=== PATIENT | male | born 1955 | race Caucasian/White ===

== ENCOUNTER → 2016-06-29 | Outpatient (CLI) | payer MEDICARE ==
[~2016-06-29] MED LIST: ACET50TAOT PO; AMLO10TA2 PO; ASPI1TAB PO; ATEN50TA2 PO; DOXY100T PO; KEFL500C7 PO; NASA1SPR; OMEP20CA3 PO; ROSU10TA PO; VIBR100C PO; XANA0.5T PO
[2016-06-29 10:21] LABS: MEAN CORPUSCULAR HEMOGLOBIN 31.8 pg (27.0-33.0); MEAN CORPUSCULAR HGB CONC 34.8 g/dl (32.0-36.5); MEAN CORPUSCULAR VOLUME 91.4 fl (80.0-96.0); RED CELL DISTRIBUTION WIDTH 13.1 % (11.5-14.5); WHITE BLOOD COUNT 6.9 K/mm3 (4.0-10.0)
[2016-06-29 10:39] LABS: ALBUMIN 3.8 GM/DL (3.2-5.2); ALBUMIN/GLOBULIN RATIO 1.31 (1.00-1.93); ALKALINE PHOSPHATASE 93 U/L (45-117); ALT/SGPT 52 U/L (12-78); ANION GAP 7 MEQ/L (8-16); AST/SGOT 20 U/L (15-37); BILIRUBIN,TOTAL 0.8 MG/DL (0.2-1.0); BLOOD UREA NITROGEN 15 MG/DL (7-18); CALCIUM LEVEL 8.6 MG/DL (8.8-10.2); CARBON DIOXIDE LEVEL 29 MEQ/L (21-32); CHLORIDE LEVEL 110 MEQ/L (98-107); CHOLESTEROL LEVEL 149 MG/DL (<200); GLOMERULAR FILTRATION RATE > 60.0 (>49); GLUCOSE, FASTING 93 MG/DL (80-110); MAGNESIUM LEVEL 2.1 MG/DL (1.8-2.4); POTASSIUM SERUM 4.2 MEQ/L (3.5-5.1); SODIUM LEVEL 146 MEQ/L (136-145); TOTAL PROTEIN 6.7 GM/DL (6.4-8.2); TRIGLYCERIDES LEVEL 126 MG/DL (<150)
== END ==
LOC: M LAB 08:44
PROVIDERS: ATTEND Family Medicine
DX: D64.9 Anemia, unspecified (principal); E03.9 Hypothyroidism, unspecified; Z79.899 Other long term (current) drug therapy

== ENCOUNTER → 2016-07-14 | Outpatient (CLI) | payer MEDICARE ==
--- NOTE | 2016-07-15 15:16 | REP ---
Chest x-ray: Two views. Repeat dictation. History: Question lymphoma or mass. Comparison study March 08, 2016. Findings: The lungs are symmetrically aerated and no infiltrates seen. Cardiomediastinal silhouette is unremarkable and unchanged. No mass or adenopathy is seen. Pleural angles are sharp sharp. Heart size is normal. There are minimal degenerative changes in the thoracic spine. Impression: No active disease. Signed by Aftab Mccray MD 07/15/2016 03:07 P
== END ==
LOC: M WUC 18:54
PROVIDERS: ATTEND Family Medicine
DX: R91.8 Other nonspecific abnormal finding of lung field (principal)

== ENCOUNTER → 2016-07-15 | Outpatient (CLI) | payer MEDICARE ==
[2016-07-15 07:30] LABS: MEAN CORPUSCULAR HEMOGLOBIN 31.3 pg (27.0-33.0); MEAN CORPUSCULAR HGB CONC 34.6 g/dl (32.0-36.5); MEAN CORPUSCULAR VOLUME 90.7 fl (80.0-96.0); RED CELL DISTRIBUTION WIDTH 13.2 % (11.5-14.5)
[2016-07-17 00:07] LABS: Lyme Disease IgG/IgM Antibodie <0.91 ISR (0.00-0.90); Lyme Disease IgM Ab Quantitati <0.80 index (0.00-0.79)
== END ==
LOC: M LAB 06:08
PROVIDERS: ATTEND Family Medicine
DX: C61 Malignant neoplasm of prostate (principal); E29.1 Testicular hypofunction

== ENCOUNTER → 2016-07-20 | Outpatient (CLI) | payer MEDICARE ==
--- NOTE | 2016-07-20 13:54 | REP ---
RIGHT AXILLARY ULTRASOUND: HISTORY: Pain in the right axilla. The patient relates that the referring doctor felt a lump. FINDINGS: Scanning of the right axillary soft tissues demonstrates a single normal-sized lymph node measuring 0.6 x 1.1 x 0.6 cm. No cyst or mass is seen. No abnormal acoustic shadowing is observed. IMPRESSION: Unremarkable right axillary ultrasound. Signed by Aftab Mccray MD 07/20/2016 02:07 P
--- NOTE | 2016-07-20 14:55 | REP ---
TWO VIEW CHEST: Two views of the chest are performed and compared with the prior study of 07/14/2016. There is no acute infiltrate or pulmonary edema. There is no change since the prior study. The heart is normal in size. There is some tortuosity of the thoracic aorta. The mediastinal silhouette is unchanged. There are mild degenerative changes of the spine. IMPRESSION: No active pulmonary disease with no change since the prior study. Signed by Geoff Mullins MD 07/20/2016 07:58 P
== END ==
LOC: M RAD 12:23
PROVIDERS: ATTEND Family Medicine
DX: N63 Unspecified lump in breast (principal)

== ENCOUNTER → 2016-08-20 | Outpatient (CLI) | payer MEDICARE ==
[2016-08-20 10:02] LABS: ALBUMIN/GLOBULIN RATIO 1.25 (1.00-1.93); BILIRUBIN,DIRECT 0.3 MG/DL (0.0-0.2); BILIRUBIN,TOTAL 1.1 MG/DL (0.2-1.0); TOTAL PROTEIN 7.2 GM/DL (6.4-8.2)
== END ==
LOC: M LAB 08:24
PROVIDERS: ATTEND Internal Medicine Cardiovascular Disease
DX: E78.00 Pure hypercholesterolemia, unspecified (principal)

== ENCOUNTER → 2016-08-20 | Outpatient (CLI) | payer MEDICARE | LOC: M LAB 08:31 | PROVIDERS: ATTEND Family Medicine | DX: E29.1 Testicular hypofunction (principal); C61 Malignant neoplasm of prostate; Z79.899 Other long term (current) drug therapy ==

== ENCOUNTER 2016-08-21 15:29 | Emergency (ER) | payer MEDICARE ==
[2016-08-21] MEDS ORDERED: methylPREDNISolone INJ 125 MG/2 ML VIAL (J2930) As Ordered ONE (16:02)
[2016-08-21] MEDS ORDERED: ALBUTEROL SULFATE 2.5 MG/0.5 ML INH NEB SOLN As Ordered ONE (16:07)
[2016-08-21] MEDS ORDERED: IPRATROPIUM 0.02% SOLN 0.5MG/2.5 ML NEB As Ordered ONE (16:07)
[2016-08-21 16:12] LABS: BASO % 0.4 % (0.0-1.0); EOS # 0.2 K/mm3 (0.0-0.50); EOS % 2.3 % (0.0-3.0); LARGE UNSTAINED CELL # 0.2 K/mm3 (0.0-0.4); LARGE UNSTAINED CELL % 1.5 % (0.0-4.0); MEAN CORPUSCULAR HEMOGLOBIN 32.3 pg (27.0-33.0); MEAN CORPUSCULAR HGB CONC 35.1 g/dl (32.0-36.5); MONO # 0.7 K/mm3 (0.0-0.8); MONO % 7.2 % (0.0-5.0); NEUTROPHILS % 69.7 % (36.0-66.0); PLATELET COUNT, AUTOMATED 214 k/mm3 (150-450); RED CELL DISTRIBUTION WIDTH 13.2 % (11.5-14.5)
[2016-08-21 16:24] LABS: ABG BASE EXCESS -0.5 (-2.0-2.0); ABG DEVICE NASAL CANN; ABG HCO3 22.7 MEQ/L (22.0-26.0); ABG PARTIAL PRESSURE CO2 33.5 mmHg (35.0-45.0); ABG TOTAL CO2 23.7 MEQ/L (23.0-31.0); ABG pH (ARTERIAL) 7.448 UNITS (7.350-7.450)
[2016-08-21 16:40] LABS: ANION GAP 9 MEQ/L (8-16); BLOOD UREA NITROGEN 19 MG/DL (7-18); CALCIUM LEVEL 8.5 MG/DL (8.8-10.2); CARBON DIOXIDE LEVEL 26 MEQ/L (21-32); CHLORIDE LEVEL 111 MEQ/L (98-107); CREATININE FOR GFR 1.29 MG/DL (0.70-1.30); GLOMERULAR FILTRATION RATE 59.9 (>49); GLUCOSE, FASTING 107 MG/DL (80-110); POTASSIUM SERUM 3.7 MEQ/L (3.5-5.1); SODIUM LEVEL 146 MEQ/L (136-145)
[2016-08-21] MEDS ORDERED: ISOVUE-370 76% 100ML VIAL (Q9967) As Ordered ONE (16:46)
--- NOTE | 2016-08-21 17:36 | REP ---
Clinical: Acute chest pain and shortness of breath. Technique: Axial contrast enhanced images from the thoracic inlet to the upper abdomen using 100 ml Isovue 370 intravenous contrast material with coronal and sagittal re-formations. Findings: Satisfactory enhancement of the pulmonary vasculature is achieved and no filling defects are identified to suggest pulmonary embolus. Thoracic aorta is normal caliber without aneurysm or dissection. Mild cardiomegaly suggested. No pericardial effusion. No adenopathy. Bilateral lung pruitt demonstrate minimal posterior basilar dependent changes and trace left basilar atelectasis. No acute consolidation, pleural effusion/reaction or pneumothorax. No significant pulmonary nodule or mass lesion. Impression: No evidence for pulmonary embolus. Mild posterior basilar dependent changes and trace left basilar atelectasis. Signed by Mariano Lopez MD 08/21/2016 05:27 P
--- NOTE | 2016-08-21 18:01 | EDDOCDS ---
Physician Documentation [facility] Name: Stan Castanon Age: 61 yrs Sex: Male : 1955 Arrival Date: 08/21/2016 Time: 15:29 Bed 6 Private MD: Alfred Morales Disposition: 08/21/16 17:47 Discharged to Home/Self Care. Impression: Pleurisy, Other chest pain. - Condition is Stable. - Discharge Instructions: Pleurisy. - Prescriptions for Tramadol 50 mg Oral Tablet - take 1 tablet by ORAL route 4 times per day As needed MDD: 4 tabs; 20 tablet. - Medication Reconciliation, Local Pharmacy Hours form. - Follow up: Alfred Morales; When: 4 - 5 days; Reason: Recheck today's complaints, Continuance of care. - Problem is an ongoing problem. - Symptoms are unchanged. Historical: - Allergies: Benadryl (Palpitations); Lisinopril (cough); - Home Meds: 1. aspirin 81 mg Oral chew 1 tab once daily 2. atenolol 50 mg Oral tab 1 tab once daily 3. amlodipine 10 mg Oral tab 1 tab once daily 4. Xanax 0.5 mg Oral tab four times a day as needed 5. penicillin V potassium 500 mg Oral tab four times a day 6. clopidogrel 75 mg oral tab 1 tab once daily 7. Vitamin D3 5,000 unit oral tab daily 8. Arnuity Ellipta 100 mcg/actuation inhalation dsdv 1 puff once daily 9. Crestor 5 mg Oral tab 1 tab once daily - PMHx: Anxiety; GERD; Hypercholesterolemia; Hypertension; OR; - PSHx: C5-C6 fusion; prostate seed implants; 3 cardiac stents; ortho knee surgery; - Social history: Smoking status: Patient states was never smoker of tobacco. No barriers to communication noted, The patient speaks fluent Israeli, Speaks appropriately for age. - Family history: Not pertinent. - : The pt / caregiver states he / she is on anticoagulants: Plavix. Home medication list is obtained from the patient. - Exposure Risk Screening:: None identified. Vital Signs: 08/21 15:31 BP 166 / 96; Pulse 82; Resp 17; Temp 97.6(O); Pulse Ox 97% on R/A; Weight 92.53 kg / lr2 203.99 lbs (R); Height 6 ft. 0 in. (182.88 cm) (R); Pain 5/10; 15:48 BP 147 / 88 (auto/); pml 15:50 Pulse 76 MON; Pulse Ox 97% ; pml 16:03 BP 144 / 85 (auto/); pml 16:04 Pulse 76 MON; Pulse Ox 96% ; pml 16:18 BP 140 / 82 (auto/); pml 16:19 Pulse 78 MON; Pulse Ox 97% ; pml 16:33 BP 126 / 79 (auto/); pml 16:34 Pulse 88 MON; Pulse Ox 95% ; pml 16:48 BP 141 / 82 (auto/); pml 16:49 Pulse 90 MON; Pulse Ox 96% ; pml 17:03 BP 123 / 74 (auto/); jjr 17:03 Pulse 88 MON; Pulse Ox 95% ; jjr 17:18 BP 130 / 69 (auto/); jjr 17:18 Pulse 88 MON; Resp 18; Pulse Ox 96% on R/A; jjr 17:48 BP 140 / 78 (auto/); ttb 17:48 Pulse 86 MON; Resp 18; Temp 97.4(O); Pulse Ox 95% on R/A; Pain 4/10; ttb 15:31 Body Mass Index 27.67 (92.53 kg, 182.88 cm) lr2 MDM: 15:51 Solu-MEDROL 125 mg IVP once ordered. ke 15:51 -Blood Culture (Adults Only), peripheral from different site, or from device/port/PICC ke etc. if present ordered. 15:51 Warning Coordination Meteorologist/Pulse Ox/q 15 min VS ordered. ke 15:51 IV Saline Lock ordered. ke 15:51 Oxygen at 4L/Min NC or Home dosage ordered. ke 15:51 Rhythm Strip to chart ordered. ke 15:51 Albuterol 5 mg Nebulizer once ordered. ke 15:51 Atrovent - Ipratropium 500 mcg Nebulizer once ordered. ke 15:51 Call Respiratory ordered. ke 15:51 -Arterial Blood Gas Ordered. EDMS 15:52 -Blood Culture Ordered. EDMS 15:52 B-Type Natiuretic Peptide Ordered. EDMS 15:52 Basic Metabolic Profile Ordered. EDMS 15:52 CBC with Diff Ordered. EDMS 15:52 Cardiac Injury Profile Ordered. EDMS 15:52 Troponin Ordered. EDMS 15:52 ECG WITH READING ER PHYS+CARDIAG ordered. EDMS 15:52 CT Chest Angio R/O PE Ordered. EDMS 16:00 Call Respiratory complete. deg 16:00 -Blood Culture (Adults Only), peripheral from different site, or from device/port/PICC deg etc. if present complete. 16:02 BLOOD CULTURES Ordered. EDMS 16:16 Financial registration complete. [email or web address] 16:18 [facility] Payment Agreement was scanned into [employer] and attached to record. ks16 17:39 -Arterial Blood Gas Reviewed. ke 17:39 Basic Metabolic Profile Reviewed. ke 17:39 CBC with Diff Reviewed. ke 17:39 B-Type Natiuretic Peptide Reviewed. ke 17:39 Cardiac Injury Profile Reviewed. ke 17:39 Troponin Reviewed. ke Administered Medications: 16:05 Drug: Solu-MEDROL 125 mg [Solu-Medrol 500 mg intravenous solution (125 mg)] Route: IVP; jjr Site: right antecubital; 16:21 Drug: Albuterol 5 mg [albuterol sulfate 2.5 mg/0.5 mL solution for nebulization (1 mL)] cs15 Route: Nebulizer; 16:21 Drug: Atrovent - Ipratropium 500 mcg [ipratropium bromide 0.02 % solution for cs15 inhalation (2.5 mL)] Route: Nebulizer; Signatures: Dispatcher [employer] EDLuna Bhakta, Grades 9 Thru 12 Visiting Teacher Unit deg Prasanna Menjivar, GOLF PROFESSIONAL GOLF PROFESSIONAL Prabhakar Stephens RN RN mlb1 Seema Oshea RN RN jjFelicia Fang RN RN pml Conner, Teresa, RN RN ttb Alma Delia Jaquez, Reg Reg ks16 Mamadou Anaya RT cs15 The chart was reviewed and I authenticate all verbal orders and agree with the evaluation and treatment provided.Attachments: 16:18 [facility] Payment Agreement [email or web address] MTDD
--- NOTE | 2016-08-21 18:02 | EDDOCDS ---
Nurse's Notes [facility] Name: Stan Castanon Age: 61 yrs Sex: Male : 1955 Arrival Date: 08/21/2016 Time: 15:29 Bed 6 Private MD: Alfred Morales Diagnosis: Pleurisy;Other chest pain Presentation: 08/21 15:33 Presenting complaint: Patient states: Cough over the past month bilateral axilla pain mlb1 over the past three weeks worsening SOB. Adult Sepsis Screening: The patient does not have new or worsening altered mentation. Patient's respiratory rate is less than 22. Systolic blood pressure is greater than 100. Patient has a qSOFA score of 0- Negative Sepsis Screen. Suicide/Homicide risk assessment- the patient denies having any suicidal and/or homicidal ideations and does not present with any other emotional, behavioral or mental health complaints. Status: Patient is not a direct service provider or dependent. Transition of care: patient was not received from another setting of care. 15:33 Acuity: BLUE Level 3 mlb1 15:33 Method Of Arrival: Walkin/Carried/Asstd mlb1 Triage Assessment: 15:39 General: Appears in no apparent distress, Behavior is anxious. Pain: Location: right mlb1 axilla left axilla Pain currently is 5 out of 10 on a pain scale. HIV screening NA for this visit Offered previously. Respiratory: Airway is patent Respiratory effort is even, unlabored, Reports cough that is non-productive, persistent. Historical: - Allergies: Benadryl (Palpitations); Lisinopril (cough); - Home Meds: 1. aspirin 81 mg Oral chew 1 tab once daily 2. atenolol 50 mg Oral tab 1 tab once daily 3. amlodipine 10 mg Oral tab 1 tab once daily 4. Xanax 0.5 mg Oral tab four times a day as needed 5. penicillin V potassium 500 mg Oral tab four times a day 6. clopidogrel 75 mg oral tab 1 tab once daily 7. Vitamin D3 5,000 unit oral tab daily 8. Arnuity Ellipta 100 mcg/actuation inhalation dsdv 1 puff once daily 9. Crestor 5 mg Oral tab 1 tab once daily - PMHx: Anxiety; GERD; Hypercholesterolemia; Hypertension; ND; - PSHx: C5-C6 fusion; prostate seed implants; 3 cardiac stents; ortho knee surgery; - Social history: Smoking status: Patient states was never smoker of tobacco. No barriers to communication noted, The patient speaks fluent Ethiopian, Speaks appropriately for age. - Family history: Not pertinent. - : The pt / caregiver states he / she is on anticoagulants: Plavix. Home medication list is obtained from the patient. - Exposure Risk Screening:: None identified. Screenin:44 Infection Control. kc3 15:50 Screening information is obtained from the patient. Fall risk: No risks identified. pml Assistance ADL's: requires no assistance with activities of daily living. Abuse/DV Screen: The patient / caregiver reports he/she is: not in a situation that causes fear, pain or injury. Nutritional screening: No deficits noted. Advance Directives: Currently, there is no health care proxy. home support is adequate. Assessment: 15:50 General: Appears in no apparent distress, comfortable, Behavior is appropriate for age, pml cooperative. Pain: Location: right axilla and left axilla Pain currently is 5 out of 10 on a pain scale. Neurological: Level of Consciousness is awake, alert, Oriented to person, place, time. Cardiovascular: Capillary refill < 3 seconds. Respiratory: Airway is patent Respiratory effort is even, unlabored, Breath sounds are clear bilaterally. GI: Abdomen is non- distended. Derm: Skin is pink, warm & dry. 16:53 General: resting on stretcher, no apparent distress. resps easy and unlabored, skin pml p/w/d. sinus rhythm on monitor. . 17:58 Reassessment: Patient appears in no apparent distress at this time. Patient states ttb feeling better. Patient states symptoms have improved. pt states he is ready for DC and feels comfortable going home. . Adult Sepsis Screening: The patient does not have new or worsening altered mentation. Patient's respiratory rate is less than 22. Systolic blood pressure is greater than 100. Patient has a qSOFA score of 0- Negative Sepsis Screen. General: Appears in no apparent distress, comfortable, Behavior is appropriate for age, cooperative, pleasant. Pain: Location: right axilla. Neurological: Level of Consciousness is awake, alert. Cardiovascular: Chest pain is denied. Respiratory: Airway is patent Respiratory effort is even, unlabored, Reports cough that is persistent. GI: Denies nausea, vomiting. Derm: Skin is normal. Vital Signs: 15:31 BP 166 / 96; Pulse 82; Resp 17; Temp 97.6(O); Pulse Ox 97% on R/A; Weight 92.53 kg (R); lr2 Height 6 ft. 0 in. (182.88 cm) (R); Pain 5/10; 15:48 BP 147 / 88 (auto/); pml 15:50 Pulse 76 MON; Pulse Ox 97% ; pml 16:03 BP 144 / 85 (auto/); pml 16:04 Pulse 76 MON; Pulse Ox 96% ; pml 16:18 BP 140 / 82 (auto/); pml 16:19 Pulse 78 MON; Pulse Ox 97% ; pml 16:33 BP 126 / 79 (auto/); pml 16:34 Pulse 88 MON; Pulse Ox 95% ; pml 16:48 BP 141 / 82 (auto/); pml 16:49 Pulse 90 MON; Pulse Ox 96% ; pml 17:03 BP 123 / 74 (auto/); jjr 17:03 Pulse 88 MON; Pulse Ox 95% ; jjr 17:18 BP 130 / 69 (auto/); jjr 17:18 Pulse 88 MON; Resp 18; Pulse Ox 96% on R/A; jjr 17:48 BP 140 / 78 (auto/); ttb 17:48 Pulse 86 MON; Resp 18; Temp 97.4(O); Pulse Ox 95% on R/A; Pain 4/10; ttb 15:31 Body Mass Index 27.67 (92.53 kg, 182.88 cm) lr2 Vitals: 15:31 Log In Time: August 21, 2016 at 15:29. lr2 ED Course: 15:31 Patient visited by Francine Dunlap. lr2 15:31 Patient moved to Waiting lr2 15:32 Alfred Morales is Private Physician. lr2 15:32 Patient moved to Pre RCE lr2 15:33 Patient visited by Prabhakar Millard, BIA. mlb1 15:35 Triage Initiated mlb1 15:40 Patient visited by Prabhakar Millard, BIA. mlb1 15:40 Patient moved to Triage 1 mlb1 15:43 [facility] ke 15:43 Patient visited by Prasanna Menjivar FNP. ke 15:43 Patient visited by Prasanna Menjivar FNP. ke 15:43 Patient moved to 6 [facility] 15:48 Inserted peripheral IV: 18gauge IV in right antecubital area and blood collected. pml Patient tolerated the procedure well. 15:50 The patient / caregiver is instructed regarding the plan of care and ED course. Patient pml has correct armband on for positive identification. Placed in gown. Bed in low position. Call light in reach. Side rails up X2. 15:52 Patient visited by Felicia Diaz RN. pml 16:00 EKG done. (by ED staff). Reviewed by Prasanna SHAH. jrd 16:18 [facility] [place] [place] Payment Agreement was scanned into [employer] and attached to record. ks16 16:21 -Arterial Blood Gas Sent. cs15 16:27 Patient visited by Prasanna Menjivar FNP. ke 16:58 Patient visited by Prasanna Menjivar FNP. ke 17:28 Patient visited by Prasanna Menjivar FNP. ke 17:46 Alfred Morales is Referral Physician. ke 17:48 Discontinued IV lock intact, bleeding controlled, pressure dressing applied, No ttb redness/swelling at site. No procedures done that require assistance. 17:57 CT Chest Angio R/O PE Returned. EDMS Administered Medications: 16:05 Drug: Solu-MEDROL 125 mg [Solu-Medrol 500 mg intravenous solution (125 mg)] Route: IVP; jjr Site: right antecubital; 16:21 Drug: Albuterol 5 mg [albuterol sulfate 2.5 mg/0.5 mL solution for nebulization (1 mL)] cs15 Route: Nebulizer; 16:21 Drug: Atrovent - Ipratropium 500 mcg [ipratropium bromide 0.02 % solution for cs15 inhalation (2.5 mL)] Route: Nebulizer; RT: 16:21 ABG's drawn from left radial artery allens test done and positive pressure held for 5 cs15 minutes no bleeding noted pressure bandage applied specimen sent pt. tolerated well. Initial Med Neb Given as ordered. Oxygen is room air. Respiratory: Respiratory effort is unlabored, Respiratory pattern is regular Breath sounds are clear Breath sounds are diminished bilaterally. Order Results: Lab Order: -Arterial Blood Gas; SPEC'M 08/21/16 16:19 Test: ABG pH (ARTERIAL); Value: 7.448; Range: 7.350-7.450; Units: UNITS; Status: F Test: ABG PARTIAL PRESSURE CO2; Value: 33.5; Range: 35.0-45.0; Abnormal: Below low normal; Units: mmHg; Status: F Test: ABG PARTIAL PRESSURE O2; Value: 76.0; Range: 75.0-100.0; Units: mmHg; Status: F Test: ABG TOTAL CO2; Value: 23.7; Range: 23.0-31.0; Units: MEQ/L; Status: F Test: ABG HCO3; Value: 22.7; Range: 22.0-26.0; Units: MEQ/L; Status: F Test: ABG BASE EXCESS; Value: -0.5; Range: -2.0-2.0; Status: F Test: ABG STANDARD HCO3; Value: 24.0; Range: 22.0-26.0; Units: MEQ/L; Status: F Test: ABG O2 SATURATION; Value: 95.7; Range: 95.0-99.0; Units: %; Status: F Test: ABG DEVICE; Value: NASAL JYOTI; Status: F Lab Order: B-Type Natiuretic Peptide; [facility] 08/21/16 16:04 Test: BRAIN NATRIURETIC PEPTIDE; Value: 21.9; Range: <100; Units: PG/ML; Status: F Lab Order: Basic Metabolic Profile; [facility] 08/21/16 16:04 Test: GLUCOSE, FASTING; Value: 107; Range: 80-110; Units: MG/DL; Status: F Test: BLOOD UREA NITROGEN; Value: 19; Range: 7-18; Abnormal: Above high normal; Units: MG/DL; Status: F Test: CREATININE FOR GFR; Value: 1.29; Range: 0.70-1.30; Units: MG/DL; Status: F Test: GLOMERULAR FILTRATION RATE; Value: 59.9; Range: >49; Status: F Test: SODIUM LEVEL; Value: 146; Range: 136-145; Abnormal: Above high normal; Units: MEQ/L; Status: F Test: POTASSIUM SERUM; Value: 3.7; Range: 3.5-5.1; Units: MEQ/L; Status: F Test: CHLORIDE LEVEL; Value: 111; Range: 98-107; Abnormal: Above high normal; Units: MEQ/L; Status: F Test: CARBON DIOXIDE LEVEL; Value: 26; Range: 21-32; Units: MEQ/L; Status: F Test: ANION GAP; Value: 9; Range: 8-16; Units: MEQ/L; Status: F Test: CALCIUM LEVEL; Value: 8.5; Range: 8.8-10.2; Abnormal: Below low normal; Units: MG/DL; Status: F Test Note: ; Units are mL/min/1.73 m2 Chronic Kidney Disease Staging per NKF: Stage I & II GFR >=60 Normal to Mildly Decreased Stage III GFR 30-59 Moderately Decreased Stage IV GFR 15-29 Severely Decreased Stage V GFR <15 Very Little GFR Left ESRD GFR <15 on [employer]PORATE AFFAIRS MANAGER Lab Order: CBC with Diff; SPEC'M 08/21/16 16:04 Test: WHITE BLOOD COUNT; Value: 10.0; Range: 4.0-10.0; Units: K/mm3; Status: F Test: RED BLOOD COUNT; Value: 5.08; Range: 4.30-6.10; Units: M/mm3; Status: F Test: HEMOGLOBIN; Value: 16.4; Range: 14.0-18.0; Units: g/dl; Status: F Test: HEMATOCRIT; Value: 46.8; Range: 42.0-52.0; Units: %; Status: F Test: MEAN CORPUSCULAR VOLUME; Value: 92.0; Range: 80.0-96.0; Units: fl; Status: F Test: MEAN CORPUSCULAR HEMOGLOBIN; Value: 32.3; Range: 27.0-33.0; Units: pg; Status: F Test: MEAN CORPUSCULAR HGB CONC; Value: 35.1; Range: 32.0-36.5; Units: g/dl; Status: F Test: RED CELL DISTRIBUTION WIDTH; Value: 13.2; Range: 11.5-14.5; Units: %; Status: F Test: PLATELET COUNT, AUTOMATED; Value: 214; Range: 150-450; Units: k/mm3; Status: F Test: NEUTROPHILS %; Value: 69.7; Range: 36.0-66.0; Abnormal: Above high normal; Units: %; Status: F Test: LYMPH %; Value: 19.0; Range: 24.0-44.0; Abnormal: Below low normal; Units: %; Status: F Test: MONO %; Value: 7.2; Range: 0.0-5.0; Abnormal: Above high normal; Units: %; Status: F Test: EOS %; Value: 2.3; Range: 0.0-3.0; Units: %; Status: F Test: BASO %; Value: 0.4; Range: 0.0-1.0; Units: %; Status: F Test: LARGE UNSTAINED CELL %; Value: 1.5; Range: 0.0-4.0; Units: %; Status: F Test: NEUTROPHILS #; Value: 7.0; Range: 1.8-7.7; Units: K/mm3; Status: F Test: LYMPH #; Value: 2.0; Range: 1.5-4.5; Units: K/mm3; Status: F Test: MONO #; Value: 0.7; Range: 0.0-0.8; Units: K/mm3; Status: F Test: EOS #; Value: 0.2; Range: 0.0-0.50; Units: K/mm3; Status: F Test: BASO #; Value: 0.0; Range: 0.0-0.2; Units: K/mm3; Status: F Test: LARGE UNSTAINED CELL #; Value: 0.2; Range: 0.0-0.4; Units: K/mm3; Status: F Lab Order: Cardiac Injury Profile; SPEC'M 08/21/16 16:04 Test: CPK CREATINE PHOSPHOKINASE; Value: 165; Range: 39-308; Units: U/L; Status: F Test: CK-MB VALUE MASS; Value: 1.3; Range: 0.0-3.6; Units: NG/ML; Status: F Test: MB/CK RELATIVE INDEX; Value: 0.78; Range: < OR =4; Status: F Test Note: ; DIAGNOSIS CRITERIA MMB ng/ml Relative Index (RI) NON-AMI < or = 5 N/A [place]ONE > 5 < or = 4 AMI > 5 > 4 Lab Order: Troponin; SPEC'M 08/21/16 16:04 Test: TROPONIN I; Value: < 0.02; Range: < 0.10; Units: NG/ML; Status: F Test Note: ; Troponin I Reference Interval for Siemens Dexter LOCI: 99th Percentile= 0.00-0.045 ng/ml Risk Stratification: <= 0.10 ng/ml Decreased Risk for Adverse Clinical Events. 0.10-1.50 ng/ml Increased Risk for Adverse Clinical Events. Evaluation of additional criterion and/or repeat testing in 2-6 hours is suggested to rule out myocardial damage. >= 1.50 ng/ml Indicative of Myocardial Injury. Radiology Order: CT Chest Angio R/O PE Test: CT Chest Angio R/O PE REASON FOR EXAMINATION: Shortness of Breath; Clinical: Acute chest pain and shortness of breath.; ; Technique: Axial contrast enhanced images from the thoracic inlet to the upper; abdomen using 100 ml Isovue 370 intravenous contrast material with coronal and; sagittal re-formations.; ; Findings: Satisfactory enhancement of the pulmonary vasculature is achieved and; no filling defects are identified to suggest pulmonary embolus. Thoracic aorta; is normal caliber without aneurysm or dissection. Mild cardiomegaly suggested.; No pericardial effusion. No adenopathy. Bilateral lung pruitt demonstrate; minimal posterior basilar dependent changes and trace left basilar atelectasis.; No acute consolidation, pleural effusion/reaction or pneumothorax. No; significant pulmonary nodule or mass lesion.; ; Impression:; No evidence for pulmonary embolus.; Mild posterior basilar dependent changes and trace left basilar atelectasis.; ; ; Signed by; Mariano Lopez MD 08/21/2016 05:27 P; Outcome: 17:47 Discharge ordered by Provider. 17:48 Discharge Assessment: Patient awake, alert and oriented x 3. No cognitive and/or ttb functional deficits noted. Patient verbalized understanding of disposition instructions. Patient awake and alert. patient administered narcotics - no. The following High Risk Discharge criteria are identified: None. Discharged to home ambulatory, with significant other. Condition: good Condition: stable Condition: improved. Discharge instructions given to patient, significant other, Instructed on discharge instructions, follow up and referral plans. medication usage, no driving heavy equipment, no drinking with medication, Demonstrated understanding of instructions, medications, no d/d with Tramadol Pt was receptive of discharge instructions/ teaching. Prescriptions given X 1. CT Study completed. Property :Personal belongings accompany Pt. 18:01 Patient left the ED. ttb Signatures: Dispatcher [employer] EDPrasanna Eaton, CAR ICER CAR ICER Prabhakar Stephens RN RN mlb1 Seema Oshea, RN RN jjFelicia Fang,RN RN Jackelin Allen Teresa RN RN ttb Tin Bhandari, CERTIFIED MEDICAL ASSISTANT CERTIFIED MEDICAL ASSISTANT Sia Moore,RN RN kc3 Mamadou Anaya,RT RT cs15 Alma Delia Jaquez, Reg Reg ks16 Francine Dunlap2 MTDD
--- NOTE | 2016-08-21 18:11 | ECGEPIP ---
Stationary ECG Study [facility] - ED Test Date: 2016-08-21 Pat Name: DIDI VILLA Department: Room: - Gender: M Cage Unloader: marilyn : 1955 Requested By: SHAISTA SHAH Order Number: [id number] Reading MD: Barry Chaudhry Measurements Intervals [place] Rate: 76 P: 35 TN: 172 QRS: -35 QRSD: 126 T: 33 QT: 397 QTc: 446 Interpretive Statements SINUS RHYTHM LEFT AXIS DEVIATION POSSIBLE PRIOR INFERIOR INFARCT Electronically Signed On 08-21-2016 18:11:29 EST by Barry Chaudhry
--- NOTE | 2016-08-23 19:01 | EDDOCDS ---
Nurse's Notes [facility] Name: Didi Castanon Age: 61 yrs Sex: Male : 1955 Arrival Date: 08/21/2016 Time: 15:29 Bed 6 Private MD: Alfred Morales Diagnosis: Pleurisy;Other chest pain Presentation: 08/21 15:33 Presenting complaint: Patient states: Cough over the past month bilateral axilla pain mlb1 over the past three weeks worsening SOB. Adult Sepsis Screening: The patient does not have new or worsening altered mentation. Patient's respiratory rate is less than 22. Systolic blood pressure is greater than 100. Patient has a qSOFA score of 0- Negative Sepsis Screen. Suicide/Homicide risk assessment- the patient denies having any suicidal and/or homicidal ideations and does not present with any other emotional, behavioral or mental health complaints. 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 Transition of care: patient was not received from another setting of care. 15:33 Acuity: BLUE Level 3 mlb1 15:33 Method Of Arrival: Walkin/Carried/Asstd mlb1 Triage Assessment: 15:39 General: Appears in no apparent distress, Behavior is anxious. Pain: Location: right mlb1 axilla left axilla Pain currently is 5 out of 10 on a pain scale. HIV screening NA for this visit Offered previously. Respiratory: Airway is patent Respiratory effort is even, unlabored, Reports cough that is non-productive, persistent. Historical: - Allergies: Benadryl (Palpitations); Lisinopril (cough); - Home Meds: 1. aspirin 81 mg Oral chew 1 tab once daily 2. atenolol 50 mg Oral tab 1 tab once daily 3. amlodipine 10 mg Oral tab 1 tab once daily 4. Xanax 0.5 mg Oral tab four times a day as needed 5. penicillin V potassium 500 mg Oral tab four times a day 6. clopidogrel 75 mg oral tab 1 tab once daily 7. Vitamin D3 5,000 unit oral tab daily 8. Arnuity Ellipta 100 mcg/actuation inhalation dsdv 1 puff once daily 9. Crestor 5 mg Oral tab 1 tab once daily - PMHx: Anxiety; GERD; Hypercholesterolemia; Hypertension; [place]; - PSHx: C5-C6 fusion; prostate seed implants; 3 cardiac stents; ortho knee surgery; - Social history: Smoking status: Patient states was never smoker of tobacco. No barriers to communication noted, The patient speaks fluent Colombian, Speaks appropriately for age. - Family history: Not pertinent. - : The pt / caregiver states he / she is on anticoagulants: Plavix. Home medication list is obtained from the patient. - Exposure Risk Screening:: None identified. Screenin:44 Infection Control. kc3 15:50 Screening information is obtained from the patient. Fall risk: No risks identified. pml Assistance ADL's: requires no assistance with activities of daily living. Abuse/DV Screen: The patient / caregiver reports he/she is: not in a situation that causes fear, pain or injury. Nutritional screening: No deficits noted. Advance Directives: Currently, there is no health care proxy. home support is adequate. Assessment: 15:50 General: Appears in no apparent distress, comfortable, Behavior is appropriate for age, pml cooperative. Pain: Location: right axilla and left axilla Pain currently is 5 out of 10 on a pain scale. Neurological: Level of Consciousness is awake, alert, Oriented to person, place, time. Cardiovascular: Capillary refill < 3 seconds. Respiratory: Airway is patent Respiratory effort is even, unlabored, Breath sounds are clear bilaterally. GI: Abdomen is non- distended. Derm: Skin is pink, warm & dry. 16:53 General: resting on stretcher, no apparent distress. resps easy and unlabored, skin pml p/w/d. sinus rhythm on monitor. . 17:58 Reassessment: Patient appears in no apparent distress at this time. Patient states ttb feeling better. Patient states symptoms have improved. pt states he is ready for DC and feels comfortable going home. . Adult Sepsis Screening: The patient does not have new or worsening altered mentation. Patient's respiratory rate is less than 22. Systolic blood pressure is greater than 100. Patient has a qSOFA score of 0- Negative Sepsis Screen. General: Appears in no apparent distress, comfortable, Behavior is appropriate for age, cooperative, pleasant. Pain: Location: right axilla. Neurological: Level of Consciousness is awake, alert. Cardiovascular: Chest pain is denied. Respiratory: Airway is patent Respiratory effort is even, unlabored, Reports cough that is persistent. GI: Denies nausea, vomiting. Derm: Skin is normal. Vital Signs: 15:31 BP 166 / 96; Pulse 82; Resp 17; Temp 97.6(O); Pulse Ox 97% on R/A; Weight 92.53 kg (R); lr2 Height 6 ft. 0 in. (182.88 cm) (R); Pain 5/10; 15:48 BP 147 / 88 (auto/); pml 15:50 Pulse 76 MON; Pulse Ox 97% ; pml 16:03 BP 144 / 85 (auto/); pml 16:04 Pulse 76 MON; Pulse Ox 96% ; pml 16:18 BP 140 / 82 (auto/); pml 16:19 Pulse 78 MON; Pulse Ox 97% ; pml 16:33 BP 126 / 79 (auto/); pml 16:34 Pulse 88 MON; Pulse Ox 95% ; pml 16:48 BP 141 / 82 (auto/); pml 16:49 Pulse 90 MON; Pulse Ox 96% ; pml 17:03 BP 123 / 74 (auto/); jjr 17:03 Pulse 88 MON; Pulse Ox 95% ; jjr 17:18 BP 130 / 69 (auto/); jjr 17:18 Pulse 88 MON; Resp 18; Pulse Ox 96% on R/A; jjr 17:48 BP 140 / 78 (auto/); ttb 17:48 Pulse 86 MON; Resp 18; Temp 97.4(O); Pulse Ox 95% on R/A; Pain 4/10; ttb 15:31 Body Mass Index 27.67 (92.53 kg, 182.88 cm) lr2 Vitals: 15:31 Log In Time: August 21, 2016 at 15:29. lr2 ED Course: 15:31 Patient visited by Francine Dunlap. lr2 15:31 Patient moved to Waiting lr2 15:32 Alfred Morales is Private Physician. lr2 15:32 Patient moved to Pre RCE lr2 15:33 Patient visited by Prabhakar Millard, BIA. mlb1 15:35 Triage Initiated mlb1 15:40 Patient visited by Prabhakar Millard, BIA. mlb1 15:40 Patient moved to Triage 1 mlb1 15:43 Prasanna Menjivar FNP is [facility]. ke 15:43 Patient visited by Prasanna Menjivar FNP. ke 15:43 Patient visited by Prasanna Menjivar FNP. ke 15:43 Patient moved to [facility] [place] 15:48 Inserted peripheral IV: 18gauge IV in right antecubital area and blood collected. pml Patient tolerated the procedure well. 15:50 The patient / caregiver is instructed regarding the plan of care and ED course. Patient pml has correct armband on for positive identification. Placed in gown. Bed in low position. Call light in reach. Side rails up X2. 15:52 Patient visited by Felicia Diaz RN. pml 16:00 EKG done. (by ED staff). Reviewed by Prasanna SHAH. jrd 16:18 [facility] [place] was scanned into [employer] and attached to record. ks16 16:21 -Arterial Blood Gas Sent. cs15 16:27 Patient visited by Prasanna Menjivar FNP. ke 16:58 Patient visited by Prasanna Menjivar FNP. ke 17:28 Patient visited by Prasanna Menjivar FNP. ke 17:46 Alfred Morales is Referral Physician. ke 17:48 Discontinued IV lock intact, bleeding controlled, pressure dressing applied, No ttb redness/swelling at site. No procedures done that require assistance. 17:57 CT Chest Angio R/O PE Returned. EDMS 18:38 EKG-ADULT Returned. EDMS 02 09:31 T-Sheet-- Draft Copy was scanned into [employer] and attached to record. se Administered Medications: 08/21 16:05 Drug: Solu-MEDROL 125 mg [Solu-Medrol 500 mg intravenous solution (125 mg)] Route: IVP; jjr Site: right antecubital; 16:21 Drug: Albuterol 5 mg [albuterol sulfate 2.5 mg/0.5 mL solution for nebulization (1 mL)] cs15 Route: Nebulizer; 16:21 Drug: Atrovent - Ipratropium 500 mcg [ipratropium bromide 0.02 % solution for cs15 inhalation (2.5 mL)] Route: Nebulizer; RT: 16:21 ABG's drawn from left radial artery allens test done and positive pressure held for 5 cs15 minutes no bleeding noted pressure bandage applied specimen sent pt. tolerated well. Initial Med Neb Given as ordered. Oxygen is room air. Respiratory: Respiratory effort is unlabored, Respiratory pattern is regular Breath sounds are clear Breath sounds are diminished bilaterally. Order Results: Lab Order: -Arterial Blood Gas; [facility] 08/21/16 16:19 Test: ABG pH (ARTERIAL); Value: 7.448; Range: 7.350-7.450; Units: UNITS; Status: F Test: ABG PARTIAL PRESSURE CO2; Value: 33.5; Range: 35.0-45.0; Abnormal: Below low normal; Units: mmHg; Status: F Test: ABG PARTIAL PRESSURE O2; Value: 76.0; Range: 75.0-100.0; Units: mmHg; Status: F Test: ABG TOTAL CO2; Value: 23.7; Range: 23.0-31.0; Units: MEQ/L; Status: F Test: ABG HCO3; Value: 22.7; Range: 22.0-26.0; Units: MEQ/L; Status: F Test: ABG BASE EXCESS; Value: -0.5; Range: -2.0-2.0; Status: F Test: ABG STANDARD HCO3; Value: 24.0; Range: 22.0-26.0; Units: MEQ/L; Status: F Test: ABG O2 SATURATION; Value: 95.7; Range: 95.0-99.0; Units: %; Status: F Test: ABG DEVICE; Value: NASAL JYOTI; Status: F Lab Order: -Blood Culture; SPEC 08/21/16 16:04 Test: BLOOD CULTURE; Value: No growth after 24 hours . All specimens observed; Status: F Test: BLOOD CULTURE; Value: for 5 days. Results final at that time.; Status: F Test: BLOOD CULTURE; Value: No Growth after 48 hours. All Specimens observed; Status: F Test: BLOOD CULTURE; Value: for 7 days. Results final at that time.; Status: F Lab Order: B-Type Natiuretic Peptide; [facility] 08/21/16 16:04 Test: BRAIN NATRIURETIC PEPTIDE; Value: 21.9; Range: <100; Units: PG/ML; Status: F Lab Order: Basic Metabolic Profile; [facility] 08/21/16 16:04 Test: GLUCOSE, FASTING; Value: 107; Range: 80-110; Units: MG/DL; Status: F Test: BLOOD UREA NITROGEN; Value: 19; Range: 7-18; Abnormal: Above high normal; Units: MG/DL; Status: F Test: CREATININE FOR GFR; Value: 1.29; Range: 0.70-1.30; Units: MG/DL; Status: F Test: GLOMERULAR FILTRATION RATE; Value: 59.9; Range: >49; Status: F Test: SODIUM LEVEL; Value: 146; Range: 136-145; Abnormal: Above high normal; Units: MEQ/L; Status: F Test: POTASSIUM SERUM; Value: 3.7; Range: 3.5-5.1; Units: MEQ/L; Status: F Test: CHLORIDE LEVEL; Value: 111; Range: 98-107; Abnormal: Above high normal; Units: MEQ/L; Status: F Test: CARBON DIOXIDE LEVEL; Value: 26; Range: 21-32; Units: MEQ/L; Status: F Test: ANION GAP; Value: 9; Range: 8-16; Units: MEQ/L; Status: F Test: CALCIUM LEVEL; Value: 8.5; Range: 8.8-10.2; Abnormal: Below low normal; Units: MG/DL; Status: F Test Note: ; Units are mL/min/1.73 m2 Chronic Kidney Disease Staging per NKF: Stage I & II GFR >=60 Normal to Mildly Decreased Stage III GFR 30-59 Moderately Decreased Stage IV GFR 15-29 Severely Decreased Stage V GFR <15 Very Little GFR Left ESRD GFR <15 on ASSEMBLY MACHINE TOOL SETTER Lab Order: CBC with Diff; SPEC'M 08/21/16 16:04 Test: WHITE BLOOD COUNT; Value: 10.0; Range: 4.0-10.0; Units: K/mm3; Status: F Test: RED BLOOD COUNT; Value: 5.08; Range: 4.30-6.10; Units: M/mm3; Status: F Test: HEMOGLOBIN; Value: 16.4; Range: 14.0-18.0; Units: g/dl; Status: F Test: HEMATOCRIT; Value: 46.8; Range: 42.0-52.0; Units: %; Status: F Test: MEAN CORPUSCULAR VOLUME; Value: 92.0; Range: 80.0-96.0; Units: fl; Status: F Test: MEAN CORPUSCULAR HEMOGLOBIN; Value: 32.3; Range: 27.0-33.0; Units: pg; Status: F Test: MEAN CORPUSCULAR HGB CONC; Value: 35.1; Range: 32.0-36.5; Units: g/dl; Status: F Test: RED CELL DISTRIBUTION WIDTH; Value: 13.2; Range: 11.5-14.5; Units: %; Status: F Test: PLATELET COUNT, AUTOMATED; Value: 214; Range: 150-450; Units: k/mm3; Status: F Test: NEUTROPHILS %; Value: 69.7; Range: 36.0-66.0; Abnormal: Above high normal; Units: %; Status: F Test: LYMPH %; Value: 19.0; Range: 24.0-44.0; Abnormal: Below low normal; Units: %; Status: F Test: MONO %; Value: 7.2; Range: 0.0-5.0; Abnormal: Above high normal; Units: %; Status: F Test: EOS %; Value: 2.3; Range: 0.0-3.0; Units: %; Status: F Test: BASO %; Value: 0.4; Range: 0.0-1.0; Units: %; Status: F Test: LARGE UNSTAINED CELL %; Value: 1.5; Range: 0.0-4.0; Units: %; Status: F Test: NEUTROPHILS #; Value: 7.0; Range: 1.8-7.7; Units: K/mm3; Status: F Test: LYMPH #; Value: 2.0; Range: 1.5-4.5; Units: K/mm3; Status: F Test: MONO #; Value: 0.7; Range: 0.0-0.8; Units: K/mm3; Status: F Test: EOS #; Value: 0.2; Range: 0.0-0.50; Units: K/mm3; Status: F Test: BASO #; Value: 0.0; Range: 0.0-0.2; Units: K/mm3; Status: F Test: LARGE UNSTAINED CELL #; Value: 0.2; Range: 0.0-0.4; Units: K/mm3; Status: F Lab Order: Cardiac Injury Profile; SPEC'M 08/21/16 16:04 Test: CPK CREATINE PHOSPHOKINASE; Value: 165; Range: 39-308; Units: U/L; Status: F Test: CK-MB VALUE MASS; Value: 1.3; Range: 0.0-3.6; Units: NG/ML; Status: F Test: MB/CK RELATIVE INDEX; Value: 0.78; Range: < OR =4; Status: F Test Note: ; DIAGNOSIS CRITERIA MMB ng/ml Relative Index (RI) NON-AMI < or = 5 N/A [place]ONE > 5 < or = 4 AMI > 5 > 4 Lab Order: Troponin; SPEC'M 08/21/16 16:04 Test: TROPONIN I; Value: < 0.02; Range: < 0.10; Units: NG/ML; Status: F Test Note: ; Troponin I Reference Interval for [place] LOCI: 99th Percentile= 0.00-0.045 ng/ml Risk Stratification: <= 0.10 ng/ml Decreased Risk for Adverse Clinical Events. 0.10-1.50 ng/ml Increased Risk for Adverse Clinical Events. Evaluation of additional criterion and/or repeat testing in 2-6 hours is suggested to rule out myocardial damage. >= 1.50 ng/ml Indicative of Myocardial Injury. Lab Order: BLOOD CULTURES; SPEC'M 08/21/16 16:04 Test: BLOOD CULTURE; Value: No growth after 24 hours . All specimens observed; Status: F Test: BLOOD CULTURE; Value: for 5 days. Results final at that time.; Status: F Test: BLOOD CULTURE; Value: No Growth after 48 hours. All Specimens observed; Status: F Test: BLOOD CULTURE; Value: for 7 days. Results final at that time.; Status: F Radiology Order: EKG-ADULT Test: EKG-ADULT REASON FOR EXAMINATION: Shortness of Breath; Stationary ECG Study; [facility] - ED; ; Test Date: 2016-08-21; Pat Name: DIDI CASTANON Department:; Room: -; Gender: M Production Manufacturing Worker: marilyn; : 1955 Requested By: PRASANNA SHAH; Order Number: [id number] Antonette MD: Barry Chaudhry; Measurements; Intervals [place]; Rate: 76 P: 35; NH: 172 QRS: -35; QRSD: 126 T: 33; QT: 397; QTc: 446; Interpretive Statements; SINUS RHYTHM; LEFT AXIS DEVIATION; POSSIBLE PRIOR INFERIOR INFARCT; Electronically Signed On 08-21-2016 18:11:29 EST by Barry Chaudhry; Radiology Order: CT Chest Angio R/O PE Test: CT Chest Angio R/O PE REASON FOR EXAMINATION: Shortness of Breath; Clinical: Acute chest pain and shortness of breath.; ; Technique: Axial contrast enhanced images from the thoracic inlet to the upper; abdomen using 100 ml Isovue 370 intravenous contrast material with coronal and; sagittal re-formations.; ; Findings: Satisfactory enhancement of the pulmonary vasculature is achieved and; no filling defects are identified to suggest pulmonary embolus. Thoracic aorta; is normal caliber without aneurysm or dissection. Mild cardiomegaly suggested.; No pericardial effusion. No adenopathy. Bilateral lung pruitt demonstrate; minimal posterior basilar dependent changes and trace left basilar atelectasis.; No acute consolidation, pleural effusion/reaction or pneumothorax. No; significant pulmonary nodule or mass lesion.; ; Impression:; No evidence for pulmonary embolus.; Mild posterior basilar dependent changes and trace left basilar atelectasis.; ; ; Signed by; Mariano Lopez MD 08/21/2016 05:27 P; Outcome: 17:47 Discharge ordered by Provider. maria dolores 17:48 Discharge Assessment: Patient awake, alert and oriented x 3. No cognitive and/or ttb functional deficits noted. Patient verbalized understanding of disposition instructions. Patient awake and alert. patient administered narcotics - no. The following High Risk Discharge criteria are identified: None. Discharged to home ambulatory, with significant other. Condition: good Condition: stable Condition: improved. Discharge instructions given to patient, significant other, Instructed on discharge instructions, follow up and referral plans. medication usage, no driving heavy equipment, no drinking with medication, Demonstrated understanding of instructions, medications, no d/d with Tramadol Pt was receptive of discharge instructions/ teaching. Prescriptions given X 1. CT Study completed. Property :Personal belongings accompany Pt. 18:01 Patient left the ED. ttb Signatures: Dispatcher [employer] EDMS Prasanna Menjivar, FINANCIAL SECRETARY FINANCIAL SECRETARY Prabhakar Stephens RN RN mlb1 Seema Oshea RN RN Felicia Easley,RN RN joellen Gonzalez, Jackeiln sew Seth, April, RN RN ttb Elisabet, Tin, ORAL HYGIENIST ORAL HYGIENIST jrd Sia Cooper,RN RN kc3 Héctor,Mamadou,RT RT cs15 Alma Delia Jaquez, Reg Reg ks16 Leona, Jackelin Dunlap, Francine levy2 Chart Complete MTDD
--- NOTE | 2016-08-23 19:01 | EDDOCDS ---
Physician Documentation [facility] Name: Stan Castanon Age: 61 yrs Sex: Male : 1955 Arrival Date: 08/21/2016 Time: 15:29 Bed 6 Private MD: Alfred Morales Disposition: 08/21/16 17:47 Discharged to Home/Self Care. Impression: Pleurisy, Other chest pain. - Condition is Stable. - Discharge Instructions: Pleurisy. - Prescriptions for Tramadol 50 mg Oral Tablet - take 1 tablet by ORAL route 4 times per day As needed MDD: 4 tabs; 20 tablet. - Medication Reconciliation, Local Pharmacy Hours form. - Follow up: Alfred Morales; When: 4 - 5 days; Reason: Recheck today's complaints, Continuance of care. - Problem is an ongoing problem. - Symptoms are unchanged. Historical: - Allergies: Benadryl (Palpitations); Lisinopril (cough); - Home Meds: 1. aspirin 81 mg Oral chew 1 tab once daily 2. atenolol 50 mg Oral tab 1 tab once daily 3. amlodipine 10 mg Oral tab 1 tab once daily 4. Xanax 0.5 mg Oral tab four times a day as needed 5. penicillin V potassium 500 mg Oral tab four times a day 6. clopidogrel 75 mg oral tab 1 tab once daily 7. Vitamin D3 5,000 unit oral tab daily 8. Arnuity Ellipta 100 mcg/actuation inhalation dsdv 1 puff once daily 9. Crestor 5 mg Oral tab 1 tab once daily - PMHx: Anxiety; GERD; Hypercholesterolemia; Hypertension; [place]; - PSHx: C5-C6 fusion; prostate seed implants; 3 cardiac stents; ortho knee surgery; - Social history: Smoking status: Patient states was never smoker of tobacco. No barriers to communication noted, The patient speaks fluent Gibraltarian, Speaks appropriately for age. - Family history: Not pertinent. - : The pt / caregiver states he / she is on anticoagulants: Plavix. Home medication list is obtained from the patient. - Exposure Risk Screening:: None identified. Vital Signs: 08/21 15:31 BP 166 / 96; Pulse 82; Resp 17; Temp 97.6(O); Pulse Ox 97% on R/A; Weight 92.53 kg / lr2 203.99 lbs (R); Height 6 ft. 0 in. (182.88 cm) (R); Pain 5/10; 15:48 BP 147 / 88 (auto/); pml 15:50 Pulse 76 MON; Pulse Ox 97% ; pml 16:03 BP 144 / 85 (auto/); pml 16:04 Pulse 76 MON; Pulse Ox 96% ; pml 16:18 BP 140 / 82 (auto/); pml 16:19 Pulse 78 MON; Pulse Ox 97% ; pml 16:33 BP 126 / 79 (auto/); pml 16:34 Pulse 88 MON; Pulse Ox 95% ; pml 16:48 BP 141 / 82 (auto/); pml 16:49 Pulse 90 MON; Pulse Ox 96% ; pml 17:03 BP 123 / 74 (auto/); jjr 17:03 Pulse 88 MON; Pulse Ox 95% ; jjr 17:18 BP 130 / 69 (auto/); jjr 17:18 Pulse 88 MON; Resp 18; Pulse Ox 96% on R/A; jjr 17:48 BP 140 / 78 (auto/); ttb 17:48 Pulse 86 MON; Resp 18; Temp 97.4(O); Pulse Ox 95% on R/A; Pain 4/10; ttb 15:31 Body Mass Index 27.67 (92.53 kg, 182.88 cm) lr2 MDM: 15:51 Solu-MEDROL 125 mg IVP once ordered. ke 15:51 -Blood Culture (Adults Only), peripheral from different site, or from device/port/PICC ke etc. if present ordered. 15:51 Lamp Inspector/Pulse Ox/q 15 min VS ordered. ke 15:51 IV Saline Lock ordered. ke 15:51 Oxygen at 4L/Min NC or Home dosage ordered. ke 15:51 Rhythm Strip to chart ordered. ke 15:51 Albuterol 5 mg Nebulizer once ordered. ke 15:51 Atrovent - Ipratropium 500 mcg Nebulizer once ordered. ke 15:51 Call Respiratory ordered. ke 15:51 -Arterial Blood Gas Ordered. EDMS 15:52 -Blood Culture Ordered. EDMS 15:52 B-Type Natiuretic Peptide Ordered. EDMS 15:52 Basic Metabolic Profile Ordered. EDMS 15:52 CBC with Diff Ordered. EDMS 15:52 Cardiac Injury Profile Ordered. EDMS 15:52 Troponin Ordered. EDMS 15:52 ECG WITH READING ER PHYS+CARDIAG ordered. EDMS 15:52 CT Chest Angio R/O PE Ordered. EDMS 16:00 Call Respiratory complete. deg 16:00 -Blood Culture (Adults Only), peripheral from different site, or from device/port/PICC deg etc. if present complete. 16:02 BLOOD CULTURES Ordered. EDMS 16:16 Financial registration complete. ks16 16:18 [facility] Payment Agreement was scanned into [employer] and attached to record. ks16 17:39 -Arterial Blood Gas Reviewed. ke 17:39 Basic Metabolic Profile Reviewed. ke 17:39 CBC with Diff Reviewed. ke 17:39 B-Type Natiuretic Peptide Reviewed. ke 17:39 Cardiac Injury Profile Reviewed. ke 17:39 Troponin Reviewed. 08/22 09:31 T-Sheet-- Draft Copy was scanned into [employer] and attached to record. se Administered Medications: 08/21 16:05 Drug: Solu-MEDROL 125 mg [Solu-Medrol 500 mg intravenous solution (125 mg)] Route: IVP; jjr Site: right antecubital; 16:21 Drug: Albuterol 5 mg [albuterol sulfate 2.5 mg/0.5 mL solution for nebulization (1 mL)] cs15 Route: Nebulizer; 16:21 Drug: Atrovent - Ipratropium 500 mcg [ipratropium bromide 0.02 % solution for cs15 inhalation (2.5 mL)] Route: Nebulizer; Signatures: Dispatcher [employer] EDMS Luna Rae, Physical Trainer Unit deg Prasanna Menjivar, OCC THERAPIST OCC THERAPIST Prabhakar Stephens RN RN mlb1 Seema Oshea RN RN jjr Felicia Diaz RN RN pml Conner, Teresa, RN RN ttb Sorenson, Kimberly, Reg Reg ks16 Jackelin Delgadillo Caleb RT cs15 The chart was reviewed and I authenticate all verbal orders and agree with the evaluation and treatment provided.Attachments: 16:18 [facility] Payment Agreement 08/22 09:31 T-Sheet-- Draft Copy [facility] Chart Complete MTDD
--- NOTE | 2016-08-23 19:01 | EDDOCDS ---
Physician Documentation [facility] Name: Stan Castanon Age: 61 yrs Sex: Male : 1955 Arrival Date: 08/21/2016 Time: 15:29 Bed 6 Private MD: Alfred Morales Disposition: 08/21/16 17:47 Discharged to Home/Self Care. Impression: Pleurisy, Other chest pain. - Condition is Stable. - Discharge Instructions: Pleurisy. - Prescriptions for Tramadol 50 mg Oral Tablet - take 1 tablet by ORAL route 4 times per day As needed MDD: 4 tabs; 20 tablet. - Medication Reconciliation, Local Pharmacy Hours form. - Follow up: Alfred Morales; When: 4 - 5 days; Reason: Recheck today's complaints, Continuance of care. - Problem is an ongoing problem. - Symptoms are unchanged. Historical: - Allergies: Benadryl (Palpitations); Lisinopril (cough); - Home Meds: 1. aspirin 81 mg Oral chew 1 tab once daily 2. atenolol 50 mg Oral tab 1 tab once daily 3. amlodipine 10 mg Oral tab 1 tab once daily 4. Xanax 0.5 mg Oral tab four times a day as needed 5. penicillin V potassium 500 mg Oral tab four times a day 6. clopidogrel 75 mg oral tab 1 tab once daily 7. Vitamin D3 5,000 unit oral tab daily 8. Arnuity Ellipta 100 mcg/actuation inhalation dsdv 1 puff once daily 9. Crestor 5 mg Oral tab 1 tab once daily - PMHx: Anxiety; GERD; Hypercholesterolemia; Hypertension; NV; - PSHx: C5-C6 fusion; prostate seed implants; 3 cardiac stents; ortho knee surgery; - Social history: Smoking status: Patient states was never smoker of tobacco. No barriers to communication noted, The patient speaks fluent [place], Speaks appropriately for age. - Family history: Not pertinent. - : The pt / caregiver states he / she is on anticoagulants: Plavix. Home medication list is obtained from the patient. - Exposure Risk Screening:: None identified. Vital Signs: 08/21 15:31 BP 166 / 96; Pulse 82; Resp 17; Temp 97.6(O); Pulse Ox 97% on R/A; Weight 92.53 kg / lr2 203.99 lbs (R); Height 6 ft. 0 in. (182.88 cm) (R); Pain 5/10; 15:48 BP 147 / 88 (auto/); pml 15:50 Pulse 76 MON; Pulse Ox 97% ; pml 16:03 BP 144 / 85 (auto/); pml 16:04 Pulse 76 MON; Pulse Ox 96% ; pml 16:18 BP 140 / 82 (auto/); pml 16:19 Pulse 78 MON; Pulse Ox 97% ; pml 16:33 BP 126 / 79 (auto/); pml 16:34 Pulse 88 MON; Pulse Ox 95% ; pml 16:48 BP 141 / 82 (auto/); pml 16:49 Pulse 90 MON; Pulse Ox 96% ; pml 17:03 BP 123 / 74 (auto/); jjr 17:03 Pulse 88 MON; Pulse Ox 95% ; jjr 17:18 BP 130 / 69 (auto/); jjr 17:18 Pulse 88 MON; Resp 18; Pulse Ox 96% on R/A; jjr 17:48 BP 140 / 78 (auto/); ttb 17:48 Pulse 86 MON; Resp 18; Temp 97.4(O); Pulse Ox 95% on R/A; Pain 4/10; ttb 15:31 Body Mass Index 27.67 (92.53 kg, 182.88 cm) lr2 MDM: 15:51 Solu-MEDROL 125 mg IVP once ordered. ke 15:51 -Blood Culture (Adults Only), peripheral from different site, or from device/port/PICC ke etc. if present ordered. 15:51 Shipping Specialist/Pulse Ox/q 15 min VS ordered. ke 15:51 IV Saline Lock ordered. ke 15:51 Oxygen at 4L/Min NC or Home dosage ordered. ke 15:51 Rhythm Strip to chart ordered. ke 15:51 Albuterol 5 mg Nebulizer once ordered. ke 15:51 Atrovent - Ipratropium 500 mcg Nebulizer once ordered. ke 15:51 Call Respiratory ordered. ke 15:51 -Arterial Blood Gas Ordered. EDMS 15:52 -Blood Culture Ordered. EDMS 15:52 B-Type Natiuretic Peptide Ordered. EDMS 15:52 Basic Metabolic Profile Ordered. EDMS 15:52 CBC with Diff Ordered. EDMS 15:52 Cardiac Injury Profile Ordered. EDMS 15:52 Troponin Ordered. EDMS 15:52 ECG WITH READING ER PHYS+CARDIAG ordered. EDMS 15:52 CT Chest Angio R/O PE Ordered. EDMS 16:00 Call Respiratory complete. deg 16:00 -Blood Culture (Adults Only), peripheral from different site, or from device/port/PICC deg etc. if present complete. 16:02 BLOOD CULTURES Ordered. EDMS 16:16 Financial registration complete. [email or web address] 16:18 [facility] Payment Agreement was scanned into [employer] and attached to record. [email or web address] 17:39 -Arterial Blood Gas Reviewed. ke 17:39 Basic Metabolic Profile Reviewed. ke 17:39 CBC with Diff Reviewed. ke 17:39 B-Type Natiuretic Peptide Reviewed. ke 17:39 Cardiac Injury Profile Reviewed. ke 17:39 Troponin Reviewed. 08/22 09:31 T-Sheet-- Draft Copy was scanned into [employer] and attached to record. se Administered Medications: 08/21 16:05 Drug: Solu-MEDROL 125 mg [Solu-Medrol 500 mg intravenous solution (125 mg)] Route: IVP; jjr Site: right antecubital; 16:21 Drug: Albuterol 5 mg [albuterol sulfate 2.5 mg/0.5 mL solution for nebulization (1 mL)] cs15 Route: Nebulizer; 16:21 Drug: Atrovent - Ipratropium 500 mcg [ipratropium bromide 0.02 % solution for cs15 inhalation (2.5 mL)] Route: Nebulizer; Signatures: Dispatcher [employer] EDMS Luna Rae, Lead Sustainability Specialist Unit deg Prasanna Menjiavr, DIRECTOR OF CLINICAL APPLICATIONS DIRECTOR OF CLINICAL APPLICATIONS Prabhakar Stephens RN RN mlb1 Seema Oshea RN RN jjr Felicia Diaz RN RN pml Conner, Teresa, RN RN ttb Sorenson, Kimberly, Reg Reg [id number] Jackelin Delgadillo Caleb RT cs15 The chart was reviewed and I authenticate all verbal orders and agree with the evaluation and treatment provided.Attachments: 16:18 [facility] Payment Agreement 08/22 09:31 T-Sheet-- Draft Copy [facility] Chart Complete MTDD
== END 2016-08-21 18:01 | disposition home or self-care (01) ==
LOC: M ED 15:29
DX: R09.1 Pleurisy (principal); I10 Essential (primary) hypertension; I25.2 Old myocardial infarction; K21.9 Gastro-esophageal reflux disease without esophagitis; E78.00 Pure hypercholesterolemia, unspecified; F41.9 Anxiety disorder, unspecified; Z95.5 Presence of coronary angioplasty implant and graft; Z79.899 Other long term (current) drug therapy; Z79.82 Long term (current) use of aspirin; Z79.51 Long term (current) use of inhaled steroids; Z79.2 Long term (current) use of antibiotics; Z79.01 Long term (current) use of anticoagulants; Z88.8 Allergy status to other drugs, medicaments and biological substances
CPT/HCPCS: 36415; 36600; 71275; 80048; 82550; 82553; 82803; 83880; 84484; 85025; 87040; 93005; 93041; 94640; 96374; 99284; J2930; Q9967

== ENCOUNTER → 2016-09-07 | Outpatient (CLI) | payer MEDICARE ==
[2016-09-07 09:34] LABS: MEAN CORPUSCULAR HEMOGLOBIN 32.3 pg (27.0-33.0); MEAN CORPUSCULAR HGB CONC 34.5 g/dl (32.0-36.5); MEAN CORPUSCULAR VOLUME 93.5 fl (80.0-96.0); RED CELL DISTRIBUTION WIDTH 12.8 % (11.5-14.5); WHITE BLOOD COUNT 8.5 K/mm3 (4.0-10.0)
[2016-09-07 09:52] LABS: THYROXINE (T4) 9.2 UG/DL (4.5-12.0)
[2016-09-09 14:13] LABS: Lyme Disease IgG/IgM Antibodie <0.91 ISR (0.00-0.90); Lyme Disease IgM Ab Quantitati <0.80 index (0.00-0.79)
== END ==
LOC: M LAB 08:42
PROVIDERS: ATTEND Family Medicine
DX: E03.9 Hypothyroidism, unspecified (principal); R53.83 Other fatigue

== ENCOUNTER → 2016-10-04 | Outpatient (CLI) | payer MEDICARE ==
[~2016-10-04] MED LIST changes: +CRES10TA32 PO; -ROSU10TA PO
== END ==
LOC: M LAB 12:23
PROVIDERS: ATTEND Internal Medicine Cardiovascular Disease
DX: R07.2 Precordial pain (principal); R53.83 Other fatigue; D64.9 Anemia, unspecified

== ENCOUNTER → 2016-10-04 | Outpatient (CLI) | payer MEDICARE | LOC: M LAB 12:19 | PROVIDERS: ATTEND Family Medicine | DX: R53.83 Other fatigue (principal); D64.9 Anemia, unspecified ==

== ENCOUNTER → 2016-10-08 | Outpatient (CLI) | payer MEDICARE ==
[2016-10-08 07:59] LABS: ANION GAP 8 MEQ/L (8-16); BLOOD UREA NITROGEN 13 MG/DL (7-18); CARBON DIOXIDE LEVEL 25 MEQ/L (21-32); CHLORIDE LEVEL 110 MEQ/L (98-107); CREATININE FOR GFR 1.25 MG/DL (0.70-1.30); GLOMERULAR FILTRATION RATE > 60.0 (>49); GLUCOSE, FASTING 143 MG/DL (80-110); POTASSIUM SERUM 3.8 MEQ/L (3.5-5.1); SODIUM LEVEL 143 MEQ/L (136-145)
== END ==
LOC: M LAB 07:08
PROVIDERS: ATTEND Physician Assistant Medical
DX: I10 Essential (primary) hypertension (principal)

== ENCOUNTER → 2016-10-19 | Outpatient (CLI) | payer MEDICARE ==
[2016-10-19 08:45] LABS: MEAN CORPUSCULAR HGB CONC 35.2 g/dl (32.0-36.5); MEAN CORPUSCULAR VOLUME 90.9 fl (80.0-96.0); RED CELL DISTRIBUTION WIDTH 12.8 % (11.5-14.5); WHITE BLOOD COUNT 7.9 K/mm3 (4.0-10.0)
[2016-10-19 08:47] LABS: ALBUMIN 3.9 GM/DL (3.2-5.2); ALBUMIN/GLOBULIN RATIO 1.26 (1.00-1.93); ALKALINE PHOSPHATASE 84 U/L (45-117); ALT/SGPT 47 U/L (12-78); ANION GAP 7 MEQ/L (8-16); AST/SGOT 24 U/L (15-37); BILIRUBIN,TOTAL 0.9 MG/DL (0.2-1.0); BLOOD UREA NITROGEN 24 MG/DL (7-18); CALCIUM LEVEL 8.4 MG/DL (8.8-10.2); CARBON DIOXIDE LEVEL 25 MEQ/L (21-32); CHLORIDE LEVEL 110 MEQ/L (98-107); CHOLESTEROL LEVEL 135 MG/DL (<200); CREATININE FOR GFR 1.37 MG/DL (0.70-1.30); GLOMERULAR FILTRATION RATE 55.9 (>49); GLUCOSE, FASTING 105 MG/DL (80-110); MAGNESIUM LEVEL 2.4 MG/DL (1.8-2.4); SODIUM LEVEL 142 MEQ/L (136-145); TRIGLYCERIDES LEVEL 121 MG/DL (<150)
[2016-10-19 09:42] LABS: VITAMIN B12 LEVEL 453 PG/ML
[2016-10-19 09:43] LABS: FOLATE 14.3 NG/ML
== END ==
LOC: M LAB 07:32
PROVIDERS: ATTEND Family Medicine
DX: E03.9 Hypothyroidism, unspecified (principal); D64.9 Anemia, unspecified

== ENCOUNTER → 2016-11-24 | Outpatient (CLI) | payer MEDICARE ==
[2016-11-24 07:54] LABS: MEAN CORPUSCULAR HEMOGLOBIN 32.4 pg (27.0-33.0); MEAN CORPUSCULAR HGB CONC 35.2 g/dl (32.0-36.5); MEAN CORPUSCULAR VOLUME 92.3 fl (80.0-96.0); WHITE BLOOD COUNT 6.8 K/mm3 (4.0-10.0)
[2016-11-24 08:14] LABS: ALBUMIN 3.9 GM/DL (3.2-5.2); ALBUMIN/GLOBULIN RATIO 1.3 (1.00-1.93); CALCIUM LEVEL 8.9 MG/DL (8.8-10.2); CREATININE FOR GFR 1.31 MG/DL (0.70-1.30); GLOMERULAR FILTRATION RATE 58.8 (>49); POTASSIUM SERUM 3.9 MEQ/L (3.5-5.1); TOTAL PROTEIN 6.9 GM/DL (6.4-8.2)
== END ==
LOC: M LAB 06:47
PROVIDERS: ATTEND Family Medicine
DX: I10 Essential (primary) hypertension (principal); E03.9 Hypothyroidism, unspecified; N40.0 Benign prostatic hyperplasia without lower urinary tract symptoms; Z79.899 Other long term (current) drug therapy

== ENCOUNTER → 2016-11-29 | Outpatient (CLI) | payer MEDICARE ==
[2016-11-29 08:56] LABS: ALBUMIN 3.8 GM/DL (3.2-5.2); CREATININE FOR GFR 1.3 MG/DL (0.70-1.30); GLOMERULAR FILTRATION RATE 59.4 (>49); MAGNESIUM LEVEL 2.1 MG/DL (1.8-2.4); PHOSPHORUS LEVEL 2.6 MG/DL (2.5-4.9); POTASSIUM SERUM 3.9 MEQ/L (3.5-5.1)
== END ==
LOC: M LAB 07:31
PROVIDERS: ATTEND Internal Medicine Cardiovascular Disease
DX: I11.9 Hypertensive heart disease without heart failure (principal)

== ENCOUNTER → 2016-12-07 | Outpatient (CLI) | payer MEDICARE | LOC: M LAB 07:20 | PROVIDERS: ATTEND Family Medicine | DX: N39.0 Urinary tract infection, site not specified (principal) ==

== ENCOUNTER → 2016-12-07 | Outpatient (CLI) | payer MEDICARE ==
[2016-12-07 10:05] LABS: CALCIUM LEVEL 9.1 MG/DL (8.8-10.2); CREATININE FOR GFR 1.32 MG/DL (0.70-1.30); GLOMERULAR FILTRATION RATE 58.3 (>49); POTASSIUM SERUM 3.7 MEQ/L (3.5-5.1)
== END ==
LOC: M LAB 08:37
PROVIDERS: ATTEND Urology
DX: R31.9 Hematuria, unspecified (principal)

== ENCOUNTER → 2016-12-24 | Outpatient (CLI) | payer MEDICARE ==
[~2016-12-24] MED LIST changes: +KEFL500C17 PO; -KEFL500C7 PO
[2016-12-24 13:35] LABS: ALBUMIN 4.1 GM/DL (3.2-5.2); CALCIUM LEVEL 9.5 MG/DL (8.8-10.2); CREATININE FOR GFR 1.38 MG/DL (0.70-1.30); DIGOXIN LEVEL 0.7 NG/ML (0.5-2.0); GLOMERULAR FILTRATION RATE 55.4 (>49); MAGNESIUM LEVEL 2.3 MG/DL (1.8-2.4); PHOSPHORUS LEVEL 2.8 MG/DL (2.5-4.9); POTASSIUM SERUM 4.3 MEQ/L (3.5-5.1)
== END ==
LOC: M LAB 11:07
PROVIDERS: ATTEND Internal Medicine Cardiovascular Disease
DX: I47.1 Supraventricular tachycardia (principal); I11.9 Hypertensive heart disease without heart failure

== ENCOUNTER → 2017-01-04 | Outpatient (CLI) | payer MEDICARE | LOC: M LAB 09:09 | PROVIDERS: ATTEND Family Medicine | DX: E29.1 Testicular hypofunction (principal); Z85.46 Personal history of malignant neoplasm of prostate ==

== ENCOUNTER → 2017-02-03 | Outpatient (CLI) | payer MEDICARE ==
[2017-02-03 10:07] LABS: MEAN CORPUSCULAR HEMOGLOBIN 32.3 pg (27.0-33.0); MEAN CORPUSCULAR HGB CONC 34.8 g/dl (32.0-36.5); MEAN CORPUSCULAR VOLUME 92.8 fl (80.0-96.0); RED CELL DISTRIBUTION WIDTH 12.8 % (11.5-14.5); WHITE BLOOD COUNT 7.2 K/mm3 (4.0-10.0)
[2017-02-03 10:34] LABS: ALBUMIN/GLOBULIN RATIO 1.25 (1.00-1.93); BILIRUBIN,TOTAL 0.7 MG/DL (0.2-1.0); CREATININE FOR GFR 1.37 MG/DL (0.70-1.30); GLOMERULAR FILTRATION RATE 55.9 (>49); POTASSIUM SERUM 4.2 MEQ/L (3.5-5.1); TOTAL PROTEIN 7.2 GM/DL (6.4-8.2)
== END ==
LOC: M LAB 08:57
PROVIDERS: ATTEND Family Medicine
DX: I10 Essential (primary) hypertension (principal); E03.9 Hypothyroidism, unspecified

== ENCOUNTER → 2017-02-10 | Outpatient (CLI) | payer MEDICARE ==
[2017-02-10 10:33] LABS: URIC ACID 6.4 MG/DL (3.5-7.2)
[2017-02-12 00:07] LABS: Lyme Disease IgG/IgM Antibodie <0.91 ISR (0.00-0.90); Lyme Disease IgM Ab Quantitati <0.80 index (0.00-0.79)
== END ==
LOC: M LAB 09:19
PROVIDERS: ATTEND Family Medicine
DX: M19.90 Unspecified osteoarthritis, unspecified site (principal)

== ENCOUNTER → 2017-03-10 | Outpatient (CLI) | payer MEDICARE ==
[2017-03-10 07:43] LABS: MEAN CORPUSCULAR HGB CONC 35.3 g/dl (32.0-36.5); MEAN CORPUSCULAR VOLUME 93.5 fl (80.0-96.0); WHITE BLOOD COUNT 8.8 K/mm3 (4.0-10.0)
[2017-03-10 08:31] LABS: ALBUMIN 3.8 GM/DL (3.2-5.2); ALBUMIN/GLOBULIN RATIO 1.27 (1.00-1.93); ALKALINE PHOSPHATASE 83 U/L (45-117); ALT/SGPT 40 U/L (12-78); ANION GAP 8 MEQ/L (8-16); AST/SGOT 17 U/L (15-37); BLOOD UREA NITROGEN 19 MG/DL (7-18); CALCIUM LEVEL 8.7 MG/DL (8.8-10.2); CARBON DIOXIDE LEVEL 27 MEQ/L (21-32); CHLORIDE LEVEL 111 MEQ/L (98-107); CREATININE FOR GFR 1.24 MG/DL (0.70-1.30); GLOMERULAR FILTRATION RATE > 60.0 (>49); GLUCOSE, FASTING 90 MG/DL (80-110); SODIUM LEVEL 146 MEQ/L (136-145); TOTAL PROTEIN 6.8 GM/DL (6.4-8.2)
== END ==
LOC: M LAB 07:05
PROVIDERS: ATTEND Family Medicine
DX: R06.02 Shortness of breath (principal); Z79.899 Other long term (current) drug therapy

== ENCOUNTER → 2017-03-15 | Outpatient (CLI) | payer MEDICARE ==
[~2017-03-15] MED LIST changes: +GASTROGRAFIN SOLUTION 30ML (Q9963) As Ordered ONE; +ISOVUE-370 76% 100ML VIAL (Q9967) As Ordered ONE
--- NOTE | 2017-03-15 13:09 | REP ---
THYROID ULTRASOUND: Real-time sonographic evaluation of the thyroid performed. Right lobe is mildly enlarged measuring 4.9 x 2.2 x 1.8 cm. Left lobe is normal in size measuring 3.6 x 1.5 x 1.6 cm. 2 mm cyst is seen in the right lobe. No other cystic or solid nodule is seen. IMPRESSION: Mild enlargement of the right lobe of the thyroid compared to the left. No suspicious nodule. Signed by Geoff Mullins MD 03/15/2017 01:51 P
--- NOTE | 2017-03-15 14:25 | REP ---
CT of the abdomen, pelvis not included: Studies performed without and with IV contrast. Bowel contrast is used on all phases of the study. The visualized lung pruitt are unremarkable. The hepatic parenchyma is unremarkable except for a few small hepatic cysts. There are no hepatic masses. The gallbladder, pancreas and spleen are normal size. There are no masses. Specifically no pancreatic mass. The adrenals are unremarkable. The kidneys are unremarkable except for A left renal 2.4 cm cyst. There is no abdominal aortic aneurysm. The aorta is otherwise unremarkable. The visualized bowel loops and mesentery are unremarkable. Impression: There is no pancreatic mass. No ascites. No renal mass. There is a 2.4 cm left renal cyst. The liver and spleen are normal size. No abdominal aortic aneurysm. There are a few small hepatic cysts. Signed by Geoff Carter MD 03/15/2017 02:16 P
--- NOTE | 2017-03-15 14:31 | REP ---
CT of the chest with IV contrast: Comparison is 08/21/2016. There are no lung masses or nodules. There are no infiltrates or effusions. The thoracic aorta is unremarkable. There is no thoracic aortic aneurysm. There is no mediastinal adenopathy or mass. There is no hilar or axillary adenopathy. Cardiac size is normal. There is no pericardial effusion. The visualized upper abdominal contents are unremarkable except for a small cyst in the liver. Impression: Negative CT study of the chest. No mass or adenopathy. Signed by Geoff Carter MD 03/15/2017 02:22 P
== END ==
LOC: M RAD 11:29
PROVIDERS: ATTEND Family Medicine
DX: K76.89 Other specified diseases of liver (principal); R19.06 Epigastric swelling, mass or lump; E04.1 Nontoxic single thyroid nodule
CPT/HCPCS: 71260; 74170; 76536; Q9963; Q9967

== ENCOUNTER → 2017-04-05 | Outpatient (CLI) | payer MEDICARE ==
[~2017-04-05] MED LIST changes: -GASTROGRAFIN SOLUTION 30ML (Q9963) As Ordered ONE; -ISOVUE-370 76% 100ML VIAL (Q9967) As Ordered ONE
[2017-04-05 10:52] LABS: MEAN CORPUSCULAR HEMOGLOBIN 32.2 pg (27.0-33.0); MEAN CORPUSCULAR HGB CONC 34.7 g/dl (32.0-36.5); MEAN CORPUSCULAR VOLUME 92.9 fl (80.0-96.0); RED CELL DISTRIBUTION WIDTH 12.6 % (11.5-14.5); WHITE BLOOD COUNT 8.2 10^3/uL (4.0-10.0)
[2017-04-05 11:25] LABS: ALBUMIN 4.1 GM/DL (3.2-5.2); ALBUMIN/GLOBULIN RATIO 1.28 (1.00-1.93); ALKALINE PHOSPHATASE 82 U/L (45-117); ALT/SGPT 60 U/L (12-78); ANION GAP 6 MEQ/L (8-16); AST/SGOT 21 U/L (15-37); BILIRUBIN,TOTAL 0.7 MG/DL (0.2-1.0); BLOOD UREA NITROGEN 15 MG/DL (7-18); CALCIUM LEVEL 9.5 MG/DL (8.8-10.2); CARBON DIOXIDE LEVEL 29 MEQ/L (21-32); CHLORIDE LEVEL 107 MEQ/L (98-107); CHOLESTEROL LEVEL 145 MG/DL (<200); CREATININE FOR GFR 1.24 MG/DL (0.70-1.30); FREE T4 0.92 NG/DL (0.76-1.46); GLOMERULAR FILTRATION RATE > 60.0 (>49); GLUCOSE, FASTING 95 MG/DL (80-110); POTASSIUM SERUM 4.4 MEQ/L (3.5-5.1); SODIUM LEVEL 142 MEQ/L (136-145); TOTAL PROTEIN 7.3 GM/DL (6.4-8.2); TRIGLYCERIDES LEVEL 151 MG/DL (<150)
== END ==
LOC: M LAB 10:03
PROVIDERS: ATTEND Family Medicine
DX: I10 Essential (primary) hypertension (principal)

== ENCOUNTER → 2017-06-07 | Outpatient (CLI) | payer MEDICARE ==
--- NOTE | 2017-06-07 09:25 | REP ---
Right hip two views: Comparison is a CT of the abdomen pelvis dated 01/12/2011. There is advanced osteoarthritis. A large ring osteophyte and joint space narrowing. There is no femoral head deformity. Mineralization is normal. There are no calcifications. There are no lytic, blastic or destructive skeletal changes. Iridium seeds are incidentally noted in the prostate bed. These were also present on the comparison CT. Impression: Advanced osteoarthritis of the right hip that has significantly progressed from the comparison CT. Signed by Geoff Carter MD 06/07/2017 09:17 A
== END ==
LOC: M RAD 08:49
PROVIDERS: ATTEND Family Medicine
DX: M16.11 Unilateral primary osteoarthritis, right hip (principal)

== ENCOUNTER → 2017-06-07 | Outpatient (CLI) | payer MEDICARE | LOC: M LAB 12:24 | PROVIDERS: ATTEND Urology | DX: C61 Malignant neoplasm of prostate (principal); R31.9 Hematuria, unspecified; M16.11 Unilateral primary osteoarthritis, right hip ==

== ENCOUNTER → 2017-06-29 | Outpatient (CLI) | payer MEDICARE ==
[2017-06-29 10:38] LABS: HEMATOCRIT 47.3 % (42.0-52.0); HEMOGLOBIN 16.7 g/dl (14.0-18.0); MEAN CORPUSCULAR HEMOGLOBIN 32.1 pg (27.0-33.0); MEAN CORPUSCULAR HGB CONC 35.3 g/dl (32.0-36.5); PLATELET COUNT, AUTOMATED 189 10^3/uL (150-450); RED CELL DISTRIBUTION WIDTH 12.2 % (11.5-14.5); WHITE BLOOD COUNT 7.3 10^3/uL (4.0-10.0)
[2017-06-29 10:42] LABS: APPEARANCE, URINE CLEAR (CLEAR); BACTERIA, URINE AUTO NEGATIVE (NEGATIVE); BILIRUBIN, URINE AUTO NEGATIVE (NEGATIVE); BLOOD, URINE BLOOD NEGATIVE (NEGATIVE); COLOR, URINE YELLOW (YELLOW); GLUCOSE, URINE (UA) AUTO NEGATIVE (NEGATIVE); KETONE, URINE AUTO NEGATIVE (NEGATIVE); LEUKOCYTE ESTERASE, URINE AUTO NEGATIVE (NEGATIVE); MUCUS, URINE SMALL (NEGATIVE); NITRITE, URINE AUTO NEGATIVE (NEGATIVE); PROTEIN, URINE AUTO NEGATIVE (NEGATIVE); RBC, URINE AUTO 3 /HPF (0-3); SPECIFIC GRAVITY URINE AUTO 1.017 (1.002-1.035); SQUAMOUS EPITHELIAL CELL UR AU 0 /HPF (0-6); UROBILINOGEN, URINE AUTO 0.2 mg/dL (0.0-2.0); WBC, URINE AUTO 1 /HPF (0-3)
[2017-06-29 11:12] LABS: TOTAL 25(OH) VITAMIN D 33.1 NG/ML (30.0-100.0)
[2017-06-29 11:13] LABS: ESTIMATED AVERAGE GLUCOSE 103 MG/DL (60-110); HEMOGLOBIN A1c 5.2 %; TESTOSTERONE 344 NG/DL (241-827)
[2017-06-29 11:14] LABS: ALBUMIN 4.1 GM/DL (3.2-5.2); ALBUMIN/GLOBULIN RATIO 1.37 (1.00-1.93); ALKALINE PHOSPHATASE 81 U/L (45-117); ALT/SGPT 65 U/L (12-78); ANION GAP 5 MEQ/L (8-16); AST/SGOT 33 U/L (7-37); BILIRUBIN,TOTAL 0.9 MG/DL (0.2-1.0); BLOOD UREA NITROGEN 17 MG/DL (7-18); CALCIUM LEVEL 8.6 MG/DL (8.8-10.2); CARBON DIOXIDE LEVEL 30 MEQ/L (21-32); CHLORIDE LEVEL 109 MEQ/L (98-107); CHOLESTEROL LEVEL 146 MG/DL (<200); CHOLESTEROL RISK RATIO 3.395 (<5); CREATININE FOR GFR 1.29 MG/DL (0.70-1.30); GLOMERULAR FILTRATION RATE 59.9 (>49); GLUCOSE, FASTING 96 MG/DL (80-110); HDL CHOLESTEROL 43 MG/DL (>40); LDL CHOLESTEROL 60.8 MG/DL (<100); NON-HDL-C 103 MG/DL; POTASSIUM SERUM 4.5 MEQ/L (3.5-5.1); PROSTATIC SPECIFIC AG MONITOR 0.05 NG/ML (< 4.0); SODIUM LEVEL 144 MEQ/L (136-145); TOTAL PROTEIN 7.1 GM/DL (6.4-8.2); TRIGLYCERIDES LEVEL 211 MG/DL (<150)
== END ==
LOC: M LAB 10:07
DX: Z51.81 Encounter for therapeutic drug level monitoring (principal); I10 Essential (primary) hypertension; R53.83 Other fatigue; Z79.899 Other long term (current) drug therapy
CPT/HCPCS: 84403

== ENCOUNTER → 2017-08-10 | Outpatient (CLI) | payer MEDICARE | LOC: M RAD 11:38 | DX: R50.9 Fever, unspecified (principal) | CPT/HCPCS: 71046 ==

== ENCOUNTER → 2017-09-11 | Outpatient (CLI) | payer MEDICARE ==
[2017-09-11 09:12] LABS: HEMATOCRIT 46.6 % (42.0-52.0); HEMOGLOBIN 16.3 g/dl (14.0-18.0); MEAN CORPUSCULAR HEMOGLOBIN 32.3 pg (27.0-33.0); MEAN CORPUSCULAR VOLUME 92.3 fl (80.0-96.0); PLATELET COUNT, AUTOMATED 193 10^3/uL (150-450); RED BLOOD COUNT 5.05 10^6/uL (4.30-6.10); RED CELL DISTRIBUTION WIDTH 12.6 % (11.5-14.5); WHITE BLOOD COUNT 7.5 10^3/uL (4.0-10.0)
[2017-09-11 09:51] LABS: ALBUMIN/GLOBULIN RATIO 1.33 (1.00-1.93); ALKALINE PHOSPHATASE 77 U/L (45-117); ALT/SGPT 52 U/L (12-78); ANION GAP 7 MEQ/L (8-16); AST/SGOT 21 U/L (7-37); BILIRUBIN,TOTAL 0.6 MG/DL (0.2-1.0); BLOOD UREA NITROGEN 21 MG/DL (7-18); CALCIUM LEVEL 8.8 MG/DL (8.8-10.2); CARBON DIOXIDE LEVEL 27 MEQ/L (21-32); CHLORIDE LEVEL 109 MEQ/L (98-107); CHOLESTEROL LEVEL 141 MG/DL (<200); CHOLESTEROL RISK RATIO 3.357 (<5); CREATININE FOR GFR 1.28 MG/DL (0.70-1.30); GLOMERULAR FILTRATION RATE > 60.0 (>49); GLUCOSE, FASTING 98 MG/DL (70-100); HDL CHOLESTEROL 42 MG/DL (>40); NON-HDL-C 99 MG/DL; PROSTATIC SPECIFIC AG MONITOR 0.05 NG/ML (< 4.0); SODIUM LEVEL 143 MEQ/L (136-145); TRIGLYCERIDES LEVEL 150 MG/DL (<150)
[2017-09-11 10:00] LABS: ESTIMATED AVERAGE GLUCOSE 108 MG/DL (60-110); HEMOGLOBIN A1c 5.4 %
[2017-09-12 09:03] LABS: TESTOSTERONE 302 NG/DL (241-827)
[2017-09-12 09:15] LABS: HEPATITIS B SURFACE ANTIGEN NEGATIVE (NEGATIVE)
[2017-09-12 09:41] LABS: HEPATITIS B CORE ANTIBODY IGM NEGATIVE (NEGATIVE); HEPATITIS C VIRUS ABY INDEX < 0.0 INDEX (<0.8)
[2017-09-12 09:44] LABS: HEPATITIS A ANTIBODY IGM NEGATIVE (NEGATIVE)
== END ==
LOC: M LAB 08:20
DX: I10 Essential (primary) hypertension (principal); E03.9 Hypothyroidism, unspecified; Z79.899 Other long term (current) drug therapy
CPT/HCPCS: 84403

== ENCOUNTER → 2017-09-16 | Outpatient (CLI) | payer MEDICARE ==
[2017-09-16 09:24] LABS: APPEARANCE, URINE CLEAR (CLEAR); BACTERIA, URINE AUTO NEGATIVE (NEGATIVE); BILIRUBIN, URINE AUTO NEGATIVE (NEGATIVE); BLOOD, URINE BLOOD 1+ (NEGATIVE); COLOR, URINE STRAW (YELLOW); GLUCOSE, URINE (UA) AUTO NEGATIVE (NEGATIVE); KETONE, URINE AUTO NEGATIVE (NEGATIVE); LEUKOCYTE ESTERASE, URINE AUTO NEGATIVE (NEGATIVE); NITRITE, URINE AUTO NEGATIVE (NEGATIVE); PROTEIN, URINE AUTO NEGATIVE (NEGATIVE); RBC, URINE AUTO 2 /HPF (0-3); SPECIFIC GRAVITY URINE AUTO 1.005 (1.002-1.035); SQUAMOUS EPITHELIAL CELL UR AU 0 /HPF (0-6); UROBILINOGEN, URINE AUTO 0.2 mg/dL (0.0-2.0); WBC, URINE AUTO 0 /HPF (0-3)
== END ==
LOC: M LAB 08:26
DX: N39.0 Urinary tract infection, site not specified (principal)
CPT/HCPCS: 36415

== ENCOUNTER → 2017-09-22 | Outpatient (CLI) | payer MEDICARE | LOC: M RAD 15:28 | DX: N18.3 Chronic kidney disease, stage 3 (moderate) (principal); R31.29 Other microscopic hematuria; N28.1 Cyst of kidney, acquired | CPT/HCPCS: 76775 ==

== ENCOUNTER → 2017-09-27 | Outpatient (CLI) | payer MEDICARE ==
[2017-09-27 07:25] LABS: HEMATOCRIT 45.9 % (42.0-52.0); MEAN CORPUSCULAR HEMOGLOBIN 31.8 pg (27.0-33.0); MEAN CORPUSCULAR HGB CONC 34.9 g/dl (32.0-36.5); MEAN CORPUSCULAR VOLUME 91.3 fl (80.0-96.0); PLATELET COUNT, AUTOMATED 186 10^3/uL (150-450); RED BLOOD COUNT 5.03 10^6/uL (4.30-6.10); RED CELL DISTRIBUTION WIDTH 12.5 % (11.5-14.5)
[2017-09-27 07:36] LABS: APPEARANCE, URINE CLEAR (CLEAR); BACTERIA, URINE AUTO 1+ (NEGATIVE); BILIRUBIN, URINE AUTO NEGATIVE (NEGATIVE); BLOOD, URINE BLOOD 1+ (NEGATIVE); COLOR, URINE YELLOW (YELLOW); GLUCOSE, URINE (UA) AUTO NEGATIVE (NEGATIVE); KETONE, URINE AUTO NEGATIVE (NEGATIVE); LEUKOCYTE ESTERASE, URINE AUTO NEGATIVE (NEGATIVE); MUCUS, URINE SMALL (NEGATIVE); NITRITE, URINE AUTO NEGATIVE (NEGATIVE); PROTEIN, URINE AUTO NEGATIVE (NEGATIVE); RBC, URINE AUTO 1 /HPF (0-3); SQUAMOUS EPITHELIAL CELL UR AU 0 /HPF (0-6); UROBILINOGEN, URINE AUTO 0.2 mg/dL (0.0-2.0); WBC, URINE AUTO 0 /HPF (0-3)
[2017-09-27 07:41] LABS: ALBUMIN 3.9 GM/DL (3.2-5.2); ANION GAP 5 MEQ/L (8-16); BLOOD UREA NITROGEN 19 MG/DL (7-18); CALCIUM LEVEL 8.5 MG/DL (8.8-10.2); CARBON DIOXIDE LEVEL 28 MEQ/L (21-32); CHLORIDE LEVEL 111 MEQ/L (98-107); CREATININE FOR GFR 1.33 MG/DL (0.70-1.30); GLOMERULAR FILTRATION RATE 57.6 (>49); GLUCOSE, FASTING 106 MG/DL (70-100); PHOSPHORUS LEVEL 3.1 MG/DL (2.5-4.9); POTASSIUM SERUM 3.7 MEQ/L (3.5-5.1); SODIUM LEVEL 144 MEQ/L (136-145)
== END ==
LOC: M LAB 06:49
DX: I12.9 Hypertensive chronic kidney disease with stage 1 through stage 4 chronic kidney disease, or unspecified chronic kidney disease (principal); N18.3 Chronic kidney disease, stage 3 (moderate)
CPT/HCPCS: 80069

== ENCOUNTER → 2017-11-01 | Outpatient (CLI) | payer MEDICARE ==
[2017-11-01 09:58] LABS: HEMOGLOBIN 16.1 g/dl (13.5-17.5); MEAN CORPUSCULAR HEMOGLOBIN 32.3 pg (27.0-33.0); MEAN CORPUSCULAR VOLUME 92.2 fl (80.0-96.0); PLATELET COUNT, AUTOMATED 196 10^3/uL (150-450); RED BLOOD COUNT 4.99 10^6/uL (4.30-6.10); RED CELL DISTRIBUTION WIDTH 12.7 % (11.5-14.5); WHITE BLOOD COUNT 6.7 10^3/uL (4.0-10.0)
[2017-11-01 10:18] LABS: ALBUMIN/GLOBULIN RATIO 1.29 (1.00-1.93); ALKALINE PHOSPHATASE 74 U/L (45-117); ALT/SGPT 49 U/L (12-78); ANION GAP 5 MEQ/L (8-16); AST/SGOT 26 U/L (7-37); BILIRUBIN,TOTAL 0.9 MG/DL (0.2-1.0); BLOOD UREA NITROGEN 16 MG/DL (7-18); CALCIUM LEVEL 8.9 MG/DL (8.8-10.2); CARBON DIOXIDE LEVEL 28 MEQ/L (21-32); CHLORIDE LEVEL 110 MEQ/L (98-107); CREATININE FOR GFR 1.31 MG/DL (0.70-1.30); GLOMERULAR FILTRATION RATE 58.6 (>49); GLUCOSE, FASTING 96 MG/DL (70-100); POTASSIUM SERUM 4.2 MEQ/L (3.5-5.1); SODIUM LEVEL 143 MEQ/L (136-145); TOTAL PROTEIN 7.1 GM/DL (6.4-8.2)
== END ==
LOC: M LAB 09:15
DX: I10 Essential (primary) hypertension (principal); R53.83 Other fatigue
CPT/HCPCS: 84443

== ENCOUNTER → 2017-11-04 | Outpatient (CLI) | payer MEDICARE ==
[~2017-11-04] MED LIST changes: -ACET50TAOT PO; -AMLO10TA2 PO; -ASPI1TAB PO; -ATEN50TA2 PO; -CRES10TA32 PO; -DOXY100T PO; +GASTROGRAFIN SOLUTION 30ML (Q9963) As Ordered; +ISOVUE-370 76% 100ML VIAL (Q9967) As Ordered; -KEFL500C17 PO; -NASA1SPR; -OMEP20CA3 PO; -VIBR100C PO; -XANA0.5T PO
== END ==
LOC: M RAD 12:55
DX: R91.8 Other nonspecific abnormal finding of lung field (principal); N28.1 Cyst of kidney, acquired; Z95.5 Presence of coronary angioplasty implant and graft
CPT/HCPCS: Q9963

== ENCOUNTER → 2017-11-16 | Outpatient (CLI) | payer MEDICARE ==
[2017-11-16 08:31] LABS: CHOLESTEROL LEVEL 128 MG/DL (<200); CHOLESTEROL RISK RATIO 2.976 (<5); HDL CHOLESTEROL 43 MG/DL (>40); LDL CHOLESTEROL 55.6 MG/DL (<100); NON-HDL-C 85 MG/DL; PROSTATIC SPECIFIC AG MONITOR 0.04 NG/ML (< 4.0); TRIGLYCERIDES LEVEL 147 MG/DL (<150)
[2017-11-16 09:58] LABS: TESTOSTERONE 308 NG/DL (241-827)
[2017-11-16 10:02] LABS: ESTIMATED AVERAGE GLUCOSE 103 MG/DL (60-110); HEMOGLOBIN A1c 5.2 %
[2017-11-18 00:10] LABS: Lyme Disease IgG/IgM Antibodie <0.91 ISR (0.00-0.90); Lyme Disease IgM Ab Quantitati <0.80 index (0.00-0.79)
== END ==
LOC: M LAB 06:29
DX: E78.5 Hyperlipidemia, unspecified (principal); R53.83 Other fatigue; E03.9 Hypothyroidism, unspecified; W57.XXXA Bitten or stung by nonvenomous insect and other nonvenomous arthropods, initial encounter; Y92.89 Other specified places as the place of occurrence of the external cause
CPT/HCPCS: 84403

== ENCOUNTER 2017-11-23 11:43 | Emergency (ER) | payer MEDICARE ==
[2017-11-23] MEDS: ASPIRIN 81 MG CHEW TABLET PO (12:20)
[2017-11-23] MEDS: NITROGLYCERIN 0.4 MG SUBL TABLET SL (12:21)
[2017-11-23 12:34] LABS: BASO # 0.1 10^3/uL (0.0-0.2); BASO % 0.4 % (0.0-1.0); EOS # 0.2 10^3/uL (0.0-0.50); EOS % 1.3 % (0.0-3.0); HEMOGLOBIN 16.5 g/dl (13.5-17.5); IMMATURE GRANULOCYTE % 0.9 % (0-3.0); LYMPH # 1.9 10^3/uL (1.5-4.5); MEAN CORPUSCULAR HEMOGLOBIN 31.9 pg (27.0-33.0); MEAN CORPUSCULAR HGB CONC 34.4 g/dl (32.0-36.5); MEAN CORPUSCULAR VOLUME 92.7 fl (80.0-96.0); MONO # 0.8 10^3/uL (0.0-0.8); MONO % 6.2 % (0.0-5.0); NEUTROPHILS % 75.2 % (36.0-66.0); PLATELET COUNT, AUTOMATED 178 10^3/uL (150-450); RED BLOOD COUNT 5.18 10^6/uL (4.30-6.10); RED CELL DISTRIBUTION WIDTH 12.5 % (11.5-14.5)
[2017-11-23 12:40] LABS: ALBUMIN/GLOBULIN RATIO 1.25 (1.00-1.93); ALKALINE PHOSPHATASE 76 U/L (45-117); ALT/SGPT 49 U/L (12-78); ANION GAP 7 MEQ/L (8-16); AST/SGOT 22 U/L (7-37); BILIRUBIN,DIRECT 0.2 MG/DL (0.0-0.2); BILIRUBIN,TOTAL 0.9 MG/DL (0.2-1.0); BLOOD UREA NITROGEN 18 MG/DL (7-18); CALCIUM LEVEL 8.6 MG/DL (8.8-10.2); CARBON DIOXIDE LEVEL 26 MEQ/L (21-32); CHLORIDE LEVEL 111 MEQ/L (98-107); CPK CREATINE PHOSPHOKINASE 235 U/L (39-308); CREATININE FOR GFR 1.46 MG/DL (0.70-1.30); GLOMERULAR FILTRATION RATE 51.7 (>49); GLUCOSE, FASTING 107 MG/DL (70-100); LIPASE 276 U/L (73-393); MB/CK RELATIVE INDEX 0.85 (< OR =4); SODIUM LEVEL 144 MEQ/L (136-145); TOTAL PROTEIN 7.2 GM/DL (6.4-8.2); TROPONIN I < 0.02 NG/ML (< 0.10)
[2017-11-23 12:49] LABS: INR 1.01; PROTHROMBIN TIME 13.4 SECONDS (12.4-14.5)
[2017-11-23 22:21] LABS: CK-MB VALUE MASS 1.9 NG/ML (<3.6); CPK CREATINE PHOSPHOKINASE 196 U/L (39-308); MB/CK RELATIVE INDEX 0.96 (< OR =4)
== END 2017-11-23 21:42 | disposition home or self-care (01) ==
LOC: M ED 21:42
DX: I20.0 Unstable angina (principal); R06.02 Shortness of breath; I51.9 Heart disease, unspecified; Z95.5 Presence of coronary angioplasty implant and graft; Z88.1 Allergy status to other antibiotic agents; Z88.8 Allergy status to other drugs, medicaments and biological substances; Z79.899 Other long term (current) drug therapy; Z79.82 Long term (current) use of aspirin; Z79.02 Long term (current) use of antithrombotics/antiplatelets
CPT/HCPCS: 71045

== ENCOUNTER → 2018-01-10 | Outpatient (CLI) | payer MEDICARE ==
[~2018-01-10] MED LIST changes: -GASTROGRAFIN SOLUTION 30ML (Q9963) As Ordered
== END ==
LOC: M RAD 08:25
DX: I73.9 Peripheral vascular disease, unspecified (principal); J84.10 Pulmonary fibrosis, unspecified; K76.89 Other specified diseases of liver
CPT/HCPCS: Q9967

== ENCOUNTER → 2018-01-31 | Outpatient (CLI) | payer MEDICARE ==
[2018-01-31 10:17] LABS: HEMATOCRIT 49.2 % (42.0-52.0); HEMOGLOBIN 17.2 g/dl (13.5-17.5); MEAN CORPUSCULAR HEMOGLOBIN 32.5 pg (27.0-33.0); PLATELET COUNT, AUTOMATED 183 10^3/uL (150-450); RED BLOOD COUNT 5.29 10^6/uL (4.30-6.10); RED CELL DISTRIBUTION WIDTH 12.6 % (11.5-14.5); WHITE BLOOD COUNT 8.5 10^3/uL (4.0-10.0)
[2018-01-31 10:32] LABS: ESTIMATED AVERAGE GLUCOSE 111 MG/DL (60-110); HEMOGLOBIN A1c 5.5 %
[2018-01-31 10:42] LABS: ALBUMIN/GLOBULIN RATIO 1.25 (1.00-1.93); ALKALINE PHOSPHATASE 82 U/L (45-117); ALT/SGPT 60 U/L (12-78); ANION GAP 6 MEQ/L (8-16); AST/SGOT 26 U/L (7-37); BILIRUBIN,TOTAL 1.1 MG/DL (0.2-1.0); BLOOD UREA NITROGEN 14 MG/DL (7-18); CALCIUM LEVEL 8.9 MG/DL (8.8-10.2); CARBON DIOXIDE LEVEL 29 MEQ/L (21-32); CHLORIDE LEVEL 110 MEQ/L (98-107); CHOLESTEROL LEVEL 126 MG/DL (<200); CHOLESTEROL RISK RATIO 2.863 (<5); GLOMERULAR FILTRATION RATE 59.2 (>49); GLUCOSE, FASTING 97 MG/DL (70-100); HDL CHOLESTEROL 44 MG/DL (>40); NON-HDL-C 82 MG/DL; POTASSIUM SERUM 4.3 MEQ/L (3.5-5.1); PROSTATIC SPECIFIC AG MONITOR 0.06 NG/ML (< 4.0); SODIUM LEVEL 145 MEQ/L (136-145); THYROXINE (T4) 10.6 UG/DL (4.5-12.0); TOTAL PROTEIN 7.2 GM/DL (6.4-8.2); TRIGLYCERIDES LEVEL 155 MG/DL (<150)
[2018-01-31 10:46] LABS: TESTOSTERONE 349 NG/DL (241-827)
[2018-01-31 10:50] LABS: TOTAL 25(OH) VITAMIN D 31.1 NG/ML (30.0-100.0)
== END ==
LOC: M LAB 09:18
DX: I10 Essential (primary) hypertension (principal); E03.9 Hypothyroidism, unspecified; R53.83 Other fatigue; E29.1 Testicular hypofunction
CPT/HCPCS: 84403

== ENCOUNTER → 2018-02-10 | Outpatient (CLI) | payer MEDICARE ==
[2018-02-10 07:08] LABS: CONTROL LINE MONO INT CTR LINE PRESENT; MONO SCRN NEGATIVE (NEGATIVE)
[2018-02-10 07:13] LABS: RHEUMATOID FACTOR QUANT < 10.0 IU/ML (<15.0)
[2018-02-10 07:36] LABS: ERYTHROCYTE SEDIMENTATION RATE 5 mm/hr (0-20)
[2018-02-12 00:06] LABS: ANTINUCLEAR ANTIBODIES DIRECT Negative (Negative); Lyme Disease IgG/IgM Antibodie <0.91 ISR (0.00-0.90); Lyme Disease IgM Ab Quantitati <0.80 index (0.00-0.79)
== END ==
LOC: M LAB 06:22
DX: R53.83 Other fatigue (principal)
CPT/HCPCS: 36415

== ENCOUNTER → 2018-03-14 | Outpatient (CLI) | payer MEDICARE ==
[2018-03-14 11:29] LABS: HEMATOCRIT 48.7 % (42.0-52.0); MEAN CORPUSCULAR HEMOGLOBIN 31.9 pg (27.0-33.0); MEAN CORPUSCULAR HGB CONC 34.9 g/dl (32.0-36.5); MEAN CORPUSCULAR VOLUME 91.4 fl (80.0-96.0); PLATELET COUNT, AUTOMATED 213 10^3/uL (150-450); RED BLOOD COUNT 5.33 10^6/uL (4.30-6.10); RED CELL DISTRIBUTION WIDTH 12.6 % (11.5-14.5); WHITE BLOOD COUNT 8.1 10^3/uL (4.0-10.0)
[2018-03-14 11:39] LABS: INR 1.01; PROTHROMBIN TIME 13.5 SECONDS (12.1-14.4)
[2018-03-14 11:58] LABS: ESTIMATED AVERAGE GLUCOSE 105 MG/DL (60-110); HEMOGLOBIN A1c 5.3 %
[2018-03-14 12:35] LABS: ALBUMIN 4.1 GM/DL (3.2-5.2); ALBUMIN/GLOBULIN RATIO 1.14 (1.00-1.93); ALKALINE PHOSPHATASE 93 U/L (45-117); ALT/SGPT 72 U/L (12-78); ANION GAP 7 MEQ/L (8-16); AST/SGOT 34 U/L (7-37); BILIRUBIN,TOTAL 0.7 MG/DL (0.2-1.0); BLOOD UREA NITROGEN 12 MG/DL (7-18); CALCIUM LEVEL 8.9 MG/DL (8.8-10.2); CARBON DIOXIDE LEVEL 26 MEQ/L (21-32); CHLORIDE LEVEL 108 MEQ/L (98-107); CHOLESTEROL LEVEL 137 MG/DL (<200); CHOLESTEROL RISK RATIO 3.261 (<5); CREATININE FOR GFR 1.26 MG/DL (0.70-1.30); GLOMERULAR FILTRATION RATE > 60.0 (>49); GLUCOSE, FASTING 93 MG/DL (70-100); HDL CHOLESTEROL 42 MG/DL (>40); LDL CHOLESTEROL 61 MG/DL (<100); NON-HDL-C 95 MG/DL; POTASSIUM SERUM 4.3 MEQ/L (3.5-5.1); PROSTATIC SPECIFIC AG MONITOR 0.06 NG/ML (< 4.0); SODIUM LEVEL 141 MEQ/L (136-145); TESTOSTERONE 416 NG/DL (241-827); TOTAL PROTEIN 7.7 GM/DL (6.4-8.2); TRIGLYCERIDES LEVEL 168 MG/DL (<150)
== END ==
LOC: M LAB 09:37
DX: I10 Essential (primary) hypertension (principal); Z79.899 Other long term (current) drug therapy
CPT/HCPCS: 84403

== ENCOUNTER 2018-04-17 08:08 | Outpatient (RCR) | payer MEDICARE | END 2018-04-26 | LOC: M CR 08:08 | DX: Z98.61 Coronary angioplasty status (principal) | CPT/HCPCS: 93798 ==

== ENCOUNTER → 2018-04-25 | Outpatient (CLI) | payer MEDICARE ==
[~2018-04-25] MED LIST changes: +CONRAY-43 43% 50ML VIAL (Q9960) As Ordered; -ISOVUE-370 76% 100ML VIAL (Q9967) As Ordered; +LIDOCAINE 1% MDV 20ML VIAL As Ordered; +TRIAMCINOLONE ACETONIDE SUSP 40 MG/ML VIAL (J3301) As Ordered
== END ==
LOC: M RADPRO 12:34
DX: M16.11 Unilateral primary osteoarthritis, right hip (principal); M25.551 Pain in right hip; E03.9 Hypothyroidism, unspecified; R53.83 Other fatigue; I11.9 Hypertensive heart disease without heart failure; N18.9 Chronic kidney disease, unspecified; E29.1 Testicular hypofunction; Z79.82 Long term (current) use of aspirin; Z79.01 Long term (current) use of anticoagulants; Z79.899 Other long term (current) drug therapy; Z88.8 Allergy status to other drugs, medicaments and biological substances
CPT/HCPCS: 20610

== ENCOUNTER → 2018-04-25 | Outpatient (CLI) | payer MEDICARE ==
[2018-04-25 10:12] LABS: HEMATOCRIT 49.3 % (42.0-52.0); HEMOGLOBIN 16.7 g/dl (13.5-17.5); MEAN CORPUSCULAR HEMOGLOBIN 31.9 pg (27.0-33.0); MEAN CORPUSCULAR HGB CONC 33.9 g/dl (32.0-36.5); MEAN CORPUSCULAR VOLUME 94.1 fl (80.0-96.0); PLATELET COUNT, AUTOMATED 185 10^3/uL (150-450); RED BLOOD COUNT 5.24 10^6/uL (4.30-6.10); RED CELL DISTRIBUTION WIDTH 12.4 % (11.5-14.5); WHITE BLOOD COUNT 7.8 10^3/uL (4.0-10.0)
[2018-04-25 10:32] LABS: ALBUMIN 4.1 GM/DL (3.2-5.2); ALBUMIN/GLOBULIN RATIO 1.37 (1.00-1.93); ALKALINE PHOSPHATASE 85 U/L (45-117); ALT/SGPT 65 U/L (12-78); ANION GAP 5 MEQ/L (8-16); AST/SGOT 28 U/L (7-37); BILIRUBIN,TOTAL 1.1 MG/DL (0.2-1.0); BLOOD UREA NITROGEN 18 MG/DL (7-18); CARBON DIOXIDE LEVEL 28 MEQ/L (21-32); CHLORIDE LEVEL 111 MEQ/L (98-107); CHOLESTEROL LEVEL 131 MG/DL (<200); CREATININE FOR GFR 1.37 MG/DL (0.70-1.30); GLOMERULAR FILTRATION RATE 55.7 (>49); GLUCOSE, FASTING 100 MG/DL (70-100); HDL CHOLESTEROL 37 MG/DL (>40); LDL CHOLESTEROL 67 MG/DL (<100); NON-HDL-C 94 MG/DL; POTASSIUM SERUM 4.3 MEQ/L (3.5-5.1); PROSTATIC SPECIFIC AG MONITOR 0.04 NG/ML (< 4.0); SODIUM LEVEL 144 MEQ/L (136-145); TOTAL PROTEIN 7.1 GM/DL (6.4-8.2); TRIGLYCERIDES LEVEL 137 MG/DL (<150)
[2018-04-25 10:33] LABS: TESTOSTERONE 385 NG/DL (241-827)
[2018-04-25 11:41] LABS: ESTIMATED AVERAGE GLUCOSE 103 MG/DL (60-110); HEMOGLOBIN A1c 5.2 %
== END ==
LOC: M LAB 08:47
DX: E03.9 Hypothyroidism, unspecified (principal); R53.83 Other fatigue; I10 Essential (primary) hypertension

== ENCOUNTER 2018-04-28 10:55 | Outpatient (RCR) | payer MEDICARE | END 2018-05-26 | LOC: M CR 10:55 | DX: Z98.61 Coronary angioplasty status (principal) | CPT/HCPCS: 93798 ==

== ENCOUNTER → 2018-05-22 | Outpatient (CLI) | payer MEDICARE | LOC: M RAD 09:57 | DX: E04.1 Nontoxic single thyroid nodule (principal); R09.89 Other specified symptoms and signs involving the circulatory and respiratory systems | CPT/HCPCS: 76536 ==

== ENCOUNTER → 2018-05-30 | Outpatient (REF) ==
[2018-05-31 10:42] LABS: RUBELLA IgG QUALITATIVE SUSCEPTIBLE (IMMUNE)
== END ==
LOC: M LAB 12:48
DX: Z00.00 Encounter for general adult medical examination without abnormal findings (principal)

== ENCOUNTER 2018-06-12 02:57 | Emergency (ER) | payer MEDICARE ==
[2018-06-12 03:20] LABS: BASO # 0.1 10^3/uL (0.0-0.2); BASO % 0.9 % (0.0-1.0); EOS # 0.1 10^3/uL (0.0-0.50); EOS % 2.2 % (0.0-3.0); HEMATOCRIT 47.9 % (42.0-52.0); HEMOGLOBIN 16.3 g/dl (13.5-17.5); IMMATURE GRANULOCYTE % 1.4 % (0-3.0); LYMPH # 1.6 10^3/uL (1.5-4.5); LYMPH % 24.7 % (24.0-44.0); MEAN CORPUSCULAR HEMOGLOBIN 32.1 pg (27.0-33.0); MEAN CORPUSCULAR VOLUME 94.3 fl (80.0-96.0); MONO # 1.1 10^3/uL (0.0-0.8); MONO % 16.6 % (0.0-5.0); NEUTROPHILS # 3.5 10^3/uL (1.8-7.7); NEUTROPHILS % 54.2 % (36.0-66.0); PLATELET COUNT, AUTOMATED 198 10^3/uL (150-450); RED BLOOD COUNT 5.08 10^6/uL (4.30-6.10); RED CELL DISTRIBUTION WIDTH 12.4 % (11.5-14.5); WHITE BLOOD COUNT 6.4 10^3/uL (4.0-10.0)
[2018-06-12 03:45] LABS: ANION GAP 6 MEQ/L (8-16); BLOOD UREA NITROGEN 15 MG/DL (7-18); CALCIUM LEVEL 8.6 MG/DL (8.8-10.2); CARBON DIOXIDE LEVEL 29 MEQ/L (21-32); CHLORIDE LEVEL 108 MEQ/L (98-107); CPK CREATINE PHOSPHOKINASE 160 U/L (39-308); CREATININE FOR GFR 1.38 MG/DL (0.70-1.30); GLOMERULAR FILTRATION RATE 55.2 (>49); GLUCOSE, FASTING 112 MG/DL (70-100); MB/CK RELATIVE INDEX 1.25 (< OR =4); POTASSIUM SERUM 3.5 MEQ/L (3.5-5.1); SODIUM LEVEL 143 MEQ/L (136-145); TROPONIN I < 0.02 NG/ML (< 0.10)
[2018-06-12] MEDS: ASPIRIN 81 MG CHEW TABLET PO (04:00)
[2018-06-12] MEDS: NITROGLYCERIN 0.4 MG SUBL TABLET SL (04:01)
[2018-06-12 10:04] LABS: CPK CREATINE PHOSPHOKINASE 133 U/L (39-308); TROPONIN I < 0.02 NG/ML (< 0.10)
== END 2018-06-12 11:27 | disposition home or self-care (01) ==
LOC: M ED 02:57
DX: R07.9 Chest pain, unspecified (principal); R06.02 Shortness of breath; I25.10 Atherosclerotic heart disease of native coronary artery without angina pectoris; Z79.899 Other long term (current) drug therapy; Z79.82 Long term (current) use of aspirin; Z88.1 Allergy status to other antibiotic agents; Z88.8 Allergy status to other drugs, medicaments and biological substances
CPT/HCPCS: 71046

== ENCOUNTER → 2018-06-16 | Outpatient (CLI) | payer MEDICARE ==
[~2018-06-16] MED LIST changes: +ACET500T15 PO; +AMLO10TA5 PO; +AMLO5TAB6 PO; +ASMA220A INH; +ASPI1TAB PO; +ATEN50TA2 PO; +CLOP75TA2 PO; -CONRAY-43 43% 50ML VIAL (Q9960) As Ordered; +CRES10TA32 PO; +CRES5TAB; +DOXY100T PO; +KEFL500C17 PO; -LIDOCAINE 1% MDV 20ML VIAL As Ordered; +NASA1SPR; +OMEP20CA3 PO; +SPIR-10 PO; -TRIAMCINOLONE ACETONIDE SUSP 40 MG/ML VIAL (J3301) As Ordered; +VIBR100C PO; +XANA0.5T PO
[2018-06-16 09:29] LABS: HEMATOCRIT 46.6 % (42.0-52.0); HEMOGLOBIN 16.2 g/dl (13.5-17.5); MEAN CORPUSCULAR HGB CONC 34.8 g/dl (32.0-36.5); MEAN CORPUSCULAR VOLUME 91.9 fl (80.0-96.0); PLATELET COUNT, AUTOMATED 205 10^3/uL (150-450); RED BLOOD COUNT 5.07 10^6/uL (4.30-6.10); WHITE BLOOD COUNT 6.9 10^3/uL (4.0-10.0)
[2018-06-16 10:00] LABS: ALBUMIN 3.9 GM/DL (3.2-5.2); ALT/SGPT 71 U/L (12-78); BLOOD UREA NITROGEN 17 MG/DL (7-18); C REACTIVE PROTEIN QUANTITATIV < 0.30 MG/DL (0.00-0.30); CALCIUM LEVEL 9.1 MG/DL (8.8-10.2); CARBON DIOXIDE LEVEL 30 MEQ/L (21-32); CHLORIDE LEVEL 107 MEQ/L (98-107); CHOLESTEROL LEVEL 117 MG/DL (<200); CHOLESTEROL RISK RATIO 3.342 (<5); CREATININE FOR GFR 1.38 MG/DL (0.70-1.30); GLOMERULAR FILTRATION RATE 55.2 (>49); GLUCOSE, FASTING 101 MG/DL (70-100); HDL CHOLESTEROL 35 MG/DL (>40); LDL CHOLESTEROL 55 MG/DL (<100); NON-HDL-C 82 MG/DL; POTASSIUM SERUM 4.2 MEQ/L (3.5-5.1); PROSTATIC SPECIFIC AG MONITOR 0.05 NG/ML (< 4.00); SODIUM LEVEL 143 MEQ/L (136-145); TOTAL PROTEIN 6.9 GM/DL (6.4-8.2); TRIGLYCERIDES LEVEL 133 MG/DL (<150)
[2018-06-16 10:05] LABS: TESTOSTERONE 337 NG/DL (241-827)
[2018-06-16 12:05] LABS: HEMOGLOBIN A1c 5.8 %
== END ==
LOC: M LAB 08:21
PROVIDERS: ATTEND Family Medicine
DX: I10 Essential (primary) hypertension (principal); N40.0 Benign prostatic hyperplasia without lower urinary tract symptoms; E11.9 Type 2 diabetes mellitus without complications

== ENCOUNTER 2018-06-23 15:20 | Outpatient (RCR) | payer MEDICARE ==
--- NOTE | 2018-06-05 14:25 | CARECAPL ---
Assessment Account #s: Re-Assessment II General Diagnoses: Stent Date of event: Mar 31, 2018 Allergies: Coded Allergies: Moxifloxacin (Verified Allergy, Unknown, 03/29/16) Azithromycin (Verified Adverse Reaction, Unknown, heart flutter, 03/23/18) Diphenhydramine (Unverified Adverse Reaction, Unknown, HEART RACES, 10/26/15) Lisinopril (Verified Adverse Reaction, Unknown, cough, 03/23/18) Date Entered Program: Apr 17, 2018 Risk strat for cardiac event: High Exercise Date: Jun 05, 2018 Assessment: Re-Assessment II Exercise Prescription Plan TO EDUCATE AND INCREASE ENDURANCE THROUGH MONITORED EXERCISE Modalities initiated: Treadmill (METS=3.14/RPE=3), Nustep (METS=4.5/RPE=3), Arm Aerometer (METS=3.4/RPE=3.5), Dumbells (8#/RPE=2), Recumbent Bike (METS=4.5/RPE=4) Frequency: 3 Duration (Minutes) 30-60 minutes total exercise a day. 10-15 work intervals in minutes. 5 MINUTES PRN rest intervals in minutes. Functional Capacity Goal Sustained Metabolic Equivalent of a task (MET) goal of 4.0-5.0 for 15-20 minutes. Intensity: 3-Moderate Progression (METS) Increase by: 0.5 METS every: 3-5 sessions TOLERATED Angina with ex: No Target Heart Rate +35-40 PER [facility]A GÓMEZ [facility]ERAPY Resistance Training: Yes Weight (pounds): 8 Reps: 12-15 Hypertension: Yes Hypertension controlled with: Medication Resting 132/80 Peak Exercise BP 170/90 Medications Scheduled Amlodipine Besylate (Amlodipine Besylate), 5 MG PO DAILY, (Reported) Aspirin (Aspirin 81), 81 MG PO QHS, (Reported) Atenolol (Atenolol), 50 MG PO QHS, (Reported) Clopidogrel Bisulfate (Clopidogrel), 75 MG PO QAM, (Reported) Rosuvastatin Calcium (Crestor), 5 MG QHS, (Reported) Spironolactone (Spironolactone), 12.5 MG PO DAILY, (Reported) Scheduled PRN Alprazolam (Xanax), 1 MG PO QIDP PRN for ANXIETY, (Reported) Current BP 110/64 Med Change: No Intervention Home exercise: Type (WALKING), Frequency (3-5 TIMES PER WEEK), Duration (30-60 MINUTES) Resistance Training: Yes Education: Self pulse, Ex safety, S/S to report, Low NA diet, BP medication, RPE Scale, Equipment orientation, warm up/cool down, Understand BP, Physical Active Target Goals Individual exercise Rx (1) BP 140/90 or 130/80 if DM or CKD (1) Aerobic active 30+min 5 days per week (1) Nutrition Date: Jun 05, 2018 Assessment: Re-Assessment II Lipid- med/supplement CRESTOR 5 MG DAILY Med Change: No Diabetes Diabetes: No Monitor Blood Sugar at home: No Medication Change: No Blood sugar in range: No Weight Management Weight (lbs): 209.6 Special Diet: low salt, low-fat Alcohol: special Current Weight (pounds): 207 Intervention Copy Lathe Tender Consult: Yes Nurse/patient discussion: Yes Diet Class: Yes (TO MAKE BETTER DIETARY CHOICES) Referral to Diabetes education: No Referral to lipid clinic: No Referral to weight mangement p: No Education Eating Healthy Target goal LDL-C<100 if triglycerides are >200 Non-HDL-C should be <130 (1) LDL-C<70 for high risk patients (4) HbA1c<7% (1) BMI<25 Waist cir<40in M/<35in F (1) Education Date: Jun 05, 2018 Assessment: Re-Assessment II Family Support: Yes Tobacco use: No Tobacco Use Smokeless tobacco: No Intervention Referral to smoking cessation: No Individual education and couns: No Tobacco Adjunct: No Education class schedule given: No Attended education classes: No Education: CAD, Risk factors, med compliance, cardiac A&P, Angina S/S, Sexuality Target Goals Complete cessation of tobacco use (1). Psychosocial Date: Jun 05, 2018 Assessment: Re-Assessment II Intervention Physician Consult: No Physician Referral: No Psychotropic medication XANAX FOR ANXIETY Med Change: No Stress Management Class: No Uses Stress Management Skills: Yes Education Education: Coping Techniques, S/S depression, Relaxation Techniques Target Goal Assess presence or absence of depression using a valid screening tool (1). Maximize coping skills (2). Positive support system (2). Patient/Program Goal Preventative Medication: Yes Aspirin, Yes Clopidogrel, Yes Beta blockade, Yes Statin/OTR lipid Lowering Fall Risk Assess: Yes (NOT A FALL RISK) Provider Assessment Session Number: 20 Herve Caballero RN Jun 05, 2018 14:25
[~2018-06-23 15:20] MED LIST changes: +AMLO10TA4 PO; -AMLO10TA5 PO; +AMLO5TAB4 PO; -AMLO5TAB6 PO
== END 2018-06-26 ==
LOC: M CR 15:20
PROVIDERS: ATTEND Internal Medicine Cardiovascular Disease
DX: Z98.61 Coronary angioplasty status (principal)

== ENCOUNTER → 2018-06-29 | Outpatient (REF) | payer MEDICARE ==
[~2018-06-29] MED LIST changes: -AMLO10TA4 PO; +AMLO10TA5 PO; -AMLO5TAB4 PO; +AMLO5TAB6 PO
== END ==
LOC: M LAB REF 14:10
PROVIDERS: ATTEND Urology
DX: R31.9 Hematuria, unspecified (principal)

== ENCOUNTER 2018-07-07 11:02 | Outpatient (RCR) | payer MEDICARE ==
--- NOTE | 2018-07-07 13:06 | CARECAPL ---
Assessment Account #s: Re-Assessment II (discharge assessment) General Diagnoses: Stent Date of event: Mar 31, 2018 Physician: Nino Cano Allergies: Coded Allergies: Moxifloxacin (Verified Allergy, Unknown, 03/29/16) Azithromycin (Verified Adverse Reaction, Unknown, heart flutter, 03/23/18) Diphenhydramine (Unverified Adverse Reaction, Unknown, HEART RACES, 10/26/15) Lisinopril (Verified Adverse Reaction, Unknown, cough, 03/23/18) Date Entered Program: Jul 18, 2018 Risk strat for cardiac event: High Exercise Date: Jul 07, 2018 Assessment: Followup/Discharge Exercise Prescription Modalities initiated: Treadmill, Cardio-Strider, Nustep, Arm Aerometer, Dumbells, Recumbent Bike Frequency: 3 Duration (Minutes) minutes total exercise a day. work intervals in minutes. rest intervals in minutes. Functional Capacity Goal Sustained Metabolic Equivalent of a task (MET) goal of for minutes. Intensity: 3-Moderate Progression (METS) Increase by: METS every: sessions Angina with ex: No Hypertension: Yes Hypertension controlled with: Diet Resting 112/70 Peak Exercise BP 180/98 Meds see below Medications Scheduled Amlodipine Besylate (Amlodipine Besylate), 5 MG PO DAILY, (Reported) Aspirin (Aspirin 81), 81 MG PO QHS, (Reported) Atenolol (Atenolol), 50 MG PO QHS, (Reported) Clopidogrel Bisulfate (Clopidogrel), 75 MG PO QAM, (Reported) Rosuvastatin Calcium (Crestor), 5 MG QHS, (Reported) Spironolactone (Spironolactone), 12.5 MG PO DAILY, (Reported) Scheduled PRN Alprazolam (Xanax), 1 MG PO QIDP PRN for ANXIETY, (Reported) Education Goals Met: Yes Target Goals Individual exercise Rx (1) BP 140/90 or 130/80 if DM or CKD (1) Aerobic active 30+min 5 days per week (1) Nutrition Date: Jul 07, 2018 Assessment: Followup/Discharge Med Change: No Medication Change: No Score: 54 Intervention Shoes Salesperson Consult: Yes Nurse/patient discussion: Yes Diet Class: Yes Education Eating Healthy Education Goals Met: Yes Target goal LDL-C<100 if triglycerides are >200 Non-HDL-C should be <130 (1) LDL-C<70 for high risk patients (4) HbA1c<7% (1) BMI<25 Waist cir<40in M/<35in F (1) Education Date: Jul 07, 2018 Assessment: Followup/Discharge Knowledge Test Score: 10 Intervention Attended education classes: Yes Education: CAD, Risk factors, med compliance, cardiac A&P, Angina S/S, Sexuality Education Goals Met: Yes Target Goals Complete cessation of tobacco use (1). Psychosocial Date: Jul 07, 2018 Assessment: Followup/Discharge Psych Test (Initial/Discharge) Tool Used: CESD (does not want notice sent to Doctor) Score: 18 Intervention Physician Consult: No Physician Referral: No Med Change: No Stress Management Class: Yes Uses Stress Management Skills: Yes Education Education: Coping Techniques, S/S depression, Relaxation Techniques Education Goals Met: Yes Target Goal Assess presence or absence of depression using a valid screening tool (1). Maximize coping skills (2). Positive support system (2). Fall Risk Assess: No (neg for fall risk 7 ) Provider Assessment Session Number: 24 Provider Assessment: No changes Agnes Alonso RN Jul 07, 2018 13:06
== END 2018-07-27 ==
LOC: M CR 11:02
PROVIDERS: ATTEND Internal Medicine Cardiovascular Disease
DX: Z98.61 Coronary angioplasty status (principal)

== ENCOUNTER 2018-07-10 14:35 | Outpatient (RCR) | payer SELFPAY | END 2018-07-27 | LOC: M CR 14:35 | PROVIDERS: ATTEND Internal Medicine Cardiovascular Disease | DX: Z98.61 Coronary angioplasty status (principal) ==

== ENCOUNTER → 2018-08-02 | Outpatient (CLI) | payer MEDICARE ==
[2018-08-02 10:03] LABS: HEMATOCRIT 48.9 % (42.0-52.0); HEMOGLOBIN 16.5 g/dl (13.5-17.5); MEAN CORPUSCULAR HGB CONC 33.7 g/dl (32.0-36.5); PLATELET COUNT, AUTOMATED 186 10^3/uL (150-450); RED BLOOD COUNT 5.15 10^6/uL (4.30-6.10)
[2018-08-02 10:35] LABS: ALBUMIN 3.9 GM/DL (3.2-5.2); ALT/SGPT 61 U/L (12-78); BILIRUBIN,TOTAL 0.6 MG/DL (0.2-1.0); BLOOD UREA NITROGEN 16 MG/DL (7-18); C REACTIVE PROTEIN QUANTITATIV < 0.30 MG/DL (0.00-0.30); CALCIUM LEVEL 8.7 MG/DL (8.8-10.2); CARBON DIOXIDE LEVEL 29 MEQ/L (21-32); CHLORIDE LEVEL 108 MEQ/L (98-107); CHOLESTEROL LEVEL 138 MG/DL (<200); CHOLESTEROL RISK RATIO 3.285 (<5); CREATININE FOR GFR 1.21 MG/DL (0.70-1.30); GLOMERULAR FILTRATION RATE > 60.0 (>49); GLUCOSE, FASTING 106 MG/DL (70-100); HDL CHOLESTEROL 42 MG/DL (>40); LDL CHOLESTEROL 78 MG/DL (<100); NON-HDL-C 96 MG/DL; POTASSIUM SERUM 4.4 MEQ/L (3.5-5.1); PROSTATIC SPECIFIC AG MONITOR 0.05 NG/ML (< 4.00); SODIUM LEVEL 142 MEQ/L (136-145); TOTAL PROTEIN 6.9 GM/DL (6.4-8.2); TRIGLYCERIDES LEVEL 89 MG/DL (<150)
[2018-08-02 10:38] LABS: HEMOGLOBIN A1c 5.6 %
[2018-08-02 10:40] LABS: TESTOSTERONE 428 NG/DL (241-827)
[2018-08-02 10:54] LABS: ERYTHROCYTE SEDIMENTATION RATE 4 mm/hr (0-20)
== END ==
LOC: M LAB 09:04
PROVIDERS: ATTEND Family Medicine
DX: I10 Essential (primary) hypertension (principal); E11.9 Type 2 diabetes mellitus without complications; E03.9 Hypothyroidism, unspecified

== ENCOUNTER 2018-08-18 12:05 | Outpatient (RCR) | payer MEDICARE | END 2018-08-24 | LOC: M PT 12:05 | PROVIDERS: ATTEND Family Medicine | DX: H81.10 Benign paroxysmal vertigo, unspecified ear (principal) ==

== ENCOUNTER → 2018-08-28 | Outpatient (CLI) | payer MEDICARE ==
--- NOTE | 2018-08-28 11:41 | REP ---
MAXILLOFACIAL CT STUDY WITHOUT CONTRAST: HISTORY: Chronic sinusitis. Comparison brain MRI images are from February 24, 2018. CT FINDINGS: There is a small mucous retention cyst in the floor the right maxillary sinus, unchanged. The maxillary sinuses are otherwise clear. Ethmoid, frontal, and sphenoid sinuses are clear. Mastoid aeration is symmetric, although the mastoids are not prominently aerated. Middle ear cavities are aerated and symmetric. The bony nasal septum deviates somewhat to the right in a bowing morphology without significant beaking. Nasal turbinate soft tissues are symmetric. There is an aerated anais bullosa on each side, left larger than right. Ostiomeatal complexes are patent. No intraorbital abnormality is seen. The deep facial, intraorbital, and visualized intracranial soft tissues are unremarkable. IMPRESSION: Small mucous retention cyst in the floor of the maxillary sinus on the right. Rightward bowing of the nasal septum. Aerated anais bullosa bilaterally, left larger than right. Sinuses are otherwise clear. Electronically Signed by Aftab Mccray MD 08/28/2018 12:51 P
== END ==
LOC: M RAD 08:07
PROVIDERS: ATTEND Family Medicine
DX: J34.1 Cyst and mucocele of nose and nasal sinus (principal); J34.89 Other specified disorders of nose and nasal sinuses

== ENCOUNTER → 2018-09-02 | Outpatient (CLI) | payer MEDICARE ==
--- NOTE | 2018-09-04 09:14 | REP ---
MR BRAIN WITHOUT CONTRAST: HISTORY: Headache. COMPARISON: 02/24/2018. There are no areas of abnormal signal intensity in the brain. There is no intraparenchymal hemorrhage, infarct, mass or midline shift. The ventricular system is normal in appearance. There is no extracerebral collection. Mucosal thickening is present in the right maxillary sinus. IMPRESSION:There is no intracranial lesion. Electronically Signed by Cornelio Sims MD 09/04/2018 09:50 A
== END ==
LOC: M RAD 11:39
PROVIDERS: ATTEND Family Medicine
DX: R51 Headache (principal); R42 Dizziness and giddiness

== ENCOUNTER → 2018-10-05 | Outpatient (CLI) | payer MEDICARE ==
[~2018-10-05] MED LIST changes: -ASPI1TAB PO; +ASPI81TA26 PO; +CRES10TA PO; -CRES10TA32 PO
--- NOTE | 2018-10-05 11:32 | REP ---
Renal vascular ultrasound: Right Kidney: Extraparenchymal renal artery. Peak renal artery flow velocity the 83.9 cm/ sec Peak aortic velocity: 85.5 cm/sec Renal/aortic ratio: 1.0 Intraparenchymal renal arteries. Resistive index: upper pole 0.59 mid pole 0.65 lower pole 0.61 Acceleration time: upper pole 0.07 mid pole 0.06 lower pole 0.05 Left kidney: Extraparenchymal renal artery: Peak renal artery flow velocity: 81.5 cm/sec. Peak aortic velocity: 85.5 cm/sec Renal/aortic ratio: 1.0 Intraparenchymal renal arteries: Resistive index: Upper pole 0.53 mid pole 0.70 lower pole no 0.59 Acceleration time: Upper pole 0.03 mid pole 0.07 lower pole 0.05 Impression: There is no Doppler ultrasound evidence of renal artery stenosis. Renal and bladder ultrasound: The right kidney measures 11.0 x 5.1 x 5.5 cm. The left kidney measures 11.7 x 5.0 x 5 per 4 cm. The kidneys are normal size. Renal cortical echogenicity is normal bilaterally. There is no calculus, hydronephrosis, or solid mass in the right and the left kidneys. There is a simple cyst at the mid pole of the left kidney measuring up to 2.3 cm in diameter. Bladder: No bladder wall masses or nodules are identified. Impression: Essentially negative renal and bladder ultrasound except for a simple cyst in the left kidney. Electronically Signed by Geoff Carter MD 10/05/2018 11:24 A
== END ==
LOC: M RAD 08:02
PROVIDERS: ATTEND Internal Medicine Nephrology
DX: I12.9 Hypertensive chronic kidney disease with stage 1 through stage 4 chronic kidney disease, or unspecified chronic kidney disease (principal); N18.3 Chronic kidney disease, stage 3 (moderate); N28.1 Cyst of kidney, acquired

== ENCOUNTER → 2018-10-11 | Outpatient (CLI) | payer MEDICARE ==
[2018-10-11 06:56] LABS: HEMATOCRIT 49.5 % (42.0-52.0); HEMOGLOBIN 17.1 g/dl (13.5-17.5); MEAN CORPUSCULAR HEMOGLOBIN 32.4 pg (27.0-33.0); MEAN CORPUSCULAR HGB CONC 34.5 g/dl (32.0-36.5); MEAN CORPUSCULAR VOLUME 93.9 fl (80.0-96.0); PLATELET COUNT, AUTOMATED 206 10^3/uL (150-450); RED BLOOD COUNT 5.27 10^6/uL (4.30-6.10); WHITE BLOOD COUNT 8.4 10^3/uL (4.0-10.0)
[2018-10-11 07:13] LABS: HEMOGLOBIN A1c 5.3 %
[2018-10-11 07:39] LABS: CALCIUM LEVEL 8.9 MG/DL (8.8-10.2); CHOLESTEROL RISK RATIO 3.25 (<5); CREATININE FOR GFR 1.45 MG/DL (0.70-1.30); POTASSIUM SERUM 4.1 MEQ/L (3.5-5.1); PROSTATIC SPECIFIC AG MONITOR 0.06 NG/ML (< 4.00); THYROID STIMULATING HORMONE 4.5 uIU/ML (0.358-3.740); TOTAL PROTEIN 7.2 GM/DL (6.4-8.2)
[2018-10-11 10:37] LABS: TOTAL 25(OH) VITAMIN D 30.7 NG/ML (30.0-100.0)
== END ==
LOC: M LAB 06:13
PROVIDERS: ATTEND Family Medicine
DX: D64.9 Anemia, unspecified (principal); R53.83 Other fatigue; Z79.899 Other long term (current) drug therapy

== ENCOUNTER → 2018-10-17 | Outpatient (CLI) | payer MEDICARE ==
[2018-10-17 10:04] LABS: THYROID STIMULATING HORMONE 2.15 uIU/ML (0.358-3.740); THYROXINE (T4) 9.1 UG/DL (4.5-12.0)
[2018-10-17 10:30] LABS: TOTAL T3 100.4 NG/DL (60.0-181.0)
== END ==
LOC: M LAB 08:55
PROVIDERS: ATTEND Family Medicine
DX: R53.83 Other fatigue (principal); E03.9 Hypothyroidism, unspecified

== ENCOUNTER → 2018-12-07 | Outpatient (CLI) | payer MEDICARE ==
[2018-12-07 09:08] LABS: HEMATOCRIT 47.6 % (42.0-52.0); HEMOGLOBIN 16.5 g/dl (13.5-17.5); MEAN CORPUSCULAR HEMOGLOBIN 31.9 pg (27.0-33.0); MEAN CORPUSCULAR HGB CONC 34.7 g/dl (32.0-36.5); MEAN CORPUSCULAR VOLUME 91.9 fl (80.0-96.0); PLATELET COUNT, AUTOMATED 183 10^3/uL (150-450); RED BLOOD COUNT 5.18 10^6/uL (4.30-6.10); WHITE BLOOD COUNT 7.2 10^3/uL (4.0-10.0)
[2018-12-07 09:40] LABS: ERYTHROCYTE SEDIMENTATION RATE 4 mm/hr (0-20)
[2018-12-07 09:43] LABS: ALBUMIN 4.1 GM/DL (3.2-5.2); CALCIUM LEVEL 8.9 MG/DL (8.8-10.2); CHOLESTEROL RISK RATIO 3.5 (<5); CREATININE FOR GFR 1.34 MG/DL (0.70-1.30); PROSTATIC SPECIFIC AG MONITOR 0.04 NG/ML (< 4.00); THYROID STIMULATING HORMONE 3.06 uIU/ML (0.358-3.740); THYROXINE (T4) 8.6 UG/DL (4.5-12.0); TOTAL PROTEIN 7.1 GM/DL (6.4-8.2)
[2018-12-07 10:10] LABS: TOTAL 25(OH) VITAMIN D 38.2 NG/ML (30.0-100.0)
[2018-12-07 10:11] LABS: TOTAL T3 110.8 NG/DL (60.0-181.0)
[2018-12-09 00:07] LABS: Lyme Disease IgG/IgM Antibodie <0.91 ISR (0.00-0.90); Lyme Disease IgM Ab Quantitati <0.80 index (0.00-0.79)
== END ==
LOC: M LAB 08:12
PROVIDERS: ATTEND Family Medicine
DX: I10 Essential (primary) hypertension (principal); E03.9 Hypothyroidism, unspecified; R53.83 Other fatigue

== ENCOUNTER → 2019-01-09 | Outpatient (CLI) | payer MEDICARE ==
[~2019-01-09] MED LIST changes: -OMEP20CA3 PO; +OMEP20CA4 PO
--- NOTE | 2019-01-09 09:46 | REP ---
CHEST, TWO VIEWS: Two views of the chest are performed. COMPARISON: 06/12/2018 There is no acute infiltrate or pulmonary edema. The heart is normal in size. There is mild calcification and tortuosity of the thoracic aorta. The mediastinal silhouette is unchanged. There are mild degenerative changes of the spine. IMPRESSION: No active pulmonary disease. Electronically Signed by Geoff Mullins MD 01/09/2019 05:27 P
== END ==
LOC: M RAD 09:05
PROVIDERS: ATTEND Family Medicine
DX: I10 Essential (primary) hypertension (principal)

== ENCOUNTER → 2019-01-16 | Outpatient (REF) | payer MEDICARE | LOC: M LABDRAW1 13:03 | PROVIDERS: ATTEND Internal Medicine Cardiovascular Disease | DX: R06.02 Shortness of breath (principal) ==

== ENCOUNTER → 2019-01-23 | Outpatient (CLI) | payer MEDICARE ==
--- NOTE | 2019-01-23 16:44 | REP ---
RIGHT HIP INJECTION The procedure was performed under the direct supervision of Dr. Mccray. The benefits and risks including but not limited to pain infection bleeding and anaphylaxis were explained to the patient and informed consent was obtained. The right femoral neck was localized using fluoroscopic guidance. The skin was prepped and draped in a sterile fashion. 1% lidocaine was used as a local anesthetic. Using fluoroscopic guidance a 22-gauge spinal needle was inserted and advanced to the femoral neck. 0.5 ml of Conray 43 was injected to verify placement. 6 ml of a solution containing 5 ml of 1% lidocaine and 1 ml of Kenalog 40 mg injected. The needle was then removed. The patient tolerated the procedure well and there were no immediate complications. Less than 6 seconds of fluoroscopy time was utilized for this procedure. Reviewed by LISET Singh 01/23/2019 04:31 P Electronically Signed by Aftab Mccray MD 01/23/2019 04:35 P
== END ==
LOC: M RADPRO 10:08
PROVIDERS: ATTEND Orthopaedic Surgery
DX: M16.11 Unilateral primary osteoarthritis, right hip (principal)

== ENCOUNTER → 2019-02-06 | Outpatient (CLI) | payer MEDICARE ==
[2019-02-06 07:17] LABS: HEMATOCRIT 46.5 % (42.0-52.0); HEMOGLOBIN 15.9 g/dl (13.5-17.5); MEAN CORPUSCULAR HEMOGLOBIN 32.6 pg (27.0-33.0); MEAN CORPUSCULAR HGB CONC 34.2 g/dl (32.0-36.5); MEAN CORPUSCULAR VOLUME 95.3 fl (80.0-96.0); PLATELET COUNT, AUTOMATED 184 10^3/uL (150-450); RED BLOOD COUNT 4.88 10^6/uL (4.30-6.10); WHITE BLOOD COUNT 9.1 10^3/uL (4.0-10.0)
[2019-02-06 07:38] LABS: HEMOGLOBIN A1c 5.7 %
[2019-02-06 07:54] LABS: ALBUMIN 3.7 GM/DL (3.2-5.2); BILIRUBIN,TOTAL 0.9 MG/DL (0.2-1.0); CALCIUM LEVEL 8.7 MG/DL (8.8-10.2); CHOLESTEROL RISK RATIO 2.547 (<5); CREATININE FOR GFR 1.28 MG/DL (0.70-1.30); PROSTATIC SPECIFIC AG MONITOR 0.06 NG/ML (< 4.00); THYROID STIMULATING HORMONE 3.06 uIU/ML (0.358-3.740); TOTAL PROTEIN 6.4 GM/DL (6.4-8.2)
[2019-02-06 09:36] LABS: TOTAL 25(OH) VITAMIN D 36.8 NG/ML (30.0-100.0)
== END ==
LOC: M LAB 06:58
PROVIDERS: ATTEND Family Medicine
DX: R53.83 Other fatigue (principal); E03.9 Hypothyroidism, unspecified; Z79.899 Other long term (current) drug therapy

== ENCOUNTER 2019-03-05 09:20 | Day surgery (SDC) | payer MEDICARE ==
[~2019-03-05] VITALS: Ht 182.9 cm; Wt 92.9 kg
[~2019-03-05 09:20] MED LIST changes: +NS 1,000 ML IV ONE
[2019-03-05] MEDS ORDERED: LIDOCAINE 2% INJ 100 MG/5 ML SDV (FOR ANES.) As Ordered ONE (11:07)
[2019-03-05] MEDS ORDERED: PROPOFOL 200 MG/20 ML VIAL As Ordered ONE (11:07)
[2019-03-05] MEDS ORDERED: fentaNYL 100 MCG/2 ML INJECTION (J3010) As Ordered ONE (11:07)
--- NOTE | 2019-03-05 11:23 | ROOR ---
Patient Name: Stan Castanon Procedure Date: 03/05/2019 11:03 AM Date of : 1955 Age: 63 Room: [facility] Gender: Male Note Status: Finalized Procedure: Upper GI endoscopy Indications: Heartburn, Globus sensation Providers: Herve Stanley MD Referring MD: BEATRIZ ACKERMAN MD Requesting Provider: Medicines: Monitored Anesthesia Care Complications: No immediate complications. Procedure: Pre-Anesthesia Assessment: - The heart rate, respiratory rate, oxygen saturations, blood pressure, adequacy of pulmonary ventilation, and response to care were monitored throughout the procedure. The Endoscope was introduced through the mouth, and advanced to the second part of duodenum. The upper GI endoscopy was accomplished without difficulty. The patient tolerated the procedure well. Findings: The Z-line was irregular and was found 45 cm from the incisors. Diffuse moderate inflammation characterized by congestion (edema) and erosions was found in the gastric antrum. The exam of the duodenum was otherwise normal. Impression: - Z-line irregular, 45 cm from the incisors. - Gastritis. - No specimens collected. - The examination was otherwise normal. Recommendation: - Patient has a contact number available for emergencies. The signs and symptoms of potential delayed complications were discussed with the patient. Return to normal activities tomorrow. Written discharge instructions were provided to the patient. - High fiber diet. - Discharge patient to home. - Use Prilosec (omeprazole) 40 mg PO daily. - Return to referring physician. - The findings and recommendations were discussed with the patient's family. Herve Stanley MD Herve Stanley MD 03/05/2019 11:22:54 AM Electronically signed by Herve Stanley MD Number of Addenda: 0 Note Initiated On: 03/05/2019 11:03 AM Estimated Blood Loss: Estimated blood loss: none.
[2019-03-05 11:45] VITALS: BP 146/97
== END 2019-03-05 11:57 | disposition home or self-care (01) ==
LOC: M OPP 09:20
PROVIDERS: ATTEND Internal Medicine Gastroenterology
DX: K22.8 Other specified diseases of esophagus (principal); K29.70 Gastritis, unspecified, without bleeding; R12 Heartburn; F45.8 Other somatoform disorders; Z79.82 Long term (current) use of aspirin; Z79.899 Other long term (current) drug therapy; Z88.8 Allergy status to other drugs, medicaments and biological substances; Z95.5 Presence of coronary angioplasty implant and graft
CPT/HCPCS: 43235; J3010

== ENCOUNTER → 2019-04-11 | Outpatient (CLI) | payer MEDICARE ==
[~2019-04-11] MED LIST changes: -NS 1,000 ML IV ONE
[2019-04-11 09:58] LABS: HEMATOCRIT 48.3 % (42.0-52.0); HEMOGLOBIN 16.7 g/dl (13.5-17.5); MEAN CORPUSCULAR HEMOGLOBIN 33.1 pg (27.0-33.0); MEAN CORPUSCULAR HGB CONC 34.6 g/dl (32.0-36.5); MEAN CORPUSCULAR VOLUME 95.6 fl (80.0-96.0); PLATELET COUNT, AUTOMATED 195 10^3/uL (150-450); RED BLOOD COUNT 5.05 10^6/uL (4.30-6.10)
[2019-04-11 10:23] LABS: HEMOGLOBIN A1c 5.3 %
[2019-04-11 10:59] LABS: CALCIUM LEVEL 8.9 MG/DL (8.8-10.2); CHOLESTEROL RISK RATIO 2.906 (<5); CREATININE FOR GFR 1.41 MG/DL (0.70-1.30); GLOMERULAR FILTRATION RATE 53.7 (>49); POTASSIUM SERUM 4.3 MEQ/L (3.5-5.1); PROSTATIC SPECIFIC AG MONITOR 0.04 NG/ML (< 4.00); THYROID STIMULATING HORMONE 2.9 uIU/ML (0.358-3.740)
== END ==
LOC: M LAB 09:16
PROVIDERS: ATTEND Family Medicine
DX: I10 Essential (primary) hypertension (principal); R53.83 Other fatigue; E03.9 Hypothyroidism, unspecified; Z79.82 Long term (current) use of aspirin; Z79.899 Other long term (current) drug therapy

== ENCOUNTER → 2019-04-19 | Outpatient (CLI) | payer MEDICARE ==
[~2019-04-19] MED LIST changes: +CONRAY-43 43% 50ML VIAL (Q9960) As Ordered ONE; +LIDOCAINE 1% MDV 20ML VIAL As Ordered ONE; +TRIAMCINOLONE ACETONIDE SUSP 40 MG/ML VIAL (J3301) As Ordered ONE
--- NOTE | 2019-04-21 17:48 | REP ---
Reason For Exam/Comment: Unilateral primary osteoarthritis of the right hip Procedure: Right hip arthrocentesis The procedure was performed by LISET Betancourt, under the direct supervision of Dr. Mullins. The benefits and risks including but not limited to pain, infection, bleeding and anaphylaxis were explained to the patient and informed consent was obtained both verbally and written. Directly prior to the start of the procedure, a formal timeout was completed in the procedure room. The right femoral neck joint space was localized using fluoroscopic guidance. The skin was prepped and draped in the usual sterile fashion. 5 mL of 1% lidocaine was used as a local anesthetic. Using fluoroscopic guidance a 22-gauge spinal needle was inserted and advanced to the right femoral neck joint space. 1 mL of Conray 43 was injected to verify needle placement. A 6 mL solution containing a 5 mL 1% lidocaine 10 mg/ml and 1 ml of Kenalog 40 mg/ml was injected into the joint. The needle was removed and hemostasis was achieved. The patient tolerated the procedure well and there were no immediate complications. 0.3 minutes of fluoroscopy time was utilized for this procedure. Some fluoroscopic images are performed with last image hold technology. These images require no additional radiation. Reviewed by LISET Leija 04/19/2019 02:07 P Electronically Signed by Geoff Mullins MD 04/21/2019 05:39 P
== END ==
LOC: M RADPRO 11:49
PROVIDERS: ATTEND Orthopaedic Surgery
DX: M16.11 Unilateral primary osteoarthritis, right hip (principal)
CPT/HCPCS: 20610; 77002; J3301; Q9960

== ENCOUNTER → 2019-04-30 | Outpatient (CLI) | payer MEDICARE ==
[~2019-04-30] MED LIST changes: -CONRAY-43 43% 50ML VIAL (Q9960) As Ordered ONE; +GASTROGRAFIN SOLUTION 30ML (Q9963) As Ordered ONE; +ISOVUE-370 76% 100ML VIAL (Q9967) As Ordered ONE; -LIDOCAINE 1% MDV 20ML VIAL As Ordered ONE; -TRIAMCINOLONE ACETONIDE SUSP 40 MG/ML VIAL (J3301) As Ordered ONE
--- NOTE | 2019-05-01 07:53 | REP ---
CT of the abdomen pelvis without and with IV contrast and with bowel contrast: There is immediate and delayed scanning after IV contrast. Comparison is 11/04/2017. The visualized lung pruitt are unremarkable. Cardiac size is upper normal. There are least four small hepatic cysts, the largest is in the left lobe measuring 1.6 cm. These are unchanged. The hepatic parenchyma is otherwise homogeneous and unremarkable and unchanged. The gallbladder, pancreas and spleen are unremarkable and unchanged. The adrenals are unremarkable. There is a right renal anterior mid pole Bosniak type 1 simple cortical cyst measuring up to 2.5 cm, not significantly changed. The kidneys are otherwise unremarkable and unchanged. The abdominal aorta is unremarkable. There is no aneurysm. There is no periaortic adenopathy or mass. There is no bowel distension or obstruction. No bowel wall thickening. The mesentery is unremarkable. Pelvis: The terminal ileum and appendix are unremarkable. The bladder is unremarkable. There are a radium seeds in the prostate bed. This is unchanged. There are diverticula in the descending colon and sigmoid colon without diverticulitis. This is unchanged. There is no adenopathy or ascites. There is degenerative disc disease and facet osteoarthritis in the lumbar spine. There is bilateral hip osteoarthritis. Impression: No abdominal or pelvic mass is identified. There are four small hepatic cysts, unchanged. There is a left renal simple cyst, unchanged. There is no adenopathy or ascites. There is no bowel distension or obstruction. The mesentery is unremarkable. Diverticulosis without diverticulitis. Iridium seeds in the prostate bed. Bilateral hip osteoarthritis and lumbar spine degenerative disc disease. Electronically Signed by Geoff Carter MD 05/01/2019 07:44 A
== END ==
LOC: M RAD 14:18
PROVIDERS: ATTEND Family Medicine
DX: R10.9 Unspecified abdominal pain (principal)
CPT/HCPCS: 74178; Q9963; Q9967

== ENCOUNTER 2019-05-28 15:00 | Outpatient (RCR) | payer SELFPAY ==
[~2019-05-28 15:00] MED LIST changes: -GASTROGRAFIN SOLUTION 30ML (Q9963) As Ordered ONE; -ISOVUE-370 76% 100ML VIAL (Q9967) As Ordered ONE; +OMEP-172 PO; -OMEP20CA4 PO
== END 2019-06-26 ==
LOC: M CR 15:00
PROVIDERS: ATTEND Internal Medicine Cardiovascular Disease
DX: Z51.89 Encounter for other specified aftercare (principal)

== ENCOUNTER 2019-06-15 11:04 | Outpatient (RCR) | payer SELFPAY | END 2019-06-26 | LOC: M CR 11:04 | PROVIDERS: ATTEND Internal Medicine Cardiovascular Disease | DX: Z51.89 Encounter for other specified aftercare (principal) ==

== ENCOUNTER → 2019-06-21 | Outpatient (CLI) | payer BC ==
[2019-06-21 07:26] LABS: HEMATOCRIT 48.4 % (42.0-52.0); HEMOGLOBIN 16.4 g/dl (13.5-17.5); MEAN CORPUSCULAR HEMOGLOBIN 32.2 pg (27.0-33.0); MEAN CORPUSCULAR HGB CONC 33.9 g/dl (32.0-36.5); MEAN CORPUSCULAR VOLUME 95.1 fl (80.0-96.0); PLATELET COUNT, AUTOMATED 203 10^3/uL (150-450); RED BLOOD COUNT 5.09 10^6/uL (4.30-6.10)
[2019-06-21 07:52] LABS: ERYTHROCYTE SEDIMENTATION RATE 3 mm/hr (0-20)
[2019-06-21 08:06] LABS: ALBUMIN 3.8 GM/DL (3.2-5.2); BILIRUBIN,TOTAL 0.5 MG/DL (0.2-1.0); CALCIUM LEVEL 8.9 MG/DL (8.8-10.2); CHOLESTEROL RISK RATIO 3.631 (<5); CREATININE FOR GFR 1.47 MG/DL (0.70-1.30); GLOMERULAR FILTRATION RATE 51.2 (>49); POTASSIUM SERUM 4.1 MEQ/L (3.5-5.1); PROSTATIC SPECIFIC AG MONITOR 0.05 NG/ML (< 4.00); THYROID STIMULATING HORMONE 3.06 uIU/ML (0.358-3.740); THYROXINE (T4) 8.2 UG/DL (4.5-12.0); TOTAL PROTEIN 7.1 GM/DL (6.4-8.2)
[2019-06-21 09:27] LABS: TOTAL 25(OH) VITAMIN D 30.4 NG/ML (30.0-100.0)
[2019-06-21 09:29] LABS: HEMOGLOBIN A1c 5.6 %
== END ==
LOC: M LAB 06:39
PROVIDERS: ATTEND Family Medicine
DX: R53.83 Other fatigue (principal); I10 Essential (primary) hypertension

== ENCOUNTER → 2019-06-29 | Outpatient (CLI) | payer MEDICARE ==
[2019-06-29 13:12] LABS: APPEARANCE, URINE CLEAR (CLEAR); BACTERIA, URINE AUTO NEGATIVE (NEGATIVE); BILIRUBIN, URINE AUTO NEGATIVE (NEGATIVE); BLOOD, URINE BLOOD 1+ (NEGATIVE); COLOR, URINE YELLOW (YELLOW); GLUCOSE, URINE (UA) AUTO NEGATIVE (NEGATIVE); KETONE, URINE AUTO NEGATIVE (NEGATIVE); LEUKOCYTE ESTERASE, URINE AUTO NEGATIVE (NEGATIVE); NITRITE, URINE AUTO NEGATIVE (NEGATIVE); PROTEIN, URINE AUTO NEGATIVE (NEGATIVE); RBC, URINE AUTO 2 /HPF (0-3); SPECIFIC GRAVITY URINE AUTO 1.012 (1.002-1.035); SQUAMOUS EPITHELIAL CELL UR AU 0 /HPF (0-6); UROBILINOGEN, URINE AUTO 0.2 mg/dL (0.0-2.0); WBC, URINE AUTO 0 /HPF (0-3)
== END ==
LOC: M LAB 12:42
PROVIDERS: ATTEND Urology
DX: R31.9 Hematuria, unspecified (principal); C61 Malignant neoplasm of prostate

== ENCOUNTER → 2019-07-19 | Outpatient (CLI) | payer MEDICARE ==
[~2019-07-19] MED LIST changes: -OMEP-172 PO; +OMEP1CAP73 PO
--- NOTE | 2019-07-19 09:35 | REP ---
PA and lateral chest: Comparison is a 01/09/2019. The lung pruitt are clear. The cardiac size is normal. The shan, mediastinum, and skeletal structures are unremarkable. Impression: Negative PA and lateral chest. There is no interval change. Electronically Signed by Geoff Carter MD 07/19/2019 09:27 A
== END ==
LOC: M RAD 09:09
PROVIDERS: ATTEND Family Medicine
DX: J20.9 Acute bronchitis, unspecified (principal)

== ENCOUNTER → 2019-08-22 | Outpatient (CLI) | payer MEDICARE ==
[2019-08-22 07:12] LABS: HEMATOCRIT 49.2 % (42.0-52.0); HEMOGLOBIN 16.8 g/dl (13.5-17.5); MEAN CORPUSCULAR HEMOGLOBIN 31.9 pg (27.0-33.0); MEAN CORPUSCULAR HGB CONC 34.1 g/dl (32.0-36.5); MEAN CORPUSCULAR VOLUME 93.4 fl (80.0-96.0); PLATELET COUNT, AUTOMATED 199 10^3/uL (150-450); RED BLOOD COUNT 5.27 10^6/uL (4.30-6.10); WHITE BLOOD COUNT 8.3 10^3/uL (4.0-10.0)
[2019-08-22 07:24] LABS: INR 1.06; PROTHROMBIN TIME 13.5 SECONDS (11.8-14.0)
[2019-08-22 07:37] LABS: ALBUMIN 4.2 GM/DL (3.2-5.2); BILIRUBIN,TOTAL 1.2 MG/DL (0.2-1.0); CALCIUM LEVEL 8.9 MG/DL (8.8-10.2); CREATININE FOR GFR 1.33 MG/DL (0.70-1.30); GLOMERULAR FILTRATION RATE 57.3 (>49); POTASSIUM SERUM 4.2 MEQ/L (3.5-5.1); TOTAL PROTEIN 7.2 GM/DL (6.4-8.2)
[2019-08-22 07:59] LABS: ERYTHROCYTE SEDIMENTATION RATE 4 mm/hr (0-20)
--- NOTE | 2019-08-22 08:53 | REP ---
PA and lateral chest: Comparison is 07/19/2019. The lung pruitt are clear. The cardiac size is normal. The shan, mediastinum, and skeletal structures are unremarkable. Impression: Negative PA and lateral chest. There is no interval change. Electronically Signed by Geoff Carter MD 08/22/2019 08:45 A
== END ==
LOC: M LAB 06:06
PROVIDERS: ATTEND Orthopaedic Surgery
DX: Z01.818 Encounter for other preprocedural examination (principal); M16.11 Unilateral primary osteoarthritis, right hip

== ENCOUNTER → 2019-08-22 | Outpatient (CLI) | payer MEDICARE ==
[2019-08-22 07:13] LABS: HEMATOCRIT 48.1 % (42.0-52.0); HEMOGLOBIN 16.6 g/dl (13.5-17.5); MEAN CORPUSCULAR HEMOGLOBIN 32.4 pg (27.0-33.0); MEAN CORPUSCULAR HGB CONC 34.5 g/dl (32.0-36.5); MEAN CORPUSCULAR VOLUME 93.9 fl (80.0-96.0); PLATELET COUNT, AUTOMATED 203 10^3/uL (150-450); RED BLOOD COUNT 5.12 10^6/uL (4.30-6.10); WHITE BLOOD COUNT 8.4 10^3/uL (4.0-10.0)
[2019-08-22 07:23] LABS: INR 1.1; PROTHROMBIN TIME 13.9 SECONDS (11.8-14.0)
[2019-08-22 07:40] LABS: BILIRUBIN,TOTAL 1.1 MG/DL (0.2-1.0); CALCIUM LEVEL 8.8 MG/DL (8.8-10.2); CHOLESTEROL RISK RATIO 3.342 (<5); CREATININE FOR GFR 1.33 MG/DL (0.70-1.30); GLOMERULAR FILTRATION RATE 57.3 (>49); POTASSIUM SERUM 4.2 MEQ/L (3.5-5.1); PROSTATIC SPECIFIC AG MONITOR 0.05 NG/ML (< 4.00); TOTAL PROTEIN 7.3 GM/DL (6.4-8.2)
--- NOTE | 2019-08-22 07:47 | ECGEPIP ---
[facility] Test Date: 2019-08-22 Pat Name: DIDI VILLA Department: Room: - Gender: Male Interactive Media Designer: [facility] : 1955 Requested By: Alfred Erickson Order Number: [id number] Reading MD: Nino Cano Measurements Intervals [place] Rate: 61 P: 41 OH: 171 QRS: -35 QRSD: 122 T: 33 QT: 426 QTc: 431 Interpretive Statements normal sinus rhythm Left axis deviation Probable prior IWMI. Subtle ST/T wave abnormalities improved from 06/12/18. Electronically Signed on 08-22-2019 7:47:21 EST by Nino Cano
[2019-08-22 08:01] LABS: HEMOGLOBIN A1c 5.3 %
[2019-08-22 10:32] LABS: TOTAL 25(OH) VITAMIN D 30.2 NG/ML (30.0-100.0)
== END ==
LOC: M LAB 06:00
PROVIDERS: ATTEND Family Medicine
DX: Z01.818 Encounter for other preprocedural examination (principal); I10 Essential (primary) hypertension; Z79.82 Long term (current) use of aspirin; Z79.899 Other long term (current) drug therapy

== ENCOUNTER 2019-09-10 07:30 | Inpatient (IN) | payer MEDICARE ==
--- NOTE | 2019-09-05 10:07 | HPE ---
DATE OF ADMISSION: 09/10/2019 ATTENDING PHYSICIAN: Dr. Alvarez CHIEF COMPLAINT: Right hip pain and stiffness. HISTORY: The patient is a pleasant 64-year-old male with progressively worsening right hip pain and stiffness. He failed to improve with conservative measures. He continued to have symptoms with weightbearing activities and activities of daily living. He has consented for an elective right total hip arthroplasty with Dr. Alvarez for his continued symptoms. Medical optimization completed with Dr. Cano and is available for review. CURRENT MEDICATIONS: - atenolol 50 mg daily - Nitrostat 0.4 mg tablets as needed - aspirin 81 mg daily - Plavix 75 mg daily - alprazolam 1 mg four times daily as needed - amlodipine 5 mg daily - spironolactone 25 mg, take 1/2 tablet by mouth daily - meclizine 25 mg daily - Crestor 5 mg daily - Azelastine nasal spray 1-2 sprays in each nostril twice a day - Asmanex 200 mcg aerosol two inhalations twice daily - vitamin D3 5000 units daily ALLERGIES: - DANY INHIBITORS - LIPITOR - METHYLPREDNISOLONE CHRONIC MEDICAL CONDITIONS: Coronary arteriosclerosis. History of acute myocardial infarction status post percutaneous transluminal coronary angioplasty. Benign hypertensive heart disease without congestive heart failure. Aortic dilation. Hyperlipidemia. Palpitations. Paroxysmal tachycardia. Microscopic hematuria. Anxiety and depression. PAST SURGICAL HISTORY: Prostatectomy. Seed implants. Six heart stents. Right knee surgery. Cervical spine surgery. SOCIAL HISTORY: The patient does live alone. Denies smoking and occasionally consumes alcohol. REVIEW OF SYSTEMS: The patient denies fevers, chills, nausea, vomiting or diarrhea. Denies chest pain, shortness of breath, lightheadedness, dizziness or headaches. Denies any abdominal pain. The patient denies any recent upper respiratory or urinary tract infection symptoms. He does continue to have right hip pain with weightbearing activities and activities of daily living. PHYSICAL EXAMINATION: General: Well-nourished, well-developed male in no apparent distress. He is alert, oriented and cooperative. Mood and affect are appropriate. Vital Signs: Height 70 inches, weight 209 pounds, blood pressure 145/80, respirations 16, heart rate 83, temperature 97.8. Neck: Supple, without lymphadenopathy. Heart: Regular rate and rhythm. Lungs: Clear to auscultation bilaterally. Abdomen: Bowel sounds are present. Abdomen is soft and nontender to palpation. Musculoskeletal: Right hip exhibits no gross abnormalities. He does have decreased internal and external rotation in addition to flexion at the hip with range of motion testing. He does have pain associated with this. Strength in the right lower extremity is 5/5. Calf is soft and nontender to palpation. No palpable cords are noted. He is walking with a slight limp favoring the right lower extremity. LABORATORY DATA: EKG: Sinus bradycardia with left anterior conduction disturbance/borderline first-degree AV block, left axis deviation, consider prior inferior wall myocardial infarction ([place]), nonspecific ST-T wave abnormalities. Chest x-ray negative PA and lateral chest without interval change. Right hip x-ray notable for end-stage degenerative changes. Comprehensive metabolic profile with fasting glucose elevated at 103, BUN 16, creatinine for GFR elevated at 1.33, GFR 57.3, sodium 140, potassium 4.2, chloride elevated at 109, carbon dioxide 29, anion gap decreased at 2, calcium 8.9, AST 27, ALT 58, alkaline phosphatase 80, total bilirubin elevated at 1.2, total protein 7.2, albumin 4.2, albumin-globulin ratio 1.40. Prothrombin time 13.5, INR 1.06. Complete blood count with WBC 8.3, RBC 5.27, hemoglobin 16.8, hematocrit 49.2, platelets 199. Erythrocyte sedimentation rate 4. IMPRESSION: Right hip osteoarthritis with x-rays notable for end-stage degenerative changes. PLAN: The patient has consented for an elective right total hip arthroplasty with Dr. Alvarez for his continued symptoms. Medical optimization completed with Dr. Cano. Reviewed pre and postoperative instructions to include, but not limited to need to be nothing by mouth (n.p.o.) after midnight, length of stay, when to stop anti-inflammatories and aspirin, and importance on following primary sub acute care nurse/bordereau clerk recommendations for stopping anticoagulants and primary care's recommendations for how to take daily medications. Per Dr. Cano, the patient will take his aspirin up until the day of surgery and quit his Plavix 5 days before surgery. Recommendation is for resuming Plavix the day after surgery with Eliquis. JANETH
[~2019-09-10] VITALS: Ht 180.3 cm; Wt 95.7 kg
[~2019-09-10 07:30] MED LIST changes: +ACETAMINOPHEN 500 MG TAB PO ONE; +ASMA1AER3 INH; +LIDOCAINE 1% MDV 20ML VIAL SQ PRN; +LR 1,000 ML IV SCH; +VANCOMYCIN HCL 1,000 MG, VIAL MATE ADAPTER 1 EACH in D5W 250 ML IV ONE; +VANCOMYCIN HCL 500 MG in D5W MINI-BAG PLUS 100 ML IV ONE
[2019-09-10] MEDS ORDERED: VANCOMYCIN HCL 1,000 MG, VIAL MATE ADAPTER 1 EACH in D5W 250 ML IV ONE (12:00)
--- NOTE | 2019-09-10 12:50 | CR.PDOC ---
General Date of Consultation: Sep 10, 2019 Consultation REASON FOR CONSULTATION/CHIEF COMPLAINT: Who presented to the [facility] for an elective right hip arthroplasty. HISTORY OF PRESENT ILLNESS: Patient is a 64-year-old male with a PMHx of CAD (Hx of NE 2000, s/p stent x6), HTN, DLP, Aortic dilation, Hx of Palpitations s/p Ablation (2018), Anxiety / Depression, Hx of MRSA wound abscess (s/p debridement) who presented to [facility] for an elective right hip arthroplasty with orthopedic surgery. Patient follows Dr. Morales as an outpatient and received medical clearance. Patient has been on aspirin and Plavix as an outpatient and was advised to stop taking Plavix for 5 days. His instructions postoperatively are to resume aspirin and to begin Eliquis for DVT prophylaxis. Patient was seen preoperatively. He denies headache, nausea, vomiting, chest pain, shortness of breath, palpitations, cough, abdominal pain, constipation, diarrhea, or urinary discomfort. He has not experienced any fevers, chills over the last several days. Reports that his appetite is normal or any significant changes in his weight. ALLERGIES: Please see below. HOME MEDICATIONS: Please see below. PAST MEDICAL HISTORY: CAD (Hx of NE 2000, s/p stent x6), HTN, DLP, Aortic dilation, Hx of Palpitations s/p Ablation (2018), Anxiety / Depression, Hx of MRSA wound abscess (s/p debridement) PAST SURGICAL HISTORY: Cervical spine laminectomy Prostatectomy with seed implants done in 2009 follows with urology in [place] (Dr. Winston / Dr. Zayas) Right knee meniscus repair FAMILY HISTORY: - Mother with history of heart problems and embolisms - Father with history of end-stage renal disease - No history of malignancies SOCIAL HISTORY: - Denies the use of tobacco or illicit drugs; patient reports that he uses alcohol socially - Denies recent travel or sick contacts - Lives alone - Occupation; retired agent at [employer] REVIEW OF SYSTEMS: 10 point review of systems complete, all negative otherwise stated in HPI PHYSICAL EXAMINATION: - Vitals: BP 139/92, HR 18, RR 75, Sat 96%RA, Temp 97.3F - General: Lying in bed, No acute distress, Speaking in full sentences, AAOx3 - HEENT: NC, AT, PERRLA, EOMI - CVS: RRR, +S1S2 - Lungs: Fair air entry bilaterally, No appreciable wheezing / rales / rhonchi - Abdomen: Soft, Non-distended, Non-tender - Extremities: No lower extremity edema, No calf tenderness - Neuro: No focal motor or sensory deficit - Skin: No visible rashes LABORATORY DATA: Please see below. ASSESSMENT/PLAN: Elective right hip arthroplasty - Patient has presented to [facility] for an elective orthopedic procedure with Dr. Mario Alvarez - Patient received medical clearance from his outpatient provider, Dr. Morales - Pain control and regulation physical therapy at the direction of orthopedic surgery CAD - Hx of NE 2000 with stent placement x6 - Follows with Dr. Cano as an outpatient - Patient has been advised to hold Plavix for 5 days preoperatively - Patient is currently on aspirin - Will discuss with orthopedic surgery about resuming antiplatelet therapy postoperatively - Will need to be started on ASA or Plavix post-operatively HTN - BP well controlled - c/w Amlodipine, Atenolol with holding parameters - Spironolactone on hold (Will check lab work tomorrow AM) DLP - c/w Rosuvastatin Aortic dilation / Hx of Palpitations - s/p Ablation (2017) Anxiety / Depression - c/w Alprazolam PRN Hx of MRSA wound abscess - s/p debridement (2015) - Patient is currently on contact precautions given history of MRSA DVT prophylaxis - Anti-coagulation at the direction of orthopedic surgery Vital Signs/I&O Vital Signs Date Time Temp Pulse Resp B/P (MAP) Pulse Ox O2 Delivery O2 Flow Rate FiO2 09/10/19 11:38 18 09/10/19 11:38 97.3 75 139/92 (108) 96 Room Air Allergies Coded Allergies: methylprednisolone (Verified Allergy, Unknown, 08/27/19) moxifloxacin (Verified Allergy, Unknown, 08/27/19) azithromycin (Verified Adverse Reaction, Intermediate, HEART FLUTTER, 08/27/19) diphenhydramine (Verified Adverse Reaction, Intermediate, HEART RACES, 08/27/19) lisinopril (Verified Adverse Reaction, Intermediate, COUGH, 09/06/19) atorvastatin (Verified Adverse Reaction, Unknown, muscle aches, 09/06/19) Home Medications Scheduled Amlodipine Besylate (Amlodipine Besylate) 5 Mg Tab, 5 MG PO DAILY, (Reported) Aspirin (Aspirin EC) 81 Mg Tab, 81 MG PO QHS, (Reported) Atenolol (Atenolol) 50 Mg Tab, 50 MG PO QHS, (Reported) Clopidogrel Bisulfate (Clopidogrel) 75 Mg Tab, 75 MG PO QAM, (Reported) Rosuvastatin Calcium (Crestor) 5 Mg Tab, 5 MG QHS, (Reported) Spironolactone (Spironolactone) 25 Mg Tab, 12.5 MG PO DAILY, (Reported) Scheduled PRN Alprazolam (Xanax) 0.5 Mg Tab, 1 MG PO QIDP PRN for ANXIETY, (Reported) has to have [employer]om brand Mometasone Furoate (Asmanex Hfa) 200 Mcg/Act Hfa.aer.ad, 200 MCG INH PRN PRN for SHORTNESS OF BREATH, (Reported) IDALIA OSULLIVAN MD Sep 10, 2019 12:50
[2019-09-10] MEDS ORDERED: PILL CUTTER 1 EACH XX PRN (13:15)
[2019-09-10] MEDS ORDERED: ceFAZolin 1GM INJ (J0690 PER 500MG) As Ordered ONE (13:25)
[2019-09-10] MEDS ORDERED: EPINEPHrine INJ 1 MG/ML 1ML VIAL As Ordered ONE (13:25)
[2019-09-10] MEDS ORDERED: MIDAZOLAM INJ 2 MG/2 ML VIAL (J2250) IV PRN (13:30)
[2019-09-10] MEDS ORDERED: propofoL 200 MG/20 ML VIAL As Ordered ONE ×2 (15:40→16:16)
[2019-09-10] MEDS ORDERED: MIDAZOLAM INJ 2 MG/2 ML VIAL (J2250) As Ordered ONE (15:40)
[2019-09-10] MEDS ORDERED: fentaNYL 100 MCG/2 ML INJECTION (J3010) As Ordered ONE (15:40)
[2019-09-10] MEDS ORDERED: PHENYLephrine HCL 500 MCG/5 ML (100MCG/ML) SYRINGE (J2370) As Ordered ONE (15:53)
[2019-09-10] MEDS ORDERED: PERCOCET 5MG/325MG TAB As Ordered ONE (17:46)
[2019-09-10] MEDS ORDERED: METOCLOPRAMIDE INJ 10MG/2ML VIAL (J2765) IV PRN (18:00)
[2019-09-10] MEDS ORDERED: fentaNYL 100 MCG/2 ML INJECTION (J3010) IV PRN (18:00)
[2019-09-10] MEDS ORDERED: LR 1,000 ML IV SCH (18:00)
[2019-09-10] MEDS ORDERED: ONDANSETRON 4MG/2ML VIAL (J2405) IV PRN ×2 (18:00)
[2019-09-10] MEDS ORDERED: PERCOCET 5MG/325MG TAB PO PRN ×2 (18:00)
[2019-09-10 19:15] VITALS: BP 125/80
[2019-09-10] MEDS: MORPHINE 2 MG/ML 1ML VIAL (J2270) IV PRN (19:29)
[2019-09-10] MEDS: LR 1,000 ML IV SCH (19:30)
--- NOTE | 2019-09-10 19:41 | REP ---
RIGHT HIP, TWO VIEWS: Two views of the right hip are performed. Total hip prosthesis is in good position with osseous structures intact and well aligned. Metallic skin stapes are seen laterally. Electronically Signed by Geoff Mullins MD 09/10/2019 08:00 P
[2019-09-10 19:45] VITALS: BP 127/77
[2019-09-10] MEDS: ALPRAZolam 0.5 MG TAB PO PRN (20:24)
[2019-09-10] MEDS: atenoloL 50 MG TAB PO SCH (20:26)
[2019-09-10] MEDS: ROSUVASTATIN 10 MG TAB (CRESTOR) PO SCH (20:26)
[2019-09-10] MEDS: ACETAMINOPHEN TAB 650MG DOSE (2X325MG) PO PRN (20:27)
[2019-09-10 20:45] VITALS: BP 139/77
[2019-09-10] MEDS: MORPHINE 4 MG/ML 1ML VIAL/SYRINGE (J2270) IV PRN (21:33)
[2019-09-10 21:45] VITALS: BP 138/78
[2019-09-10 22:45] VITALS: BP 131/77
[2019-09-10 23:45] VITALS: BP 125/82
[2019-09-11] MEDS: MORPHINE 2 MG/ML 1ML VIAL (J2270) IV PRN (00:18)
[2019-09-11 02:00] VITALS: BP 117/74
[2019-09-11] MEDS: PERCOCET 5MG/325MG TAB PO PRN ×4 (02:36→22:23)
[2019-09-11] MEDS: VANCOMYCIN HCL 1,000 MG, VIAL MATE ADAPTER 1 EACH in D5W 250 ML IV SCH ×2 (02:37→14:11)
[2019-09-11] MEDS: MORPHINE 4 MG/ML 1ML VIAL/SYRINGE (J2270) IV PRN (04:48)
[2019-09-11] MEDS: LR 1,000 ML IV SCH (05:42)
[2019-09-11 06:00] VITALS: BP 115/74
[2019-09-11] MEDS ORDERED: PERC5TAB12 PO (06:26)
[2019-09-11] MEDS: ALPRAZolam 0.5 MG TAB PO PRN ×3 (06:44→22:22)
[2019-09-11 06:54] LABS: BASO % 0.2 % (0.0-1.0); EOS % 0.2 % (0.0-3.0); HEMATOCRIT 36.5 % (42.0-52.0); HEMOGLOBIN 12.8 g/dl (13.5-17.5); LYMPH # 1.7 10^3/uL (1.5-5.0); LYMPH % 13.3 % (24.0-44.0); MEAN CORPUSCULAR HEMOGLOBIN 32.8 pg (27.0-33.0); MEAN CORPUSCULAR HGB CONC 35.1 g/dl (32.0-36.5); MEAN CORPUSCULAR VOLUME 93.6 fl (80.0-96.0); MONO # 1.4 10^3/uL (0.0-0.8); MONO % 11.2 % (0.0-5.0); NEUTROPHILS # 9.3 10^3/uL (1.5-8.5); NEUTROPHILS % 74.5 % (36.0-66.0); PLATELET COUNT, AUTOMATED 179 10^3/uL (150-450); WHITE BLOOD COUNT 12.5 10^3/uL (4.0-10.0)
[2019-09-11 07:20] LABS: ALBUMIN 3.2 GM/DL (3.2-5.2); ALT/SGPT 44 U/L (12-78); BILIRUBIN,TOTAL 1.2 MG/DL (0.2-1.0); BLOOD UREA NITROGEN 13 MG/DL (7-18); CALCIUM LEVEL 8.4 MG/DL (8.8-10.2); CARBON DIOXIDE LEVEL 28 MEQ/L (21-32); CHLORIDE LEVEL 104 MEQ/L (98-107); CREATININE FOR GFR 1.25 MG/DL (0.70-1.30); GLOMERULAR FILTRATION RATE > 60.0 (>49); GLUCOSE, FASTING 120 MG/DL (70-100); MAGNESIUM LEVEL 1.8 MG/DL (1.8-2.4); SODIUM LEVEL 136 MEQ/L (136-145); TOTAL PROTEIN 6.1 GM/DL (6.4-8.2)
[2019-09-11] MEDS ORDERED: ELIQ2.5T PO (07:33)
[2019-09-11] MEDS: MOM 30ML SUSPENSION UDC PO SCH (08:51)
[2019-09-11] MEDS: APIXABAN 5 MG TAB (ELIQUIS) PO SCH ×2 (08:52→20:49)
[2019-09-11] MEDS: MIRALAX *UNIT DOSE* 17GM PACKET PO SCH (08:52)
[2019-09-11] MEDS: amLODIPine 5 MG TAB PO SCH (08:52)
[2019-09-11] MEDS ORDERED: CLOPIDOGREL 75 MG TAB PO SCH (09:00)
--- NOTE | 2019-09-11 09:25 | RO ---
DATE OF OPERATION: 09/10/2019 PREOPERATIVE DIAGNOSIS: Right hip degenerative arthritis. POSTOPERATIVE DIAGNOSIS: Right hip degenerative arthritis. PROCEDURE: Right total hip arthroplasty using a size 54 [place] cup with a 36 mm neutral polyethylene liner and a size #6 Vinson stem standard offset with a 1.5 neck and a 32 mm head. The prosthesis was made by [employer]. It was a Vinson stem. SURGEON: Guzman Alvarez MD WELL SERVICE FLOOR WORKER: Ms. Rosaura Bloom ANESTHESIA: Spinal. COMPLICATIONS: None. ESTIMATED BLOOD LOSS: 300 mL. SPECIMENS: Femoral head. DESCRIPTION OF PROCEDURE: Antibiotics were given intravenously preoperatively, and then a successful spinal anesthetic was induced. He was placed in a lateral decubitus position with a Deepak hip positioner. Down leg well padded, especially the peroneal nerve. Axillary roll was utilized. His right hip area was then carefully prepped and draped in the usual sterile fashion. After appropriate time-out, a longitudinal incision was made for a direct anterolateral approach to the hip. Bovie cautery was used to coagulate crossing vessels down to the tensor fascia. Tensor fascia was divided in line with the skin incision. Then, we split the gluteus medius anterior one-third and posterior two-third junction. Under this, we divided the gluteus minimus and then the anterior hip capsule, carefully dissected anteriorly off the proximal femur, as we eventually dislocated the hip anteriorly and placed the leg into a leg bag. The pyriformis fossa was identified with a starter reamer, then the canal-finding reamer, then the lateralizing reamer. Then, we reamed up to a size 6. Femoral neck osteotomy performed using the template as a guide, and then we broached up to a size 6. Calcar planing was utilized. We were just under a fingerbreadth above the lesser trochanter. We then exposed the acetabulum and performed a labral excision 360 degrees; and once we were satisfied with the exposure, we began reaming, beginning with a 47 mm reamer, advanced up to 53. A trial 54 cup fit very nicely using extramedullary guide to help guide our abduction and version, and thus we felt this was the appropriate size cup, thus the real 54 cup was called for. Then we copiously irrigated out the depth of the acetabulum, as we did several times throughout the surgery, and implanted the cup using the extramedullary guide once again to help direct our abduction and version alignment jig. We then asked for the real Gription cup, irrigating out the acetabulum thoroughly and then placed the real cup with the assistance of the extramedullary alignment jig to help set our abduction and version. The central hole eliminator was placed, and then we placed the real polyethylene, and then made sure it was seated appropriately. We then inserted the trial #6 broach after copiously irrigating out the femoral canal and trialed with the 1.5 standard offset neck and head combination, and he was actually very stable to flexion internal rotation and extension external rotation. He had just minimal soft tissue telescoping. Thus, I did feel that this would be the appropriate length. I did look at the soft tissues in the abductors, and they were actually anatomically aligned after all, the standard offset stem would put the abductors at risk, so I stuck with the standard offset. The trial broach was removed. We copiously irrigated out the femoral canal once again and then inserted the real #6 Vinson stem after copiously pulsatile lavage irrigating out the canal once again. We then dried the trunnion of the stem and then placed the real 36 x 1.5 neck length of the ball and then reduced the hip. Anatomically, we carefully closed the anterior hip capsule and the gluteus minimus back anatomically with interrupted #1 polydioxanone suture (PDS) sutures, closed the gluteus medius back anatomically with interrupted #1 PDS sutures, irrigating between layers, then closed the tensor fascia with interrupted #1 PDS sutures and a #1 running Stratafix. We irrigated the subdermal tissues and closed with interrupted #2-0 PDS sutures. The skin was closed with iain, covered by an Optifoam dry sterile bulky dressing. He was then turned supine and then transferred to the recovery room in stable condition. There were no intraoperative complications. Rosaurajoe Bloom was critical to the success of this difficult surgery by helping with appropriate soft tissue retraction, helped to manipulate the leg in and out of the leg bag several times so I could perform the operation smoothly, efficiently, and safely, as well as help close the wound, amongst many other tasks.
--- NOTE | 2019-09-11 10:49 | IPNPDOC ---
Text Note Date of Service The patient was seen on 09/11/19. NOTE Subjective: Patient is a 64-year-old male with a PMHx of CAD (Hx of SD 2000, s/p stent x6), HTN, DLP, Aortic dilation, Hx of Palpitations s/p Ablation (2018), Anxiety / Depression, Hx of MRSA wound abscess (s/p debridement) who presented to [facility] for an elective right hip arthroplasty with orthopedic surgery. . Hospitalist service was called for medical consultation. Patient was seen and examined at the bedside. Currently, patient reports that his right hip is head char filter tank tender. He is having difficulty with ambulation. Denies nausea, vomiting, chest pain, shortness of breath, abdominal pain. Patient denies any inability to pass gas or having a bowel movement. Denies any urinary discomfort Objective: Vitals (See below) General: Lying in bed, no acute distress, comfortable, AAOx3 HEENT: NC, AT CVS: RRR, +S1S2 Lungs: Fair air entry b/l, auscultation is without rhonchi, wheezing or crackles Abdomen: Soft, nondistended and nontender Extremities: - Edema, - Calf tenderness Assessment and plan: Elective right hip arthroplasty (POD#1) - Patient has presented to [facility] for an elective orthopedic procedure with Dr. Mario Alvarez - Patient received medical clearance from his outpatient provider, Dr. Morales - Pain control and regulation physical therapy at the direction of orthopedic surgery Leukocytosis - likely 2/2 reactive process 2/2 surgery, less likely 2/2 infectious etiology - Hemodynamically stable and afebrile - Will hold off on antibiotics at this time - Will continue to monitor CAD - Hx of SD 2000 with stent placement x6 - Follows with Dr. Cano as an outpatient - Patient was advised by Cardiology to hold Plavix for 5 days preoperatively; Resume Plavix and stop ASA post-operatively - Discussed with orthopedic surgery; plan to start a course today and start Plavix tomorrow morning HTN - BP well controlled - c/w Amlodipine, Atenolol with holding parameters - Spironolactone on hold (Will check lab work tomorrow AM) DLP - c/w Rosuvastatin Aortic dilation / Hx of Palpitations - s/p Ablation (2018) Anxiety / Depression - c/w Alprazolam PRN Hx of MRSA wound abscess - s/p debridement (2015) - Patient is currently on contact precautions given history of MRSA DVT prophylaxis - Anti-coagulation at the direction of orthopedic surgery Marina THOMAS, I+O Marina THOMAS I+O Laboratory Tests 09/11/19 06:27 Vital Signs Date Time Temp Pulse Resp B/P (MAP) Pulse Ox O2 Delivery O2 Flow Rate FiO2 09/11/19 08:53 18 09/11/19 08:52 77 115/74 09/11/19 06:00 99.1 93 Room Air I&O- Last 24 Hours up to 6 AM 09/11/19 06:00 Intake Total 3050 ml Output Total 1250 ml Balance 1800 ml IDALIA OSULLIVAN MD Sep 11, 2019 10:49
[2019-09-11] MEDS: ROSUVASTATIN 10 MG TAB (CRESTOR) PO SCH (20:48)
[2019-09-11] MEDS: atenoloL 50 MG TAB PO SCH (20:49)
[2019-09-11 22:00] VITALS: BP 115/77
[2019-09-12] MEDS: PERCOCET 5MG/325MG TAB PO PRN ×3 (05:26→23:05)
[2019-09-12 06:00] VITALS: BP 117/77
[2019-09-12 06:31] LABS: BASO # 0.1 10^3/uL (0.0-0.2); BASO % 0.4 % (0.0-1.0); EOS # 0.1 10^3/uL (0.0-0.5); EOS % 1.1 % (0.0-3.0); HEMATOCRIT 33.8 % (42.0-52.0); HEMOGLOBIN 11.8 g/dl (13.5-17.5); LYMPH # 1.4 10^3/uL (1.5-5.0); LYMPH % 10.6 % (24.0-44.0); MEAN CORPUSCULAR HEMOGLOBIN 32.6 pg (27.0-33.0); MEAN CORPUSCULAR HGB CONC 34.9 g/dl (32.0-36.5); MEAN CORPUSCULAR VOLUME 93.4 fl (80.0-96.0); MONO # 1.8 10^3/uL (0.0-0.8); MONO % 13.9 % (0.0-5.0); NEUTROPHILS # 9.3 10^3/uL (1.5-8.5); NEUTROPHILS % 73.1 % (36.0-66.0); PLATELET COUNT, AUTOMATED 162 10^3/uL (150-450); RED BLOOD COUNT 3.62 10^6/uL (4.30-6.10); WHITE BLOOD COUNT 12.7 10^3/uL (4.0-10.0)
[2019-09-12 06:53] LABS: ALT/SGPT 36 U/L (12-78); BLOOD UREA NITROGEN 14 MG/DL (7-18); CARBON DIOXIDE LEVEL 29 MEQ/L (21-32); CHLORIDE LEVEL 105 MEQ/L (98-107); CREATININE FOR GFR 1.24 MG/DL (0.70-1.30); GLOMERULAR FILTRATION RATE > 60.0 (>49); GLUCOSE, FASTING 132 MG/DL (70-100); MAGNESIUM LEVEL 2.1 MG/DL (1.8-2.4); POTASSIUM SERUM 4.1 MEQ/L (3.5-5.1); SODIUM LEVEL 137 MEQ/L (136-145); TOTAL PROTEIN 5.7 GM/DL (6.4-8.2)
--- NOTE | 2019-09-12 08:14 | IPN ---
DATE: 09/12/2019 Andrew is a postoperative patient being seen on the hospitalist service status post elective right hip arthroplasty. He has a history of methicillin-resistant Staphylococcus aureus (MRSA) wound abscess and requiring debridement. He has a low grade leukocytosis. He was afebrile overnight. Temperature is 100.5 this morning. He has no urinary symptoms, cough or shortness of breath. Examination: 117/77. 100.5 degrees T-max. General Appearance: He looks well, resting comfortably. Lungs: Clear. Heart: Regular rhythm. Abdomen: Soft. Nontender. No peripheral edema. Wound looks good and normal per orthopedics (we discussed the case with Dr. Sundar Alvarez). Labs: White count is 12.7, hemoglobin 11.8, platelets 162. Electrolytes unremarkable. IMPRESSION: 1. Leukocytosis. No evidence of active infection. The case was discussed with orthopedics. Would recommend repeat CBC tomorrow. If leukocytosis persists, then standard work up with urinalysis, urine culture, chest x-ray recommended. The patient has a history of MRSA. The wound looks good. 2. Coronary artery disease. Remote history of 6 coronary artery stents. This is all stable. 3. Hypertension. Blood pressure is well controlled. I would continue to hold the spironolactone as the systolic pressure is only in the 110-120 range. 4. Hyperlipidemia. Continue rosuvastatin. Anticipate discharge tomorrow if leukocytosis has resolved.
[2019-09-12] MEDS: CLOPIDOGREL 75 MG TAB PO SCH (08:34)
[2019-09-12] MEDS: amLODIPine 5 MG TAB PO SCH (08:34)
[2019-09-12] MEDS: APIXABAN 5 MG TAB (ELIQUIS) PO SCH ×2 (08:34→20:45)
[2019-09-12] MEDS: MIRALAX *UNIT DOSE* 17GM PACKET PO SCH (08:34)
[2019-09-12] MEDS: MOM 30ML SUSPENSION UDC PO SCH (08:34)
[2019-09-12] MEDS: ALPRAZolam 0.5 MG TAB PO PRN ×3 (08:34→23:05)
[2019-09-12 14:15] VITALS: BP 125/85
[2019-09-12 17:30] VITALS: BP 123/79
--- NOTE | 2019-09-12 17:58 | IPN ---
DATE: 09/12/2019 Called by nursing staff. Stan developed a fever. It was low-grade. He was given Tylenol. Temperature actually went to a higher low-grade fever despite the antipyretic. Therefore, I am ordering blood cultures, chest x-ray, urinalysis, urine culture, and a C-reactive protein both now and repeated in the morning.
--- NOTE | 2019-09-12 18:41 | REP ---
Chest x-ray: Two views. History: Fever . Comparison study: August 22, 2019 . Findings: The lungs are well inflated and free of infiltrate. The pleural angles are sharp. The heart size is normal. Pulmonary vasculature is not increased. No significant bony abnormality is seen. Impression: Negative chest x-ray. Electronically Signed by Aftab Mccray MD 09/12/2019 06:33 P
[2019-09-12 19:26] LABS: APPEARANCE, URINE CLEAR (CLEAR); BACTERIA, URINE AUTO NEGATIVE (NEGATIVE); BILIRUBIN, URINE AUTO NEGATIVE (NEGATIVE); BLOOD, URINE BLOOD 1+ (NEGATIVE); COLOR, URINE YELLOW (YELLOW); GLUCOSE, URINE (UA) AUTO NEGATIVE (NEGATIVE); KETONE, URINE AUTO NEGATIVE (NEGATIVE); LEUKOCYTE ESTERASE, URINE AUTO NEGATIVE (NEGATIVE); NITRITE, URINE AUTO NEGATIVE (NEGATIVE); PROTEIN, URINE AUTO NEGATIVE (NEGATIVE); RBC, URINE AUTO 4 /HPF (0-3); SPECIFIC GRAVITY URINE AUTO 1.014 (1.002-1.035); SQUAMOUS EPITHELIAL CELL UR AU 0 /HPF (0-6); UROBILINOGEN, URINE AUTO 0.2 mg/dL (0.0-2.0); WBC, URINE AUTO 1 /HPF (0-3)
[2019-09-12] MEDS: ACETAMINOPHEN TAB 650MG DOSE (2X325MG) PO PRN (20:44)
[2019-09-12] MEDS: ROSUVASTATIN 10 MG TAB (CRESTOR) PO SCH (20:45)
[2019-09-12 22:00] VITALS: BP 125/79
[2019-09-12] MEDS: atenoloL 50 MG TAB PO SCH (23:04)
[2019-09-13] MEDS: ALPRAZolam 0.5 MG TAB PO PRN (05:45)
[2019-09-13] MEDS: ACETAMINOPHEN TAB 650MG DOSE (2X325MG) PO PRN (05:46)
[2019-09-13 06:00] VITALS: BP 132/72
[2019-09-13 07:15] LABS: BASO # 0.1 10^3/uL (0.0-0.2); BASO % 0.4 % (0.0-1.0); EOS # 0.2 10^3/uL (0.0-0.5); EOS % 1.4 % (0.0-3.0); HEMATOCRIT 31.8 % (42.0-52.0); HEMOGLOBIN 11.1 g/dl (13.5-17.5); LYMPH # 1.3 10^3/uL (1.5-5.0); LYMPH % 10.8 % (24.0-44.0); MEAN CORPUSCULAR HEMOGLOBIN 32.7 pg (27.0-33.0); MEAN CORPUSCULAR HGB CONC 34.9 g/dl (32.0-36.5); MEAN CORPUSCULAR VOLUME 93.8 fl (80.0-96.0); MONO # 1.3 10^3/uL (0.0-0.8); MONO % 10.8 % (0.0-5.0); NEUTROPHILS # 9.1 10^3/uL (1.5-8.5); NEUTROPHILS % 75.3 % (36.0-66.0); PLATELET COUNT, AUTOMATED 150 10^3/uL (150-450); RED BLOOD COUNT 3.39 10^6/uL (4.30-6.10)
[2019-09-13 07:50] LABS: ALBUMIN 2.8 GM/DL (3.2-5.2); ALT/SGPT 28 U/L (12-78); BILIRUBIN,TOTAL 0.8 MG/DL (0.2-1.0); BLOOD UREA NITROGEN 12 MG/DL (7-18); CALCIUM LEVEL 8.2 MG/DL (8.8-10.2); CARBON DIOXIDE LEVEL 28 MEQ/L (21-32); CHLORIDE LEVEL 107 MEQ/L (98-107); CREATININE FOR GFR 1.23 MG/DL (0.70-1.30); GLOMERULAR FILTRATION RATE > 60.0 (>49); GLUCOSE, FASTING 133 MG/DL (70-100); POTASSIUM SERUM 3.7 MEQ/L (3.5-5.1); SODIUM LEVEL 138 MEQ/L (136-145); TOTAL PROTEIN 5.7 GM/DL (6.4-8.2)
[2019-09-13] MEDS: MOM 30ML SUSPENSION UDC PO SCH (08:04)
[2019-09-13] MEDS: PERCOCET 5MG/325MG TAB PO PRN (08:05)
[2019-09-13] MEDS: CLOPIDOGREL 75 MG TAB PO SCH (08:05)
[2019-09-13 08:09] VITALS: BP 120/73
[2019-09-13] MEDS: amLODIPine 5 MG TAB PO SCH (08:09)
[2019-09-13] MEDS: MIRALAX *UNIT DOSE* 17GM PACKET PO SCH (08:10)
[2019-09-13] MEDS: APIXABAN 5 MG TAB (ELIQUIS) PO SCH (08:10)
--- NOTE | 2019-09-13 11:34 | IPNPDOC ---
Date Seen The patient was seen on 09/13/19. Progress Note SUBJECTIVE: Patient appear well this morning, does complain of R. hip pain post op but ot herwise does not report any other complaints. Had a fever yesterday evening of 101.6 but had since resolved. WBC slightly trending down 12.7 to 12.0 today with no further episodes of fever. Suspect mild leukocytosis and fever are post op related but had since resolved and does not suspect an infection at this time. Surgical wound appear clean and dry, no erythema. OBJECTIVE PHYSICAL EXAMINATION: VITAL SIGNS: Please see below. General: No acute distress, Alert Eyes: Normal sclera, EOMI HENT: Atraumatic Cardiovascular: Normal rate, normal rhythm. Pulmonary: Clear to auscultation b/l, no wheezing GI: Soft, nontender, nondistended Skin: Warm and dry. R. hip with overlying bandage partially soaked in dried blood. No erythema. MSK: R. hip tenderness, no significant erythema. Overlying dressing partially soaked. Neuro: CN grossly intact. No focal deficits. Strengths equal b/l. Psych: oriented x 3 LABORATORY DATA, IMAGING STUDIES, MICROBIOLOGY: Please see below. DVT prophylaxis ordered?: Eliquis ASSESSMENT AND PLAN: 64M s/p elective R. hip arthroplasty has been doing well post op but still with complaints of pain. Has mild leukocytosis that is improving and fever from yesterday had resolved. Wound does not look infected. I think patient is safe to discharge to follow up with ortho and PMD as outpatient. No other complaints apart from pain in R. hip at this time. c/w pain control post discharge. Patient is already on eliquis for anticoagulation. DISPOSITION: Home today. VS, I&O, 24H, [facility] Vital Signs/I&O Vital Signs Date Time Temp Pulse Resp B/P (MAP) Pulse Ox O2 Delivery O2 Flow Rate FiO2 09/13/19 08:35 18 Room Air 09/13/19 08:09 87 120/73 09/13/19 06:00 99.8 97 I&O- Last 24 Hours up to 6 AM 09/13/19 06:00 Intake Total 660 ml Output Total 750 ml Balance -90 ml Laboratory Data 24H LABS Laboratory Tests 2 09/12/19 18:55: Urine Color YELLOW, Urine Appearance CLEAR, Urine pH 6.0, Urine Specific [place] 1.014, Urine Protein NEGATIVE, Urine Glucose (Auto)(UA) NEGATIVE, Urine Ketones (Auto) NEGATIVE, Urine Blood 1+H, Urine Nitrite NEGATIVE, Urine Bilirubin NEGATIVE, Urine Urobilinogen 0.2, Urine Leukocyte Esterase (Auto) NEGATIVE, Urine WBC (Auto) 1, Urine RBC (Auto) 4H, Urine Hyaline Casts (Auto) 0, Urine Bacteria (Auto) NEGATIVE, Urine Squamous Epithelial Cells 0, Urine Sperm (Auto) 09/12/19 19:03: C-Reactive Protein, Quantitative 15.10H 09/13/19 06:53: C-Reactive Protein, Quantitative 16.10H, Immature Granulocyte % (Auto) 1.3, Neutrophils (%) (Auto) 75.3H, Lymphocytes (%) (Auto) 10.8L, Monocytes (%) (Auto) 10.8H, Eosinophils (%) (Auto) 1.4, Basophils (%) (Auto) 0.4, Neutrophils # (Auto) 9.1H, Lymphocytes # (Auto) 1.3L, Monocytes # (Auto) 1.3H, Eosinophils # (Auto) 0.2, Basophils # (Auto) 0.1, Nucleated Red Blood Cells % (auto) 0.0, Anion Gap 3L, Glomerular Filtration Rate > 60.0, Calcium Level 8.2L, Magnesium Level 2.0, Total Bilirubin 0.8, Aspartate Amino Transf (AST/SGOT) 25, Alanine Aminotransferase (ALT/SGPT) 28, Alkaline Phosphatase 56, Total Protein 5.7L, Albumin 2.8L, Albumin/Globulin Ratio 0.97L CBC/BMP Laboratory Tests 09/13/19 06:53 Microbiology Microbiology 09/12/19 Blood Culture, Received Pending 09/12/19 Blood Culture, Received Pending JESSE MCKEON MD Sep 13, 2019 11:34
--- NOTE | 2019-09-17 12:51 | DSES ---
DATE OF ADMISSION: 09/10/2019 DATE OF DISCHARGE: 09/13/2019 ATTENDING PHYSICIAN: Dr. Sundar Alvarez ADMISSION DIAGNOSIS: Osteoarthritis right hip. OTHER DIAGNOSES: 1. Coronary artery disease. 2. Hypertension. 3. Elevated lipids. 4. Aortic dilation. 5. Anxiety. 6. Depression. 7. History of methicillin-resistant Staphylococcus aureus (MRSA). DISCHARGE DIAGNOSIS: Osteoarthritis right hip status post right total hip arthroplasty. HISTORY This is a 64-year-old male patient with progressively worsening right hip pain and stiffness. He failed to improve with conservative management. He was admitted for elective hip replacement on the right side. HOSPITAL COURSE: The patient was admitted on day of surgery and underwent a right total hip arthroplasty which was uneventful. During the postoperative period. He then developed a low grade fever and leukocytosis. Then was treated with an infection workup that was negative. On day of discharge, he was doing well and weightbearing as tolerated on his right lower extremity. He will return to the use of his Eliquis that he was previously on for deep vein thrombosis (DVT) prophylaxis. He will also use thromboembolic deterrent (JU) stockings for 30 days postoperative for DVT prophylaxis. He will resume his preoperative medications and diet. He was given instructions to include, but not limited to wound monitoring and activity limitations. He will follow up in our office in 10-14 days for surgical followup. Please refer to the medical record for further details. JANETH
== END 2019-09-13 12:10 | disposition home health service (06) | DRG 470 ==
LOC: M OR 10:36 → M MS5PR 19:00
PROVIDERS: ADMIT Orthopaedic Surgery; ATTEND Orthopaedic Surgery
PROC: 0SR902Z Replacement of Right Hip Joint with Metal on Polyethylene Synthetic Substitute, Open Approach (ICD-10-PCS; principal; 2019-09-10 14:50)
DX: M16.11 Unilateral primary osteoarthritis, right hip (principal); I25.10 Atherosclerotic heart disease of native coronary artery without angina pectoris; I25.2 Old myocardial infarction; Z98.1 Arthrodesis status; Z95.5 Presence of coronary angioplasty implant and graft; D72.829 Elevated white blood cell count, unspecified; Z90.49 Acquired absence of other specified parts of digestive tract; R50.82 Postprocedural fever; I77.819 Aortic ectasia, unspecified site; I11.9 Hypertensive heart disease without heart failure; E78.5 Hyperlipidemia, unspecified; R00.2 Palpitations; I47.9 Paroxysmal tachycardia, unspecified; F41.9 Anxiety disorder, unspecified; F32.9 Major depressive disorder, single episode, unspecified; Z79.82 Long term (current) use of aspirin; Z79.01 Long term (current) use of anticoagulants; Z79.899 Other long term (current) drug therapy; Z86.14 Personal history of Methicillin resistant Staphylococcus aureus infection; Z88.1 Allergy status to other antibiotic agents; Z88.8 Allergy status to other drugs, medicaments and biological substances

== ENCOUNTER → 2019-11-07 | Outpatient (CLI) | payer MEDICARE ==
[~2019-11-07] MED LIST changes: -ACETAMINOPHEN 500 MG TAB PO ONE; +ELIQ2.5T PO; -LIDOCAINE 1% MDV 20ML VIAL SQ PRN; -LR 1,000 ML IV SCH; +PERC5TAB12 PO; -VANCOMYCIN HCL 1,000 MG, VIAL MATE ADAPTER 1 EACH in D5W 250 ML IV ONE; -VANCOMYCIN HCL 500 MG in D5W MINI-BAG PLUS 100 ML IV ONE
[2019-11-07 06:46] LABS: HEMATOCRIT 46.9 % (42.0-52.0); HEMOGLOBIN 15.7 g/dl (13.5-17.5); MEAN CORPUSCULAR HEMOGLOBIN 30.7 pg (27.0-33.0); MEAN CORPUSCULAR HGB CONC 33.5 g/dl (32.0-36.5); MEAN CORPUSCULAR VOLUME 91.8 fl (80.0-96.0); PLATELET COUNT, AUTOMATED 222 10^3/uL (150-450); RED BLOOD COUNT 5.11 10^6/uL (4.30-6.10); WHITE BLOOD COUNT 7.2 10^3/uL (4.0-10.0)
[2019-11-07 06:59] LABS: APPEARANCE, URINE CLEAR (CLEAR); BACTERIA, URINE AUTO NEGATIVE (NEGATIVE); BILIRUBIN, URINE AUTO NEGATIVE (NEGATIVE); BLOOD, URINE BLOOD NEGATIVE (NEGATIVE); COLOR, URINE YELLOW (YELLOW); GLUCOSE, URINE (UA) AUTO NEGATIVE (NEGATIVE); KETONE, URINE AUTO NEGATIVE (NEGATIVE); LEUKOCYTE ESTERASE, URINE AUTO NEGATIVE (NEGATIVE); MUCUS, URINE SMALL (NEGATIVE); NITRITE, URINE AUTO NEGATIVE (NEGATIVE); PROTEIN, URINE AUTO NEGATIVE (NEGATIVE); RBC, URINE AUTO 1 /HPF (0-3); SPECIFIC GRAVITY URINE AUTO 1.016 (1.002-1.035); SQUAMOUS EPITHELIAL CELL UR AU 0 /HPF (0-6); UROBILINOGEN, URINE AUTO 0.2 mg/dL (0.0-2.0); WBC, URINE AUTO 0 /HPF (0-3)
[2019-11-07 07:03] LABS: HEMOGLOBIN A1c 5.3 %
[2019-11-07 07:18] LABS: ALBUMIN 3.8 GM/DL (3.2-5.2); ALT/SGPT 63 U/L (12-78); BILIRUBIN,TOTAL 0.8 MG/DL (0.2-1.0); BLOOD UREA NITROGEN 19 MG/DL (7-18); CALCIUM LEVEL 9.3 MG/DL (8.8-10.2); CARBON DIOXIDE LEVEL 29 MEQ/L (21-32); CHLORIDE LEVEL 108 MEQ/L (98-107); CHOLESTEROL LEVEL 129 MG/DL (<200); CHOLESTEROL RISK RATIO 3.307 (<5); CREATININE FOR GFR 1.25 MG/DL (0.70-1.30); GLOMERULAR FILTRATION RATE > 60.0 (>49); GLUCOSE, FASTING 104 MG/DL (70-100); HDL CHOLESTEROL 39 MG/DL (>40); LDL CHOLESTEROL 59 MG/DL (<100); NON-HDL-C 90 MG/DL; POTASSIUM SERUM 4.1 MEQ/L (3.5-5.1); PROSTATIC SPECIFIC AG MONITOR 0.03 NG/ML (< 4.00); SODIUM LEVEL 142 MEQ/L (136-145); TOTAL PROTEIN 7.2 GM/DL (6.4-8.2); TRIGLYCERIDES LEVEL 156 MG/DL (<150)
[2019-11-07 09:17] LABS: TOTAL 25(OH) VITAMIN D 23.3 NG/ML (30.0-100.0)
[2019-11-07 09:18] LABS: TESTOSTERONE 468 NG/DL (241-827)
== END ==
LOC: M LAB 06:03
PROVIDERS: ATTEND Family Medicine
DX: I10 Essential (primary) hypertension (principal); R53.83 Other fatigue; E03.9 Hypothyroidism, unspecified; Z79.899 Other long term (current) drug therapy

== ENCOUNTER → 2019-11-30 | Outpatient (REF) | payer MEDICARE ==
[2019-11-30 15:36] LABS: FOLLICLE STIMULATING HORMONE 3.6 mIU/mL (1.4-18.1); LUTEINIZING HORMONE 6.1 mIU/mL (1.5-9.3)
[2019-12-02 06:52] LABS: DEHYDROEPIANDROSTERONE SULFATE 98.3 ug/dL (30.9-295.6); HCG SERUM TUMOR MARKER QUANT < 1 mIU/mL (0-3)
== END ==
LOC: M PLALAB 12:49
PROVIDERS: ATTEND Surgery
DX: N62 Hypertrophy of breast (principal)

== ENCOUNTER → 2020-01-14 | Outpatient (CLI) | payer MEDICARE ==
[~2020-01-14] MED LIST changes: -AMLO10TA5 PO; +AMLO1TAB24 PO; +AMLO1TAB25 PO; -AMLO5TAB6 PO
--- NOTE | 2020-01-14 11:27 | REP ---
Clinical: Cough . Comparison: 09/12/2019 . Technique: PA and lateral. Findings: The mediastinum and cardiac silhouette are normal. The lung pruitt are clear and without acute consolidation, effusion, or pneumothorax. The skeletal structures are intact and normal. Impression: 1. No acute cardiopulmonary process. Electronically Signed by Mariano Lopez MD 01/14/2020 11:18 A
== END ==
LOC: M RAD 11:05
PROVIDERS: ATTEND Physician Assistant
DX: R05 Cough (principal)

== ENCOUNTER → 2020-01-23 | Outpatient (CLI) | payer MEDICARE ==
[2020-02-18 16:12] LABS: HEMATOCRIT 49.7 % (42.0-52.0); HEMOGLOBIN 16.9 g/dl (13.5-17.5); MEAN CORPUSCULAR HEMOGLOBIN 31.5 pg (27.0-33.0); MEAN CORPUSCULAR VOLUME 92.6 fl (80.0-96.0); PLATELET COUNT, AUTOMATED 212 10^3/uL (150-450); RED BLOOD COUNT 5.37 10^6/uL (4.30-6.10)
[2020-03-02 11:37] LABS: ALBUMIN 4.1 GM/DL (3.2-5.2); ALT/SGPT 52 U/L (12-78); BILIRUBIN,TOTAL 0.9 MG/DL (0.2-1.0); BLOOD UREA NITROGEN 17 MG/DL (7-18); CALCIUM LEVEL 9.2 MG/DL (8.8-10.2); CARBON DIOXIDE LEVEL 28 MEQ/L (21-32); CHLORIDE LEVEL 111 MEQ/L (98-107); CHOLESTEROL LEVEL 103 MG/DL (<200); CHOLESTEROL RISK RATIO 2.452 (<5); CREATININE FOR GFR 1.31 MG/DL (0.70-1.30); GLOMERULAR FILTRATION RATE 58.3 (>49); GLUCOSE, FASTING 94 MG/DL (70-100); HDL CHOLESTEROL 42 MG/DL (>40); HEMOGLOBIN A1c 5.4 %; LDL CHOLESTEROL 47 MG/DL (<100); NON-HDL-C 61 MG/DL; POTASSIUM SERUM 4.1 MEQ/L (3.5-5.1); SODIUM LEVEL 145 MEQ/L (136-145); TESTOSTERONE 306 NG/DL (241-827); TOTAL PROTEIN 7.4 GM/DL (6.4-8.2); TRIGLYCERIDES LEVEL 71 MG/DL (<150)
== END ==
LOC: M LAB 08:06
PROVIDERS: ATTEND Family Medicine
DX: D64.9 Anemia, unspecified (principal); E11.9 Type 2 diabetes mellitus without complications; R53.83 Other fatigue; E03.9 Hypothyroidism, unspecified
CPT/HCPCS: 80053; 80061; 83036; 84403; 84443; 85027; G0103

== ENCOUNTER → 2020-02-29 | Outpatient (CLI) | payer MEDICARE | LOC: M LABSMTC 09:37 | PROVIDERS: ATTEND Internal Medicine Cardiovascular Disease | DX: Z20.828 Contact with and (suspected) exposure to other viral communicable diseases (principal) | CPT/HCPCS: C9803; U0003 ==

== ENCOUNTER → 2020-05-06 | Outpatient (CLI) | payer MEDICARE ==
[2020-05-06 10:42] LABS: APPEARANCE, URINE CLEAR (CLEAR); BACTERIA, URINE AUTO NEGATIVE (NEGATIVE); BILIRUBIN, URINE AUTO NEGATIVE (NEGATIVE); BLOOD, URINE BLOOD 1+ (NEGATIVE); COLOR, URINE YELLOW (YELLOW); GLUCOSE, URINE (UA) AUTO NEGATIVE (NEGATIVE); KETONE, URINE AUTO NEGATIVE (NEGATIVE); LEUKOCYTE ESTERASE, URINE AUTO NEGATIVE (NEGATIVE); NITRITE, URINE AUTO NEGATIVE (NEGATIVE); PROTEIN, URINE AUTO NEGATIVE (NEGATIVE); RBC, URINE AUTO 1 /HPF (0-3); SPECIFIC GRAVITY URINE AUTO 1.009 (1.002-1.035); SQUAMOUS EPITHELIAL CELL UR AU 0 /HPF (0-6); UROBILINOGEN, URINE AUTO 0.2 mg/dL (0.0-2.0); WBC, URINE AUTO 0 /HPF (0-3)
[2020-05-06 10:55] LABS: HEMATOCRIT 49.5 % (42.0-52.0); HEMOGLOBIN 16.4 g/dl (13.5-17.5); MEAN CORPUSCULAR HEMOGLOBIN 30.9 pg (27.0-33.0); MEAN CORPUSCULAR HGB CONC 33.1 g/dl (32.0-36.5); MEAN CORPUSCULAR VOLUME 93.4 fl (80.0-96.0); PLATELET COUNT, AUTOMATED 198 10^3/uL (150-450); WHITE BLOOD COUNT 7.6 10^3/uL (4.0-10.0)
[2020-05-06 11:22] LABS: ALT/SGPT 48 U/L (12-78); BILIRUBIN,TOTAL 0.8 MG/DL (0.2-1.0); BLOOD UREA NITROGEN 12 MG/DL (7-18); CALCIUM LEVEL 9.1 MG/DL (8.8-10.2); CARBON DIOXIDE LEVEL 31 MEQ/L (21-32); CHLORIDE LEVEL 108 MEQ/L (98-107); CHOLESTEROL LEVEL 131 MG/DL (<200); CHOLESTEROL RISK RATIO 2.911 (<5); CREATININE FOR GFR 1.26 MG/DL (0.70-1.30); GLOMERULAR FILTRATION RATE > 60.0 (>49); GLUCOSE, FASTING 102 MG/DL (70-100); HDL CHOLESTEROL 45 MG/DL (>40); LDL CHOLESTEROL 60 MG/DL (<100); NON-HDL-C 86 MG/DL; POTASSIUM SERUM 4.4 MEQ/L (3.5-5.1); PROSTATIC SPECIFIC AG MONITOR 0.04 NG/ML (< 4.00); SODIUM LEVEL 143 MEQ/L (136-145); TESTOSTERONE 438 NG/DL (241-827); TOTAL 25(OH) VITAMIN D 32.9 NG/ML (30.0-100.0); TOTAL PROTEIN 7.2 GM/DL (6.4-8.2); TRIGLYCERIDES LEVEL 130 MG/DL (<150)
[2020-05-06 11:24] LABS: HEMOGLOBIN A1c 5.3 %
== END ==
LOC: M LAB 09:31
PROVIDERS: ATTEND Family Medicine
DX: I10 Essential (primary) hypertension (principal); E03.9 Hypothyroidism, unspecified; R53.83 Other fatigue

== ENCOUNTER → 2020-06-09 | Outpatient (CLI) | payer MEDICARE ==
--- NOTE | 2020-06-09 15:41 | REP ---
INDICATION: N62 GYNECOMASTIA,MALE,L UPPER OUTER BREAST LUMP. Left breast. Patient reports that the lump is gone. He has discontinued his treatment with spironolactone. COMPARISON: Comparison mammography November 01, 2019 and sonography November 01, 2019. TECHNIQUE: Unilateral digital left breast mammography with 3D tomography is performed. This mammogram was interpreted with the aid of an FDA-approved computer-aided detection system. FINDINGS: There is a minimal amount of subareolar fibroglandular tissue present in the left breast, significantly improved from the November 01, 2019 appearance. No mass lesions spiculation or microcalcification is observed. Targeted ultrasound: Repeat left breast subareolar sonography shows normal subareolar soft tissue. No mass or lump is seen. No cyst is observed. IMPRESSION: BIRADS/ACR category 2 benign left breast mammographic and sonographic findings. Gynecomastia pattern left breast, significantly improved. RECOMMENDATION: Clinical follow-up is advised.. The patient letter being requested is M2. <Electronically signed by Jordon Mccray > 06/09/20 [id number]
== END ==
LOC: M WHC 12:50
PROVIDERS: ATTEND Surgery
DX: N62 Hypertrophy of breast (principal); N64.4 Mastodynia
CPT/HCPCS: 76642; 77065; G0279

== ENCOUNTER → 2020-07-22 | Outpatient (CLI) | payer MEDICARE ==
[2020-07-22 11:32] LABS: HEMATOCRIT 48.2 % (42.0-52.0); HEMOGLOBIN 16.3 g/dl (13.5-17.5); MEAN CORPUSCULAR HEMOGLOBIN 31.5 pg (27.0-33.0); MEAN CORPUSCULAR HGB CONC 33.8 g/dl (32.0-36.5); MEAN CORPUSCULAR VOLUME 93.2 fl (80.0-96.0); PLATELET COUNT, AUTOMATED 201 10^3/uL (150-450); RED BLOOD COUNT 5.17 10^6/uL (4.30-6.10); WHITE BLOOD COUNT 6.8 10^3/uL (4.0-10.0)
[2020-07-22 12:16] LABS: ALBUMIN 4.1 GM/DL (3.2-5.2); ALT/SGPT 61 U/L (12-78); BILIRUBIN,TOTAL 0.6 MG/DL (0.2-1.0); BLOOD UREA NITROGEN 16 MG/DL (7-18); CALCIUM LEVEL 9.5 MG/DL (8.8-10.2); CARBON DIOXIDE LEVEL 30 MEQ/L (21-32); CHLORIDE LEVEL 107 MEQ/L (98-107); CHOLESTEROL LEVEL 134 MG/DL (<200); CHOLESTEROL RISK RATIO 3.268 (<5); CREATININE FOR GFR 1.23 MG/DL (0.70-1.30); GLOMERULAR FILTRATION RATE > 60.0 (>49); GLUCOSE, FASTING 95 MG/DL (70-100); HDL CHOLESTEROL 41 MG/DL (>40); LDL CHOLESTEROL 69 MG/DL (<100); NON-HDL-C 93 MG/DL; POTASSIUM SERUM 4.3 MEQ/L (3.5-5.1); PROSTATIC SPECIFIC AG MONITOR 0.04 NG/ML (< 4.00); SODIUM LEVEL 145 MEQ/L (136-145); TRIGLYCERIDES LEVEL 118 MG/DL (<150)
[2020-07-22 14:51] LABS: TOTAL 25(OH) VITAMIN D 39.8 NG/ML (30.0-100.0)
[2020-07-22 14:52] LABS: TESTOSTERONE 421 NG/DL (241-827)
== END ==
LOC: M LAB 10:24
PROVIDERS: ATTEND Family Medicine
DX: I10 Essential (primary) hypertension (principal); E03.9 Hypothyroidism, unspecified; R53.83 Other fatigue; Z79.899 Other long term (current) drug therapy

== ENCOUNTER → 2020-08-20 | Outpatient (CLI) | payer MEDICARE ==
[2020-08-20 06:59] LABS: APPEARANCE, URINE CLEAR (CLEAR); BACTERIA, URINE AUTO NEGATIVE (NEGATIVE); BILIRUBIN, URINE AUTO NEGATIVE (NEGATIVE); BLOOD, URINE BLOOD 1+ (NEGATIVE); COLOR, URINE YELLOW (YELLOW); GLUCOSE, URINE (UA) AUTO NEGATIVE (NEGATIVE); KETONE, URINE AUTO NEGATIVE (NEGATIVE); LEUKOCYTE ESTERASE, URINE AUTO NEGATIVE (NEGATIVE); MUCUS, URINE SMALL (NEGATIVE); NITRITE, URINE AUTO NEGATIVE (NEGATIVE); PROTEIN, URINE AUTO NEGATIVE (NEGATIVE); RBC, URINE AUTO 1 /HPF (0-3); SPECIFIC GRAVITY URINE AUTO 1.019 (1.002-1.035); SQUAMOUS EPITHELIAL CELL UR AU 0 /HPF (0-6); UROBILINOGEN, URINE AUTO 0.2 mg/dL (0.0-2.0); WBC, URINE AUTO 0 /HPF (0-3)
== END ==
LOC: M LAB 06:21
PROVIDERS: ATTEND Urology
DX: R31.9 Hematuria, unspecified (principal)

== ENCOUNTER → 2020-08-28 | Outpatient (CLI) | payer MEDICARE | LOC: M LAB 11:24 | PROVIDERS: ATTEND Urology | DX: R31.9 Hematuria, unspecified (principal); R82.89 Other abnormal findings on cytological and histological examination of urine ==

== ENCOUNTER → 2020-09-24 | Outpatient (REF) | payer MEDICARE | LOC: M LAB REF 17:05 | PROVIDERS: ATTEND Dermatology | DX: D23.39 Other benign neoplasm of skin of other parts of face (principal) | CPT/HCPCS: 11102; 88305; J3301 ==

== ENCOUNTER → 2020-10-31 | Outpatient (CLI) | payer MEDICARE ==
[2020-10-31 11:40] LABS: AMORPHOUS SEDIMENT SMALL (NEGATIVE); APPEARANCE, URINE CLOUDY (CLEAR); BACTERIA, URINE AUTO NEGATIVE (NEGATIVE); BILIRUBIN, URINE AUTO NEGATIVE (NEGATIVE); BLOOD, URINE BLOOD NEGATIVE (NEGATIVE); COLOR, URINE YELLOW (YELLOW); GLUCOSE, URINE (UA) AUTO NEGATIVE (NEGATIVE); KETONE, URINE AUTO NEGATIVE (NEGATIVE); LEUKOCYTE ESTERASE, URINE AUTO NEGATIVE (NEGATIVE); MUCUS, URINE SMALL (NEGATIVE); NITRITE, URINE AUTO NEGATIVE (NEGATIVE); PROTEIN, URINE AUTO NEGATIVE (NEGATIVE); RBC, URINE AUTO 3 /HPF (0-3); SPECIFIC GRAVITY URINE AUTO 1.018 (1.002-1.035); SQUAMOUS EPITHELIAL CELL UR AU 0 /HPF (0-6); UROBILINOGEN, URINE AUTO 0.2 mg/dL (0.0-2.0); WBC, URINE AUTO 1 /HPF (0-3)
[2020-10-31 11:47] LABS: HEMATOCRIT 48.6 % (42.0-52.0); HEMOGLOBIN 16.7 g/dl (13.5-17.5); MEAN CORPUSCULAR HEMOGLOBIN 32.3 pg (27.0-33.0); MEAN CORPUSCULAR HGB CONC 34.4 g/dl (32.0-36.5); PLATELET COUNT, AUTOMATED 187 10^3/uL (150-450); RED BLOOD COUNT 5.17 10^6/uL (4.30-6.10); WHITE BLOOD COUNT 7.8 10^3/uL (4.0-10.0)
[2020-10-31 12:39] LABS: ALBUMIN 4.1 GM/DL (3.2-5.2); ALT/SGPT 52 U/L (12-78); BILIRUBIN,TOTAL 1.1 MG/DL (0.2-1.0); BLOOD UREA NITROGEN 16 MG/DL (7-18); CALCIUM LEVEL 9.2 MG/DL (8.8-10.2); CARBON DIOXIDE LEVEL 28 MEQ/L (21-32); CHLORIDE LEVEL 111 MEQ/L (98-107); CHOLESTEROL LEVEL 131 MG/DL (<200); CHOLESTEROL RISK RATIO 2.729 (<5); GLOMERULAR FILTRATION RATE > 60.0 (>49); GLUCOSE, FASTING 101 MG/DL (70-100); HDL CHOLESTEROL 48 MG/DL (>40); LDL CHOLESTEROL 58 MG/DL (<100); NON-HDL-C 83 MG/DL; POTASSIUM SERUM 4.1 MEQ/L (3.5-5.1); PROSTATIC SPECIFIC AG MONITOR 0.05 NG/ML (< 4.00); SODIUM LEVEL 143 MEQ/L (136-145); TESTOSTERONE 331 NG/DL (241-827); THYROXINE (T4) 8.6 UG/DL (4.5-12.0); TOTAL 25(OH) VITAMIN D 34.2 NG/ML (30.0-100.0); TOTAL PROTEIN 7.1 GM/DL (6.4-8.2); TOTAL T3 105.8 NG/DL (60.0-181.0); TRIGLYCERIDES LEVEL 127 MG/DL (<150)
== END ==
LOC: M LAB 10:36
PROVIDERS: ATTEND Family Medicine
DX: I10 Essential (primary) hypertension (principal); E03.9 Hypothyroidism, unspecified; R53.83 Other fatigue; N39.0 Urinary tract infection, site not specified; Z79.899 Other long term (current) drug therapy

== ENCOUNTER → 2020-11-05 | Outpatient (CLI) | payer MEDICARE ==
--- NOTE | 2020-11-05 12:35 | REP ---
INDICATION: SHORTNESS OF BREATH. COMPARISON: 01/14/2020 the latest prior FINDINGS: The superior mediastinal structures are midline. The cardiac silhouette is unremarkable in size, shape, and position. The diaphragmatic surfaces of the lungs are regular, and the costophrenic angles are clear. The pulmonary pruitt are clear. The imaged osseous structures are intact. IMPRESSION: There is no acute cardiopulmonary disease. There has been no significant change compared to the prior exam. <Electronically signed by Jose Collins > 11/05/20 1980
== END ==
LOC: M LAB 11:27
PROVIDERS: ATTEND Internal Medicine Cardiovascular Disease
DX: R06.02 Shortness of breath (principal); I11.9 Hypertensive heart disease without heart failure; I35.1 Nonrheumatic aortic (valve) insufficiency

== ENCOUNTER → 2020-11-06 | Outpatient (REF) | payer MEDICARE | LOC: M LAB REF 18:45 | PROVIDERS: ATTEND Dermatology | DX: L57.0 Actinic keratosis (principal) | CPT/HCPCS: 40490; 88305; J3301 ==

== ENCOUNTER → 2020-12-22 | Outpatient (CLI) | payer MEDICARE ==
--- NOTE | 2020-12-22 15:35 | REP ---
INDICATION: N62 GYNECOMASTIS,LT BREAST SUBAREOLAR AREA. COMPARISON: Multiple the latest 06/09/2020 mammogram and ultrasound TECHNIQUE: Digital left mammogram was obtained in the CC and MLO projections using both 2D and 3D modalities along with targeted ultrasound which was performed in the same way as the prior exam. FINDINGS: The left breast is unchanged in size and shape. There are no masses. There is no internal architectural distortion. There are no suspicious calcifications. There is no skin thickening or nipple retraction. There is no change the prior exam 06/09/2020. Ultrasonography shows no cystic or solid masses or significant changes compared to the prior exam. IMPRESSION: BIRADS/ACR category 1 negative mammogram and negative left breast ultrasound. Follow up as clinically indicated. RECOMMENDATION: As above <Electronically signed by Jose Collins > 12/22/20 1557
== END ==
LOC: M WHC 14:43
PROVIDERS: ATTEND Surgery
DX: N62 Hypertrophy of breast (principal)
CPT/HCPCS: 76642; 77065; G0279

== ENCOUNTER → 2020-12-31 | Outpatient (CLI) | payer MEDICARE ==
[2020-12-31 07:44] LABS: HEMOGLOBIN 16.5 g/dl (13.5-17.5); MEAN CORPUSCULAR HEMOGLOBIN 32.4 pg (27.0-33.0); MEAN CORPUSCULAR HGB CONC 34.4 g/dl (32.0-36.5); MEAN CORPUSCULAR VOLUME 94.1 fl (80.0-96.0); PLATELET COUNT, AUTOMATED 189 10^3/uL (150-450); WHITE BLOOD COUNT 7.5 10^3/uL (4.0-10.0)
--- NOTE | 2020-12-31 08:06 | REP ---
INDICATION: HTN,FATIGUE, HYPOTHRYOID LAB AND EKG THEN XRAY COMPARISON: 11/05/2020 TECHNIQUE: PA and lateral. FINDINGS: The mediastinum and cardiac silhouette are normal. The lung pruitt are clear and without acute consolidation, effusion, or pneumothorax. The skeletal structures are intact and normal. IMPRESSION: No acute cardiopulmonary process. <Electronically signed by Mariano Lopez > 12/31/20 0802
[2020-12-31 08:19] LABS: ALT/SGPT 66 U/L (12-78); BILIRUBIN,TOTAL 0.9 MG/DL (0.2-1.0); BLOOD UREA NITROGEN 15 MG/DL (7-18); CALCIUM LEVEL 8.8 MG/DL (8.8-10.2); CARBON DIOXIDE LEVEL 29 MEQ/L (21-32); CHLORIDE LEVEL 115 MEQ/L (98-107); CHOLESTEROL LEVEL 141 MG/DL (<200); CHOLESTEROL RISK RATIO 3.204 (<5); CREATININE FOR GFR 1.23 MG/DL (0.70-1.30); GLOMERULAR FILTRATION RATE > 60.0 (>49); GLUCOSE, FASTING 102 MG/DL (70-100); HDL CHOLESTEROL 44 MG/DL (>40); LDL CHOLESTEROL 69 MG/DL (<100); NON-HDL-C 97 MG/DL; PROSTATIC SPECIFIC AG MONITOR 0.04 NG/ML (< 4.00); SODIUM LEVEL 151 MEQ/L (136-145); TRIGLYCERIDES LEVEL 141 MG/DL (<150)
--- NOTE | 2020-12-31 08:37 | ECGEPIP ---
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
[2020-12-31 09:12] LABS: HEMOGLOBIN A1c 5.1 %
[2020-12-31 09:41] LABS: TESTOSTERONE 319 NG/DL (241-827)
== END ==
LOC: M LAB 06:33
PROVIDERS: ATTEND Family Medicine
DX: I10 Essential (primary) hypertension (principal); R53.83 Other fatigue; E03.9 Hypothyroidism, unspecified; Z79.899 Other long term (current) drug therapy

== ENCOUNTER → 2021-01-01 | Outpatient (CLI) | payer MEDICARE ==
[~2021-01-01] MED LIST changes: +CVS1CAP5 PO; +NITR0.4S14; +VITAD400CA PO
== END ==
LOC: M PLAIMG 12:31
PROVIDERS: ATTEND Family Medicine
DX: K76.89 Other specified diseases of liver (principal); N28.1 Cyst of kidney, acquired; R10.13 Epigastric pain; R19.04 Left lower quadrant abdominal swelling, mass and lump

== ENCOUNTER 2021-01-16 13:31 | Emergency (ER) | payer MEDICARE ==
[~2021-01-16] VITALS: Ht 182.9 cm; Wt 95.5 kg
[~2021-01-16 13:31] MED LIST changes: -CVS1CAP5 PO; -NITR0.4S14; -VITAD400CA PO
[2021-01-16] MEDS ORDERED: NITR0.4S14 (13:50)
--- NOTE | 2021-01-16 14:37 | REP ---
INDICATION: DYSPNEA/COUGH COMPARISON: 12/31/2020. TECHNIQUE: PA/Lateral FINDINGS: Lungs: Clear, no infiltrate. Heart: Normal in size. Mediastinum: Mediastinal silhouette unremarkable. Pleural angles: Unremarkable.. Bones and soft tissues: Unremarkable. IMPRESSION: No acute pulmonary disease. <Electronically signed by Geoff Mullins > 01/16/21 2319
[2021-01-16 15:20] LABS: BASO # 0.1 10^3/uL (0.0-0.2); BASO % 0.6 % (0.0-1.0); EOS # 0.1 10^3/uL (0.0-0.5); EOS % 1.2 % (0.0-3.0); HEMATOCRIT 46.9 % (42.0-52.0); HEMOGLOBIN 16.6 g/dl (13.5-17.5); LYMPH # 1.5 10^3/uL (1.5-5.0); LYMPH % 14.8 % (24.0-44.0); MEAN CORPUSCULAR HEMOGLOBIN 32.8 pg (27.0-33.0); MEAN CORPUSCULAR HGB CONC 35.4 g/dl (32.0-36.5); MEAN CORPUSCULAR VOLUME 92.7 fl (80.0-96.0); MONO # 0.8 10^3/uL (0.0-0.8); MONO % 7.7 % (2.0-8.0); NEUTROPHILS # 7.7 10^3/uL (1.5-8.5); NEUTROPHILS % 74.8 % (36.0-66.0); PLATELET COUNT, AUTOMATED 184 10^3/uL (150-450); RED BLOOD COUNT 5.06 10^6/uL (4.30-6.10); WHITE BLOOD COUNT 10.3 10^3/uL (4.0-10.0)
[2021-01-16 15:22] LABS: APPEARANCE, URINE CLEAR (CLEAR); BACTERIA, URINE AUTO NEGATIVE (NEGATIVE); BILIRUBIN, URINE AUTO NEGATIVE (NEGATIVE); BLOOD, URINE BLOOD 1+ (NEGATIVE); COLOR, URINE STRAW (YELLOW); GLUCOSE, URINE (UA) AUTO NEGATIVE (NEGATIVE); KETONE, URINE AUTO NEGATIVE (NEGATIVE); LEUKOCYTE ESTERASE, URINE AUTO NEGATIVE (NEGATIVE); NITRITE, URINE AUTO NEGATIVE (NEGATIVE); PROTEIN, URINE AUTO NEGATIVE (NEGATIVE); RBC, URINE AUTO 1 /HPF (0-3); SPECIFIC GRAVITY URINE AUTO 1.002 (1.002-1.035); SQUAMOUS EPITHELIAL CELL UR AU 0 /HPF (0-6); UROBILINOGEN, URINE AUTO 0.2 mg/dL (0.0-2.0); WBC, URINE AUTO 0 /HPF (0-3)
[2021-01-16 15:31] LABS: INR 1.02; PROTHROMBIN TIME 13.6 SECONDS (12.5-14.3)
[2021-01-16 15:33] LABS: D-DIMER QUANT 726.87 ng/ml (<500)
[2021-01-16 15:52] LABS: BLOOD UREA NITROGEN 12 MG/DL (7-18); CALCIUM LEVEL 8.9 MG/DL (8.8-10.2); CARBON DIOXIDE LEVEL 28 MEQ/L (21-32); CHLORIDE LEVEL 109 MEQ/L (98-107); CK-MB VALUE MASS 1.3 NG/ML (<3.6); CPK CREATINE PHOSPHOKINASE 196 U/L (39-308); CREATININE FOR GFR 1.23 MG/DL (0.70-1.30); GLOMERULAR FILTRATION RATE > 60.0 (>49); GLUCOSE, FASTING 97 MG/DL (70-100); MB/CK RELATIVE INDEX 0.66 (< OR =4); NT-PRO BNP 36 PG/ML (<125); POTASSIUM SERUM 4.2 MEQ/L (3.5-5.1); SODIUM LEVEL 144 MEQ/L (136-145); THYROXINE (T4) 10.2 UG/DL (4.5-12.0); TROPONIN I < 0.02 NG/ML (< 0.10)
[2021-01-16] MEDS ORDERED: ISOVUE-370 76% 100ML VIAL As Ordered ONE (16:13)
--- NOTE | 2021-01-16 16:42 | REP ---
INDICATION: shortness of breath with exertion, ro PE, elevat dimer. COMPARISON: 01/10/2018 TECHNIQUE: CT angiogram chest performed following the intravenous administration of 75 cc of Isovue 370. Sagittal and coronal reconstruction images are performed. FINDINGS: Lungs: Dependent atelectatic changes are seen bilaterally in the mid and lower lung zones left slightly greater than right. No pleural effusion or acute infiltrate. No pulmonary nodule or parenchymal mass. Mediastinum: No mass or adenopathy noted. Pulmonary arteries: No evidence of pulmonary embolism. Rosita: No adenopathy. Axilla: No adenopathy. Pleura: No effusion. Heart: There is some mild cardiomegaly with left ventricular enlargement. No pericardial thickening or effusion. This is a change from the study 3 years ago. Thoracic aorta: No aneurysm or dissection. There are a few scattered aortic calcifications and tortuosity. Upper abdominal structures: Towards the dome of the diaphragm on the right is a cyst, unchanged. Another one in the subcapsular anterior right lobe slightly larger than on the previous study. A 3rd cyst is seen peripherally and subcapsular right lobe inferiorly in the mid axillary line and another posterior/inferior from it. No suspicious finding in the liver. The gallbladder shows a few small layered stones with calcification. Pancreas shows no mass, ductal dilatation, peripancreatic inflammatory change, fluid or adenopathy. A small splenule is noted adjacent to the inferior aspect of the spleen. No splenic focal lesion or enlargement. Adrenal glands unremarkable. Visualized osseous structures: Unremarkable. IMPRESSION: No CT evidence of pulmonary embolism. No infiltrate seen. Few small liver cysts. No acute finding in the upper abdomen. <Electronically signed by Jason Narayanan > 01/16/21 6060
[2021-01-16 17:30] VITALS: BP 136/83
--- NOTE | 2021-01-17 21:20 | ECGEPIP ---
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
== END 2021-01-16 17:47 | disposition home or self-care (01) ==
LOC: M ED 13:31
DX: R06.02 Shortness of breath (principal); K76.89 Other specified diseases of liver; K21.9 Gastro-esophageal reflux disease without esophagitis; J45.909 Unspecified asthma, uncomplicated; F41.9 Anxiety disorder, unspecified; Z79.82 Long term (current) use of aspirin; Z88.1 Allergy status to other antibiotic agents; Z88.8 Allergy status to other drugs, medicaments and biological substances; I11.9 Hypertensive heart disease without heart failure
CPT/HCPCS: 36415; 71046; 71275; 80048; 81001; 82550; 82553; 83880; 84436; 84443; 84484; 85025; 85379; 85610; 93005; 93041; 99285; Q9967

== ENCOUNTER → 2021-03-02 | Outpatient (CLI) | payer MEDICARE ==
[~2021-03-02] MED LIST changes: +NITR0.4S14
[2021-03-02 07:33] LABS: APPEARANCE, URINE CLEAR (CLEAR); BACTERIA, URINE AUTO NEGATIVE (NEGATIVE); BILIRUBIN, URINE AUTO NEGATIVE (NEGATIVE); BLOOD, URINE BLOOD 1+ (NEGATIVE); COLOR, URINE YELLOW (YELLOW); GLUCOSE, URINE (UA) AUTO NEGATIVE (NEGATIVE); KETONE, URINE AUTO NEGATIVE (NEGATIVE); LEUKOCYTE ESTERASE, URINE AUTO NEGATIVE (NEGATIVE); MUCUS, URINE SMALL (NEGATIVE); NITRITE, URINE AUTO NEGATIVE (NEGATIVE); PROTEIN, URINE AUTO NEGATIVE (NEGATIVE); RBC, URINE AUTO 1 /HPF (0-3); SPECIFIC GRAVITY URINE AUTO 1.009 (1.002-1.035); SQUAMOUS EPITHELIAL CELL UR AU 0 /HPF (0-6); UROBILINOGEN, URINE AUTO 0.2 mg/dL (0.0-2.0); WBC, URINE AUTO 0 /HPF (0-3)
== END ==
LOC: M LAB 06:25
PROVIDERS: ATTEND Urology
DX: R31.9 Hematuria, unspecified (principal)

== ENCOUNTER → 2021-03-13 | Outpatient (CLI) | payer MEDICARE ==
[2021-03-13 06:56] LABS: HEMATOCRIT 47.1 % (42.0-52.0); HEMOGLOBIN 16.5 g/dl (13.5-17.5); MEAN CORPUSCULAR HEMOGLOBIN 32.7 pg (27.0-33.0); MEAN CORPUSCULAR VOLUME 93.3 fl (80.0-96.0); PLATELET COUNT, AUTOMATED 172 10^3/uL (150-450); RED BLOOD COUNT 5.05 10^6/uL (4.30-6.10); WHITE BLOOD COUNT 8.2 10^3/uL (4.0-10.0)
[2021-03-13 07:18] LABS: HEMOGLOBIN A1c 5.4 %
[2021-03-13 07:31] LABS: ALBUMIN 3.6 GM/DL (3.2-5.2); ALT/SGPT 62 U/L (12-78); BILIRUBIN,TOTAL 0.8 MG/DL (0.2-1.0); BLOOD UREA NITROGEN 13 MG/DL (7-18); CALCIUM LEVEL 8.9 MG/DL (8.8-10.2); CARBON DIOXIDE LEVEL 29 MEQ/L (21-32); CHLORIDE LEVEL 112 MEQ/L (98-107); CHOLESTEROL LEVEL 121 MG/DL (<200); CREATININE FOR GFR 1.24 MG/DL (0.70-1.30); GLOMERULAR FILTRATION RATE > 60.0 (>49); GLUCOSE, FASTING 106 MG/DL (70-100); HDL CHOLESTEROL 44 MG/DL (>40); LDL CHOLESTEROL 58 MG/DL (<100); NON-HDL-C 77 MG/DL; SODIUM LEVEL 143 MEQ/L (136-145); TRIGLYCERIDES LEVEL 96 MG/DL (<150)
[2021-03-13 09:24] LABS: TOTAL 25(OH) VITAMIN D 40.6 NG/ML (30.0-100.0)
[2021-03-13 09:25] LABS: TESTOSTERONE 336 NG/DL (241-827)
== END ==
LOC: M LAB 06:39
PROVIDERS: ATTEND Family Medicine
DX: D64.9 Anemia, unspecified (principal); E03.9 Hypothyroidism, unspecified; R53.83 Other fatigue; Z79.899 Other long term (current) drug therapy

== ENCOUNTER → 2021-04-29 | Outpatient (CLI) | payer MEDICARE ==
[~2021-04-29] MED LIST changes: +CVS1CAP5 PO; +VITAD400CA PO
== END ==
LOC: M LABSMTC 10:14
PROVIDERS: ATTEND Anesthesiology
DX: Z20.828 Contact with and (suspected) exposure to other viral communicable diseases (principal); Z11.52 Encounter for screening for COVID-19

== ENCOUNTER 2021-05-04 12:29 | Day surgery (SDC) | payer MEDICARE ==
[~2021-05-04] VITALS: Ht 182.9 cm; Wt 91.6 kg
[~2021-05-04 12:29] MED LIST changes: +LIDOCAINE 2% 100MG/5ML SDV (FOR ANES.) As Ordered ONE; +NS 1,000 ML IV ONE; +propofoL 500 MG/50 ML VIAL As Ordered ONE
--- OUTSIDE RECORDS SUMMARY | 2021-05-04 12:34 | CCD | Continuity of Care Document ---
Author Author Stan RODRIGUEZ MD Organization Unknown Address [address] [place] [address], [address] [place] [address] Phone [phone] Care Team Providers Care [employer] Name Role Phone Dre Morales MD AUTM [phone] Problems Active Problems Provider Date Essential hypertension Onset: 12/24/2015 Pure hypercholesterolemia Onset: 016 Precordial pain Nino Cano MD Onset: 01/27/2016 Dyspnea Nino Cano MD Onset: 01/27/2016 Palpitations Nino Cano MD Onset: 01/27/2016 Aortic valve disorder Saundra Yao RPAC Onset: 6 Dilatation of aorta Saundra Yao RPAC Onset: 09/18/2015 Paroxysmal tachycardia Nino Cano MD Onset: 12/01/2016 Microscopic hematuria Nino Cano MD Onset: 12/01/2016 Malaise and fatigue Nino Cano MD Onset: 11/17/2016 Coronary arteriosclerosis Saundra Yao RPAC Onset: 09/02 Old myocardial infarction Saundra Yao RPAC Onset: 09/02 Patient post percutaneous transluminal coronary angiop lasty Saundra Yao RPAC Onset: 09/03/2011 Benign hypertensive heart disease without congestive h eart failure Saundra Yao RPAC Onset: 09/03/2011 Dietary management surveillance Onset: 0 01/19/2018 Electrocardiogram abnormal Onset: 2017 Paroxysmal supraventricular tachycardia Onset: 01/19/2018 Preoperative cardiovascular examination Onset: 02/19/2019 Pure hypercholesterolemia Onset: 012 Sore throat symptom Onset: 05/10/2018 Social History Type Date Description Comments Sex Unknown ETOH Use Occasionally consumes alcohol Tobacco Use Start: Unknown Denies Smoking Allergies, Adverse Reactions, Alerts Active Allergies Criticality Reaction | Severity Comments Date Lisinopril Unable to assess criticality 02/04/2016 Lipitor Unable to assess criticality 02/04/2016 Methylprednisolone Unable to assess criticality palpit ations and chest pains 06/04/2019 Vasquez Inhibitors Unable to assess criticality cough 12/13/2006 Z Pack Unable to assess criticality 04/10/2019 Inactive Allergies NKDA Unable to assess criticality 12/24/2015 Medications Active Medications SIG Qnty Indications Ordering Provide r Date Vitamin D3 125mcg (5000 Ut) Tablet s 1 by mouth every day Dre Morales MD 08/29/2019 Crestor 5mg Tablets 1 by mouth every night at bedtime 90tabs I25.10 Nino Cano MD 03/15/2018 Amlodipine Besylate 5mg Tablets Take One Tablet By Mouth Every Day 90tabs I11.9 Nino Cano MD 10/26 Plavix 75mg Tablets 1 by mouth every day 90tabs R07.2 Nino Cano MD 12/24/2015 Nitrostat 0.4mg Tablets Sub Use 1 Tablet Under The Tongue Every 5 Minutes For 3 Doses as Needed For Chest Pain 25tabs I25.10 Nino Cano MD 03/04/[address] Unknown Atenolol 50mg Tablets 1 by mouth every day Unknown Probiotic Capsules Unknown Xanax 0.5mg Tablets 1 by mouth twice a day as needed Unknown History Medications Amoxicillin 500mg Tablets take 4 tablets by mouth 1 hour prior to arrival time for procedure. 4tabs Jack Bloom MD 02/13/2021 - 02/23/2021 Immunizations Description No Information Available Vital Signs Date Vital Result Comment 09/25/2019 2:45pm Body Temperature 97.4 F 09/05/2019 8:46am BP Systolic 145 mmHg BP Diastolic 80 mmHg Heart Rate 83 /min Body Temperature 97.8 F Height 70 inches 5'10" Weight 209.00 lb BMI (Body Mass Index) 30.0 kg/m2 Results Description No Information Available Procedures Date Code Description Status 02/24/2021 78599 X-Ray Hip Unilateral With Pelvis 2-3 Views Completed Medical Devices Description No Information Available Encounters Description No Information Available Assessments Date Code Description Provider 02/24/2021 Z47.1 Aftercare following joint replac ement surgery Guzman Rodriguez MD 02/24/2021 Z96.641 Presence of right artificial hip joint Guzman Rodriguez MD 02/24/2021 M61.551 Other ossification of muscle, ri ght thigh Guzman Rodriguez MD Plan of Treatment 02/24/2021 - Guzman Rodriguez MD* Z47.1 Aftercare following joint replacement surgery* Follow up:* 1 year for rt hip recheck with DPV repeat xrays * Z96.641 Presence of right artificial hip joint * M61.551 Other ossification of muscle, right thigh Functional Status Description No Information Available Mental Status Description No Information Available Referrals Description No Information Available
--- OUTSIDE RECORDS SUMMARY | 2021-05-04 12:34 | CCD | Continuity of Care Document ---
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
--- OUTSIDE RECORDS SUMMARY | 2021-05-04 12:34 | CCD | Continuity of Care Document ---
Author Author Stan STANLEY M.D. 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 AUTM [phone] Problems Active Problems Provider Date Gastroesophageal reflux disease Herve Stanley M.D. Ons et: 03/01/2019 Pure hypercholesterolemia Herve Stanley M.D. Onset: Essential hypertension Herve Stanley M.D. Onset: 07/26 Social History Type Date Description Comments Sex Unknown ETOH Use Occasionally Tobacco Use Start: Unknown Patient has never smoked Allergies, Adverse Reactions, Alerts Description No Known Drug Allergies Medications Active Medications SIG Qnty Indications Ordering Provide r Date Suprep Bowel Prep Kit 17.5-3.13-1.6GM/177ML Solution use as directed 354ml Herve Stanley M.D. 03/12/2021 Alprazolam 1mg Tablets Unknown Amlodipine Besylate 5mg Tablets Unknown Atenolol 50mg Tablets Unknown Aspirin 81mg Tablets DR 1 by mouth every day Unknown Crestor 5mg Tablets 1 by mouth every day Unknown Vitamin D3 5000Unit Capsules 1 by mouth every other day Unknown Clopidogrel Bisulfate 75mg Tablets Nion Cano M.D. Asmanex HFA 200mcg/Act Aerosol Unknown Co Q-10 50mg Capsules Unknown Immunizations Description No Information Available Vital Signs Date Vital Result Comment 03/12/2021 3:28pm Height 71 inches 5'11" Weight 205.00 lb BP Systolic 136 mmHg BP Diastolic 85 mmHg Heart Rate 72 /min BMI (Body Mass Index) 28.6 kg/m2 Weight 92.988 kg Body Temperature 97.2 F 03/01/2019 10:01am Height 71 inches 5'11" Weight 204.00 lb BP Systolic 108 mmHg BP Diastolic 77 mmHg Heart Rate 75 /min BMI (Body Mass Index) 28.4 kg/m2 Weight 92.534 kg Results Description No Information Available Procedures Date Code Description Status 03/12/2021 95503 Office/Outpatient Established Mo d MDM 30-39 Min Completed Medical Devices Description No Information Available Encounters Type Date Location Provider Dx Diagnosis Office Visit 03/12/2021 3:15p Main Office Herve Stanley M.D. Z 86.010 Personal history of colonic polyps K21.9 Gastro-esophageal reflux dis ease without esophagitis Assessments Date Code Description Provider 03/12/2021 Z86.010 History of polyp of colon Herve Stanley M.D. 03/12/2021 K21.9 Gastroesophageal reflux disease Herve Stanley M.D. Plan of Treatment Future Appointment(s):* 05/04/2021 10:30 am - Herve Stanley M.D. at Main Office 03/12/2021 - Herve Stanley M.D.* Z86.010 History of polyp of colon* Comments:* 65 yo wm who presents for a colonoscopy due to a h/o colonic polyps/egd for heartburn. Last scope was in 2014. No c/o abdominal pain, weight loss, change in bowel habits, or rectal bleeding. No family h/o colon cancer. No h/o chest pain, or sob. Plan:1. Colonoscopy + egd2. Informed consent. * K21.9 Gastroesophageal reflux disease* Comments:* As above. Functional Status Description No Information Available Mental Status Description No Information Available Referrals Description No Information Available
--- OUTSIDE RECORDS SUMMARY | 2021-05-04 12:34 | CCD | Summary of Care ---
Author Author [facility] Organization [facility] Address Unknown Phone Unavailable Care Team Providers Care Scroll Assembler Name Role Phone Dre Morales MD PCP Reason for Visit * Reason Comments Procedure cysto Encounter Details Care Team Description Date Type Department Scott Winston MD [facility] [address] [place], [place] [id number] Prostate cancer (Primary Dx); Hematuria, unspecified type 03/10/2021 Procedure visit [facility] Urology [address] [place] [address], [place] [phone] Allergies Comments Active Allergy Reactions Severity Noted Date Cough Vasquez Inhibitors Other (See 12/13/2006 Comments) muscle aches Atorvastatin 01/14/2010 Shakes and heart raises Epinephrine 11/27/2020 Lisinopril Anaphylaxis High 06/14/2016 Other reaction(s): Gynecomastia gynecomastia gynecomastia Spironolactone 10/16/2020 Azithromycin Palpitations Low 11/05/2013 documented as of this encounter (statuses as of 03/10/2021) Medications End Date Status Medication Sig Dispensed Refills Start Date Active alprazolam (XANAX) 0.5 MG Take 0.5 mg 0 tablet by mouth 3 (three) times daily. Active atenolol (TENORMIN) 50 MG Take 50 mg by 0 tablet mouth daily. Active amlodipine (NORVASC) 10 Take 10 mg by 0 MG tablet mouth daily. Active aspirin 81 MG tablet Take 81 mg by 0 mouth daily. Active nitroGLYCERIN (NITROSTAT) Place 0.4 mg 0 0.4 MG SL tablet under the tongue every 5 (five) minutes as needed Active rosuvastatin (CRESTOR) 5 Take 5 mg by 0 MG tablet mouth daily. Active Cholecalciferol (VITAMIN Take 4,000 0 D) 2000 UNITS CAPS Units by mouth 3 (three) times a week. Active clopidogrel (PLAVIX) 75 Take 75 mg by 0 MG tablet mouth daily. Active Multiple Take by mouth 0 Vitamins-Minerals 1 (MULTIVITAMIN ADULT EXTRA C PO) Active Coenzyme Q10 100 MG Oral Take by mouth 0 02/08 Capsule (COQ10) 1 Status Hospital, Clinic, or Ordered Dose Route Frequency Start End Date Other Facility Date Administered Medication Ended lidocaine (XYLOCAINE) 2 % 20 mL UR Once 03/10/20 urojet 20 mL 21 1 Ended sulfamethoxazole-trimetho 1 tablet PO Once 03/10/20 prim (BACTRIM DS) 800-160 21 1 MG per tablet 1 tablet documented as of this encounter (statuses as of 03/10/2021) Active Problems Problem Noted Date Penile lesion 02/12/2019 Erectile dysfunction due to diseases classified elsew here 02/12/2019 Hematuria 07/04/2017 Malignant neoplasm of prostate 05/20/2014 Low testosterone 04/30/2013 DC, old 05/02/2012 Prostate cancer 05/02/2012 Peyronie's disease documented as of this encounter (statuses as of 03/10/2021) Immunizations Name Administration Dates Next Due documented as of this encounter Social History Date Tobacco Use Types Packs/Day Years Used Never Smoker Smokeless Tobacco: Never Used Comments Alcohol Use Standard Drinks/Week social Yes [id number] (1 sta ndard drink = 0.6 oz pure alcohol) Sex Assigned at Date Recorded Not on file Industry Job Start Date Occupation Not on file Not on file Not on file Date Recorded COVID-19 Exposure Response 03/10/2021 10:16 AM EDT In the last month, have you been in contact with No / Unsure someone who was confirmed or suspected to have Coronavirus / COVID-19? documented as of this encounter Last Filed Vital Signs Reading Time Taken Comments Vital Sign 144/88 03/10/2021 10:24 AM EDT Blood Pressure 74 03/10/2021 10:24 AM EDT Pulse 36.7 C (98 F) 03/10/2021 10:24 AM EDT Temperature 16 03/10/2021 10:24 AM EDT Respiratory Rate 96% 03/10/2021 10:24 AM EDT Oxygen Saturation - - Inhaled Oxygen Concentration 93.4 kg (206 lb) 03/10/2021 10:24 AM EDT Weight 182.9 cm (6' 0.01") 03/10/2021 10:24 AM EDT Height 27.93 03/10/2021 10:24 AM EDT Body Mass Index documented in this encounter Patient Instructions * Patient Instructions* Cheryl Clark, RN - 03/10/2021 10:30 AM EDT Images from the original note were not included. Patient Discharge Instructions for Cystoscopy Discharge instructions were given to Stan prior to procedure. Stan louis lized understanding of all discharge instrudctions These instructions included: Cystoscopy Cystoscopy is a procedure that lets your doctor look directly inside your urethr a and bladder. It can be used to: Help diagnose a problem with your urethra, bladder, or kidneys. Take a sample (biopsy) of bladder or urethral tissue. Treat certain problems (such as removing kidney stones). Place a stent to bypass an obstruction. Take special x-rays of the kidneys. Based on the findings, your doctor may recommend other tests or treatments. What Is a Cystoscope? A cystoscope is a telescope-like instrument that contains lenses and fiberoptics (small glass wires that make bright light). The cystoscope may be straight and rigid, or flexible to bend around curves in the urethra. The doctor may look dir ectly into the cystoscope, or project the image onto a monitor. Getting Ready To prepare, stop taking any medications as instructed. Ask whether you should av oid eating or drinking anything after midnight before the procedure. Follow any other instructions your doctor gives you. Tell your doctor before the exam if you: Take any medications, such as aspirin or blood thinners Have allergies to any medications Are The Procedure Cystoscopy is done in the doctors office or hospital. The doctor and somet imes a nurse are present during the procedure. It takes only a few minutes, long er if a biopsy, x-ray, or treatment needs to be done. During the procedure: You lie on an exam table on your back, knees bent and legs apart. You are covere d with a drape. Your urethra and the area around it are washed. Anesthetic jelly may be applied to numb the urethra. Other pain medication is usually not needed. In some cases, you may be offered a mild sedative to help you relax. If a more extensive proce dure is to be done, such as a biopsy or kidney stone removal, general anesthesia may be needed. The cystoscope is inserted. A sterile fluid is put into the bladder to expand it . You may feel pressure from this fluid. When the procedure is done, the cystoscope is removed. After the Procedure If you had a sedative, general anesthesia, or spinal anesthesia, you must have s omeone drive you home. Once youre home: Drink plenty of fluids. You may have burning or light bleeding when you urinatethis is normal. Medications may be prescribed to ease any discomfort or prevent infection. Take these as directed. Call your doctor if you have heavy bleeding or blood clots, burning that lasts m ore than a day, a fever over 101F , or trouble urinating. [phone] [place] [address]. All r ights reserved. This information is not intended as a substitute for professiona l medical care. Always follow your healthcare professional's instructions. Your provider for this treatment was Cheryl Clark RN If you have any questions please do not hesitate to call us! documented in this encounter Progress Notes * Scott Winston MD - 03/10/2021 10:30 AM EDT CC: Prostate cancer and hematuria as well as erectile dysfunction Chief Complaint Patient presents with Procedure cysto Referring Physician: Dre Morales MD HPI: 65 y.o. gentleman who presents for followup of prostate cancer as well as hematuria. 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 His PSA h as been undetectable. He also had microscopic hematuria with negative workup in November of 2016. He is here with another PSA and urine studies. He also was diagnosed with Peyronie's disease and is under the care of Dr. Bell for that. Patient is also complaining of a lesions in both testicles and wanting me to check that out. Otherwise, he denies any problems with urination. No fever, chills, nausea, vomiting. No gross hematuria. Patient is not ov erly happy with his erections as well as libido. His testosterone was recently checked and it was in the mid 400 range. Patient was very concerned about his atypical cytologies. We decided to repeat the work-up. PMH: Past Medical History: Diagnosis Date Anxiety Arthritis Asthma Cancer Coronary artery disease GERD (gastroesophageal reflux disease) Hypertension Low testosterone 04/30/2013 Myocardial infarction 2000 Neck injury Peyronie's disease PSH: Past Surgical History: Procedure Laterality Date ARTHROPLASTY HIP TOTAL REPLACEMENT Right 08/2019 ARTHROSCOPY KNEE Right 09/07 CARDIAC CATHETERIZATION 2019 CARDIAC SURGERY Bilateral 2000 & 01/2016 COLONOSCOPY CYSTOSCOPY Heart Stent insertion 03/2018 NECK SURGERY PROSTATE SURGERY VASECTOMY Allergies: Allergies Allergen Reactions Lisinopril Anaphylaxis Vasquez Inhibitors Other (See Comments) Cough Atorvastatin muscle aches Epinephrine Shakes and heart raises Spironolactone Other reaction(s): Gynecomastia gynecomastia gynecomastia Zithromax [Azithromycin] Palpitations Social: Social History Socioeconomic History Marital status: Single Spouse name: Not on file Number of children: Not on file Years of education: Not on file Highest education level: Not on file Occupational History Not on file Tobacco Use Smoking status: Never Smoker Smokeless tobacco: Never Used Vaping Use Vaping Use: Never used Substance and Sexual Activity Alcohol use: Yes Alcohol/week: 3.3 standard drinks Types: 4 Standard drinks or equivalent per week Comment: social Drug use: No Sexual activity: Yes Partners: Female Other Topics Concern Not on file Social History Narrative Not on file Social Determinants of Health Financial Resource Strain: Difficulty of Paying Living Expenses: Food Insecurity: Worried About Running Out of Food in the Last Year: Ran Out of Food in the Last Year: Transportation Needs: Lack of Transportation (Medical): Lack of Transportation (Non-Medical): Physical Activity: Days of Exercise per Week: Minutes of Exercise per Session: Stress: Feeling of Stress : Social Connections: Frequency of Communication with Friends and Family: Frequency of Social Gatherings with Friends and Family: Attends Church Services: Active Member of Clubs or Organizations: Attends Club or Organization Meetings: Marital Status: Intimate Partner Violence: Fear of Current or Ex-Partner: Emotionally Abused: Physically Abused: Sexually Abused: Family: Family History Problem Relation Age of Onset Kidney disease Father Heart disease Mother Medications: Current Outpatient Medications on File Prior to Visit Medication Sig Dispense Refill alprazolam (XANAX) 0.5 MG tablet Take 0.5 mg by mouth 3 (three) times warren ly. amlodipine (NORVASC) 10 MG tablet Take 10 mg by mouth daily. aspirin 81 MG tablet Take 81 mg by mouth daily. atenolol (TENORMIN) 50 MG tablet Take 50 mg by mouth daily. Cholecalciferol (VITAMIN D) 2000 UNITS CAPS Take 4,000 Units by mouth 3 ( three) times a week. clopidogrel (PLAVIX) 75 MG tablet Take 75 mg by mouth daily. Coenzyme Q10 100 MG Oral Capsule (COQ10) Take by mouth Multiple Vitamins-Minerals (MULTIVITAMIN ADULT EXTRA C PO) Take by mouth nitroGLYCERIN (NITROSTAT) 0.[address] 0.4 mg under the tongue every 5 (five) minutes as needed rosuvastatin (CRESTOR) 5 MG tablet Take 5 mg by mouth daily. Current Facility-Administered Medications on File Prior to Visit Medication Dose Route Frequency Provider Last Rate Last Admin [COMPLETED] iohexol (OMNIPAQUE) 300 MG/ML contrast injection 150 mL 150 mL Intravenous Once Misael Jacob MD 150 mL at 03/10/21 0957 ROS: General: No fevers, chills, weight loss Eyes: No blurry vision, no double vision Ears: No hearing loss Throat: No hoarseness, no difficulty swallowing Heart: No chest pain, palpitations Lung: No shortness of breath Abdomen: No abdominal pain, nausea, vomiting Urinary: As per HPI Extremities: No swelling, no ecchymosis Psychiatric: No feelings of depression or anxiety Neurologic: No extremity weakness, no tingling or numbness Skin: No rashes Physical Exam Vitals: 03/10/21 1024 BP: 144/88 Pulse: 74 Resp: 16 Temp: 36.7 C SpO2: 96% General: Awake, Alert Neurologic: Oriented to person, place, time Eyes: No icterus Lung: Breathing comfortable without distress Abdomen: Non-distended, soft Musculoskeletal : moving all extremities Skin : Visible skin did not show evidence of rash Psychiatric: Normal mood, affect Labs: Office Visit on 03/05/2021 Component Date Value Ref Range Status Color 03/05/2021 Colorless Final Clarity 03/05/2021 Clear Final Specific [place] 03/05/2021 1.005 1.003 - 1.030 Final PH Urine 03/05/2021 7.0 5.0 - 8.0 Final Total Protein UA 03/05/2021 Negative Negative mg/dL Final Glucose UA 03/05/2021 Negative Negative mg/dL Final Ketone Urine 03/05/2021 Negative Negative mg/dL Final Bilirubin 03/05/2021 Negative Negative Final Hemoglobin, Urine 03/05/2021 1+* Negative Final Leukocyte Esterase 03/05/2021 Negative Negative Niraj/uL Final Nitrite 03/05/2021 Negative Negative Final WBC 03/05/2021 0 0 - 5 /HPF Final RBC 03/05/2021 <1 0 - 3 /HPF Final Non Hydro Excavation Operator Cytology 03/05/2021 Final Value:CYTOPATHOLOGY REPORT Name: STAN CASTANON Collection Date: 03/05/2021 11:28 Received Date: 03/05/2021 14:12 Physician(s): Dayanna BELL MD TRUSSELL, J C, MD Specimen(s) Received A: URINE, VOIDED Clinical History: Hematuria Diagnosis URINE, VOIDED: NEGATIVE FOR HIGH-GRADE UROTHELIAL CARCINOMA Comment /kf/oli Reviewing Cytotech: Karoline Peacock MD Electronically Signed By Jewell Truong M.D. 03/06/2021 18:36:02 The attending pathologist named above attests that he/she has personally reviewed the relevant preparation(s) for the specimen(s) and rendered the final diagnosis. Microscopic Description The specimen is composed of benign urothelial, squamous cells, and blood. /KF Gross Description 38 ml of clear yellow fluid received: 1 Thin-layer Pap stained slide prepared by filter preparation. This report may include one or more immunohistochemical stain results that use analyt e specific reagents. All positive and negative controls h ave been reviewed by the attending pathologist and are satisfactory. The tests were developed and their performance characteristics determined by [facility] Pathololgy department. They have not been cleared or approved by the [place] Food and Drug Administration. The FDA has determined that such clearance or approval is not necessary. Patient cytologies from an outside facility were atypical. Radiology: I personally reviewed patient CT IVP and I did not notice any filling defects. Procedure: After proper counseling, consent was obtained. Patient was taken to the procedure room. He was prepped and draped in the usual sterile fashion. We used 2% lidocaine per urethra for local anesthetic. We then entered the bladde r with a flexible cystoscope, and the bladder was scoped systematically. No les ions in the bladder were found. Patient tolerated procedure well. Assessment/Plan: Patient tolerated cystoscopy well. I see no evidence of malign hortensia on his scan or cystoscopy. I would like to see the patient back in 6 month s with another UA and urine cytologies. I appreciate the opportunity to see this patient and I will keep you posted on h is progress. Scott Winston MD FACS Professor Departments of Urology and Radiation Oncology [place], [place] documented in this encounter Plan of Treatment Care Team Description Date Type Specialty Scott Winston MD [address] [place], [place] [id number] [phone] 09/01/2021 Office Visit Urology Health Maintenance Due Date Last Done Comments Hepatitis C Screening (B. 1955 [id number]) MMR Vaccines (1 of 1 - 1956 Standard series) Varicella Vaccines (1 of 1956 2 - 2-dose childhood series) Pneumococcal Vaccine: 65+ 1959 Years (1 of 4 - PCV13) Pneumococcal Vaccine: 1961 Pediatrics (0 to 5 Years) and At-Risk Patients (6 to 64 Years) (1 of 4 - PCV13) DTaP,Tdap,and Td Vaccines 1960 (1 - Tdap) Colon Cancer Screening 10 2003 yrs Zoster Vaccines (1 of 2) 2003 Influenza Vaccine 03/27/2021 03/08/2021, 02/18/2020, 03/07/2018, Additional history exists COVID-19 Vaccine Completed 08/17/2020, 07/27/2020 HIB Vaccines Aged Out No longer eligible based on patient's age to complete this topic Hepatitis A Vaccines Aged Out No longer eligibl e based on patient's age to complete this topic Hepatitis B Vaccines Aged Out No longer eligibl e based on patient's age to complete this topic IPV Vaccines Aged Out No longer eligible based on patient's age to complete this topic documented as of this encounter Results Not on filedocumented in this encounter Visit Diagnoses Diagnosis Prostate cancer - Primary Malignant neoplasm of prostate Hematuria, unspecified type documented in this encounter Administered Medications Action Date Dose Rate Site Medication Order MAR Action 03/10/2021 10:39 AM EDT 20 mLs lidocaine (XYLOCAINE) 2 % urojet 20 mL Given 20 mL, Urethral, Once, On Tue03/10/21 a t 1045, For 1 dose 03/10/2021 10:39 AM EDT 1 tablet sulfamethoxazole-trimethoprim (BACTRIM Given DS) 800-160 MG per tablet 1 tablet 1 tablet, Oral, Once, On Tue03/10/21 at 1045, For 1 dose documented in this encounter
--- OUTSIDE RECORDS SUMMARY | 2021-05-04 12:34 | CCD | Summary of Care ---
Author Author [facility] Address Unknown Phone Unavailable Care Team Providers Care Sprue Cutting Press Operator Name Role Phone Dre Morales MD PCP Reason for Visit * Reason Comments Follow-up verap #11 Encounter Details Care Team Description Date Type Department Dayanna Bell MD [facility] [place] [address] Peyronie's disease (Primary Dx) 02/19/2021 Office Visit [facility] Urology [address] [place] [address], [place] [phone] Allergies Comments Active Allergy Reactions Severity Noted Date Cough Vasquez Inhibitors Other (See 12/13/2006 Comments) muscle aches Atorvastatin 01/14/2010 Shakes and heart raises Epinephrine 11/27/2020 Lisinopril Anaphylaxis High 06/14/2016 Other reaction(s): Gynecomastia gynecomastia gynecomastia Spironolactone 10/16/2020 Azithromycin Palpitations Low 11/05/2013 documented as of this encounter (statuses as of 02/19/2021) Medications End Date Status Medication Sig Dispensed [...] mouth 3 (three) times a week. Active sildenafil (VIAGRA) 25 MG Take 25 mg by 0 tablet mouth as needed for Erectile Dysfunction Active clopidogrel (PLAVIX) 75 Take 75 mg by 0 MG tablet mouth daily. Active Multiple Take by mouth 0 Vitamins-Minerals 1 (MULTIVITAMIN ADULT EXTRA C PO) Active Coenzyme Q10 100 MG Oral Take by mouth 0 02/08 Capsule (COQ10) 1 documented as of this encounter (statuses as of 02/19/2021) Active Problems Problem Noted Date Penile lesion 02/12/2019 Erectile dysfunction due to diseases classified elsew here 02/12/2019 Hematuria 07/04/2017 Malignant neoplasm of prostate 05/20/2014 Low testosterone 04/30/2013 ND, old 05/02/2012 Prostate cancer 05/02/2012 documented as of this encounter (statuses as of 02/19/2021) Immunizations Name Administration Dates Next Due documented as of this encounter Social History Date Tobacco Use Types Packs/Day Years Used Never Smoker Smokeless Tobacco: Never Used Comments Alcohol Use Standard Drinks/Week social Yes [id number] (1 sta ndard drink = 0.6 oz pure alcohol) Sex Assigned at Date Recorded Not on file Industry Job Start Date Occupation Not on file Not on file Not on file Date Recorded COVID-19 Exposure Response 02/19/2021 11:11 AM EDT In the last month, have you been in contact with No / Unsure someone who was confirmed or suspected to have Coronavirus / COVID-19? documented as of this encounter Last Filed Vital Signs Reading Time Taken Comments Vital Sign 137/86 02/19/2021 11:30 AM EDT Blood Pressure 71 02/19/2021 11:30 AM EDT Pulse 36.8 C (98.2 F) 02/19/2021 11:30 AM EDT Temperature 16 02/19/2021 11:30 AM EDT Respiratory Rate 95% 02/19/2021 11:30 AM EDT Oxygen Saturation - - Inhaled Oxygen Concentration 93.4 kg (205 lb 12.8 oz) 02/19/2021 11:30 AM EDT Weight - - Height 27.91 01/29/2021 1:59 PM EDT Body Mass Index documented in this encounter Progress Notes * Dayanna Bell MD - 02/19/2021 12:30 PM EDT Prasanna 6 adenocarcinoma of the prostate, treated by brachytherapy back in 2006. He presents today in followup with an undetectable PSA. With Dr. Mukesh parker's careful history and examination, the patient describes a bulge of his pen is associated with an incomplete erection. He has had this following the bra chytherapy. He reports that it came on suddenly and this bulge area is uncom fortable to palpation and with erection. He denies any penile-related trauma , injury, ecchymosis. No popping sounds of penile fracture. Does not hav e palm contractures or Lederhosen contractures of his hands or feet. To help identify this bulge more accurately, he chose to proceed with an Edex in [facility]. I injected 10 mcg to the left mid corpora, and this resulted in an hourglass def ect consistent with Peyronie disease of the base of the penis, with a curvature about 10 to 15 degrees to the left. The erection was about 60% with 10 mcg. It was detumescing as we spoke and gave him options for his erectile dysfunc tion and for the Peyronie disease. He is aware that 40% of men with Peyronie disease will have a venous leak syndro me causing erectile dysfunction. He has heart disease, for which he has nitr oglycerin, which he does not take. For this reason, I cannot give him oral p ills. He chooses to proceed with Trimix and is aware of all other treatment options. If he has any erection over 3 to 4 hours, [facility] For the Peyronie disease, it is minimally curved. He was reassured; however, he desires treatment as it is uncomfortable for him, and he desires to proceed with off-label verapamil injections, where 40% of men will improve, 60% will not . Constitutional: He appears well-developed. Head: Normocephalic. Eyes: No scleral icterus. Pulmonary/Chest: No stridor. He has no wheezes. Abdominal: Soft. Genitourinary Comments: Circ'd phallus with hourglass defect more on L base. 20-degree curve to L at base. No skin lesions. NOrmal testes. Musculoskeletal: He exhibits no edema. Neurological: He is alert. Skin: Skin is warm. Psychiatric: He has a normal mood and affect. 03/02/19: Injected 10 mcg edex to L distal shaft. Hourglass defect to L ba se, 20-degree curve to L. 60-70% erection. 03/22/19: 0.2 cc trimix to L mid: 70% erection Assessment: Prostate cancer, brachytherapy ED Peyronies:04/17/20: 30-degree distal dorsal curvature Plan: 1. F/u Dr. Winston as scheduled 2. Trimix, f/u for instruction on use. Er for erection over 3 hours. 3. Off-label verapamil. 40% improve, 60% do not. Cleaned with ETOH pad, then 1% lidocaine instilled, followed by 10 mg off-label verapamil in 10 cc Sterile saline. Modeled. [id number] documented in this encounter Plan of Treatment Care Team Description Date Type Specialty Dayanna Bell MD [address] [place], [place] [id number] 03/05/2021 Office Visit Urology Scott Winston MD [address] [place], [place] [phone] 09/01/2021 Office Visit Urology Health Maintenance Due Date Last Done Comments Hepatitis C Screening (B. 1955 [id number]) MMR Vaccines (1 of 1 - 1956 [...] (1 of 2) 2003 Influenza Vaccine 03/27/2021 02/18/2020, 03/07/2018, 03/18/2017, Additional history exists COVID-19 Vaccine Completed 08/17/2020, [...] filedocumented in this encounter Visit Diagnoses Diagnosis Peyronie's disease - Primary documented in this encounter
--- OUTSIDE RECORDS SUMMARY | 2021-05-04 12:34 | CCD | Continuity of Care Document ---
Author Author Stress Nuclear/Reg Stan Gonzalez Organization Unknown Address [address] [place] [address], [facility] [place] [address] Phone [phone] Care Team Providers Care Intake Man Name Role Phone Khoa Morales MD AUTM [phone] Sundar Rodriguez MD AUTM [phone] Dennis Monahan MD AUTM [phone] Trever Zhao DO AUTM [phone] Scott Winston MD AUTM [phone] Gypsy Bauman MD AUTM [phone] Julio Christianson MD AUTM [phone] Herve Stanley MD AUTM [phone] Dayanna Bell MD AUTM [phone] Ana Maria Taylor AUTM [phone] Trinh Pierre MD AUTM [phone] Alondra Johnson MD AUTM [phone] Wilbert Simmons MD AUTM [phone] Problems Active Problems Provider Date Coronary arteriosclerosis Saundra Yao PA-C Onset: 2011 Old myocardial infarction Saundra Yao PA-C Onset: 2011 Patient post percutaneous transluminal coronary angiop lasty Saundra Yao PA-C Onset: 09/03/2011 Benign hypertensive heart disease without congestive h eart failure Saundra YaoKERRYMananSeda Onset: 09/03/2011 Aortic valve disorder Saundra YaoKERRYMananSeda Onset: 09/18/2015 Dilatation of aorta Saundra Schneider KERRY YaoMananSead Onset: 09/18/2015 Pure hypercholesterolemia Saundra Schneider TorreskenanDVAID Onset: 2011 Precordial pain Nino Cano MD Onset: 01/27/2016 Dyspnea Nino Cano MD Onset: 01/27/2016 Palpitations Nino Cano MD Onset: 01/27/2016 Malaise and fatigue Nino Cano MD Onset: 11/17/2016 Paroxysmal tachycardia Nino Cano MD Onset: 12/01/2016 Microscopic hematuria Nino Cano MD Onset: 12/01/2016 Electrocardiogram abnormal KERRY Colmenares Onset: 01/19 Paroxysmal supraventricular tachycardia KERRY Colmenares Onset: 01/19/2018 Dietary management surveillance KERRY Colmenares Onset: 01/19/2018 Sore throat symptom Nino Cano MD Onset: 05/10/2018 Preoperative cardiovascular examination Nino Cano MD Onset: 02/19/2019 Dizziness and giddiness Nino Cano MD Onset: 1 Social History Type Date Description Comments Sex Unknown Tobacco Use Start: Unknown Never Smoked Cigarettes ETOH Use Consumes Alcohol 1 to 2 weekly Tobacco Use Start: Unknown Patient has never smoked Exercise Type/Frequency Does yardwork three time s a week Exercise Type/Frequency Does housework twice a w [place] Exercise Type/Frequency Walks sporadically Exercise Type/Frequency Does yardwork sporadical ly snow shoveling and roof clearing as needed Exercise Type/Frequency Bikes twice a week stati onary Exercise Limitations Back Pain herniated d iscs in neck Exercise Limitations Shortness Of Breath increas ed SOB with less activity Exercise Limitations Joint Pain right hip p ain s/p replacement Allergies, Adverse Reactions, Alerts Active Allergies Criticality Reaction | Severity Comments Date Vasquez Inhibitors Unable to assess criticality cough Cough 12/13/2006 Lipitor Unable to assess criticality muscle aches 01/14/2010 Methylprednisolone Unable to assess criticality palpit ations and chest pains 09/29/2017 Spironolactone Unable to assess criticality Gynecomastia gynecomast ia 06/25/2020 Inactive Allergies Statins Unable to assess criticality 12/13/2006 Medications Active Medications SIG Qnty Indications Ordering Provide r Date Co Q10 100mg Capsules 2 by mouth every day Unknown 02/08/2021 Amlodipine Besylate 10mg Tablets take one tablet by mouth every day 90tabs I11.9 Nino Cano MD 08/2020 Multivitamin Adult Tablets 1 by mouth every day Unknown 08/26/2020 Flonase Allergy Relief 50mcg/Act Suspension 1 inhalation each nostril daily 15.800ml Nino nieto MD 01/14/2020 Saline Nasal [place] 0.65% Solution 1 inhalation each nostril every 4 hours when necessary congestion Unknown 01/14/2020 Ventolin HFA 108(90Base) mcg/Act A erosol 2 puffs as needed Khoa Morales MD 01/13/2020 Clopidogrel Bisulfate 75mg Tablets take one tablet by mouth every day 90tabs R07.2 Nino Cano MD 10/05/2019 Vitamin D3 5000Unit Tablets 1 by mouth every day Khoa Morales MD 08/29/2019 Mucinex 600mg Tablets ER 12HR 1 by mouth twice daily as needed Unknown 01/28/2019 Asmanex HFA 200mcg/Act Aerosol 2 inhalations twice daily - exhale medication through your nose (Rinse mouth with mouthwash after each dosage) R06.02 Nino Cano MD 01/16/2019 Azelastine HCL (Nasal) 0.1% Soluti on 1-2 sprays in each nostril twice a day Trever Zhao DO 03/26/2018 Crestor 5mg Tablets 1 by mouth every night at bedtime 90tabs I25.10 Nino Cano MD 03/15/2018 Meclizine HCL 25mg Tablets 1 by mouth daily as needed Unknown 03/10/2017 Alprazolam 1mg Tablets 1 by mouth four times a day as needed Unknown 08/25/2016 Aspirin 81mg Tablets 1 by mouth every day Unknown 08/27/2014 Nitrostat 0.4mg Tablets Sub use 1 tablet under the tongue every 5 minutes for 3 doses as needed for chest pain 25tabs I25.10 Nino Cano MD 03/04/2011 Atenolol 50mg Tablets 1 tab by mouth daily at bedtime 90tabs I25.10 Nino Cano MD 03/18/2008 I10 Immunizations Description No Information Available Vital Signs Date Vital Result Comment 01/27/2021 11:25am Weight 205.00 lb Home Weight 178lb home weight Height 71 inches 5'11" BMI (Body Mass Index) 28.6 kg/m2 Heart Rate 60 /min regular Respiratory Rate 16 /min BP Systolic Sitting 133 mmHg Medium cuff, Ra BP Diastolic Sitting 84 mmHg Medium cuff, Ra BP Systolic Lying Down 140 mmHg BP Diastolic Lying Down 86 mmHg 11/11/2020 8:42am Weight 210.00 lb Home Weight 208lb home weight Height 71 inches 5'11" BMI (Body Mass Index) 29.3 kg/m2 Heart Rate 64 /min regular Respiratory Rate 16 /min BP Systolic Sitting 132 mmHg Medium cuff, Ra; 123 /76 LA BP Diastolic Sitting 80 mmHg Medium cuff, Ra; 12 376 LA BP Systolic Lying Down 124 mmHg Ra BP Diastolic Lying Down 78 mmHg Ra Results Test Acquired Date Facility Test Result H/L Range Note Basic Metabolic Panel 01/16/2021 [facility] - not interfac ed (315)- - Glucose 97 70-100 Blood Urea Nitrogen 12 7-18 Creatinine 1.23 0.70-1.30 Sodium 144 136-145 Potassium 4.2 3.5-5.1 Chloride 109 High 98-107 Carbon Dioxide 28 21-32 Calcium 8.9 8.2-9.6 GFR (Calculated) >60.0 >32 CPK & CPK MB 01/16/2021 [facility] - not interfaced (315)- - CPK 196 CPK-MB 1.3 Laboratory test finding 01/16/2021 [facility] - not interf aced (315)- - Troponin <0.02 NT Probnp QN Ser/Plas 36 Thyroid Stimulating Hormone 1.570 Free T4 10.2 CBC without Differential 01/16/2021 [facility] - not inter faced (315)- - White Blood Count 10.3 High 4.0-10.0 Red Blood Count 5.06 4.30-6.10 Platelets 184 150-450 Hemoglobin 16.6 Hematocrit 46.9 Renal Profile 11/12/2020 [facility] Glucose 107 Blood Urea Nitrogen 18.4 Creatinine 1.3 GFR (Calculated) 55 Sodium 145.6 Potassium 4.23 Chloride 105 Carbon Dioxide 30.2 Calcium 9.2 Phosphorus 2.8 Albumin 4.5 CBC without Differential 11/12/2020 [facility] White Blood Count 8.7 Red Blood Count 5.17 Platelets 258 Hemoglobin 16.6 Hematocrit 50.1 Laboratory test finding 11/05/2020 [facility] [phone] NT-Pro BNP 30 pg/mL Normal <125 CMP 10/31/2020 [facility] - not interfaced (315)- - Albumin Serum/Plasma 4.1 Alt - SGPT 52 Calcium Ser/Plasma Mass/Vol 9.2 Carbon Dioxide Ser/Plasm 28 Chloride Serum/Plasma 111 Alkaline Phosphatase 95 Potassium 4.1 Protein Total 7.1 Sodium 143 Ast - Sgot 22 BUN - Urea Nitrogen 16 Glucose 101 High 70-100 Creatinine For GFR 1.20 Lipid Profile/Cardiac Risk Pro 10/31/2020 [facility] - not interfaced (315)- - Triglycerides 131 <150 Cholesterol 127 <200 HDL 48 >40.0 LDL Cholesterol 58 Chol/HDL Ratio 2.729 <5 Laboratory test finding 10/31/2020 [facility] - not interf aced (315)- - Free T4 8.6 Thyroid Stimulating Hormone 1.350 T3 Total 105.8 60.0-181.0 CBC without Differential 10/31/2020 [facility] - not inter faced (315)- - White Blood Count 7.8 5.0-10.0 Red Blood Count 5.17 4.00-5.40 Platelets 187 172-450 Hemoglobin 16.7 Hematocrit 48.6 Procedures Date Code Description Status 02/09/2021 88361 Treadmill/Pharmacological [place] ring Completed 01/27/2021 29473 Office/Outpatient Established Mo d MDM 30-39 Min Completed 01/27/2021 15091 ECG 12-Lead Completed 01/08/2021 99134 Echocardiogram 2-D Doppler Color Completed 11/11/2020 71515 Office/Outpatient Established Mo d MDM 30-39 Min Completed 11/11/2020 34209 ECG 12-Lead Completed 08/29/2020 05236 External ECG Rec>48HR<7D Review & Interpretation Completed 08/29/2020 85510 External ECG Rec>48HR<7D Recordi ng Completed 08/27/2020 29905 Office/Outpatient Established Mo d MDM 30-39 Min Completed 08/27/2020 91232 ECG 12-Lead Completed Medical Devices Description No Information Available Encounters Type Date Location Provider Dx Diagnosis Office Visit 01/27/2021 11:30a Main Office Nino Cano MD R06.02 Shortness of breath R42 Dizziness and giddiness R94.31 Abnormal electrocardiogram [ ECG] [EKG] I25.10 Athscl heart disease of [place] coronary artery w/o ang pctrs I11.9 Hypertensive heart disease w [facility] heart failure I35.1 Nonrheumatic aortic (valve) insufficiency Office Visit 11/11/2020 9:00a Main Office Nino Cano MD R06.02 Shortness of breath I47.1 Supraventricular tachycardia R94.31 Abnormal electrocardiogram [ ECG] [EKG] I25.10 Athscl heart disease of [place] coronary artery w/o ang pctrs I11.9 Hypertensive heart disease w [facility] heart failure I35.1 Nonrheumatic aortic (valve) insufficiency I77.810 Thoracic aortic ectasia Office Visit 08/27/2020 9:00a Main Office Nino Cano MD I47.1 Supraventricular tachycardia R94.31 Abnormal electrocardiogram [ ECG] [EKG] I25.10 Athscl heart disease of [place] coronary artery w/o ang pctrs I11.9 Hypertensive heart disease w [facility] heart failure I35.1 Nonrheumatic aortic (valve) insufficiency I77.810 Thoracic aortic ectasia Assessments Date Code Description Provider 02/09/2021 R06.02 Shortness of breath Stress Nucle ar/Reg Treadmill 02/09/2021 I25.10 Atherosclerotic heart disease of [place] coronary artery with Stress Nuclear/Reg Treadmill 02/09/2021 I25.2 Old myocardial infarction Stress Nuclear/Reg Treadmill 02/09/2021 Z95.5 Presence of coronary angioplasty implant and graft Stress Nuclear/Reg Treadmill 01/27/2021 R06.02 Shortness of breath Nino sawant MD 01/27/2021 R42 Dizziness and giddiness Nino Cano MD 01/27/2021 R94.31 Abnormal electrocardiogram [ECG] [EKG] Nino Cano MD 01/27/2021 I25.10 Atherosclerotic heart disease of [place] coronary artery with Nino Cano MD 01/27/2021 I11.9 [facility] MD 01/27/2021 I35.1 Nonrheumatic aortic (valve) insu fficiency Nino Cano MD 01/08/2021 I77.810 Thoracic aortic ectasia ECHO 01/08/2021 I11.9 Hypertensive heart disease witho co heart failure ECHO 01/08/2021 I35.8 Other nonrheumatic aortic valve disorders ECHO 01/08/2021 I25.2 Old myocardial infarction ECHO 11/11/2020 R06.02 Shortness of breath Nino sawant MD 11/11/2020 I47.1 Supraventricular tachycardia Keron Cano MD 11/11/2020 R94.31 Abnormal electrocardiogram [ECG] [EKG] Nino Cano MD 11/11/2020 I25.10 Atherosclerotic heart disease of [place] coronary artery with Nino Cano MD 11/11/2020 I11.9 Hypertensive heart disease witho co heart failure Nino Cano MD 11/11/2020 I35.1 Nonrheumatic aortic (valve) insu fficiency Nino Cano MD 11/11/2020 I77.810 Thoracic aortic ectasia Nino Cano MD 08/29/2020 R00.2 Palpitations Holter/Event/Tel emetry 08/29/2020 I49.40 Unspecified premature depolariza tion Holter/Event/Telemetry 08/27/2020 I47.1 Supraventricular tachycardia Keron Cano MD 08/27/2020 R94.31 Abnormal electrocardiogram [ECG] [EKG] Nino Cano MD 08/27/2020 I25.10 Atherosclerotic heart disease of [place] coronary artery with Nino Cano MD 08/27/2020 I11.9 Hypertensive heart disease witho co heart failure Nino Cano MD 08/27/2020 I35.1 Nonrheumatic aortic (valve) insu fficiency Nino Cano MD 08/27/2020 I77.810 Thoracic aortic ectasia Nino Cano MD Plan of Treatment 01/27/2021 - Nino Cano MD* R06.02 Shortness of breath* Recommendations:* The variable nature of this complaint is suggestive of a respiratory rather than cardiac origin. Associated cough is supportive evidence. Additionally, recent chest CT scan did not show congestion and BNP level was well within normal limits. Would encourage his continued use of inhalers and Mucinex as per pulmonary medicine. * R42 Dizziness and giddiness* Recommendations:* Seems associated with his dyspnea and may be a reflection of hyperventilation. Has been free of palpitations. Monitored for several hours in the emergency room without arrhythmia and his blood pressure today shows no orthostatic change. Has meclizine for dizziness associated with unsteadiness or spinning sensation. * R94.31 Abnormal electrocardiogram [ECG] [EKG]* Recommendations:* Borderline first-degree AV block: Minimal T wave changes from our last tracing. Serial troponin I levels were negative. As in the past, ER monitoring did not show any high-grade AV block or bradyarrhythmia on his current beta-geneav the rapy. We will continue to monitor his conduction disturbance. * I25.10 Atherosclerotic heart disease of [place] coronary artery with* Recommendations:* Remote IWMI/multiple PTCA-stenting procedures: Continues to have a fairly localized third or fourth left parasternal discomfort when anxious. Today reports a left parasternal sensitivity. Remains anxious that his dyspnea may reflect an anginal equivalent. We have scheduled a regular treadmill study to be performed in the near future. For now, would continue to encourage a low-fat low-cholesterol diet and regular low level aerobic exercise i.e. walking at his own pace for up to 30 minutes daily. No change has been suggested to his protective combination atenolol, amlodipine, Crestor, aspirin and Plavix. Has sublingual nitroglycerin for use as necessary. Should he have effort related chest, jaw, or arm discomfort that does not vary with single breath, single breath, single swallow, local p ressure, shrugging shoulders or moving his arms, encouraged use of sublingual nitroglycerin, and contacting our office. * I11.9 Hypertensive heart disease without heart failure* Recommendations:* As per assessment #1, no clinical or radiographic evidence of congestion. Curre nt blood pressure is well controlled. Recent chemistry confirms electrolyte balance with stable renal function and pro BNP level. Continued modest salt restriction with regular exercise as mentioned. No change has been made to his present combination atenolol and amlodipine. * I35.1 Nonrheumatic aortic (valve) insufficiency* Recommendations:* Stable auscultatory findings; soft systolic murmur related to aortic valvular sc lerosis and dilated aortic root. Unable to detect his insufficiency murmur. Symptoms or signs of endocarditis. Recent echocardiogram shows stable valvular structure and function with minuscule increase in aortic root diameter from December 2018. Continued optimal blood pressure control. SBE antibiotic prophylaxis prior to dental or surgical procedures is not warranted for this condition. * All * Comments:* I will ensure that the aforementioned test findings are reported to you along with any further recommendations. Thank you for allowing me to participate in the care of your patient. Best regards. * Follow up:* Pending test results Functional Status Functional Condition Comment Date Status Independent with all ADL's Activ e Mental Status Description No Information Available Referrals Description No Information Available
--- OUTSIDE RECORDS SUMMARY | 2021-05-04 12:34 | CCD | Summary of Care ---
Author Author [facility] Organization [facility] Address Unknown Phone Unavailable Care Team Providers Care Waistline Joiner Lockstitch Name Role Phone Dre Morales MD PCP Reason for Referral * Diagnostic Radiology (Routine) Referred By Contact Referred To Contact Status Reason Specialty Diagnoses / Procedures Scott Winston MD [address] [place] [address] Email: [email or web address] Authorized Radiology Diagnoses Hematuria, unspecified type P rocedures CT Abdomen Pelvis with and without Contrast Electronically signed by Scott Winston MD at Reason for Visit * Diagnostic Radiology (Routine) Referred By Contact Referred To Contact Status Reason Specialty Diagnoses / Procedures Scott Winston MD [address] [place] [address] Email: [email or web address] Authorized Radiology Diagnoses Hematuria, unspecified type P rocedures CT Abdomen Pelvis with and without Contrast Encounter Details Care Team Description Date Type Department Hematuria, unspecified type 03/10/[address] [facility] [address] SCAN [facility] Encounter [address] [address] Allergies Comments Active Allergy Reactions Severity Noted Date Cough Vasquez Inhibitors Other (See 12/13/2006 Comments) muscle aches Atorvastatin 01/14/2010 Shakes and heart raises Epinephrine 11/27/2020 Lisinopril Anaphylaxis High 06/14/2016 Other reaction(s): Gynecomastia gynecomastia gynecomastia Spironolactone 10/16/2020 Azithromycin Palpitations Low 11/05/2013 documented as of this encounter (statuses as of 03/11/2021) Medications End Date Status Medication Sig Dispensed [...] as of this encounter (statuses as of 03/11/2021) Active Problems Problem Noted Date Penile lesion 02/12/2019 Erectile dysfunction due to diseases classified elsew here 02/12/2019 Hematuria 07/04/2017 Malignant neoplasm of prostate 05/20/2014 Low testosterone 04/30/2013 [place], old 05/02/2012 Prostate cancer 05/02/2012 Peyronie's disease documented as of this encounter (statuses as of 03/11/2021) Immunizations Name Administration Dates Next Due documented as of this encounter Social History Date Tobacco Use Types Packs/Day Years Used Never Smoker Smokeless Tobacco: Never Used Comments Alcohol Use Standard Drinks/Week social Yes [id number] (1 sta ndard drink = 0.6 oz [...] of this encounter Last Filed Vital Signs Not on filedocumented in this encounter Plan of Treatment Care Team Description Date Type Specialty Scott Winston MD [address] [place] [address] [phone] 09/01/2021 Office Visit Urology Health Maintenance Due Date Last Done Comments Hepatitis C Screening (B. 1955 [id number]) MMR Vaccines (1 of 1 - 1956 [...] this topic documented as of this encounter Procedures Comments Procedure Name Priority Date/Time Associated Diag nosis CT ABDOMEN PELVIS WITH Routine 03/10/2021 Hematur ia, unspecified AND WITHOUT CONTRAST 10:00 AM EDT type 78003 documented in this encounter Results * CT Abdomen Pelvis with and without Contrast IVP-no oral contrast Wt Readings from Last 1 Encounters: 02/19/21 : 93.4 kg (205 lb 12.8 oz) (03/10/2021 10:00 AM EDT) Specimen Impressions Performed At IMPRESSION: [facility] 1. A fluid attenuation cyst in the latera l aspect of the left interpolar region exhibits wall thickening along the late ral aspect and a punctate calcification, compatible with a Bosniak 2F cyst. Ravinder mmend continued follow-up. 2. A 0.8 cm hypodense lesion in the poste rolateral aspect of the right renal midpole (series 304 image 133) is too s mall to accurately characterize but appears to be new from the prior study. This may also be followed up on subsequent studies. 3. The kidneys otherwise enhance and excr ete symmetrically without evidence of renal calculus or filling defect within the opacified portions of the collecting system or bladder. 4. Multiple liver cysts and subcentimeter hypodensities which are too small to accurately characterize, some of which have increased in size from the prior study. 5. Small layering gallstones or sludge wi thout evidence for cholecystitis. 6. Colonic diverticulosis without evidenc e for diverticulitis. Narrative Performed At INDICATION: 65-year-old male with hematuria. [facility] TECHNIQUE: Multidetector row helical CT of the abdomen and pelvis was performed, before and after intravenous administra tion of 125 mL of Omnipaque 300, as per the CT IVP protocol. This protocol cons ists of nonenhanced, post contrast nephrographic and post contrast 10 jayshree te delayed sequences. Oral dilute was not administered. Coronal, sagittal and cor onal MIP reformations of the collecting systems were obtained. Automated dose l owering techniques and/or adjustment according to patient size were utilized for this exam. COMPARISON: CT abdomen and pelvis dated 12/09/2016. FINDINGS: LUNGS AND MEDIASTINUM: Subsegmental atelectasis is noted in t he lung bases bilaterally. There are coronary artery calcifications. The hea rt appears enlarged. LIVER: There are multiple fluid attenua tion cystic lesions in the liver which have increased in size from the prior s tudy and exhibits thin internal enhancing septations. Additionally there are mult iple subcentimeter hypoattenuating lesions which are too small to characte rize by CT, some of which have also increased in size from the prior study. Liver is normal in size, contour, and density. GALLBLADDER AND BILIARY TREE: There are small layering gallstones or sludge within the dependent portion of the gal lbladder. No pericholecystic fluid or wall thickening. No intra- or extrahepa tic biliary ductal dilation. PANCREAS: Unremarkable, no focal lesion s. No pancreatic ductal dilatation. SPLEEN: Normal in size. No focal lesion s. There is a 2.9 x 1.3 cm splenule along the posterior border and a 0.9 cm splen ule inferior to the hilum. ADRENALS: Unremarkable bilaterally. RIGHT KIDNEY: New 0.8 cm low-density le kecia along the posterolateral aspect of the right interpolar region (series 304 image 133). A 0.8 cm hypodensity in the interpolar region (series 304 image 149 ) is stable from prior study. Multiple additional subcentimeter hypodensities are present throughout the right kidney which are stable to slightly increased in size from the prior study. There are no renal calculi and no hydronephrosis. The right ureter is well-opacified and unremarkable. LEFT KIDNEY: There is a fluid attenuati on cyst in the left interpolar region (series 304 image 123) which measures 2 .8 cm and exhibits wall thickening along the lateral aspect as well as a punctat e hyperdensity, likely a calcification. There are multiple additional punctate hypodensities which are too small to accurately characterize but appear bailee sly stable the prior study. There are no renal calculi and no hydronephrosis. Th e left ureter is well-opacified and unremarkable. BOWEL: Evaluation of the bowel is limit ed bilateral contrast. Stomach is normal. The small and large bowel are normal in caliber. The appendix is not visualized, there is no pericecal inflammatory proc ess. There is a moderate amount of stool throughout the colon. There is colonic diverticulosis without evidence for diverticulitis. FREE AIR/FLUID: No free intraperitoneal air. No significant free fluid. LYMPH NODES: No pathologically enlarged lymph nodes. VESSELS: The abdominal aorta is normal in caliber and the origins of its major branches are patent. There are two left renal arteries. BLADDER: The bladder is well distended and unremarkable. No evidence of wall thickening or intraluminal filling defe ct within the opacified portion of the bladder lumen. REPRODUCTIVE ORGANS: Brachytherapy bead s are noted in the prostate. The seminal vesicles are symmetric bilaterally. BODY WALL: There are small fat-containi ng hernias bilaterally. Soft tissues of the visualized body wall are otherwise unremarkable. BONES: There are mild multilevel degene rative changes throughout the visualized thoracolumbar spine. No suspicious osse ous lesions are identified. A right hip total arthroplasty is noted. Procedure Note Interface, Received Via [employer] [facility] - 03/10/2021 12:15 PM EDT INDICATION: 65-year-old male with hematuria. TECHNIQUE: Multidetector row helical CT of the abdomen and pelvis was performed, before and after intravenous administration of 125 mL of Omnipaque 300, as per the CT IVP protocol. This protocol consists of nonenhanced, post contrast nephrographic and post contrast 10 minute delayed sequences. Oral dilute was not administered. Coronal, sagittal and coronal MIP reformations of the collecting systems were obtained. Automated dose lowering techniques and/or adjustment according to patient size were utilized for this exam. COMPARISON: CT abdomen and pelvis dated 12/09/2016. FINDINGS: LUNGS AND MEDIASTINUM: Subsegmental atelectasis is noted in the lung bases bilaterally. There are coronary artery calcifications. The heart appears enlarged. LIVER: There are multiple fluid attenuation cystic lesions in the liver which have increased in size from the prior study and exhibits thin internal enhancing septations. Additionally there are multiple subcentimeter hypoattenuating lesions which are too small to characterize by CT, some of which have also increased in size from the prior study. Liver is normal in size, contour, and density. GALLBLADDER AND BILIARY TREE: There are small layering gallstones or sludge within the dependent portion of the gallbladder. No pericholecystic fluid or wall thickening. No intra- or extrahepatic biliary ductal dilation. PANCREAS: Unremarkable, no focal lesions. No pancreatic ductal dilatation. SPLEEN: Normal in size. No focal lesions. There is a 2.9 x 1.3 cm splenule along the posterior border and a 0.9 cm splenule inferior to the hilum. ADRENALS: Unremarkable bilaterally. RIGHT KIDNEY: New 0.8 cm low-density lesion along the posterolateral aspect of the right interpolar region (series 304 image 133). A 0.8 cm hypodensity in the interpolar region (series 304 image 149) is stable from prior study. Multiple additional subcentimeter hypodensities are present throughout the right kidney which are stable to slightly increased in size from the prior study. There are no renal calculi and no hydronephrosis. The right ureter is well-opacified and unremarkable. LEFT KIDNEY: There is a fluid attenuation cyst in the left interpolar region (series 304 image 123) which measures 2.8 cm and exhibits wall thickening along the lateral aspect as well as a punctate hyperdensity, likely a calcification. There are multiple additional punctate hypodensities which are too small to accurately characterize but appear grossly stable the prior study. There are no renal calculi and no hydronephrosis. The left ureter is well-opacified and unremarkable. BOWEL: Evaluation of the bowel is limited bilateral contrast. Stomach is normal. The small and large bowel are normal in caliber. The appendix is not visualized, there is no pericecal inflammatory process. There is a moderate amount of stool throughout the colon. There is colonic diverticulosis without evidence for diverticulitis. FREE AIR/FLUID: No free intraperitoneal air. No significant free fluid. LYMPH NODES: No pathologically enlarged lymph nodes. VESSELS: The abdominal aorta is normal in caliber and the origins of its major branches are patent. There are two left renal arteries. BLADDER: The bladder is well distended and unremarkable. No evidence of wall thickening or intraluminal filling defect within the opacified portion of the bladder lumen. REPRODUCTIVE ORGANS: Brachytherapy beads are noted in the prostate. The seminal vesicles are symmetric bilaterally. BODY WALL: There are small fat-containing hernias bilaterally. Soft tissues of the visualized body wall are otherwise unremarkable. BONES: There are mild multilevel degenerative changes throughout the visualized thoracolumbar spine. No suspicious osseous lesions are identified. A right hip total arthroplasty is noted. IMPRESSION: 1. A fluid attenuation cyst in the late ral aspect of the left interpolar region exhibits wall thickening along the lateral aspect and a punctate calcification, compatible with a Bosniak 2F cyst. Recommend continued follow-up. 2. A 0.8 cm hypodense lesion in the pos terolateral aspect of the right renal midpole (series 304 image 133) is too small to accurately characterize but appears to be new from the prior study. This may also be followed up on subsequent studies. 3. The kidneys otherwise enhance and ex crete symmetrically without evidence of renal calculus or filling defect within the opacified portions of the collecting system or bladder. 4. Multiple liver cysts and subcentimet er hypodensities which are too small to accurately characterize, some of which have increased in size from the prior study. 5. Small layering gallstones or sludge without evidence for cholecystitis. 6. Colonic diverticulosis without evide nce for diverticulitis. Performing Organization Address City/State/ZIP Code P haresh Number [facility] [address] [place] [address] documented in this encounter Visit Diagnoses Diagnosis Hematuria, unspecified type documented in this encounter Administered Medications Action Date Dose Rate Site Medication Order MAR Action 03/10/2021 9:57 AM EDT 150 mLs iohexol (OMNIPAQUE) 300 MG/ML contrast Given injection 150 mL 150 mL, Intravenous, 1 TIME IMAGING, On 03/10/21 at 0900, For 1 dose, Imagin g Protocol documented in this encounter
--- OUTSIDE RECORDS SUMMARY | 2021-05-04 12:34 | CCD ---
Continuity of Care Document (CCD) Created on: 03/05/2021 Stan Castanon External Reference #: [id number] : 1955 Sex: Male Author Author Stan RODRIGUEZ MD Organization Unknown Address [address] [place] [address], [address] [place] [address] Phone [phone] Care Team Providers Care Tower Climber Name Role Phone Dre Morales MD AUTM [phone] Problems Active Problems Provider Date Essential hypertension Onset: 12/24/2015 Pure hypercholesterolemia Onset: 016 Precordial pain Nino Cano MD Onset: 01/27/2016 Dyspnea Nino Cano MD Onset: 01/27/2016 Palpitations Nino Cano MD Onset: 01/27/2016 Aortic valve disorder Saundra aYo RPAC Onset: 6 Dilatation of aorta Saundra [...] Available Procedures Date Code Description Status 02/24/2021 44522 Office/Outpatient Established Lo w [facility] 20-29 Min Completed 02/24/2021 99333 X-Ray Hip Unilateral With Pelvis 2-3 Views Completed Medical Devices Description No Information Available Encounters Type Date Location Provider Dx Diagnosis Office Visit 02/24/2021 2:00p [place] Guzman Rodriguez MD Z4 7.1 Aftercare following joint replacement surgery Z96.641 Presence of right artificial hip joint M61.551 Other ossification of muscle , right thigh Assessments Date Code Description Provider 02/24/2021 Z47.1 [...]
--- OUTSIDE RECORDS SUMMARY | 2021-05-04 12:34 | CCD | Summary of Care ---
Author Author [facility] Address Unknown Phone Unavailable Care Team Providers Care Manager Compensation Name Role Phone Dre Morales MD PCP Reason for Visit * Reason Comments Follow-up Encounter Details Care Team Description Date Type Department Dayanna Bell MD [facility] [address] [place], [place] [id number] Peyronie's disease (Primary Dx) 03/05/2021 Office Visit [facility] [address] [place] [address], [place] [phone] Allergies Comments Active Allergy Reactions Severity Noted Date Cough Vasquez Inhibitors Other (See 12/13/2006 Comments) muscle aches Atorvastatin 01/14/2010 Shakes and heart raises Epinephrine 11/27/2020 Lisinopril Anaphylaxis High 06/14/2016 Other reaction(s): Gynecomastia gynecomastia gynecomastia Spironolactone 10/16/2020 Azithromycin Palpitations Low 11/05/2013 documented as of this encounter (statuses as of 03/05/2021) Medications End Date Status Medication Sig Dispensed [...] by mouth 0 02/08 Capsule (COQ10) 1 03/05/2021 Discontinued (Therapy comple maría) sildenafil (VIAGRA) 25 MG Take 25 mg by 0 tablet mouth as needed for Erectile Dysfunction documented as of this encounter (statuses as of 03/05/2021) Active Problems Problem Noted Date Penile lesion 02/12/2019 Erectile dysfunction due to diseases classified elsew here 02/12/2019 Hematuria 07/04/2017 Malignant neoplasm of prostate 05/20/2014 Low testosterone 04/30/2013 PR, old 05/02/2012 Prostate cancer 05/02/2012 Peyronie's disease documented as of this encounter (statuses as of 03/05/2021) Immunizations Name Administration Dates Next Due documented as of this encounter Social History Date Tobacco Use Types Packs/Day Years Used Never Smoker Smokeless Tobacco: Never Used Comments Alcohol Use Standard Drinks/Week social Yes [id number] (1 sta ndard drink = 0.6 oz pure alcohol) Sex Assigned at Date Recorded Not on file Industry Job Start Date Occupation Not on file Not on file Not on file Date Recorded COVID-19 Exposure Response 03/05/2021 11:17 AM EDT In the last month, have you been in contact with No / Unsure someone who was confirmed or suspected to have Coronavirus / COVID-19? documented as of this encounter Last Filed Vital Signs Reading Time Taken Comments Vital Sign 145/90 03/05/2021 11:29 AM EDT Blood Pressure 67 03/05/2021 11:29 AM EDT Pulse 36.7 C (98.1 F) 03/05/2021 11:29 AM EDT Temperature 18 03/05/2021 11:29 AM EDT Respiratory Rate 97% 03/05/2021 11:29 AM EDT Oxygen Saturation - - Inhaled Oxygen Concentration 93 kg (205 lb) 03/05/2021 11:29 AM EDT Weight 182.9 cm (6' 0.01") 03/05/2021 11:29 AM EDT Height 27.8 03/05/2021 11:29 AM EDT Body Mass Index documented in this encounter Progress Notes * Dayanna Bell MD - 03/05/2021 12:15 PM EDT Prasanna 6 adenocarcinoma of the [...] chose to proceed with an Edex in [facility]. I injected 10 mcg to the left [...] hours[facility]. For the Peyronie disease, it is [...] verapamil in 10 cc Sterile saline. Modeled. [id number] Will f/u as needed: Aware of options for surgery (shelley) or IPP if erections a re not optimal. No change in curve with off-label verapamil X 12. documented in this encounter Plan of Treatment Care Team Description Date Type Specialty 03/10/2021 Appointment Radiology Scott Winston MD [address] [place] [address] [phone] 03/10/2021 Procedure visit Urology Scott Winston MD [address] [place] [address] 09/01/2021 Office Visit Urology Order Schedule Name Type Priority Associated Diag noses Ordered: 03/05/2021 Urinalysis with Lab Routine Peyronie's dis ease microscopic Ordered: 03/05/2021 Cytology, Non Pathology and Routine Peyronie's dise ase Gynecological Cytology Health Maintenance Due Date Last Done Comments Hepatitis C Screening (B. 1955 [id number]) MMR Vaccines (1 of 1 - 1956 [...]
--- OUTSIDE RECORDS SUMMARY | 2021-05-04 12:36 | CCD ---
Author Author [facility] Organization [facility] Address Unknown Phone Unavailable Care Team Providers Care Metal Numerical Control Programmer Name Role Phone Seda XIAO MD Unavailable Unavailable Seda XIAO MD Unavailable Unavailable Seda XIAO MD Unavailable Unavailable Seda XIAO MD Unavailable Unavailable Seda XIAO MD Unavailable Unavailable Seda XIAO MD Unavailable Unavailable Seda XIAO MD Unavailable Unavailable Seda XIAO MD Unavailable Unavailable DAMEON, Seda Alan MD Unavailable Unavailable DAMEON, Seda Alan MD Unavailable Unavailable DAMEON, Seda Alan MD Unavailable Unavailable DAMEON, Seda Alan MD Unavailable Unavailable DAMEON, Seda Alan MD Unavailable Unavailable DAMEON, Seda Alan MD Unavailable Unavailable DAMEON, Seda Alan MD Unavailable Unavailable DAMEON, Seda Alan MD Unavailable Unavailable DAMEON, Seda Alan MD Unavailable Unavailable DAMEON, Seda Alan MD Unavailable Unavailable DAMEON, Seda Alan MD Unavailable Unavailable DAMEON, Seda Alan MD Unavailable Unavailable DAMEON, Seda Alan MD Unavailable Unavailable DAMEON, Seda Alan MD Unavailable Unavailable DAMEON, Seda Alan MD Unavailable Unavailable DAMEON, Seda Alan MD Unavailable Unavailable DAMEON, Seda Alan MD Unavailable Unavailable DAMEON, Seda Alan MD Unavailable Unavailable DAMEON, Seda Alan MD Unavailable Unavailable DAMEON, Seda Alan MD Unavailable Unavailable DAMEON, Seda Alan MD Unavailable Unavailable DAMEON, Seda Alan MD Unavailable Unavailable DAMEON, Seda Alan MD Unavailable Unavailable DAMEON, Seda Alan MD Unavailable Unavailable DAMEON, Seda Alan MD Unavailable Unavailable DAMEON, Seda Alan MD Unavailable Unavailable DAMEON, Seda Alan MD Unavailable Unavailable DAMEON, Seda Alan MD Unavailable Unavailable DAMEON, Seda Alan MD Unavailable Unavailable DAMEON, Seda Alan MD Unavailable Unavailable ADMEON, Seda Alan MD Unavailable Unavailable DAMEON, Seda Alan MD Unavailable Unavailable DAMEON, Seda Alan MD Unavailable Unavailable DAMEON, Seda Alan MD Unavailable Unavailable DAMEON, Seda Alan MD Unavailable Unavailable DAMEON, Seda Alan MD Unavailable Unavailable DAMEON, Seda Alan MD Unavailable Unavailable DAMEON, Seda Alan MD Unavailable Unavailable DAMEON, Seda Alan MD Unavailable Unavailable DAMEON, Seda Alan MD Unavailable Unavailable DAMEON, Seda Alan MD Unavailable Unavailable DAMEON, Seda Alan MD Unavailable Unavailable DAMEON, Seda Alan MD Unavailable Unavailable DAMEON, Seda Alan MD Unavailable Unavailable DAMEON, Seda Alan MD Unavailable Unavailable DAMEON, Seda Alan MD Unavailable Unavailable DAMEON, Seda Alan MD Unavailable Unavailable DAMEON, Seda Alan MD Unavailable Unavailable DAMEON, Seda Alan MD Unavailable Unavailable DAMEON, Seda Alan MD Unavailable Unavailable DAMEON, Seda Alan MD Unavailable Unavailable DAMEON, Seda Alan MD Unavailable Unavailable DAMEON, Seda Alan MD Unavailable Unavailable DAMEON, Seda Alan MD Unavailable Unavailable Kay Stanley MD Unavailable Unavailable Kay Stanley MD Unavailable Unavailable JadenKay MD Unavailable Unavailable JadenKay MD Unavailable Unavailable JadenKay MD Unavailable Unavailable JadenKay MD Unavailable Unavailable JadenKay MD Unavailable Unavailable JadenKay MD Unavailable Unavailable JadenKay MD Unavailable Unavailable JadenKay MD Unavailable Unavailable JadenKay MD Unavailable Unavailable Jaden S Herve RICHMOND Unavailable Unavailable JadenKay MD Unavailable Unavailable JadenKay MD Unavailable Unavailable JadenKay MD Unavailable Unavailable JadenKay MD Unavailable Unavailable JadenKay MD Unavailable Unavailable JadenKay alfonso MD Unavailable Unavailable JadenKay alfonso MD Unavailable Unavailable Kay Stanley MD Unavailable Unavailable Kay Stanley MD Unavailable Unavailable Kay Stanley MD Unavailable Unavailable Kay Stanley MD Unavailable Unavailable Kay Stanley MD Unavailable Unavailable Kay Stanley MD Unavailable Unavailable Kay Stanley MD Unavailable Unavailable Kay Stanley MD Unavailable Unavailable Kay Stanley MD Unavailable Unavailable Kay Stanley MD Unavailable Unavailable Kay Stanley MD Unavailable Unavailable Kay Stanley MD Unavailable Unavailable Kay Stanley MD Unavailable Unavailable Kay Stanley MD Unavailable Unavailable Kay Stanley MD Unavailable Unavailable Kay Stanley MD Unavailable Unavailable Kay Stanley MD Unavailable Unavailable Kay Stanley MD Unavailable Unavailable Kay Stanley MD Unavailable Unavailable Kay Stanley MD Unavailable Unavailable Kay Stanley MD Unavailable Unavailable Kay Stanley MD Unavailable Unavailable Kay Stanley MD Unavailable Unavailable Kay Stanley MD Unavailable Unavailable Kay Stanley MD Unavailable Unavailable Kay Stanley MD Unavailable Unavailable Kay Stanley MD Unavailable Unavailable Kay Stanley MD Unavailable Unavailable Kay Stanley MD Unavailable Unavailable Kay Stanley MD Unavailable Unavailable Kay Stanley MD Unavailable Unavailable Jennie LORENZANA MD Unavailable Unavailable Jennie LORENZANA MD Unavailable Unavailable Jennie LORENZANA MD Unavailable Unavailable Jennie LORENZANA MD Unavailable Unavailable Jennie LORENZANA MD Unavailable Unavailable Jennie LORENZANA MD Unavailable Unavailable Jennie LORENZANA MD Unavailable Unavailable Jennie LORENZANA MD Unavailable Unavailable LORENZANA, E ANDREZ RICHMOND Unavailable Unavailable LORENZANA, E ANDREZ RICHMOND Unavailable Unavailable LORENZANA, E ANDREZ RICHMOND Unavailable Unavailable LORENZANA, E ANDREZ RICHMOND Unavailable Unavailable LORENZANA, E ANDREZ RICHMOND Unavailable Unavailable LORENZANA, E ANDREZ RICHMOND Unavailable Unavailable LORENZANA, E ANDREZ RICHMOND Unavailable Unavailable LORENZANA, E ANDREZ RICHMOND Unavailable Unavailable LORENZANA, E ANDREZ RICHMOND Unavailable Unavailable LORENZANA, E ANDREZ RICHMOND Unavailable Unavailable LORENZANA, E ANDREZ RICHMOND Unavailable Unavailable LORENZANA, E ANDREZ RICHMOND Unavailable Unavailable LORENZANA, E ANDREZ RICHMOND Unavailable Unavailable LORENZANA, E ANDREZ RICHMOND Unavailable Unavailable LORENZANA, E ANDREZ RICHMOND Unavailable Unavailable LORENZANA, E ANDREZ RICHMOND Unavailable Unavailable LORENZANA, E ANDREZ RICHMOND Unavailable Unavailable LORENZANA, E ANDREZ RICHMOND Unavailable Unavailable LORENZANA, E ANDREZ RICHMOND Unavailable Unavailable LORENZANA, E ANDREZ RICHMOND Unavailable Unavailable LORENZANA, E ANDREZ RICHMOND Unavailable Unavailable LORENZANA, E ANDREZ RICHMOND Unavailable Unavailable LORENZANA, E ANDREZ RICHMOND Unavailable Unavailable LORENZANA, E ANDREZ RICHMOND Unavailable Unavailable LORENZANA, E ANDREZ RICHMOND Unavailable Unavailable LORENZANA, E ANDREZ RICHMOND Unavailable Unavailable LORENZANA, E ANDREZ RICHMOND Unavailable Unavailable LORENZANA, E ANDREZ RICHMOND Unavailable Unavailable LORENZANA, E ANDREZ RICHMOND Unavailable Unavailable LORENZANA, E ANDREZ RICHMOND Unavailable Unavailable LORENZANA, E ANDREZ RICHMOND Unavailable Unavailable LORENZANA, E ANDREZ RICHMOND Unavailable Unavailable LORENZANA, E ANDREZ RICHMOND Unavailable Unavailable LORENZANA, E ANDREZ RICHMOND Unavailable Unavailable LORENZANA, E ANDREZ RICHMOND Unavailable Unavailable LORENZANA, E ANDREZ RICHMOND Unavailable Unavailable LORENZANA, E ANDREZ RICHMOND Unavailable Unavailable LORENZANA, E ANDREZ RICHMOND Unavailable Unavailable LORENZANA, E ANDREZ RICHMOND Unavailable Unavailable LORENZANA, E ANDREZ RICHMOND Unavailable Unavailable LORENZANA, E ANDREZ RICHMOND Unavailable Unavailable LORENZANA, E ANDREZ RICHMOND Unavailable Unavailable LORENZANA, E ANDREZ RICHMOND Unavailable Unavailable LORENZANA, E ANDREZ RICHMOND Unavailable Unavailable LORENZANA, E ANDREZ RICHMOND Unavailable Unavailable LORENZANA, E ANDREZ RICHMOND Unavailable Unavailable LETTIERE, A JEFRY PA Unavailable Unavailable LETTIERE, A JEFRY PA Unavailable Unavailable LETTIERE, A JEFRY PA Unavailable Unavailable LETTIERE, A JEFRY PA Unavailable Unavailable LETTIERE, A JEFRY PA Unavailable Unavailable LETTIERE, A JEFRY PA Unavailable Unavailable LETTIERE, A JEFRY PA Unavailable Unavailable LETTIERE, A JEFRY PA Unavailable Unavailable LETTIERE, A JEFRY PA Unavailable Unavailable LETTIERE, A JEFRY PA Unavailable Unavailable LETTIERE, A JEFRY PA Unavailable Unavailable LETTIERE, A JEFRY PA Unavailable Unavailable LETTIERE, A JEFRY PA Unavailable Unavailable LETTIERE, A JEFRY PA Unavailable Unavailable LETTIERE, A JEFRY PA Unavailable Unavailable LETTIERE, A JEFRY PA Unavailable Unavailable LETTIERE, A JEFRY PA Unavailable Unavailable LETTIERE, A JEFRY PA Unavailable Unavailable LETTIERE, A JEFRY PA Unavailable Unavailable LETTIERE, A JEFRY PA Unavailable Unavailable LETTIERE, A JEFRY PA Unavailable Unavailable LETTIERE, A JEFRY PA Unavailable Unavailable LETTIERE, A JEFRY PA Unavailable Unavailable LETTIERE, A JEFRY PA Unavailable Unavailable LETTIERE, A JEFRY PA Unavailable Unavailable LETTIERE, A JEFRY PA Unavailable Unavailable LETTIERE, A JEFRY PA Unavailable Unavailable LETTIERE, A JEFRY PA Unavailable Unavailable LETTIERE, A JEFRY PA Unavailable Unavailable LETTIERE, A JEFRY PA Unavailable Unavailable LETTIERE, A JEFRY PA Unavailable Unavailable Vaneenenaam, Sandra Kwok MD Unavailable Unavailable Vaneenenaam, Sandra Kwok MD Unavailable Unavailable Vaneenenaam, Sandra Kwok MD Unavailable Unavailable Vaneenenaam, Sandra Kwok MD Unavailable Unavailable Vaneenenaam, Sandra Kwok MD Unavailable Unavailable Vaneenenaam, Sandra Kwok MD Unavailable Unavailable Vaneenenaam, Sandra Kwok MD Unavailable Unavailable Vaneenenaam, Sandra Kwok MD Unavailable Unavailable Vaneenenaam, Sandra Kwok MD Unavailable Unavailable Vaneenenaam, Sandra Kwok MD Unavailable Unavailable Vaneenenaam, Sandra Kwok MD Unavailable Unavailable Vaneenloretaam, Sandra Kwok MD Unavailable Unavailable Vaneenenaam, Sandra Kwok MD Unavailable Unavailable Vaneenenaam, Sandra Kwok MD Unavailable Unavailable Vaneenenaam, Sandra Kwok MD Unavailable Unavailable Vaneenenaam, Sandra Kwok MD Unavailable Unavailable Vaneenenaam, Sandra Kwok MD Unavailable Unavailable Vaneenloretaam, Sandra Kwok MD Unavailable Unavailable Vaneenenaam, Sandra Kwok MD Unavailable Unavailable Vaneenenaam, Sandra Kwok MD Unavailable Unavailable Vaneenenaam, Sandra Kwok MD Unavailable Unavailable Vaneenenaam, Sandra Kwok MD Unavailable Unavailable Vaneenenaam, Sandra Kwok MD Unavailable Unavailable Vaneenloretaam, Sandra Kwok MD Unavailable Unavailable Vaneenloretaam, Sandra Kwok MD Unavailable Unavailable Vaneenenaam, aSndra Kwok MD Unavailable Unavailable Vaneenenaam, Sandra Kwok MD Unavailable Unavailable Vaneenenaam, Sandra Kwok MD Unavailable Unavailable Vaneenenaam, Sandra Kwok MD Unavailable Unavailable Vaneenenaam, Sandra Kwok MD Unavailable Unavailable Vaneenloretaam, Sandra Kwok MD Unavailable Unavailable Vaneenloretaam, Sandra Kwok MD Unavailable Unavailable Vananahyam, Sandra Kwok MD Unavailable Unavailable Vaneenloretaam, Sandra Kwok MD Unavailable Unavailable Vaneenenaam, Sandra Kwok MD Unavailable Unavailable Vaneenenaam, Sandra Kwok MD Unavailable Unavailable Sandra Rodriguez MD Unavailable Unavailable Sandra Rodriguez MD Unavailable Unavailable Sandra Rodriguez MD Unavailable Unavailable Sandra Rodriguez MD Unavailable Unavailable Sandra Rodriguez MD Unavailable Unavailable Sandra Rodriguez MD Unavailable Unavailable Sandra Rodriguez MD Unavailable Unavailable Sandra Rodriguez MD Unavailable Unavailable Sandra Rodriguez MD Unavailable Unavailable Sandra Rodriguez MD Unavailable Unavailable Winston, Scott Unavailable Unavailable Winston, Scott Unavailable Unavailable Winston, Scott Unavailable Unavailable Winston, Scott Unavailable Unavailable Winston, Scott Unavailable Unavailable Winston, Scott Unavailable Unavailable Winston, Scott Unavailable Unavailable Winston, Scott Unavailable Unavailable Winston, Scott Unavailable Unavailable Winston, Scott Unavailable Unavailable Winston, Scott Unavailable Unavailable Winston, Scott Unavailable Unavailable Winston, Scott Unavailable Unavailable Winston, Scott Unavailable Unavailable Winstno, Scott Unavailable Unavailable Winston, Scott Unavailable Unavailable Winston, Scott Unavailable Unavailable Winston, Scott Unavailable Unavailable Winston, Scott Unavailable Unavailable Winston, Scott Unavailable Unavailable Winston, Scott Unavailable Unavailable Winston, Scott Unavailable Unavailable Winston, Scott Unavailable Unavailable Winston, Scott Unavailable Unavailable Winston, Scott Unavailable Unavailable Winston, Scott Unavailable Unavailable Winston, Scott Unavailable Unavailable Winston, Scott Unavailable Unavailable Winston, Scott Unavailable Unavailable Winston, Scott Unavailable Unavailable Winston, Scott Unavailable Unavailable Winston, Scott Unavailable Unavailable Winston, Scott Unavailable Unavailable Winston, Scott Unavailable Unavailable Winston, Scott Unavailable Unavailable Winston, Scott Unavailable Unavailable Winston, Scott Unavailable Unavailable Winston, Scott Unavailable Unavailable Winston, Scott Unavailable Unavailable Winston, Scott Unavailable Unavailable Winston, Scott Unavailable Unavailable Winston, Scott Unavailable Unavailable Winston, Scott Unavailable Unavailable Winston, Scott Unavailable Unavailable Winston, Scott Unavailable Unavailable Winston, Scott Unavailable Unavailable Winston, Scott Unavailable Unavailable Winston, Scott Unavailable Unavailable Winston, Scott Unavailable Unavailable Winston, Scott Unavailable Unavailable Winston, Soctt Unavailable Unavailable Winston, Scott Unavailable Unavailable Winston, Scott Unavailable Unavailable Winston, Scott Unavailable Unavailable Winston, Scott Unavailable Unavailable Winston, Scott Unavailable Unavailable Winston, Scott Unavailable Unavailable Winston, Scott Unavailable Unavailable Winston, Scott Unavailable Unavailable Winston, Scott Unavailable Unavailable Winston, Scott Unavailable Unavailable Winston, Scott Unavailable Unavailable Winston, Scott Unavailable Unavailable Winston, Scott Unavailable Unavailable Winston, Scott Unavailable Unavailable Winston, Scott Unavailable Unavailable Winston, Scott Unavailable Unavailable Winston, Scott Unavailable Unavailable Winston, Scott Unavailable Unavailable Winston, Scott Unavailable Unavailable Winston, Scott Unavailable Unavailable Winston, Scott Unavailable Unavailable Winston, Scott Unavailable Unavailable Winston, Scott Unavailable Unavailable Winston, Scott Unavailable Unavailable Winston, Scott Unavailable Unavailable Winston, Scott Unavailable Unavailable Winston, Scott Unavailable Unavailable Winston, Scott Unavailable Unavailable HANNA, A SAE MD Unavailable Unavailable HANNA, A SAE MD Unavailable Unavailable HANNA, A SAE MD Unavailable Unavailable HANNA, A SAE MD Unavailable Unavailable HANNA, A SAE MD Unavailable Unavailable HANNA, A SAE MD Unavailable Unavailable HANNA, A SAE MD Unavailable Unavailable HANNA, A SAE MD Unavailable Unavailable HANNA, A SAE MD Unavailable Unavailable HANNA, A SAE MD Unavailable Unavailable HANNA, A SAE MD Unavailable Unavailable HANNA, A SAE MD Unavailable Unavailable HANNA, A SAE MD Unavailable Unavailable HANNA, A SAE MD Unavailable Unavailable HANNA, A SAE MD Unavailable Unavailable HANNA, A SAE MD Unavailable Unavailable HANNA, A SAE MD Unavailable Unavailable HANNA, A SAE MD Unavailable Unavailable HANNA, A SAE MD Unavailable Unavailable HANNA, A SAE MD Unavailable Unavailable HANNA, A SAE MD Unavailable Unavailable HANNA, A SAE MD Unavailable Unavailable HANNA, A SAE MD Unavailable Unavailable HANNA, A SAE MD Unavailable Unavailable HANNA, A SAE MD Unavailable Unavailable HANNA, A SAE MD Unavailable Unavailable HANNA, A SAE MD Unavailable Unavailable HANNA, A SAE MD Unavailable Unavailable HANNA, A SAE MD Unavailable Unavailable HANNA, A SAE MD Unavailable Unavailable HANNA, A SAE MD Unavailable Unavailable HANNA, A SAE MD Unavailable Unavailable HANNA, A SAE MD Unavailable Unavailable HANNA, A SAE MD Unavailable Unavailable HANNA, A SAE MD Unavailable Unavailable HANNA, A SAE MD Unavailable Unavailable HANNA, A SAE MD Unavailable Unavailable HANNA, A SAE MD Unavailable Unavailable HANNA, A SAE MD Unavailable Unavailable HANNA, A SAE MD Unavailable Unavailable HANNA, A SAE MD Unavailable Unavailable HANNA, A SAE MD Unavailable Unavailable HANNA, A SAE MD Unavailable Unavailable HANNA, A SAE MD Unavailable Unavailable HANNA, A SAE MD Unavailable Unavailable HANNA, A SAE MD Unavailable Unavailable HANNA, A SAE MD Unavailable Unavailable HANNA, A SAE MD Unavailable Unavailable HANNA, A SAE MD Unavailable Unavailable HANNA, A SAE MD Unavailable Unavailable HANNA, A SAE MD Unavailable Unavailable HANNA, A SAE MD Unavailable Unavailable HANNA, A SAE MD Unavailable Unavailable HANNA, A SAE MD Unavailable Unavailable HANNA, A SAE MD Unavailable Unavailable HANNA, A SAE MD Unavailable Unavailable HANNA, A SAE MD Unavailable Unavailable HANNA, A SAE MD Unavailable Unavailable JOSE, S AYMAN MD Unavailable Unavailable JOSE, S AYMAN MD Unavailable Unavailable JOSE, S AYMAN MD Unavailable Unavailable JOSE, S AYMAN MD Unavailable Unavailable JOSE, S AYMAN MD Unavailable Unavailable JOSE S AYMAN MD Unavailable Unavailable JOSE S AYMAN MD Unavailable Unavailable JOSE S AYMAN MD Unavailable Unavailable JOSE S AYMAN MD Unavailable Unavailable JOSE S AYMAN MD Unavailable Unavailable JOSE, S AYMAN MD Unavailable Unavailable JOSE, S AYMAN MD Unavailable Unavailable JOSE S AYMAN MD Unavailable Unavailable JOSE S AYMAN MD Unavailable Unavailable JOSE S AYMAN MD Unavailable Unavailable JOSE S AYMAN MD Unavailable Unavailable JOSE S AYMAN MD Unavailable Unavailable JOSE S AYMAN MD Unavailable Unavailable JOSE S AYMAN MD Unavailable Unavailable JOSE S AYMAN MD Unavailable Unavailable JOSE S AYMAN MD Unavailable Unavailable JOSE S AYMAN MD Unavailable Unavailable JOSE S AYMAN MD Unavailable Unavailable JOSE S AYMAN MD Unavailable Unavailable JOSE S AYMAN MD Unavailable Unavailable JOSE S AYMAN MD Unavailable Unavailable JOSE, S AYMAN MD Unavailable Unavailable JOSE S AYMAN MD Unavailable Unavailable JOSE S AYMAN MD Unavailable Unavailable JOSE S AYMAN MD Unavailable Unavailable JOSE S AYMAN MD Unavailable Unavailable JOSE, S AYMAN MD Unavailable Unavailable JOSE, S AYMAN MD Unavailable Unavailable JOSE, S AYMAN MD Unavailable Unavailable JOSE S AYMAN MD Unavailable Unavailable JOSE, S AYMAN MD Unavailable Unavailable JOSE, S AYMAN MD Unavailable Unavailable JOSE, S AYMAN MD Unavailable Unavailable JOSE, S AYMAN MD Unavailable Unavailable JOSE, S AYMAN MD Unavailable Unavailable JOSE, S AYMAN MD Unavailable Unavailable JOSE, S AYMAN MD Unavailable Unavailable JOSE, S AYMAN MD Unavailable Unavailable JOSE, S AYMAN MD Unavailable Unavailable JOSE, S AYMAN MD Unavailable Unavailable JOSE, S AYMAN MD Unavailable Unavailable JOSE, S AYMAN MD Unavailable Unavailable JOSE, S AYMAN MD Unavailable Unavailable JOSE, S AYMAN MD Unavailable Unavailable JOSE, S AYMAN MD Unavailable Unavailable JOSE, S AYMAN MD Unavailable Unavailable JOSE, S AYMAN MD Unavailable Unavailable JOSE, S AYMAN MD Unavailable Unavailable JOSE, S AYMAN MD Unavailable Unavailable JOSE, S AYMAN MD Unavailable Unavailable JOSE, S AYMAN MD Unavailable Unavailable JOSE, S AYMAN MD Unavailable Unavailable JOSE, S AYMAN MD Unavailable Unavailable JOSE, S AYMAN MD Unavailable Unavailable JOSE, S AYMAN MD Unavailable Unavailable JOSE, S AYMAN MD Unavailable Unavailable JOSE, S AYMAN MD Unavailable Unavailable JOSE, S AYMAN MD Unavailable Unavailable JOSE, S AYMAN MD Unavailable Unavailable JOSE, S AYMAN MD Unavailable Unavailable JOSE, S AYMAN MD Unavailable Unavailable JOSE, S AYMAN MD Unavailable Unavailable JOSE, S AYMAN MD Unavailable Unavailable JOSE, S AYMAN MD Unavailable Unavailable JOSE, S AYMAN MD Unavailable Unavailable JOSE, S AYMAN MD Unavailable Unavailable JOSE, S AYMAN MD Unavailable Unavailable JOSE, S AYMAN MD Unavailable Unavailable JOSE, S AYMAN MD Unavailable Unavailable JOSE, S AYMAN MD Unavailable Unavailable JOSE, S AYMAN MD Unavailable Unavailable JOSE, S AYMAN MD Unavailable Unavailable JOSE, S AYMAN MD Unavailable Unavailable JOSE, S AYMAN MD Unavailable Unavailable JOSE, S AYMAN MD Unavailable Unavailable JOSE, S AYMAN MD Unavailable Unavailable JOSE, S AYMAN MD Unavailable Unavailable Kay PIERRE MD Unavailable Unavailable Kay PIERRE MD Unavailable Unavailable Kay PIERRE MD Unavailable Unavailable Kay PIERRE MD Unavailable Unavailable Kay PIERRE MD Unavailable Unavailable Re-disclosure Warning The records that you are about to access may contain information from federally-assisted alcohol or drug abuse programs. If such information is present, then the following federally mandated warning applies: This information has been disclosed to you from records protected by federal confidentiality rules (42 CFR part 2). The federal rules prohibit you from making any further disclosure of this information unless further disclosure is expressly permitted by the written consent of the person to whom it pertains or as otherwise permitted by 42 CFR part 2. A general authorization for the release of medical or other information is NOT sufficient for this purpose. The Federal rules restrict any use of the information to criminally investigate or prosecute any alcohol or drug abuse patient.The records that you are about to access may contain highly sensitive health information, the redisclosure of which is protected by Article 27-F of the [facility] Public Health law. If you continue you may have access to information: Regarding HIV / AIDS; Provided by facilities licensed or operated by the [facility] Office of Mental Health; or Provided by the [facility] Office for People With Developmental Disabilities. If such information is present, then the following [facility] mandated warning applies: This information has been disclosed to you from confidential records which are protected by state law. State law prohibits you from making any further disclosure of this information without the specific written consent of the person to whom it pertains, or as otherwise permitted by law. Any unauthorized further disclosure in violation of state law may result in a fine or residential sentence or both. A general authorization for the release of medical or other information is NOT sufficient authorization for further disc losure. Allergies and Adverse Reactions Type Description Substance Reaction Status Data Source(s ) Propensity to adverse reactions EPINEPHRINE EPINEPHRINE [facility] Propensity to adverse reactions SPIRONOLACTONE SPIRONOLACTONE [facility] Family History Family Member Name Family Member Gender Family Member Status Date o f Status Description Data Source(s) Unknown Unknown Problem [facility] ([facility]) Encounters Encounter Providers Location Date Indications Data Source(s ) Outpatient Attender: Scott Winston 09/01/2021 12:00:00 AM E [facility] Outpatient Attender: Herve Stanley MD Main Office 03/12/2021 03:15:00 PM EDT [facility] ([facility]) Outpatient Attender: Scott WinstonReferrer: Scott Winston 03/10/2021 12:00:00 AM EDT - 03/11/2021 12:00:00 AM EDT Hematuria, unspecified [facility] Hematuria, unspecified Outpatient Attender: Scott Winston XXHAURO 12:00:00 AM EDT - 03/10/2021 11:04:54 AM [facility] Outpatient Attender: Dayanna XIAO MDAdmitter: Dayanna XIAO MD 0 XXHAURO 03/05/2021 12:00:00 AM [facility] OFFICE OUTPATIENT VISIT 15 MINUTES Attender: Sandra preciado MD Physical Therapy 02/24/2021 02:00:00 PM EDT [facility] ([facility] ) Outpatient Attender: Dayanna XIAO MD XXHAURO 02/20/20 12:00:00 AM EDT - 02/19/2021 11:53:56 AM [facility] Outpatient Attender: SAE FERREIRA MD 02/17/2021 12:00:00 AM [facility] Outpatient Attender: Dayanna XIAO MD A-XXHAURO 01/29/2021 12:00:00 AM [facility] Outpatient Attender: ANDREZ LORENZANA MD Main Office 01/27/2021 11:30:00 AM EDT MED[facility] ([facility]) Outpatient Attender: Dayanna XIAO MD A-XXHAURO 01/16/20 12:00:00 AM EDT - 01/15/2021 11:22:49 AM [facility] Outpatient [address] [facility] [address] 01/09/2021 12:00:00 AM EDT eCW1 (Formerly [facility]) Outpatient Attender: Dayanna XIAO MD 01/08/2021 12:00:00 AM [facility] Unknown [address] [facility] [address] 01/01/2021 12:00:00 AM EDT eCW1 (Formerly [facility]) Outpatient Attender: Dayanna XIAO MD AMananXXCOURTNEY 12/26/19 11:13:59 AM EDT - 12/25/2020 11:21:55 AM [facility] Outpatient Attender: Dayanna XIAO MD 12/25/2020 12:00:00 AM T [facility] Outpatient [address] [facility] [address] 12/18/2020 12:00:00 AM EDT eCW1 (Formerly [facility]) Outpatient Attender: JEFRY ramirez 12/16/2020 01:00:00 PM EDT [facility] ([facility]) Outpatient Attender: Dayanna XIAO MD AXXHASUMA 12/12/19 12:00:00 AM EDT - 12/11/2020 11:38:42 AM [facility] Unknown [address] [facility] [address] 12/11/2020 12:00:00 AM EDT eCW1 (Formerly [facility]) Outpatient Attender: Dayanna XIAO MD AXXHASUMA 11/28/19 12:00:00 AM EDT - 11/27/2020 10:43:47 AM EDT Induration penis plastica [facility] Induration penis plastica Unknown [address] [facility] [address] 11/27/2020 12:00:00 AM EDT eCW1 (Formerly [facility]) Outpatient [address] [facility] [address] 11/13/2020 12:00:00 AM EDT eCW1 (Formerly [facility]) Outpatient Attender: ANDREZ LORENZANA MD Main Office 11/11/2020 09:00:00 AM EDT MED[facility] ([facility]) Outpatient Attender: Dayanna XIAO MD A-XXHASUMA 11/07/19 12:00:00 AM EDT - 11/06/2020 01:12:14 PM EDT Erectile dysfunction due to diseases cla ssified [facility] Erectile dysfunction due to diseases cla ssified elsewhere Outpatient [address] [facility] [address] 11/06/2020 12:00:00 AM EDT eCW1 ([facility]ly [facility]) Unknown [address] [facility] [address] 11/06/2020 12:00:00 AM EDT eCW1 ([facility]ly [facility]) Outpatient Attender: Dayanna XIAO MD 07A-XXHAURO 10/16/2020 12:00:00 AM [facility] Postop visit [address] [facility] [address] 09/24/2020 12:00:00 AM EDT eCW1 ([facility]ly [facility]) Outpatient [address] [facility] [address] 09/03/2020 12:00:00 AM EST eCW1 ([facility]ly [facility]) Outpatient Attender: Scott MiramontesA-XXHASUMA 12:00:00 AM EST - 09/01/2020 01:27:24 PM [facility] Outpatient Attender: ANDREZ LORENZANA MD Main Office 08/27/2020 08:00:00 AM EST [facility] ([facility]) Outpatient Attender: Dayanna XIAO MD 08/21/2020 12:00:00 AM [facility] Outpatient [address] [facility] [address] 08/13/2020 12:00:00 AM EST eCW1 (Formerly [facility]) Outpatient [address] [facility] [address] 08/06/2020 12:00:00 AM EST eCW1 (Formerly [facility]) Outpatient Attender: Dayanna XIAO MD 07/31/2020 12:00:00 AM [facility] Outpatient Attender: Scott Winston 07/04/2020 12:00:00 AM E [facility] Outpatient Attender: Dayanna XIAO MD 07A-XXHAURO 07/03/19 12:00:00 AM EST - 07/03/2020 11:18:47 AM EST Induration penis plastica [facility] Induration penis plastica Outpatient Attender: Dayanna XIAO MD 07/03/2020 12:00:00 AM [facility] Outpatient Attender: ANDREZ LORENZANA MD Main Office 06/25/2020 07:30:00 AM EST MED[facility] ([facility]) Outpatient [address] [facility] [address] 06/16/2020 12:00:00 AM EST eCW1 (Formerly [facility]) Outpatient Attender: Dayanna XIAO MD 06/12/2020 12:00:00 AM [facility] Outpatient Attender: Dayanna XIAO MD 05/29/2020 12:00:00 AM [facility] Outpatient Attender: Dayanna XIAO MD 07A-XXHAURO 05/08/2020 12:00:00 AM [facility] Outpatient Attender: Dayanna XIAO MD 07A-XXHAURO 04/17/20 20 12:00:00 AM EDT - 04/17/2020 12:12:12 PM [facility] Outpatient Attender: Dayanna XIAO MD 04/03/2020 12:00:00 AM [facility] Outpatient Attender: Dayanna XIAO MD 03/20/2020 12:00:00 AM [facility] Outpatient Attender: Dayanna XIOA MD 03/06/2020 12:00:00 AM [facility] Outpatient Attender: TRINH PIERRE MDAdmitter: TRINH LEWIS MD [email or web address]-SJ.CVAU 03/05/2020 06:58:00 AM EDT - 03/05/2020 01:40:00 PM EDT [facility] Patient discharged. Medications Medication Brand Name Start Date Product Form Dose Route Admi nistrative Instructions Pharmacy Instructions Status Indications Reaction Description Data Source(s) Suprep Bowel Prep Kit Suprep Bowel Prep Kit 03/12/2021 12:00:00 AM EDT active MED[facility] ([facility]) lidocaine (XYLOCAINE) 2 % urojet 20 mL [address]-5 1 10:45:00 AM EDT 20 mL Urethral completed 20 mL, Urethr al, Once, On Tue03/10/21 at 1045, For 1 dose [facility] Medication administered onsite Sulfamethoxazole 800 MG / Trimethoprim 1 60 MG Oral Tablet sulfamethoxazole- trimethoprim (BACTRIM DS) 800-160 MG per tablet 1 tablet sulfamethoxazole- trimethoprim (BACTRIM DS) 800-160 MG per tablet 1 tablet 03/10/2021 10:45:00 AM EDT 1 {tbl} Oral completed 1 tabl et, Oral, Once, On Tue03/10/21 at 1045, For 1 dose [facility] Medication administered onsite iohexol (OMNIPAQUE) 300 MG/ML contrast injection 150 mL 1776 03/10/2021 09:00:00 AM EDT 150 mL Intravenous completed 150 mL, Intravenous, 1 TIME IMAGING, On Tue03/10/21 at 0900, For 1 dose, Imaging Protocol [facility] Medication administered onsite Amoxicillin 500 MG Oral Tablet Amoxicillin 02/13/2021 12:00:00 AM EDT ORAL completed [facility] ([facility]) coenzyme Q10 100 MG Oral Capsule Coenzyme Q10 100 MG O ral Capsule (COQ10) Coenzyme Q10 100 MG Oral Capsule (COQ10) 02/08/2021 12:00:00 AM EDT Oral active Take by mouth [facility] coenzyme Q10 100 MG Oral Capsule Co Q10 02/08/2021 12:00:00 AM EDT ORAL active [facility] ([facility]) Amoxicillin 500 MG Oral Capsule Amoxicillin 500 MG Ora l Capsule (AMOXIL) Amoxicillin 500 MG Oral Capsule (AMOXIL) 12/19/2020 12:00:00 AM EDT aborted TAKE ONE CAPSULE BY MOUTH FOUR T IM A [facility] Amlodipine 10 MG Oral Tablet Amlodipine Besylate 08/27/2020 12:00:00 AM EST ORAL active [facility] ([facility] Multiple Vitamins-Minerals (MULTIVITAMIN ADULT EXTRA C PO) 08/26/2020 12:00:00 AM EST Oral active Take by mouth [facility] Multivitamin Adult 08/26/2020 12:00:00 AM EST ORAL active [facility] ([facility]) 5 mg 06/10/2020 12:00:00 AM EST tablet 90 TAKE ONE TABLET BY MOUTH EVERY DAY TAKE ONE TABLET BY MOUTH EVERY DAY SOLD: 06/10/2020 [facility] normal saline flush 0.9 % injection 3 mL 06137-851-11 03/05/2020 02:00:00 PM EDT 3 mL Intravenous active 3 mL , Intravenous, PROTOCOL, First dose on Tue03/05/20 at 1400, Pre-op
flush per protocol, D/C Main IV fluid if appropriate
[facility] Medication administered onsite iopamidol (ISOVUE-370) 76 % 83219 03/05/2020 11:01:07 AM EDT active As needed, Starting Tue03/05/20 at 1101, Intra-Procedur e [facility] Medication administered onsite lidocaine 1 % injection 7334-9427-71 03/05/2020 10:49:20 AM EDT active As needed, Starting Tue03/05/20 a t 1049, Intra-Procedure [facility] Medication administered onsite fentaNYL Citrate (PF) (SUBLIMAZE) injection 8695-2771-06 03/05/2020 10:49:08 AM EDT active As neede d, Starting Tue03/05/20 at 1049, Intra-Procedure [facility] Medication administered onsite 2 ML Midazolam 1 MG/ML Injection midazolam (VERSED) in jection midazolam (VERSED) injection 03/05/2020 10:48:59 AM EDT active As needed, Starting Tue03/05/20 at 1048, Intra-Procedure [facility] Medication administered onsite sodium chloride 0.9% (NS) infusion 0480-3981-18 03/05/2020 08:00:00 AM EDT 100 mL/h Intravenous active at 100 m L/hr, 100 mL/hr, Intravenous, Continuous, Starting Tue03/05/20 at 0800, Pre-op
Start two hours prior to scheduled start time
[facility] Medication administered onsite normal saline flush 0.9 % injection 3 mL 96727-185-15 03/05/2020 08:00:00 AM EDT 3 mL Intravenous active 3 mL , Intravenous, Every 8 hours (scheduled), First dose on Tue03/05/20 at 0800, Pre-op
Rapid push positive pressure flushing shall be performed with a 10 cc normal saline syringe to check the PATENCY of a PIV site prior to any infusion therapy initiation unless resistance is met.
[facility] Medication administered onsite Acetaminophen 325 MG Oral Tablet acetaminophen (TYLENO L) 325 MG tablet 650 mg acetaminophen (TYLENOL) 325 MG tablet 650 mg 03/05/2020 07:23:07 AM EDT 650 mg Oral active 650 mg, Or al, Every 4 hours PRN, headaches, and non cardiac pain, Starting Tue03/05/20 at 0723, Pre-op
"Maximum dose of acetaminophen is 4,000 mg from all sources in 24 hours."
[facility] Medication administered onsite Atenolol 50 MG Oral Tablet ATENOLOL 12/10/2019 12:00:00 AM EDT tablet 90 TAKE ONE TABLET BY MOUTH AT BEDTIME TAKE ONE TABLET BY MOUTH AT BEDTIME SOLD: 06/10/2020 [facility] 50 mg 12/10/2019 12:00:00 AM EDT tablet 90 TAKE ONE TABLET BY MOUTH AT BEDTIME TAKE ONE TABLET BY MOUTH AT BEDTIME SOLD: 03/14/2020 [facility] 75 mg 10/05/2019 12:00:00 AM EDT tablet 90 TAKE ONE TABLET BY MOUTH EVERY DAY TAKE ONE TABLET BY MOUTH EVERY DAY SOLD: 04/06/2020 [facility] 5 mg 06/21/2019 12:00:00 AM EST tablet 90 TAKE ONE TABLET BY MOUTH EVERY DAY TAKE ONE TABLET BY MOUTH EVERY DAY SOLD: 03/26/2020 [facility] SYRINGE/NEEDLE, DISP, 1 ML 26G X 5/8" 1 ML [facility] [address] 03/02/2019 12:00:00 AM EDT aborted Use as directed. Urology Kit 1 [facility] Omeprazole 40 MG Delayed Release Oral Ca psule omeprazole (PRILOSEC) 40 MG capsule omeprazole (PRILOSEC) 40 MG capsule 03/01/2019 12:00:00 AM EDT 40 mg Oral aborted Take 40 mg by mouth every morning [facility] Penicillin V Potassium 500 MG Oral Table t penicillin v potassium (VEETID) 500 MG tablet penicillin v potassium (VEETID) 500 MG tablet 06/06/2018 12: 00:00 AM EST aborted TK 1 T PO QID [facility] clopidogrel 75 MG Oral Tablet clopidogrel (PLAVIX) 75 MG tablet clopidogrel (PLAVIX) 75 MG tablet 03/31/2018 12:00:00 AM EDT 75 mg Oral aborted Take 1 tablet (75 mg total) by mouth daily [facility] Spironolactone 25 MG Oral Tablet spironolactone (ALDAC TONE) 25 MG tablet spironolactone (ALDACTONE) 25 MG tablet 25 mg Oral aborted Take 25 mg by mouth daily [facility] Oxymetazoline hydrochloride 0.5 MG/ML Na ginna Mingus oxymetazoline (AFRIN) 0.05 % nasal spray oxymetazoline (AFRIN) 0.05 % nasal spray 1 {spray} N gracie aborted 1 spray into each nostril daily as needed for congestion [facility] sildenafil 25 MG Oral Tablet sildenafil (VIAGRA) 25 MG tablet sildenafil (VIAGRA) 25 MG tablet 25 mg Oral aborted Take 25 mg by mouth as needed for Erectile Dysfunction [facility] Spironolactone 25 MG Oral Tablet spironolactone (ALDAC TONE) 25 MG tablet spironolactone (ALDACTONE) 25 MG tablet 12.5 mg Oral aborted Take 12.5 mg by mouth daily [facility] Insurance Providers Payer name Policy type / Coverage type Policy ID Covered democrat ID Covered democrat's relationship to clay Policy Clay Plan Information linkedü Ins Workers Compensation [id number] Self [id number] linkedü Ins Workers Compensation [id number] Self [id number] linkedü Ins Workers Compensation [id number] Self [id number] linkedü Ins Workers Compensation [id number] Self [id number] BCBS [place] Medigap Part B [id number] Self BCBS [place] Medigap Part B [id number] 2.16.840.1.774852.3.227.99 .572.63992.0 Self [id number] BCBS [place] Medigap Part B [id number] 2.16.840.1.998554.3.227.99 .572.14831.0 Self [id number] BC[employer] [place] Medigap Part B [id number] 2.16.840.1.702708.3.227.99 .572.20503.0 Self [id number] BCBS [place] Medigap Part B [id number] 2.16.840.1.167840.3.227.99 .572.32554.0 Self [id number] BCBS [place] Medigap Part B [id number] MRN.[id number] Self [id number] BCBS [place] Medigap Part B [id number] 2.16.840.1.955396.3.227.99 .572.28954.0 Self [id number] BCBS [place] Medigap Part B [id number] 2.16.840.1.313944.3.227.99 .572.55477.0 Self [id number] BCBS [place] Medigap Part B [id number] 2.16.840.1.853205.3.227.99 .572.64015.0 Self [id number] BCBS [place] Medigap Part B [id number] 2.16.840.1.881872.3.227.99 .572.74741.0 Self [id number] BCBS [place] Medigap Part B [id number] 2.16.840.1.100884.3.227.99 .572.98520.0 Self [id number] BCBS [place] Medigap Part B [id number] 2.16.840.1.584287.3.227.99 .572.98057.0 Self [id number] BCBS [place] Medigap Part B [id number] 2.16.840.1.774233.3.227.99 .572.21903.0 Self [id number] BCBS [place] Medigap Part B [id number] MRN.[id number] Self [id number] BCBS [place] Medigap Part B [id number] 2.16.840.1.849167.3.227.99 .572.33174.0 Self [id number] BCBS [place] Medigap Part B [id number] 2.16.840.1.845029.3.227.99 .572.22224.0 Self [id number] BCBS [place] Medigap Part B [id number] 2.16.840.1.773478.3.227.99 .572.44197.0 Self [id number] BCBS [place] Medigap Part B [id number] 2.16.840.1.292469.3.227.99 .572.51869.0 Self [id number] Blue Epo Ppo Medigap Part B [id number] MRN.[id number] Self [id number] Blue Epo Ppo Medigap Part B [id number] 2.16.840.1.487955.3.227.99 .572.11842.0 Self [id number] Blue Epo Ppo Medigap Part B [id number] 2.16.840.1.132714.3.227.99 .572.06128.0 Self [id number] Blue Epo Ppo Medigap Part B [id number] 2.16.840.1.111877.3.227.99 .572.74875.0 Self [id number] Blue Epo Ppo Medigap Part B [id number] MRN.[id number] Self [id number] Blue Epo Ppo Medigap Part B [id number] 2.16840.1.004954.3.227.99 .572.13704.0 Self [id number] Blue Epo Ppo Medigap Part B 14778 Self Blue Epo Ppo Medigap Part B [id number] 2.16840.1.806327.3.227.99 .572.60322.0 Self [id number] Blue Epo Ppo Medigap Part B [id number] 2.16840.1.182006.3.227.99 .572.04360.0 Self [id number] Blue Epo Ppo Medigap Part B [id number] 2.16.840.1.222392.3.227.99 .572.43418.0 Self [id number] Blue Epo Ppo Medigap Part B [id number] 2.16.840.1.071765.3.227.99 .572.15027.0 Self [id number] Blue Epo Ppo Medigap Part B [id number] 2.16.840.1.304267.3.227.99 .572.76679.0 Self [id number] Blue Epo Ppo Medigap Part B [id number] 2.16.840.1.292163.3.227.99 .572.36883.0 Self [id number] Blue Epo Ppo Medigap Part B [id number] 2.16.840.1.969605.3.227.99 .572.70603.0 Self [id number] Blue Epo Ppo Medigap Part B [id number] 2.16.840.1.207843.3.227.99 .572.35488.0 Self [id number] Blue Epo Ppo Medigap Part B [id number] 2.16.840.1.834238.3.227.99 .572.76953.0 Self [id number] Blue Epo Ppo Medigap Part B [id number] 2.16.840.1.597757.3.227.99 .572.21709.0 Self [id number] Blue Epo Ppo Medigap Part B [id number] 2.16.840.1.155544.3.227.99 .572.58508.0 Self [id number] [employer] () Workers Compensation [id number] 2.16.840.1.253036.3.227.99.991.282568.0 Self [id number] [employer] BCBS Medigap Part B 8035 Self [employer] BCBS Medigap Part B [id number] 2.16.840.1.26423 3.3.227.99.8646.7094.0 Self [id number] BC/BS [place] Medigap Part B 60286 Self BCBS Excell[place] U/W Medigap Part B [id number] 2.16.840.1.928987.3.227.99.572.78884.0 Self Y [id number] BCBS Excell[place] Ppo U/W Medigap Part B [id number] 2.16.840.1.308966.3.227.99.572.46452.0 Self Y [id number] BCBS Excell[place] Ppo U/W Medigap Part B 64927 Self BS [place] Medigap Part B [id number] 2.16840.1.976187.3.227.99.991.298792.0 Self [id number] BS [place] Medigap Part B [id number] Self MEDICARE BLUE PPO 306 [id number] SP [id number] BCBS Medicare Blue U/W Commercial [id number] 2.0.1.457094.3.227.99.572.37143.0 Self Z [id number] BCBS Medicare Blue U/W Commercial [id number] 2.0.1.763576.3.227.99.572.28758.0 Self Z [id number] BCBS Medicare Blue U/W Commercial [id number] 2.0.1.875396.3.227.99.572.93235.0 Self Z [id number] BCBS - Medicare Blue Ppo Commercial [id number] Self BCBS Medicare Blue U/W Commercial [id number] 2.0.1.680973.3.227.99.572.81380.0 Self Z [id number] BCBS Medicare Blue U/W Commercial [id number] MRN.[id number] Self [id number] BCBS Medicare Blue U/W Commercial [id number] 2.0.1.390603.3.227.99.572.96722.0 Self Z [id number] BCBS Medicare Blue U/W Commercial [id number] 2.0.1.153584.3.227.99.572.68701.0 Self Z [id number] BCBS Medicare Blue U/W Commercial [id number] 2.16.840.1.062025.3.227.99.572.08017.0 Self Z [id number] BCBS Medicare Blue U/W Commercial [id number] 2.0.1.784269.3.227.99.572.23773.0 Self Z [id number] BCBS Medicare Blue U/W Commercial [id number] 2.0.1.097029.3.227.99.572.62992.0 Self Z [id number] BCBS Medicare Blue U/W Commercial [id number] 2.0.1.508951.3.227.99.572.21541.0 Self Z [id number] BCBS Medicare Blue U/W Commercial [id number] 2.0.1.904278.3.227.99.572.59289.0 Self Z [id number] BCBS Medicare Blue U/W Commercial [id number].[id number] Self [id number] BCBS Medicare Blue U/W Commercial [id number] Self BCBS Medicare Blue U/W Commercial [id number] 2.0.1.873665.3.227.99.572.88804.0 Self Z [id number] BCBS Medicare Blue U/W Commercial [id number] 2.0.1.748645.3.227.99.572.02960.0 Self Z [id number] BCBS Medicare Blue U/W Commercial [id number] 2.0.1.465662.3.227.99.572.81866.0 Self Z [id number] BCBS Medicare Blue U/W Commercial [id number] 2..1.858134.3.227.99.572.58711.0 Self Z [id number] BCBS Medicare Blue U/W Commercial [id number] 2.16.840.1.974583.3.227.99.572.40371.0 Self V [id number] BCBS Medicare Blue U/W Commercial [id number] MRN.[id number] Self [id number] BCBS Medicare Blue U/W Commercial [id number] 2.0.1.624159.3.227.99.572.53639.0 Self V [id number] BCBS Medicare Blue U/W Commercial [id number] 2.0.1.772522.3.227.99.572.90446.0 Self V [id number] BCBS Medicare Blue U/W Commercial [id number] 2.0.1.559995.3.227.99.572.02463.0 Self V [id number] BCBS Medicare Blue U/W Commercial [id number] Self BCBS Medicare Blue U/W Commercial [id number] 2.0.1.788869.3.227.99.572.59376.0 Self V [id number] Medicare Blue Ppo Commercial [id number] Self BCBS - Medicare Blue Ppo Commercial [id number] Self EXCELLUS MEDICARE BLUE PPO G [id number] Self [id number] BCBS Medicare Blue U/W Commercial [id number] 2.0.1.573577.3.227.99.572.09412.0 Self V [id number] BCBS Medicare Blue U/W Commercial [id number] 2.0.1.654568.3.227.99.572.67743.0 Self V [id number] BCBS Medicare Blue U/W Commercial [id number] 2.0.1.046526.3.227.99.572.92164.0 Self V [id number] [employer]CELL[employer] MEDICARE BLUE PPO G [id number] Self [id number] BCBS Medicare Blue U/W Commercial [id number] 2.16.840.1.684500.3.227.99.572.80607.0 Self V [id number] Medicare Blue Ppo Commercial [id number] 2.0.1.113 883.3.227.99.8646.7094.0 Self [id number] BCBS Medicare Blue U/W Commercial [id number] 2.0.1.585027.3.227.99.572.20431.0 Self V [id number] BCBS Medicare Blue U/W Commercial [id number] 2.0.1.384431.3.227.99.572.50504.0 Self V [id number] BCBS Medicare Blue U/W Commercial [id number] 2.0.1.187474.3.227.99.572.27159.0 Self V [id number] BCBS Medicare Blue U/W Commercial [id number] Self [id number] BCBS Medicare Blue U/W Commercial [id number] 2.0.1.856800.3.227.99.572.59986.0 Self V [id number] BCBS Medicare Blue U/W Commercial [id number] 2.0.1.705738.3.227.99.572.85106.0 Self V [id number] BCBS Medicare Blue U/W Commercial [id number] 2..1.432086.3.227.99.572.21831.0 Self [id number] Blue Shield MCR Advantage Commercial [id number] Self MEDICARE BLUE PPO 306 [id number] SP [id number] EXCELLUS MEDICARE BLUE PPO G [id number] Self [id number] MEDICARE BLUE PPO 306 [id number] SP [id number] MEDICARE BLUE PPO 306 [id number] SP [id number] EXCELLUS MEDICARE BLUE PPO G [id number] Self [id number] MEDICARE BLUE PPO 306 [id number] SP [id number] MEDICARE BLUE PPO 306 [id number] SP [id number] MEDICARE BLUE PPO 306 [id number] SP [id number] Blue Shield MCR Advantage Commercial [id number] 2.16.840.1.261525.3.227.99.991.319491.0 Self [id number] Blue Shield MCR Advantage Commercial [id number] 2.160.1.308467.3.227.99.991.311416.0 Self [id number] Blue Shield MCR Advantage Commercial [id number] 2.840.1.907348.3.227.99.991.550836.0 Self [id number] Blue Shield MCR Advantage Commercial [id number] 2..840.1.652267.3.227.99.991.651428.0 Self [id number] [employer] MEDICARE COMPLETE G [id number] Self [id number] EXCELLUS MEDICARE BLUE PPO G [id number] Self [id number] BCBS MCARE BLUE PPO O [id number] S [id number] MEDICARE BLUE PPO 306 [id number] SP [id number] MEDICARE BLUE PPO 306 [id number] SP [id number] AETNA MEDICARE MEBVCDTB SP MEBVC DTB AETNA MEDICARE MEBVCDTB SP MEBVC DTB EXCELLUS BCBS B [id number] S [id number] EXCELLUS BCBS MEDICARE [id number] Bessy [id number] EXCELLUS BCBS MEDICARE Medicare [id number] MEDICARE BLUE PPO 306 [id number] SP [id number] MEDICARE [id number] SP [id number] SELF PAY ONLY [id number] SP [id number] BCBS HMO BLUE [id number] SP VYM BCBS HMO BLUE [id number] SP [id number] BCBS Hmoblue Medigap Part B [id number] 2.0.1.978503.3.227.99 .572.38166.0 Self [id number] BCBS Hmoblue Medigap Part B [id number] Self [id number] BCBS Hmoblue Medigap Part B [id number] Self [id number] BCBS Hmoblue Medigap Part B [id number] 2.0.1.374872.3.227.99 .572.77569.0 Self [id number] BCBS Hm[place]ue Medigap Part B [id number] 2..1.471054.3.227.99 .572.23317.0 Self [id number] BCBS Hmoblue Medigap Part B [id number] 2..1.672042.3.227.99 .572.92887.0 Self [id number] EXCELLUS BCBS MEDICARE Medicare [facility] BCBS Hmoblue Medigap Part B [id number] 2..1.600636.3.227.99 .572.79232.0 Self [id number] BCBS Hmoblue Medigap Part B [id number] 2.0.1.390520.3.227.99 .572.24871.0 Self [id number] [place] BCBS Medigap Part B [id number] 2.0.1.85559 3.3.227.99.8646.7094.0 Self [id number] Medicare Blue Ppo Commercial [id number] 2..1.113 883.3.227.99.8646.7094.0 Self [id number] EXCELLUS BLUE CROSS BLUE SHIELD HEA [id number] S [id number] BCBS Hmoblue Medigap Part B [id number] 2.0.1.772611.3.227.99 .572.11077.0 Self [id number] BCBS Hmoblue Medigap Part B [id number] 2.0.1.205805.3.227.99 .572.29609.0 Self [id number] BCBS Hmoblue Medigap Part B [id number] 2..1.003700.3.227.99 .572.58701.0 Self [id number] BS [place] Commercial [id number] 2..[id number] Self V [id number] [employer] [place] Med[place]ap Part B [id number] 2..[id number] .[id number] Self [id number] [place] [employer] [id number] 2..[id number] Self V [id number] [employer] [place] [employer] [place] [id number] 2..[id number] .[id number] Self [id number] [employer] [place] [employer] [place] [id number] [id number] .[id number] Self [id number] [employer] [place] [employer] [place] [id number] [id number] .[id number] Self [id number] [employer] [place] [employer] [place] B [id number] [id number] .[id number] Self [id number] [employer] [place] [employer] [place] B [id number] [id number] .[id number] Self [id number] MEDICARE [id number] SP [id number] A BC[employer] [place] Med[place] Part B [id number] Self [place] BCBS Medigap Part B [id number] Self Medicare Blue Ppo Commercial [id number] Self MEDICARE BLUE PPO P [id number] S [id number] BCBS MCARE BLUE PPO O [id number] S [id number] MEDICARE BLUE PPO [id number] SP [id number] Problems, Conditions, and Diagnoses Code Display Name Description Problem Type Effective Dates Data Source(s) 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 Di agnosis 11/27/2020 10:22:11 AM EDT [facility] R07.9 Chest pain, unspecified Chest pain, unspecified Diagno sis 03/05/2020 06:58:00 AM EDT [facility] R94.39 Abnormal result of other cardiovascular function study Abnormal result of other cardiovascular Diagnosis 03/05/2020 06:58:00 AM EDT [facility] R42 Dizziness and giddiness Dizziness and giddiness Proble m 01/27/2021 12:00:00 AM EDT SOFIA ([facility]) Z79.02 jail (current) use of antithromboti cs/antiplatelets Platelet inhibition due to Plavix Problem 01/07/2021 12:00:00 AM EDT eCW1 ([facility]) C44.311 [id number] Basal cell carcinoma of nose Problem 09/03/2020 12:00:00 AM EST eCW1 ([facility]) C44.311 [id number] Basal cell carcinoma (BCC) of skin of nos e Problem 08/06/2020 12:00:00 AM EST eCW1 ([facility]) Surgeries/Procedures Procedure Description Date Indications Data Source(s) OFFICE OUTPATIENT VISIT 25 MINUTES 03/12/2021 12:00:00 AM EDT MEDENT ([facility]) CT ABDOMEN & PELVIS W/O CONTRST 1/> BODY REGIONS <td>C T ABDOMEN PELVIS WITH AND WITHOUT CONTRAST 23290</td><td>Routine</td><td>03/10/2021 10:00 AM EDT</td><td> Hematuria, unspecified type</td><td> </td> 03/10/2021 10:00:10 AM EDT Hematuria, unspecified type [facility] l Hematuria, unspecified type X-Ray Hip Unilateral With Pelvis 2-3 Views 02/24/2021 12:00:00 AM EDT MEDENT ([facility] ) OFFICE OUTPATIENT VISIT 15 MINUTES 02/24/2021 12:00:00 AM EDT MEDENT ([facility] ) CV STRS TST XERS&/OR RX CONT ECG PHYS SI&R 02/09/2021 12:00:00 AM EDT MEDENT ([facility]) ECG ROUTINE ECG W/LEAST 12 LDS W/I&R 01/27/2021 12:00: 00 AM EDT MEDENT ([facility]) OFFICE OUTPATIENT VISIT 25 MINUTES 01/27/2021 12:00:00 AM EDT MEDENT ([facility]) ECHO TTHRC R-T 2D W/WOM-MODE COMPL SPEC&COLR DOP 01/08 12:00:00 AM EDT MEDENT ([facility]) OFFICE OUTPATIENT VISIT 15 MINUTES 12/16/2020 12:00:00 AM EDT MEDENT ([facility]) 11/13/2020 12:00:00 AM EDT e CW1 ([facility]) ECG ROUTINE ECG W/LEAST 12 LDS W/I&R 11/11/2020 12:00: 00 AM EDT MEDENT ([facility]) OFFICE OUTPATIENT VISIT 25 MINUTES 11/11/2020 12:00:00 AM EDT MEDENT ([facility]) Medication: Kenalog 40mg/1mL [place] (Triamcinolone) 2020 12:00:00 AM EDT eCW1 ([facility]) Med: Derm Lidocaine with Epinephrine Inj ection 1% with 2 ml sodium bicarbonate Intradermally to marked areas 11/06/2020 12:00:00 AM EDT eCW1 ([facility]) Med: Derm Lidocaine with Epinephrine Inj ection 1% with 2 ml sodium bicarbonate Intradermally to marked areas 09/24/2020 12:00:00 AM EDT eCW1 ([facility]) Medication: Kenalog 40mg/1mL [place] (Triamcinolone) 2020 12:00:00 AM EDT eCW1 ([facility]) Med: Rheum Kenalog 40mg/1mL [place] Triamcinolone 12:00:00 AM EST eCW1 ([facility]) Medication: 0.9 % Sodium Chloride [place] 09/03/2020 12:00: 00 AM EST eCW1 ([facility]) External ECG Rec>48HR<7D Recording 08/29/2020 12:00:00 AM EST MEDENT ([facility]) External ECG Rec>48HR<7D Review & Interpretation 08/29 12:00:00 AM EST MEDENT ([facility]) ECG ROUTINE ECG W/LEAST 12 LDS W/I&R 08/27/2020 12:00: 00 AM EST MEDENT ([facility]) OFFICE OUTPATIENT VISIT 25 MINUTES 08/27/2020 12:00:00 AM EST MEDENT ([facility]) Med: Derm Lidocaine with Epinephrine Inj ection 1% with 2 ml sodium bicarbonate Intradermally to marked areas 08/06/2020 12:00:00 AM EST eCW1 ([facility]) Medication: Keflex 500mg capsule Orally (Cephalexin) 08/06/2020 12:00:00 AM EST eCW1 ([facility]) ECG ROUTINE ECG W/LEAST 12 LDS W/I&R 06/25/2020 12:00: 00 AM EST MEDENT ([facility]) X-Ray Hip Unilateral With Pelvis 2-3 Views 06/11/2020 12:00:00 AM EST MEDENT ([facility]) CARDIAC CATHETERIZATION <td>CARDIAC CATHETERIZATION</td><td>Routine</td><td>03/05/2020 11:03 AM EDT</td><td> Abnormal result of other cardiovascular function study Chest pain</td><td> </td> 03/05/2020 03:03:14 PM EDT Chest painAbnormal result of other cardiovascular func tion study [facility] Chest pain Abnormal result of other cardiovascular function study THROMBOPLASTIN TIME PARTIAL PLASMA/WHOLE BLOOD <td>APTT</td><td>Routine</td><td>03/05/2020 7:41 AM EDT</td><td></td><td> </td> 03/05/2020 11:41:00 AM EDT [facility] PROTHROMBIN TIME <td>PROTIME-INR</td><td>Rout ine</td><td>03/05/2020 7:41 AM EDT</td><td></td><td> </td> 03/05/2020 11:41:00 AM EDT [facility] BLOOD COUNT COMPLETE AUTOMATED <td>CBC</td><td>Routine </td><td>03/05/2020 7:41 AM EDT</td><td></td><td> </td> 03/05/2020 11:41:00 AM EDT [facility] BASIC METABOLIC PANEL CALCIUM TOTAL <td>BASIC METABOLI C PANEL</td><td>Routine</td><td>03/05/2020 7:41 AM EDT</td><td></td><td> </td> 03/05/2020 11:41:00 AM EDT [facility] ECG ROUTINE ECG W/LEAST 12 LDS TRCG ONLY W/O I&R <td>E CG 12- LEAD</td><td>Routine</td><td>03/05/2020 7:13 AM EDT</td><td></td><td></td> 03/05/2020 11:13:50 AM EDT [facility] Left Heart Cath W/Wo LV & Coronary Angiography 020 12:00:00 AM EDT SOFIA ([facility]) Results ID Date Data Source [id number] 03/10/2021 12:54:16 PM EDT [facility] Name Value Range Interpretation Code Description Data Fariha rce(s) Supporting Document(s) Progress Note [facility] THIHFl2yTtDVJkCb60/TTNreHNXos2BhVAwkBOo6IUejPTQtP7XaQHV1uN1kHNV2JKmDDzAiBrWzGXB7 lbm [file] ICAgICAgICAgICAgICAgICAgICAgICAgICAgICAgICAgICAgICAgICAgICAgICAgICAgICAgICAgICAg ICAgICAgICAgICAgICAgICAgICAgICANCiAgICAgICAgICAgICAgICAgICAgICAgICAgICAgICAgICAg ICAgICAgICAgICAgICAgICAgICAgICAgICAgICAgIC AgICAgICAgICAgICAgICAgICAgICAgICAgICAgICAgICANCiAgICAgICAgICAgICAgICAgICAgICAgIC AgICAgICAgICAgICAgICAgICAgICAgICAgICAgICAgICAgICAgICAgICAgICAgICAgICAgICAgICAgIC AgICAgICAgICAgICAgICANCiAgICAgICAgICAgICAg ICAgICAgICAgICAgICAgICAgICAgICAgICAgICAgICAgICAgICAgICAgICAgICAgICAgICAgICAgICAg ICAgICAgICAgICAgICAgICAgICAgICAgICANCiAgICAgICAgICAgICAgICAgICAgICAgICAgICAgICAg ICAgICAgICAgICAgICAgICAgICAgICAgICAgICAgIC AgICAgICAgICAgICAgICAgICAgICAgICAgICAgICAgICAgICANCiAgICAgICAgICAgICAgICAgICAgIC AgICAgICAgICAgICAgICAgICAgICAgICAgICAgICAgICAgICAgICAgICAgICAgICAgICAgICAgICAgIC AgICAgICAgICAgICAgICAgICANCiAgICAgICAgICAg ICAgICAgICAgICAgICAgICAgICAgICAgICAgICAgICAgICAgICAgICAgICAgICAgICAgICAgICAgICAg ICAgICAgICAgICAgICAgICAgICAgICAgICAgICANCiAgICAgICAgICAgICAgICAgICAgICAgICAgICAg ICAgICAgICAgICAgICAgICAgICAgICAgICAgICAgIC AgICAgICAgICAgICAgICAgICAgICAgICAgICAgICAgICAgICAgICANCiAgICAgICAgICAgICAgICAgIC AgICAgICAgICAgICAgICAgICAgICAgICAgICAgICAgICAgICAgICAgICAgICAgICAgICAgICAgICAgIC AgICAgICAgICAgICAgICAgICAgICANCiAgICAgICAg ICAgICAgICAgICAgICAgICAgICAgICAgICAgICAgICAgICAgICAgICAgICAgICAgICAgICAgICAgICAg ICAgICAgICAgICAgICAgICAgICAgICAgICAgICAgICANCjw/lIDcY9vdbNQriaP3A3ioGv6ONq2NJE6w e3JpVPKmKClrzdKsEngXUeNlMLNyPycGDer9KMxcBL 4OjUBhM7ZyH1KrTRxlGA7FYNTdRINqxYXoFNNxWZNgCrX2AGSeMMheFX3KhQDcVJbgLRSrPXQoNsQsDO UfHJJzPHDqFVHsKUGRIUJtWQGsGcJsRZRyVXNbII0BZJSwQ482laZlIx3NJh2TPxRoYS6ldl9DJiLhBZ PzYndTEqx3XTfyPE3KbVRdtEIrLzIcSHNBZrAeF4kt g8NxDwFtNQCYEIbaAK9Cy0DgkVGaKRd+In5GPQ1ix5EiMMwiTlBuUI9knv6VNHaZOoVuD5RcsSjgJDBc g0ljENVfEM1dxQDzTCW8JY8iITosP2kfxNjneiieCKUaLORlZW5pGY1vCPCpGCWyOiCrDZGCAN5YPLHi HDUzdIMjVVKyIXAZFX2EYBdrBHK2NKOahaKbxEVmDD zzLW7WMVFrolYjZoLcDDKVVYs+Fl5SIC0xw8WxRFqiIANiZM0jzj6HYSzZEvUrV9L7wXWqD4Y0EPicZm 0DJFQxJKOnHrKrHFLDUPitEQ3SPK7ndeX6ED1FqESiWJBlAROygYBsPQi7Y51oePFbZFjrWU0QHKY+Pi A+Qs9GFXWjBFMmQPXeZdSzXTZLZkGdS2XqS1HMa1Xy A1XuEB69uUiupjUnSPmeGY3TVJ8wERBtFFLZGD6TrIGabM3rcvDrMpSbVRXMWwMwJ25igPRcCINiFASp PMAeHm3OUQPkF7FcklHsdZibjsSbOUHgADFIRE1OTWmhhgTpxPIcbAmyXI59pVcqVC2FWn7SHyQwEX6g cw5TnQUeMr6KXXVaUJ9WDMAuTBVvPQJfCBN3POUfGd ZaRDksHMSdGSKuQLL2CEPjQUQeID8TSeMhRBUyDjF0IEjaFWDqHGZlbx1DIWKgAOHqQkV7EbDyCJOlAL JwFRtyXWSpQHJxWRA4PIJeRBMeZS4LWxKpUGZyWVM2OuYnZMQtQXWwxq7KTORhAHRoWoyjNsSuHTAxOG SoLDgfTYCuFLT9SCAdONJzFVVqOF0XGbXwMUOxECGn GIbhPCXtVXBnbo1PUICxRATcENMvYAMtVYHyIIWdTVcaOIQgMBK8XiK4URCbVPSxGN9QTlEzAHWxGNVh WivnHVQzQRIwat8CTABaNDWeIjBpYYMpBOXvVXUfHDrbJYZoNZB0TTClNXSzDOMiUI4KYtMuBSIvYRNk OBtlFJVoHJFgbl2LACTtKMGoSmb2FGRbUJMcSTSaTM usJUJaOLM1OIu9EMOoNMUlBO6YUuQcNMZiKIhkOgocTARcTANoys3GZHKmYLAaGGAkYYHeDQAtYCAwLH fsFQKxUFP0MRH1ZEFaELMnYK1MMlOrQMUsFuCaCtWvPGAkKTCjxe0YPNTlMDPtEOM0HLQjQLGuZMWmNC gfQHCtVSNkNzF5CNAcKLUaOO9KYeUkCPDcImPwMCNd UKEdJDSdcp3DMLUdIVTwDlVzYJLkNOSmPLQuVGrrUBJlPCKgTlXvDWYwXHHwBD2MSbWwLSHiNiX4XJDl RNEnXKEwps7VIXBdGWEhYeKmOqQoJDZuOIUrPLwrRFZoTNM7LOaxWCEpHFMsVB0VBgLuGXChDkRjRUcl KHSzPXZbkc1JZQYwHHRwTGZcJxIfTQJsZPHzRHxnVM PlXWD1SCMdKNMpCXKjOL5ZBgJnMSFyZpVlFzIhPXGaALIngj9JHBYnWEXnNeR5FCWaZUHeXXVgTUkyRI BqNZF6YQRjNERsGZYjEJ4PIoFbUDeyTJYMLxs0HGnpB6q7DFXcYO0CH1Bfs9PiSmUhGWVCCTdaOU2mch NzNANmKc9BM2iCCcilRGJ6OILrADS2ROBqOcz6JKU8 P0JnZVliVYEgZNRpMG0kBUXyYpedBCV6VTV2MqC3TBZfCkFnNMZiFSTgUtT0HEUcBnPmGM7CVg9IUyP2 KWJ5eFIaQo7WMgB6LYZNZhZaKT5MBZq= ID Date Data Source [id number] 03/10/2021 12:15:23 PM EDT [facility] CT ABDOMEN PELVIS WITH AND WITHOUT CONTR AST [id number] RESULTInterpreted by:Tai Kothari MDINDICATION: 65-year-old male with hematuria.TECHNIQUE: Multidetector row helical CT of the abdomen [...] to patient size were utilized for this exam.COMPARISON: CT abdomen and pelvis dated 12/09/2016.FINDINGS: LUNGS AND MEDIASTINUM: Subsegmental atelectasis is noted in the lung bases bilaterally. There are coronary artery calcifications. The heart appears enlarged.LIVER: There are multiple fluid attenuation cystic lesions in the liver which have increased in size from the prior study and exhibits thin internal enhancing septations. Additionally there are multiple subcentimeter hypoattenuating lesions which are too small to characterize by CT, some of which have also increased in size from the prior study. Liver is normal in size, contour, and density.GALLBLADDER AND BILIARY TREE: There are small layering gallstones or sludge within the dependent portion of the gallbladder. No pericholecystic fluid or wall thickening. No intra- or extrahepatic biliary ductal dilation.PANCREAS: Unremarkable, no focal lesions. No pancreatic ductal dilatation.SPLEEN: Normal in size. No focal lesions. There is a 2.9 x 1.3 cm splenule along the posterior border and a 0.9 cm splenule inferior to the hilum.ADRENALS: Unremarkable bilaterally.RIGHT KIDNEY: New 0.8 cm low-density lesion along [...] hydronephrosis. The right ureter is well-opacified and unremarkable.LEFT KIDNEY: There is a fluid attenuation cyst [...] and no hydronephrosis. The left ureter is well- opacified and unremarkable.BOWEL: Evaluation of the bowel is limited bilateral contrast. Stomach is normal. The small and large bowel are normal in caliber. The appendix is not visualized, there is no pericecal inflammatory process. There is a moderate amount of stool throughout the colon. There is colonic diverticulosis without evidence for diverticulitis.FREE AIR/FLUID: No free intraperitoneal air. No significant free fluid.LYMPH NODES: No pathologically enlarged lymph nodes.VESSELS: The abdominal aorta is normal in caliber and the origins of its major branches are patent. There are two left renal arteries.BLADDER: The bladder is well distended and unremarkable. No evidence of wall thickening or intraluminal filling defect within the opacified portion of the bladder lumen.REPRODUCTIVE ORGANS: Brachytherapy beads are noted in the prostate. The seminal vesicles are symmetric bilaterally.BODY WALL: There are small fat-containing hernias bilaterally. Soft tissues of the visualized body wall are otherwise unremarkable.BONES: There are mild multilevel degenerative changes throughout the visualized thoracolumbar spine. No suspicious osseous lesions are identified. A right hip total arthroplasty is noted.IMPRESSION:1. A fluid attenuation cyst in the lateral aspect of the left interpolar region exhibits wall thickening along the lateral aspect and a punctate calcification, compatible with a Bosniak 2F cyst. Recommend continued follow-up. 2. A 0.8 cm hypodense lesion in the posterolateral aspect of the right renal midpole (series 304 image 133) is too small to accurately characterize but appears to be new from the prior study. This may also be followed up on subsequent studies.3. The kidneys otherwise enhance and excrete symmetrically without evidence of renal calculus or filling defect within the opacified portions of the collecting system or bladder.4. Multiple liver cysts and subcentimeter hypodensities which are too small to accurately characterize, some of which have increased in size from the prior study.5. Small layering gallstones or sludge without evidence for cholecystitis.6. Colonic diverticulosis without evidence for diverticulitis.This document has been electronically signed by Cassie Meraz DO on 03/10/2021 12:13 PM Name Value Range Interpretation Code Description Data Fariha rce(s) Supporting Document(s) ID Date Data Source [id number] 03/16/2021 11:59:03 AM [facility] Value Range Interpretation Code Description Data Fariha rce(s) Supporting Document(s) Creatinine [Mass/volume] in Blood 1.2 mg/dL 0.70-1.20 [facility] ID Date Data Source [id number] 03/05/2021 11:50:19 AM [facility] Name Value Range Interpretation Code Description Data Fariha rce(s) Supporting Document(s) Progress Note [facility] FRBPTf1aWeFFQeMr43/PNIbtXRJpb2BpACusHXu6RIofHRZfP9MwANO3qJ5bWIN9HIrWYvEeDoYfHZT1 lbm XtSxzDCjJdIJUkAgaVRqMoJFjlZhpezUJuGV3MkXS3SWEsM22nQCPpZVHhT5RgXGA2LQX+Gj2WFBDnqS ToKK5MBgnD4Y0xpjSZNg7lXI+CwPM6K6ORyr4h9sMzPRhnOQi68rmqFTU5+yBLtKyMLDmSPIn/Lenin+6FC [file] rn medical inpatient services+C3ScOF2+rJNQ1jEeU4lAKh+EW19tqCkJ0VP8514uxtz72bxiUcCH23Ziif/sF+/k0vHtzin24w+t6 [file] AgICAgICAgICAgICAgICAgICAgICAgICAgICAgICAgICAgICAgICAgICAgICAgICAgICAgICAgICAgIC AgICAgICAgICAgICAgICAgICAgICAgICANCiAgICAgICAgICAgICAgICAgICAgICAgICAgICAgICAgIC AgICAgICAgICAgICAgICAgICAgICAgICAgICAgICAg ICAgICAgICAgICAgICAgICAgICAgICAgICAgICAgICAgICANCiAgICAgICAgICAgICAgICAgICAgICAg ICAgICAgICAgICAgICAgICAgICAgICAgICAgICAgICAgICAgICAgICAgICAgICAgICAgICAgICAgICAg ICAgICAgICAgICAgICAgICANCiAgICAgICAgICAgIC AgICAgICAgICAgICAgICAgICAgICAgICAgICAgICAgICAgICAgICAgICAgICAgICAgICAgICAgICAgIC AgICAgICAgICAgICAgICAgICAgICAgICAgICANCiAgICAgICAgICAgICAgICAgICAgICAgICAgICAgIC AgICAgICAgICAgICAgICAgICAgICAgICAgICAgICAg ICAgICAgICAgICAgICAgICAgICAgICAgICAgICAgICAgICAgICANCiAgICAgICAgICAgICAgICAgICAg ICAgICAgICAgICAgICAgICAgICAgICAgICAgICAgICAgICAgICAgICAgICAgICAgICAgICAgICAgICAg ICAgICAgICAgICAgICAgICAgICANCiAgICAgICAgIC AgICAgICAgICAgICAgICAgICAgICAgICAgICAgICAgICAgICAgICAgICAgICAgICAgICAgICAgICAgIC AgICAgICAgICAgICAgICAgICAgICAgICAgICAgICANCiAgICAgICAgICAgICAgICAgICAgICAgICAgIC AgICAgICAgICAgICAgICAgICAgICAgICAgICAgICAg ICAgICAgICAgICAgICAgICAgICAgICAgICAgICAgICAgICAgICAgICANCiAgICAgICAgICAgICAgICAg ICAgICAgICAgICAgICAgICAgICAgICAgICAgICAgICAgICAgICAgICAgICAgICAgICAgICAgICAgICAg ICAgICAgICAgICAgICAgICAgICAgICANCiAgICAgIC AgICAgICAgICAgICAgICAgICAgICAgICAgICAgICAgICAgICAgICAgICAgICAgICAgICAgICAgICAgIC AgICAgICAgICAgICAgICAgICAgICAgICAgICAgICAgICANCjw/dCDlS5utjGRubbI6X2htDp5OIa6MGO 6wy5WfZDZvRDcierJxUgpSBlJvJDKrDfsHNai2XGdv OE5CxEBlN9YeC0DhNSibRM8BWUOiAKKkfHEmVDFtGGAoQjA1JWSrNIhaBN5ElUHaDGpdEDOqVFHyOqVh XPHsDPXaCZSpXB4VPFUnW029hxFyFy7BIc7FJlSjNA1ikm4YIeNrNYMdWtkBMix4EVpoXQ7IfNMrfVSq HZNkBKHIKrAjW9gno8ZnYvDdRZKKYKwnPL4Mu4JkfM AxDQo+Ii7IDG5zf1ZmZIskKSMyCM1jwq5VZVzFFoAfT2EloShwMLLio3rnFYSuKU9bdVKdKVV2MMvdNs RCptHmc6FvaHjcRSLoQHBlLN38CtBrIsRyEMH3KJMkCY0sZDyvTO9IAAI9RFlqOHXiBBVtD7cIFnIyIG ZhDOKqyBocZB8YFwQcR3KoxpKsvZKoVqRrKAIMPr2+ BRkkrcEgDnvYOuA9DVKso7GoOFq1DV5FFFIaTJlzSX2ZZHNnnV8cHKzpOJ5TCcZqKIYrKFFRIrBvM65d tUMtZQx2I5WvBaEqWJXtZydlCTFjOAqwOtAiMGScTgSmUYnnWB5+ID4+HFngHI7ATKdmgyMlTYDdAy8C HXIbSJRrSU6bTILjXQJgP1N2wZutAXXSYnLrI2hlya utBN2kOCNhW941eCaeoqItLPKmSWAcQl0XSDLfZGE7FQKzwCNkYhUvCCAEVZcoQA2NjHUqQXB4mW3mHK xmXSNcNGCsY7wXYkPcpPqoOI34oZcoemDdxXXhEOm+Ju3QEQ5wk6KpQSh6mmMlFJzsQYE3TQwaTPOmDU OzBJWmVTH1ELC1XZHHPzIuFNKzRJOaOXjgKRRhLXYb yz4NCLKnGACyKaCnGsQhLHAuDYOdKMiiLLDzGSS0PkZ0BCIcWDDuGL5ATmEpNHSmVQUhVCesTYLaMPQe mv1XBXKkAODkPhO1KODdFNOqWMWtGFxwCVPcFGHsUdotFEXdPUCzUI5VQcLzQTHvVGL9DVJbKKAqZTEw ti6ZUHOpIIYrMFq9CYOjSTTbKTMgWGnxBROcHPN0Rs C8BDKlEQKyYC1LUvHjCUDeUMp4TiXfICCiHLEehm1WZRToWFNaWRN7WEUbCOPnNPSvFBwsCLVrKWC1Er a9TSIlZBXgPG2DJgBeYAHdXLe6XrHmDRDsXPRozx1OBPLdDYAjPFemUHImSTDyWVScPEdaHUHmRGBbRN KhMXPhSYZsPO1GYvVpNPKqLYXtXBjxWFAfMUOgdm4Q RULiDHOqDZM0NYJeBUCwJFSgBMztHHCuHNXxCYerQIFfHXNjRG2OBjBtOYXrXwOvLVgqORAePPDzdt6M WKIgYJFqNfSfQLXlIAKwVFPjZVnkRWAmIBUdOPl4JCZoNZUeIZ7PCiBvTJRdBhP4PVCvQMKaHKXorl8H SFVjSPSzIFDcRgNaPOImHYYzYXliWICuXZT3NMR1SP CfQCJpKR6FXcUtMBIvVqJ3ORDiAHEmRJHrbw1OzOJdjVsroc0XRZfPRj9HxJnmLVM1LKipKz6mtNQeMM OvRSMRSx5ZlsVgIUGmYBGPZYjgNUTiCWLqYIodGzQcUhRuPyF4VeN3KVO4CoRvNpnxO5J7CiMmOxT3Qu Q9KYN0DgGeMFVpQyjbTBLtPjprFCG4GGWrROqnZUT+ WJ6kBKf+Lz4Cc9MvqpT9dbBfDRzuFEw6Hy3LCUIJT2JGUz== ID Date Data Source [id number] 03/06/2021 06:36:00 PM EDT [facility] CYTOPATHOLOGY REPORTName: NIRALI CASTANONMRN: [id number] Number: [id number] Date: 03/05/2021 11:28Received Date: 03/05/2021 14:12Physician(s): Dayanna XIAO MD TRUSSELL, J C, MD Specimen(s) ReceivedA: URINE, VOIDEDClinical History:HematuriaDiagnosisURINE, VOIDED: NEGATIVE FOR HIGH-GRADE UROTHELIAL CARCINOMAComment/kf/calReviewing Cytotech: Karoline Peacock MDElectronically Signed By Jewell Truong M.D. 03/06/2021 18:36:02The attending pathologist named above attests that he/she has personallyreviewed the relevant preparation(s) for the specimen(s) and rendered thefinal diagnosis. Microscopic DescriptionThe specimen is composed of benign urothelial, squamous cells, and blood. /KFGross Yvmwumvwqtb00 ml of clear yellow fluid received: 1 Thin-layer Pap stained slideprepared by filter preparation. This report may include one or more immunohistochemical stain results thatuse analyte specific reagents. All positive and negative controls havebeen reviewed by the attending pathologist and are satisfactory. The testswere developed and their performance characteristics determined by [facility] Pathololgy department. They have not been cleared or approved by [place] Food and Drug Administration. The FDA has determined that suchclearance or approval is not necessary. Name Value Range Interpretation Code Description Data Fariha rce(s) Supporting Document(s) ID Date Data Source [id number] 03/05/2021 01:48:18 PM EDT [facility] Name Value Range Interpretation Code Description Data Fariha rce(s) Supporting Document(s) Color of Urine [facility] Clarity of Urine [facility] Specific gravity of Urine by Refractometry automated 1.005 1.003 -1.030 [facility] pH of Urine by Automated test strip 7.0 5.0-8.0 [facility] Protein [Mass/volume] in Urine by Automated test strip Neg [facility] Glucose [Mass/volume] in Urine by Automated test strip Neg [facility] Ketones [Mass/volume] in Urine by Automated test strip Neg [facility] Bilirubin.total [Presence] in Urine by Automated test strip Negative [facility] Hemoglobin [Presence] in Urine by Automated test strip Neg ative A [facility] Leukocyte esterase [Presence] in Urine by Automated test strip Negative [facility] Nitrite [Presence] in Urine by Automated test strip Negati ve [facility] Leukocytes [#/area] in Urine sediment by Automated count 0 /HPF 0 -5 [facility] Erythrocytes [#/area] in Urine sediment by Automated count 0-3 [facility] ID Date Data Source [id number] 02/19/2021 11:41:29 AM EDT [facility] Name Value Range Interpretation Code Description Data Fariha rce(s) Supporting Document(s) Progress Note [facility] [id number] [facility] [file] [id number]== ID Date Data Source [id number] 01/29/2021 02:12:42 PM EDT [facility] Name Value Range Interpretation Code Description Data Fariha rce(s) Supporting Document(s) Progress Note [facility] [id number] lbm [file] [id number]= ID Date Data Source [id number] 01/16/2021 02:03:00 PM EDT [facility] ([facility]) Name Value Range Interpretation Code Description Data Fariha rce(s) Supporting Document(s) Red Blood Count 5.06 4.30-6.10 [facility] White Blood Count 10.3 4.0-10.0 [facility] Platelets 184 150-450 [facility] ([facility]) Hemoglobin 16.6 [facility] ([facility]) Hematocrit 46.9 [facility] ([facility]) ID Date Data Source [id number] 01/16/2021 02:03:00 PM EDT [facility] ([facility]) Name Value Range Interpretation Code Description Data Fariha rce(s) Supporting Document(s) Natriuretic peptide.B prohormone N-Terminal [Mass/volu me] in Serum or Plasma 36 [facility] ([facility]) Troponin Laboratory test result [facility] ([facility]) Thyroid Stimulating Hormone 1.570 ME [facility] ([facility]) Free T4 10.2 [facility] ([facility]) ID Date Data Source [id number] 01/16/2021 02:03:00 PM EDT [facility] ([facility]) Name Value Range Interpretation Code Description Data Fariha rce(s) Supporting Document(s) Creatine kinase [Enzymatic activity/volume] in Serum or Plasma 196 [facility] ([facility]) CPK-MB 1.3 [facility]) ID Date Data Source [id number] 01/16/2021 02:03:00 PM EDT [facility] Name Value Range Interpretation Code Description Data Fariha rce(s) Supporting Document(s) Blood Urea Nitrogen 12 7-18 [facility] Glucose 97 70-100 [facility] ([facility] Creatinine 1.23 0.70-1.30 [facility] ([facility]) Sodium 144 136-145 [facility] ([facility] Potassium 4.2 3.5-5.1 [facility] ([facility] Carbon Dioxide 28 21-32 [facility] ([facility]) Chloride 109 98-107 [facility] ([facility] Glomerular filtration rate/1.73 sq M.pre dicted [Volume Rate/Area] in Serum or Plasma by Creatinine-based formula (MDRD) Laboratory test result [facility] ([facility]) Calcium 8.9 8.2-9.6 [facility] ([facility]) ID Date Data Source [id number] 01/15/2021 11:21:15 AM EDT [facility] Name Value Range Interpretation Code Description Data Fariha rce(s) Supporting Document(s) Progress Note [facility] KHYXMe1vWoFLTbCa47/WKLjjAGMgu0BlMTctGAz9MAmnRVMcZ5FnABZ3iO9tFBU5BCkNBkFmGzChYeUi [facility] [file] WCL5cYAoAq9HSaLiIcHNWuItVR1BYIi= ID Date Data Source [id number] 12/25/2020 11:13:59 AM EDT [facility] Name Value Range Interpretation Code Description Data Fariha rce(s) Supporting Document(s) Progress Note [facility] WNIVFs7lExJQQhCd74/ZVTzpLERwj5LpUBkxNUt1PEfaKYNeC5TyDFX5tQ7qQMA3MMwCApJjQvNoDdKk lbm [file] NNKRXjNyFhL4BUtnYDJFKf8T ID Date Data Source [id number] 12/11/2020 11:51:00 AM EDT [facility] Name Value Range Interpretation Code Description Data Fariha rce(s) Supporting Document(s) Progress Note [facility] ZNIVQd9yLeEAEvKb50/LZBmzPRCbx7FyPYyfEKl8XHcuSIWmY8TdJQA7vF9mXWP2BHxOAlOiLoIqHeC9 lbm [file] AgICAgICAgICAgICAgICAgICAgICAgICAgICAgICAg ICAgICAgICAgICAgICAgICAgICAgICANCiAgICAgICAgICAgICAgICAgICAgICAgICAgICAgICAgICAg ICAgICAgICAgICAgICAgICAgICAgICAgICAgICAgICAgICAgICAgICAgICAgICAgICAgICAgICAgICAg ICAgICANCiAgICAgICAgICAgICAgICAgICAgICAgIC AgICAgICAgICAgICAgICAgICAgICAgICAgICAgICAgICAgICAgICAgICAgICAgICAgICAgICAgICAgIC AgICAgICAgICAgICAgICANCiAgICAgICAgICAgICAgICAgICAgICAgICAgICAgICAgICAgICAgICAgIC AgICAgICAgICAgICAgICAgICAgICAgICAgICAgICAg ICAgICAgICAgICAgICAgICAgICAgICAgICANCiAgICAgICAgICAgICAgICAgICAgICAgICAgICAgICAg ICAgICAgICAgICAgICAgICAgICAgICAgICAgICAgICAgICAgICAgICAgICAgICAgICAgICAgICAgICAg ICAgICAgICANCiAgICAgICAgICAgICAgICAgICAgIC AgICAgICAgICAgICAgICAgICAgICAgICAgICAgICAgICAgICAgICAgICAgICAgICAgICAgICAgICAgIC AgICAgICAgICAgICAgICAgICANCiAgICAgICAgICAgICAgICAgICAgICAgICAgICAgICAgICAgICAgIC AgICAgICAgICAgICAgICAgICAgICAgICAgICAgICAg ICAgICAgICAgICAgICAgICAgICAgICAgICAgICANCiAgICAgICAgICAgICAgICAgICAgICAgICAgICAg ICAgICAgICAgICAgICAgICAgICAgICAgICAgICAgICAgICAgICAgICAgICAgICAgICAgICAgICAgICAg ICAgICAgICAgICANCiAgICAgICAgICAgICAgICAgIC AgICAgICAgICAgICAgICAgICAgICAgICAgICAgICAgICAgICAgICAgICAgICAgICAgICAgICAgICAgIC AgICAgICAgICAgICAgICAgICAgICANCiAgICAgICAgICAgICAgICAgICAgICAgICAgICAgICAgICAgIC AgICAgICAgICAgICAgICAgICAgICAgICAgICAgICAg ICAgICAgICAgICAgICAgICAgICAgICAgICAgICAgICANCjw/oPCpQ3wirISltmZ1J2krVp6RAu9WCU8y m8IiFWRzGFbrxqFqPsiBXuMyGLJoHvtVEag6OMldKQ4LiTAgP3OwO6BzMSfjLE1ULSHrQJNbgPJfVVSt TSQoPpC8CXWmQYgkQR7SwMCvFEoaKOYmURQfBkFpDS ZqBZ8CAMUvR873udTmHr5VGh6MJdTgVW5vvb9MIpRzNAQxXktHWai2FAfrNO9SnLVodAByJaNmMVTQDq HdY3snw9ArNvAlRDUCHEaqSP8Yl6WumYSaQNv+Rj7KNI5wk9WiIMwhUmKsBN4cir1GDWhYZkAaY4LkkJ vwRFPxf5exNXPkZO3zgZMrNEN2BUinTtYJobUer0Da vZmvYEElOCFhYc2xCf6sWVLcWAFaRhO2PAAPQJ3YBGUmNIQmfTRqQFGdFPLHZR3ZRYvjCVK5QSGcmbVo tTMgRRnsIE7AGSWlncXuUhBjTGKAWFh+Ze6NJP3uf0FuYGlnXbAgGS9gml7AREoRDbLcQ5A3xZVcB2X9 MXaxEw1JEMSpEACbGGcdBLLWYXjeAA4QVF6bakU0ZM 7XyKSqUBBrNLZrxIYaMDr3J55agRRbENamST8WJHN+Yanni+Dc6UAAMlVXTsJXUjQkGuQULSJvDbO0YsI3 UJg6QcM0DxZK95oShekmOyHSwcAX2QTF9tWUPpEKFDEU2LzOVasT9duhZwXLYcNVGGSmQiS10hdWLnGW FzRJMnLPCrEy5NUHPqJ9YhkxNokRinqnMrIIHfDRRY VU0GHBpzamQrwDIvgHszMJ45yByvVN3PPs9DViNtSM7vvh9HaIKdJw6RCHLkJT0DSPIvHWUnELIdYMT7 AMHeEyXhIIgtGUGfWHIuCSZ7AZTeJTUtFJ4WNgIwHSJkAsCcETMvZAPkUGCdid9NLUUhHAScHowmCOZu FFWhJPYzFJacTEDoGSDuHTS9JQIcDFLdBC0RAxHyWF MpELJ4QFSkYHYqRVFrkm5ZIULvHWKgMAB1XRKnZGQzLLWsXBkpKCOuFJZ4NYB6IGVnURDkGE7UGmHuXF DmOKApHAljQGReLEMtdo2QNVXgVZPiBrS9LNOlWKKdTEIeQLipPIHtCKX4NeO7YOXvZLQvVH6XUuJkQC HdXRu5IMDlQEBnHXPrmv4ORMQcZGYwWTXdICRqYZAb HQVrKBqwXTIxWNF8FuT7BAJbIHKcNZ6VOpQsABHiGYm1JELoLYZkCDUkzw7FTNXbYJYuUZB0VNPeJHRg CRAhDNodEZWqFPImLCA1MHWvLUMkDH3RHfZmXYHpSkD8RmIaLHSfMNQzis4XEDEuGBWmRMkrPVUzWNTj TFRcPYzkBQPlCZJyDXEkZWDzDNJvPJ8BLaCjPZCfPm T1LiQfFADpWYBirz1MHSAiUCKxEpiaFJWyZZHpXDKmEAaeNJKdBKQpLHu6EPDvCCKoBZ3HPzNiHLWxBw KpFkFvIXTiBVRthc8LyGXrqKumpe8LBNsENb5EcRltAHG0UZogXs1iwQHtAePmVOKBCj2DfkZbIVZrAI ENQHojMATuJYw3SVs8Luu3PuBhGFyeFnP5ZyF0SDWu JYrfMOW6YRV0DjV0LNtjFNNsKvgaYdYpVKPxYBRlDoK4UsJ0IlRdJgkbEPQ+SV2mAEh+Uj5Sj4VnekP0 meUiKYmjMuU3Nf2DRHVZD9BHZn== ID Date Data Source [id number] 11/27/2020 10:25:39 AM EDT [facility] Name Value Range Interpretation Code Description Data Fariha rce(s) Supporting Document(s) Progress Note [facility] GLUOUs1gQsSCRyDn13/AKZwyZFNzq2QhJPlhDGo8VChhOBExC6QbSCN1rF0mBMR7CEvBTlCpKhImJeVs lbm [file] Jose Angel/3W3DHhWEZaDAZVSL136Y/teIDqpBQukzkjS8n0 [file] AgICAgICAgICAgICAgICAgICAgICAgICAgICAgICAg ICAgICAgICAgICAgICAgICAgDQogICAgICAgICAgICAgICAgICAgICAgICAgICAgICAgICAgICAgICAg ICAgICAgICAgICAgICAgICAgICAgICAgICAgICAgICAgICAgICAgICAgICAgICAgICAgICAgICAgICAg DQogICAgICAgICAgICAgICAgICAgICAgICAgICAgIC AgICAgICAgICAgICAgICAgICAgICAgICAgICAgICAgICAgICAgICAgICAgICAgICAgICAgICAgICAgIC AgICAgICAgICAgDQogICAgICAgICAgICAgICAgICAgICAgICAgICAgICAgICAgICAgICAgICAgICAgIC AgICAgICAgICAgICAgICAgICAgICAgICAgICAgICAg ICAgICAgICAgICAgICAgICAgICAgDQogICAgICAgICAgICAgICAgICAgICAgICAgICAgICAgICAgICAg ICAgICAgICAgICAgICAgICAgICAgICAgICAgICAgICAgICAgICAgICAgICAgICAgICAgICAgICAgICAg ICAgDQogICAgICAgICAgICAgICAgICAgICAgICAgIC AgICAgICAgICAgICAgICAgICAgICAgICAgICAgICAgICAgICAgICAgICAgICAgICAgICAgICAgICAgIC AgICAgICAgICAgICAgDQogICAgICAgICAgICAgICAgICAgICAgICAgICAgICAgICAgICAgICAgICAgIC AgICAgICAgICAgICAgICAgICAgICAgICAgICAgICAg ICAgICAgICAgICAgICAgICAgICAgICAgDQogICAgICAgICAgICAgICAgICAgICAgICAgICAgICAgICAg ICAgICAgICAgICAgICAgICAgICAgICAgICAgICAgICAgICAgICAgICAgICAgICAgICAgICAgICAgICAg ICAgICAgDQogICAgICAgICAgICAgICAgICAgICAgIC AgICAgICAgICAgICAgICAgICAgICAgICAgICAgICAgICAgICAgICAgICAgICAgICAgICAgICAgICAgIC AgICAgICAgICAgICAgICAgDQogICAgICAgICAgICAgICAgICAgICAgICAgICAgICAgICAgICAgICAgIC AgICAgICAgICAgICAgICAgICAgICAgICAgICAgICAg JWHzNWEoSLJnYEQsORBvKETgGWUmQITfQVIeQSz1L9mkDJOkLKZiKH4aDKm6Ny1+YBbRDlTeEQT3xmZx bF6HBV0wu7ShPSztXAPxy5UyADj3SB9QDJWtJOhzKT5KBPqzfl9JYWXdCSCskRQNd2kdEwAgFSG6ONMp JgajMX8CZVKjB2uowkLuNSKnZTICNQmaEBVNUH7YTr GkJ3ZpyH92GGUXCg0+LIrowuDvFrgECsWhFVXvn0DkTUu7IP4CCEIxWzbvm1TqPwZyQJJVFSmjHE4QCM S8VIEvPHQaYr6IKEGrB807roGkNM2KDg0TPcAjRT3zwh1WJfKnVOEeFppQXvc1APzkTX2DjVKtFDwVgu 9tkmYivrQRy7PwgaAnjMJCBLDpPVN3e5ZhvYxpGA1L ZCG0ZJEwBc1dDPEvQPRdJqJbXATOAX1LVMZmUKHniFCwNKDoKCUTSP9INCvkHYV4DFGhzvXptKGvUNfy UH9DDJMnfgKwOxShLRMFFTr+Pq4LSY3ib9QmUQxaPqDeCV4oel2LPGhIUoPnE0A2cSXrG2Q5CNuuEf0L KWItVRJpIIhpSYTMLZtjUW9XZT2fujN5CH8SxTTqZK CdSAYogADtLLi9V63eoGPvIPqqIH9QRRB+Yanni+Ji1HJQMcCIEtZBKlIwYrMCSNRfGdP8ZvO6FIt3ApP0 CcZL15sCdxhqHzMYsfKN2GUX0vHJPnFCHJDX4KuOTlsW6dymGqDRWyDQKEEmJhB05usFCkICGiWIHfYX JhUe1WQCZmD0DrusRlcFsevgLrIKTdIGLSFB9QAShm pgVhzGYwzXxrKD07mLenKT0RSl1ZRqJhTA5wfq5NfHUmKq5KXCVqCY8SGNEsDXRxESNhSPK6JJQkAgOv OKphAIDnPPHsPKX6GVSjAGBgDO3QKiEiDENkVkRaWfozYJPrTTAxkz6NRIAdZWEiYro1CyTaJUBdFOIf GNsvCPLiSICsXYD0QVGfGIToQY9QYeEvGOUwAJN4AB imQHStVIVcmd4TZUFoCYDqJFT4HTWbTHZpDEChUMumSDWzBOE1VXNgVJEzMAXxTY6ESpJuPNTkNJDnNF NrXXVpIQZsga9MVTXaQWNgKjY8QlJnSKJiHHSsNFquKGFlLJO1NxZ9RPVjARUeXU8NRmRmWUEeYEd5VA JcSPVrGHZoqb9LUBPbWUBzRRH4OMSeSWWiNPLyULmq QMJhNFH3OiJmOPNyCGQsXU3AXgAsLHChGDk2JHkaIREzXDAexe4COKRwPULdTZD0XEQbRWAuJYJdKDwp MNOrRJKiMNXaQNDbCQOfBA8AAoJcSSKnGfU7XcogYXPnVSPrku8JJWWtKDJyVTsoVFVvQTRlMZUqQMvv GLFqOQFwDAA7ESPaIYFtYY4TKfKcIWNfNqA7EFDzQH PbBTHxpb4PODEoAXJgDcaaTXVcXCYySCLlSHepLFQbCWKoOPajTTToIIDfWB7WOzQvQGUfDbExAQfpHL TlTYLaer5NdXHwkCmgqb9XRCsOOl7QqYzyVBN3YFkvSl1fgFFjZmUfRQWDOl7NpnBcJZSrFCTILNnlZO XbBGLoTFVlNpg7OPAiHbh8TXWoFKVuHIS8VFA5OcDl MyW5EjL4FzYaOOImByw5ZtF1LSivPTYnAxHbILDhPOEcAmNqVVk+AM4tGFf+Tz6Dk1ZlqrA2ikGyZAwk TmX6UG1ILHTZD3UMXd== ID Date Data Source [id number] 11/12/2020 05:21:00 PM EDT [facility] ([facility] Name Value Range Interpretation Code Description Data Fariha rce(s) Supporting Document(s) White Blood Count 8.7 [facility] ([facility]) Red Blood Count 5.17 [facility] ([facility]) Platelets 258 [facility] Hematocrit 50.1 [facility] ([facility]) Hemoglobin 16.6 [facility] ([facility]) ID Date Data Source [id number] 11/12/2020 05:21:00 PM EDT [facility] ([facility] Name Value Range Interpretation Code Description Data Fariha rce(s) Supporting Document(s) Glucose 107 [facility] ([facility] Blood Urea Nitrogen 18.4 [facility] ([facility]) Creatinine 1.3 [facility] ([facility]) Sodium 145.6 [facility] ([facility] Glomerular filtration rate/1.73 sq M.pre dicted [Volume Rate/Area] in Serum or Plasma by Creatinine-based formula (MDRD) 55 [facility] ([facility]) Chloride 105 [facility] Potassium 4.23 [facility] ([facility] Carbon Dioxide 30.2 [facility] ([facility]) Calcium 9.2 [facility] ([facility] Phosphorus 2.8 [facility] ([facility]) Albumin 4.5 [facility] ID Date Data Source [id number] 11/06/2020 01:04:44 PM EDT [facility] Name Value Range Interpretation Code Description Data Fariha rce(s) Supporting Document(s) Progress Note [facility] VMHRMa8qZbZOLlUx47/FJCmtYFZus2WoIZbfSLg5YVtjCRDwN4ZfEQQ3vM6eURL3DJxIZpAdXwWqHBVp lbm CdMqdEXyOfUCIcVfbVXyBoHPxgFbwqnFBeRV4TzJA2IXVpP86mPHPeJWYjX6DgPSQ0KEX+Jb8JVXTmvD JiUD7QVehS7T9hv9nZVx2pkj5Jd+m8nSA9UCiCi5lzM86xsxv4KrSjlWr+dAXANhtJGnrFEJ5Go8sErY vo8jczTkePuYY8wd2B6+2t7n5ty5c8lPOuNu+rgzj0 PE+t/1ik9wwX4lKN/cPElzPu6LuXMf0zyoqJxDn4ctiA/K+Bf/wK3xgH6AIX0r2ktWv+cKySyKiHqRep wejeu/nt1LSedpH/qxCLEVaDMYgrHHEZmaLMQHTX79UC3v/MALI+TbGfYfaDa7MCr6x9rRgYfEcuBxDvG3 [file] AgICAgICAgICAgICAgICAgICAgICAgICAgICAgICAgICAgICAgICAgICAgICAgICAgICAgICAgDQogIC AgICAgICAgICAgICAgICAgICAgICAgICAgICAgICAg ICAgICAgICAgICAgICAgICAgICAgICAgICAgICAgICAgICAgICAgICAgICAgICAgICAgICAgICAgICAg ICAgICAgDQogICAgICAgICAgICAgICAgICAgICAgICAgICAgICAgICAgICAgICAgICAgICAgICAgICAg ICAgICAgICAgICAgICAgICAgICAgICAgICAgICAgIC AgICAgICAgICAgICAgICAgDQogICAgICAgICAgICAgICAgICAgICAgICAgICAgICAgICAgICAgICAgIC AgICAgICAgICAgICAgICAgICAgICAgICAgICAgICAgICAgICAgICAgICAgICAgICAgICAgICAgICAgDQ ogICAgICAgICAgICAgICAgICAgICAgICAgICAgICAg ICAgICAgICAgICAgICAgICAgICAgICAgICAgICAgICAgICAgICAgICAgICAgICAgICAgICAgICAgICAg ICAgICAgICAgDQogICAgICAgICAgICAgICAgICAgICAgICAgICAgICAgICAgICAgICAgICAgICAgICAg ICAgICAgICAgICAgICAgICAgICAgICAgICAgICAgIC AgICAgICAgICAgICAgICAgICAgDQogICAgICAgICAgICAgICAgICAgICAgICAgICAgICAgICAgICAgIC AgICAgICAgICAgICAgICAgICAgICAgICAgICAgICAgICAgICAgICAgICAgICAgICAgICAgICAgICAgIC AgDQogICAgICAgICAgICAgICAgICAgICAgICAgICAg ICAgICAgICAgICAgICAgICAgICAgICAgICAgICAgICAgICAgICAgICAgICAgICAgICAgICAgICAgICAg ICAgICAgICAgICAgDQogICAgICAgICAgICAgICAgICAgICAgICAgICAgICAgICAgICAgICAgICAgICAg ICAgICAgICAgICAgICAgICAgICAgICAgICAgICAgIC AgICAgICAgICAgICAgICAgICAgICAgDQogICAgICAgICAgICAgICAgICAgICAgICAgICAgICAgICAgIC AgICAgICAgICAgICAgICAgICAgICAgICAgICAgICAgICAgICAgICAgICAgICAgICAgICAgICAgICAgIC PoVXBjMDn1T6dvUKIyMHGtND5vJYa5Nl6+DQoNCmVu MEC6fhJueO5ZLP8ai5NeJYsqRQXwq8DhKUx3KE7ITHOqYVzjTE3RSYzzwn7BSQGlDIKidNBCx0biBuSa VUK4EBTsPgjjOT2XHVIxQ8pgilMmOWOjKBDRJNjwSZIWMR0YBqMvX6MvyY35TQHGEl7+DQplbmRvYmoN NyOeUHXcf9NtKZn3QT8TVYWcRnzjh7QoUkDtCCLLJZ lhBV2TNDI5TWWfGHToBt2MJITxP504axBrXS2NZo1BEvYiIX9crp4IUfKvDEWgQrfLAtp2QRbzOT9GeX UoDGuVsf6jznMixkBQj7TzseVchAGSDZEeVJW7f0HrvUnoYG2XMRC7MUUaRPScCmIxSHBcKIrvJFQAPU qKCbSjZ4Lii0RyHrY2PQYhVtBkGFnnJLMeZrP9CR00 dAroHU0XXAFnYIHeAC49APJsTQNgEu0BRk4MAiUjPU2jmv5IKlQfWNAcRxoROma7DPxyKX6DaIKsB5Lc uCJjc8hGGuWoF2WTWCU4ZFNgTz8UPCMzLoJnSUOaZUsqWO3jDSErFKTQjPjyyoV3PE3ANB6tueXtFW2N PlSqUv6eDo5LAtPyB7TzE9KrYTLnRKLMEVviPI4EPR vrHS6oAI7Ef3PBoTTksU1dpz9TIYQeGQMsIswbae9HVydgA0A6tWbvBOXpDhIaFQQHTDxdOZ3BZKCuNI P3HPToYVRqKBWPXuXoV40vOF9YD1Vyi72wXjZ9BXJvQoJmKFhfXN10oJjverNuuVRdiUcaEV9WLc2+DQ plbmRvYmoNCnhyZWYNCjAgMjQNCjAwMDAwMDAwMDAg BhN8WhJbWo8ELVNiCYHaICHaUaFwRIKeEAXvBBviBQYuTUTdUFLhNCYgFZCbIO8BTtQeRRXfKoD3ZHFb HZSnGFRhcr6UXRGeHAEoUBU9YfQfPRLsIDLwTJlbOYZyKJX5JFBmWNYwTBBjVS3EGuKkSVHeXEPqFhMx GGQrTZSvoy0FKOKkGWAaTXt2IdAbZUYdTNYyCGsrBW OjBHX1WWTzNYWkAVIxFB1LPtRkBZDxSIqcAXqyDRWeVEGrol6SHJBcXGFuWiElVBWcJYKjQNLwRVhuNR QgJMQ5Xeq8QEQgNGNmIR5HDnStDWKsVMqtSTJxMAWpZQRdbt6GRWYfDUAzQLO3XiQzABNlAUHuUCrhYQ TdTWM1JfZ3XVXkABVtYG1WFvPtWKLdZcAsFRXfOFTf DIWgvl5BZMXkJBTkUVOhMhFaOHJfVLCjIOzkNCJvWHEjEuC1SXTeDZJsHZ2RRgCzHJGuYvB3CQDbQIMt HTJelo4KRCHvRDPdMAQsHDCdQOLjWOLaWDdnARGfSRHmVIKsIHHxGCGtNS5COaCoLBTnWdI9VUGaGGFa AGDcev5GRECbBNRwNbvdEpXdCFWeXZPhBAhmVOKlAN ShXLB2AYUfXKHhPC4FJqJvQZlhBSJZDqg0SUmyQ9p9IWKfWS8BE8Hzn1KfXsHfRHIIOAukWZ9gftVuWF FaCg4RH2kWZhexLOV3L3D0IIrzGOT9VKN9PAU6G3QbIDJrL5OsAQf2Bx8fGEC3XrpgREAmWKL6BWFpHO D3TcV3FLP9WXW6S0QeCLzwEyEsGK3MGj4OKeP7DAH8aTZdWp7EYdXvCRpJJvSyHC5ZWGj= ID Date Data Source [id number] 11/05/2020 11:38:00 AM EDT [facility] ([facility]) Name Value Range Interpretation Code Description Data Fariha rce(s) Supporting Document(s) Natriuretic peptide.B prohormone N-Terminal [Mass/volu me] in Serum or Plasma 30 pg/mL [facility]) ID Date Data Source [id number] 10/31/2020 10:27:00 AM EDT [facility] ([facility]) Name Value Range Interpretation Code Description Data Fariha rce(s) Supporting Document(s) White Blood Count 7.8 5.0-10.0 [facility] ([facility]) Platelets 187 172-450 [facility] ([facility] Red Blood Count 5.17 4.00-5.40 [facility] ([facility]) Hemoglobin 16.7 [facility] ([facility]) Hematocrit 48.6 [facility] ([facility]) ID Date Data Source [id number] 10/31/2020 10:27:00 AM EDT [facility] ([facility] Name Value Range Interpretation Code Description Data Fariha rce(s) Supporting Document(s) Free T4 8.6 [facility] ([facility] Thyroid Stimulating Hormone 1.350 [facility] ([facility]) Triiodothyronine (T3) [Mass/volume] in Serum or Plasma 105.8 60. 0-181.0 [facility] ([facility]) ID Date Data Source [id number] 10/31/2020 10:27:00 AM EDT [facility] ([facility]) Name Value Range Interpretation Code Description Data Fariha rce(s) Supporting Document(s) Triglycerides 131 [facility] ([facility]) Cholesterol 127 [facility] ([facility]) HDL 48 [facility] ([facility] Cholesterol in LDL [Mass/volume] in Serum or Plasma by calculation 58 [facility] ([facility]) Chol/HDL Ratio 2.729 [facility] ([facility]) ID Date Data Source [id number] 10/31/2020 10:27:00 AM EDT [facility] ([facility] Name Value Range Interpretation Code Description Data Fariha rce(s) Supporting Document(s) Albumin [Mass/volume] in Serum or Plasma 4.1 [facility] ([facility]) Alanine aminotransferase [Enzymatic activity/volume] in Serum or Pl asma 52 [facility] ([facility]) Chloride [Moles/volume] in Serum or Plasma 111 [facility] ([facility]) Carbon dioxide, total [Moles/volume] in Serum or Plasma 28 [facility] ([facility]) Calcium [Mass/volume] in Serum or Plasma 9.2 [facility] ([facility]) Alkaline phosphatase [Enzymatic activity/volume] in Serum or Plasma 9 5 [facility] ([facility]) Potassium [Moles/volume] in Serum or Plasma 4.1 [facility] ([facility]) Protein [Mass/volume] in Serum or Plasma 7.1 [facility] ([facility]) Sodium 143 [facility] ([facility]) Glucose 101 70-100 [facility] ([facility] Aspartate aminotransferase [Enzymatic activity/volume] in Serum or Plasma 22 [facility] ([facility]) Urea nitrogen [Mass/volume] in Serum or Plasma 16 [facility] ([facility]) Creatinine For GFR 1.20 [facility] ([facility]) ID Date Data Source [id number] 10/16/2020 11:05:59 AM EDT [facility] Name Value Range Interpretation Code Description Data Fariha rce(s) Supporting Document(s) Progress Note [facility] NISHRn7dLtHFNsGi84/DVYioVNRli0KvRNotMSe9PEynWVZsI8AxCCH2vC2uYGQ9FSuTUvZdLbWcRZKa lbm [file] P0EZC6mWDtTd2KQrQrUHTBIvEsTA6VGYh= ID Date Data Source [id number] 09/01/2020 01:38:02 PM EST [facility] Name Value Range Interpretation Code Description Data Fariha rce(s) Supporting Document(s) Progress Note [facility] MTNDWi8nCbZHQfBd59/ZXKmiRZEjh6BdIYcfEVa3AKswEBTaJ6FaKZE4eK1oZJM4PSyENeTdVrOtQbC1 lbm [file] +NnKTcBxjSTMbsAeqwG3+EX570L2Ej7X0dMJHCW+[employer]+W4Jglp63dxMue+U1xIoh/3oPQyyx2MeN [file] AgICAgICAgICAgICAgICAgICAgICAgICAgICAgICAgICAgICAgICAgICAgICAgICAgICAgICAgICAgIC AgICAgICAgICAgICAgICAgICAgICAgICAgICAgICAgDQogICAgICAgICAgICAgICAgICAgICAgICAgIC AgICAgICAgICAgICAgICAgICAgICAgICAgICAgICAg ICAgICAgICAgICAgICAgICAgICAgICAgICAgICAgICAgICAgICAgICAgDQogICAgICAgICAgICAgICAg ICAgICAgICAgICAgICAgICAgICAgICAgICAgICAgICAgICAgICAgICAgICAgICAgICAgICAgICAgICAg ICAgICAgICAgICAgICAgICAgICAgICAgDQogICAgIC AgICAgICAgICAgICAgICAgICAgICAgICAgICAgICAgICAgICAgICAgICAgICAgICAgICAgICAgICAgIC AgICAgICAgICAgICAgICAgICAgICAgICAgICAgICAgICAgDQogICAgICAgICAgICAgICAgICAgICAgIC AgICAgICAgICAgICAgICAgICAgICAgICAgICAgICAg ICAgICAgICAgICAgICAgICAgICAgICAgICAgICAgICAgICAgICAgICAgICAgDQogICAgICAgICAgICAg ICAgICAgICAgICAgICAgICAgICAgICAgICAgICAgICAgICAgICAgICAgICAgICAgICAgICAgICAgICAg ICAgICAgICAgICAgICAgICAgICAgICAgICAgDQogIC AgICAgICAgICAgICAgICAgICAgICAgICAgICAgICAgICAgICAgICAgICAgICAgICAgICAgICAgICAgIC AgICAgICAgICAgICAgICAgICAgICAgICAgICAgICAgICAgICAgDQogICAgICAgICAgICAgICAgICAgIC AgICAgICAgICAgICAgICAgICAgICAgICAgICAgICAg ICAgICAgICAgICAgICAgICAgICAgICAgICAgICAgICAgICAgICAgICAgICAgICAgDQogICAgICAgICAg ICAgICAgICAgICAgICAgICAgICAgICAgICAgICAgICAgICAgICAgICAgICAgICAgICAgICAgICAgICAg ICAgICAgICAgICAgICAgICAgICAgICAgICAgICAgDQ ogICAgICAgICAgICAgICAgICAgICAgICAgICAgICAgICAgICAgICAgICAgICAgICAgICAgICAgICAgIC MnZQIbCUHwDVBaOPKhDOMwCZEqFHRaKNTtESQoCRQsBQOgBNXpCJHvOHm4J8mkNNCqCGZnJX4mGSt9Tg 8+QArOZxYzXDP6xwUdeH2NBY4lp6BdKBqtGERtc3Es DYl9JC1QIYCqUJujOB5RDOcwev1LKSExKQGqfJXYf7mkGxIeGBE6MQIwFmpwKJ7GQCMiJ2htxdBaBFWg BDFQPVypXKDOPSaoXBXHAPSyKYSkOiGeMfAdSRIsDVLeTHGCZI1XJsXnO5KicR07MRDYAj2+DQplbmRv YpiHMnV8JCXdz7FlFNh4LI6WYPCyAymbb1GwMhAqUQ TXAFiaTI9KIKX6NQG8CKVuAv5QRJMkH454owLzIK8FJg4RHwBiBJ8uta8MAqWwIPLpIuySGoi9JFhgVH 4IsUCmVOuGcj0rzgQkftAFe9JocnZnsANNmSMaCDGmLORkji7xGA8OXWP2WVJmFI6sXCEaRMCcNsQbLP VOQC9ICMKlVRJnbBNvNORaUKRHZG0CRAxuFQK8KRKf kxNwpPWmENndID8ZHUTwdbPtRvYtWPLIBFe+Dg9BGR2ik8JpAKopYaOzKZ7ijr9KRRpZTdBnQ8N1aDUt V3L7BMlwRd8SUFGgHUMkWvWzYPMOLRllEL2WAC2ukuW1EV1TpJUyMOYsBYLamFDrEOl3V02ceFKiEPqf HC3YKGS+Yanni+Vh6JINRfELSjHLSoQdZtGWQZEuJsP5 ZjZ0AUq6AhB0RaDB05jGmkntMxOWbzSM2KAD4aWYTmWOTCUS5RgEOznU4pijZkHHKwEOSJJfAwF09vmW FrKVWeEBE8CZQkPh8HDIDqO7CudqIfcJtqslHeXGMaYZLNFA8ZUWrkbpNydOZkvZwjIA73iEkoMY6LTy 0ITrOzJU8urx8QdMNfOg1ZCKXvJW0ZAREcSDSxROUc PGB7MDFrCtBjICqiOTNgXNEgXEJ5EAMeLXDvFX4EQoMtPHZoVkH2FIDvSIOoMJJcqy7WZAFnNDHtOAa1 YzCnXQOuVYYbAKacUVSaQOEpTQP5UGTjCDShTS7PGiYmXTQdIKU3YzBtRMXrYOHakc8MUXOhLNLaVhir FREnJSHbULMsBRkyNDOgXIQ6VQJwTODjXPIfZX2MTa EhNFGaQJUjPiIuQGCtFQVtjp4VEPLhBEVjUVDhFkDuKQEwEJRdWVhwXFLoIPK5XiS2MMFwJSGdNB3WYd FqBGQbABQfOTUbPDUlTZWaoz0UVEFcDZDlJeK4XbYgWJKsRXKpLHboROWrHAL3DFk7GVIuZFWhAX0JLu XoFXKpYNL6BUFcBMIsWZAood9CYJFqTAGkLiZfLnCs APZvRRLiKBaqBVFcLFA6AnR2UAMfFWVqPH1CQwXdOGOeUMyoTnbpAVKrYSHudq7GIGIoHYFcPlL1YcZz GHJwUQUpUXqxLZUuSIJ0CgQ1ORXbKQQkER2GFvRzNPMhFDs9GVwfQZThMZUpsm6AIYFiXMJaWNwsDWTi PHOkKPUeBVrqXHKjJGN4LEL5KCVmNIYhTH3OIaPoXB DjYzE5WmqgAOAgNHLuep3PMXZnQZYpPBq2IlQhQSYqTCItRWrcHBYgBDVqQOwiCOAbPCYqQU7VHcJjVQ OeQhVhGrOcAZEiYDUrrl0AILFsEDSqWFG1PUNvZPZvIEDxEUisBPLfDQGkDuTqDLYsGQHkIT6ISrVlYW KoZtL3WDVwAKPhLUYiby3JIALeNBGlEaW6VDOqCKPa WYOwYTjrGJPeLYFwYxLrYRPxSSRgGC8NBkDjNCQsDzA6GACkRGLmKTMizm3VFVKcEMCzZrf0BTVlJOQy BIHxRNeoGWJgNJF4DTV3MBTbPIKzYM3JAmEcRYWwBsW6XfvhKDBzBAZoxm0DLKKdEDJnGSb8QEHmJSAo KULoEFoaNMXkQWG9NQa1YBVuGWRaWF1BExVdJYkjHW DNLxs2AUdcU6k8GXLnZR8GW4Bwt7WqGisjQJTUCHkcVE5tklKrQEUoCh7NY2iTPukaCXzuVibyYKwzIQ S8RcXkB5S5JcOfAZAbOHs9ESS3JM2sTHQ8Q0JiWRE8Q1A6VtRhC4JlGzR1PvTbWoA6CPCqJGFjLvWgUA 3SBu6INmO1TSA1zTQjAo3NJoEsTxmKWzBnLD9UAVn= ID Date Data Source [id number] 07/22/2020 03:04:00 PM EST [facility] ([facility]) Name Value Range Interpretation Code Description Data Fariha rce(s) Supporting Document(s) White Blood Count 6.8 4.0-10.0 [facility] Red Blood Count 5.17 4.30-6.10 [facility] Platelets 201 150-450 [facility] Hemoglobin 16.3 [facility] ([facility]) Hematocrit 48.2 [facility] ([facility]) ID Date Data Source [id number] 07/22/2020 03:04:00 PM EST [facility] ([facility]) Name Value Range Interpretation Code Description Data Fariha rce(s) Supporting Document(s) Thyroid Stimulating Hormone 2.230 ME [facility] ([facility]) ID Date Data Source [id number] 07/22/2020 03:04:00 PM EST [facility] ([facility]) Name Value Range Interpretation Code Description Data Fariha rce(s) Supporting Document(s) Triglycerides 118 [facility] ([facility]) Cholesterol 134 [facility] ([facility]) HDL 41 [facility] Cholesterol in LDL [Mass/volume] in Serum or Plasma by calculation 69 [facility] ([facility]) Chol/HDL Ratio 3.268 [facility] ([facility]) ID Date Data Source [id number] 07/22/2020 03:04:00 PM EST [facility] ([facility]) Name Value Range Interpretation Code Description Data Fariha rce(s) Supporting Document(s) Hemoglobin A1c/Hemoglobin.total in Blood 5.0 [facility] ([facility]) ID Date Data Source [id number] 07/22/2020 03:04:00 PM EST [facility] Name Value Range Interpretation Code Description Data Fariha rce(s) Supporting Document(s) Albumin [Mass/volume] in Serum or Plasma 4.1 [facility] ([facility]) Calcium [Mass/volume] in Serum or Plasma 9.5 [facility] ([facility]) Alanine aminotransferase [Enzymatic activity/volume] in Serum or Pl asma 61 [facility] ([facility]) Chloride [Moles/volume] in Serum or Plasma 107 [facility] ([facility]) Carbon dioxide, total [Moles/volume] in Serum or Plasma 30 [facility] ([facility]) Potassium [Moles/volume] in Serum or Plasma 4.3 [facility] ([facility]) Alkaline phosphatase [Enzymatic activity/volume] in Serum or Plasma 9 5 [facility] ([facility]) Protein [Mass/volume] in Serum or Plasma 7.0 [facility] ([facility]) Sodium 145 [facility] Aspartate aminotransferase [Enzymatic activity/volume] in Serum or Plasma 25 [facility] ([facility]) Glucose 95 70-100 [facility] Urea nitrogen [Mass/volume] in Serum or Plasma 16 [facility] ([facility]) Creatinine For GFR 1.23 [facility] ([facility]) ID Date Data Source [id number] 07/10/2020 01:40:44 PM [facility] Name Value Range Interpretation Code Description Data Fariha rce(s) Supporting Document(s) Progress Note [facility] KNWTYr1hYkCSFuVx26/PGIbnRFYup2YmLLuxCAr6ZHrxEBWfO4BdEQN5yK9kPAI7EHpLCxTeOtEvMBO7 lbm [file] [facility]//2/561sJ816rasYqW0sy59yOACH6VCLIM61MT3yoPMfRo+hz1JjiWTHHmLyYi0YsO8Q0quYta49 [file] ICAgICAgICAgICAgICAgICAgICAgICAgICAgICAgIC AgICAgICAgICAgICAgICAgICAgICAgICAgICAgICAgICAgICAgICAgICAgICAgICAgICAgICAgICAgIC AgDQogICAgICAgICAgICAgICAgICAgICAgICAgICAgICAgICAgICAgICAgICAgICAgICAgICAgICAgIC AgICAgICAgICAgICAgICAgICAgICAgICAgICAgICAg ICAgICAgICAgICAgDQogICAgICAgICAgICAgICAgICAgICAgICAgICAgICAgICAgICAgICAgICAgICAg ICAgICAgICAgICAgICAgICAgICAgICAgICAgICAgICAgICAgICAgICAgICAgICAgICAgICAgDQogICAg ICAgICAgICAgICAgICAgICAgICAgICAgICAgICAgIC AgICAgICAgICAgICAgICAgICAgICAgICAgICAgICAgICAgICAgICAgICAgICAgICAgICAgICAgICAgIC AgICAgDQogICAgICAgICAgICAgICAgICAgICAgICAgICAgICAgICAgICAgICAgICAgICAgICAgICAgIC AgICAgICAgICAgICAgICAgICAgICAgICAgICAgICAg ICAgICAgICAgICAgICAgDQogICAgICAgICAgICAgICAgICAgICAgICAgICAgICAgICAgICAgICAgICAg ICAgICAgICAgICAgICAgICAgICAgICAgICAgICAgICAgICAgICAgICAgICAgICAgICAgICAgICAgDQog ICAgICAgICAgICAgICAgICAgICAgICAgICAgICAgIC AgICAgICAgICAgICAgICAgICAgICAgICAgICAgICAgICAgICAgICAgICAgICAgICAgICAgICAgICAgIC AgICAgICAgDQogICAgICAgICAgICAgICAgICAgICAgICAgICAgICAgICAgICAgICAgICAgICAgICAgIC AgICAgICAgICAgICAgICAgICAgICAgICAgICAgICAg ICAgICAgICAgICAgICAgICAgDQogICAgICAgICAgICAgICAgICAgICAgICAgICAgICAgICAgICAgICAg ICAgICAgICAgICAgICAgICAgICAgICAgICAgICAgICAgICAgICAgICAgICAgICAgICAgICAgICAgICAg DQogICAgICAgICAgICAgICAgICAgICAgICAgICAgIC AgICAgICAgICAgICAgICAgICAgICAgICAgICAgICAgICAgICAgICAgICAgICAgICAgICAgICAgICAgIC MvPWRlTMFbDDPpCMs4E2usDLOiWSNwLD9rUMc6He0+ENnZDqJgJRF6chEtzG3JVS7tz4HwOEtcYINxo4 ZeHGc8LF9ZXURfABxeNJ1JYMkfak2OQXKxTYDtfSVM y3jfAbYnSWX3NMEyWzugKL4MYSBsM4kgyfLyDUUuRGEQUMupLHSEWV1XWzWfT1BzbS58ORPPHs3+DQpl rcNzBxlJDkDsXVPjv6SsDJt3VI0YCRNsJqyeu9AdGtSvWZIEAChfUQ6IBAM3IYLkJSLqEr4OTKDtP027 maNbDD1WMj1KLxGsUO2aie2GKgFkSRFoHhzPQom5VS dzIV7GmLMjSJsLtu6iokHvckSLu3KmwsXfqKQVZBHfNKX4k2WamPyjUB9FLNK1CWOaRy9qKOFeUSNcJe LhGUTXBV0GMNAgEFOjcGPcYHMuTRBPBM6QEJxvPPO3DLWmwcJbuSWoIEhgLC3RNCBzqyWjRfEdJPTOFA o+Ed2DVX3ds0LiPJwuQjPdPL3qaw3TVIcERoDdL9Q3 vKSsL0N0CFhiGt6SVQFuTBOoESncIBITTSoeNA0OTA7qxzM4EV4HuJVlKUYqNZEmyFRqPZs9Z65pbYJq VBcnRD6VGGW+Yanni+Bn5DUUDfUEXeCPQeJsVpIMBFFcWdB8YzD3WTh0VwF9QiHH17aEhweuMyMRokHN9B KL1fVSTyOUQFPL0ClSGntC6repLyMJIcLJCDMfSbK2 4wlYDvPCOoWPOdSIQsKu1NJCAyN9HktrVtzDpffrElSTJqRHJBGD0YVOneafGldACkoHglJB44jDnrEF 1QOv2TIiVtFW8pji7VyIUoKt5ESTAlXV8ZEYVvTDJaUJDyUIG3PBTkYoFxZCngFRCwZYRhOJE8PLVdLC GeBM0FCyCrNRPxRtJ6XjsnWJLaKIEuva3OBUGeEJSk MoI4BCXaUDBfRRTgRGakQHZmGHKdHPD8IOWbGQRsZW3WWcAhOTRtMRCuQCdkFAKaBEQfsg6YCBSoPPGr MQL6DiSlIBQsIDGxJIgyPKRtIJR7MneyLWDzUETsSM0ESbKhJYDpTAI1VTDkRBVzVWDqwj2BQYViIVLy Tqf9MDDoQEZrTJKjQYsrLLDnYYP0QKPdUSJhKKFiYG 2HOqGeNWXaXRoeMhWaYYRuHHNfxk3TPCToSKWoPCL6VKUfLVIsGHYnDMqaXGDeDJQ1WOgzGCRaDBIiGJ 7JCxCfEDHsXGj1PRTmKZXlBLEuyd2CPGOgUGKmRCHwKxUnRYYcLNQzCDwgPLThOZYdNoPvBBHiRMEnPL 3GKqEpTKMmBfB3HjAhNMRjHKNpkn4KGBRhRPAgAErn PPScQCHtUQZcRYgdDECvHFIiKEP3GOXhPMLuJF4DLdKzHSFwUrXoJWyzJOMnLFWtoc4TYXVePWRiYvq9 TcZiSTEsWDPaZYqfYBIgHOHsVXLfXCJtYSOlDS7CNiNiLGBbZkMzFRkbGRIlQLQlhj4QjJKucGweff9A NKdDNv6NbLaoRCP7FAlsSe7vePFmFoAlAFFGXm3Okb ThIAIaUOGKEPlrFYQcAHZqKNL6CBW9INSdDWBcIHL8XDDgVNFjKZMjHaHiJNGjZdZ4DQTcWIv2SrFoER I0JFM1OIrzErIaPYQ8XRY6D3V9UME+MZ7rYYk+Eg3Mr5ByilR7vnCfMKtbXdF5Im9OGVDIA0GCHc== ID Date Data Source [id number] 05/08/2020 12:15:18 PM EST [facility] Name Value Range Interpretation Code Description Data Fariha rce(s) Supporting Document(s) Progress Note [facility] CMKCZl5zCiYGLpMe79/MXOoyNTZjk4IhQZamJPb8EDibHEHaR1RhIHS4vF4aYUJ4QFwXSmDyCzSeOAEu lbm LpHwqKRcEuTJSgXetZKhLxEWbfRdggjXMzUA0XxEO6TEYuT96dDMFzXXPqV9SxYAO1DFL+Gm3CUFJoiM OzHE0NYbrI4F33bot6Jk+/M/4AlOr3dEY1yQfKxtIOZvr/ggkdH0RvpD8LFxjtANAxOKWe3Vwupj+1x3 xV5FQ8T/eVQ3LL55Z6AnQlfBx6Pbsgse/+hE0g6HN2 tfrf9V/bWXpKtqo908U8R3Wte15/insWP1is6sQwL/lfA//EM9vZZ53jpztzDzFU26nOKbIdIdcmvIzT Qd6xoe3lth+EpNZOw6feoqllQAVHpJUwzMJdkT2Uta1tpq3DlbICc+dgzPfu5KwmUmvVEzk1rXAeGUOZ jc6mWQnwcehxz+HaJ3S4uRWwjjMfluEKxjTop96WvK mKYobcGrWY8PZ9cuePN4ocyEzZ6V0V+Ncs8a4/ypTDwX0/Bh9M317CrPG6A6dHnbJIx+H50xzopAizQA uQ/GSfFPW1nrjvDySMqNdHW+vU3cy60EiKpIStUAwXVJ2QiyGAQbYG/HFUNt26jA/LcTZdqufZ+Ww071 +hbNcSkwuu0ype20T57BygesWpb/iSMdDL8twrXCpW ietsKg0CeaPrd1+cCt0a22Cr71AnccfC/qrem9yxwn918w1zQmAECpZAijjC8dqlu+2MIf2jNiU/4qf5 d91BE3YjuGr9uRYKhnjD+rU2fLhWd3zuXa9gVkOoJcEQTor31PmjYacuwwyTT6fdzsGDEgmENm3KXuCG hBU/Jennifer/lXEsRohJeFQmRwt5cmd2OOE563qxHihp8F [file] ICAgICAgICAgICAgICAgICAgICAgICAgICAgICAgICAgICAgICAgICAgICAgICAgICAgICAgICAgICAg ICAgICAgICAgICAgICAgICAgICAgICAgICAgICAgIC UfRKPnEW0IPJLoIUDkAAJoQXTjDSOqUZErRTAtDHTvHACaDUNzSLDqWSMkFVPcECOeKHTqQCUcCWVbSC DsJJHqXBRoGZUxOPQqWPPkACAnQHNiWKBxOCPnRAGeNRDuZBBaPFYyRCDlMWPsRL9DIDPiBTReRJIpGA AgICAgICAgICAgICAgICAgICAgICAgICAgICAgICAg TASaVVKsYXTxKOGkYQBnSICxAIXzZVRgSMPvLDIbYFSkRKNlLKBoUFZoELQbXVYnIFVsSTBvREUsBS4X ICAgICAgICAgICAgICAgICAgICAgICAgICAgICAgICAgICAgICAgICAgICAgICAgICAgICAgICAgICAg ICAgICAgICAgICAgICAgICAgICAgICAgICAgICAgIC FqDAQbWNOdHB5SBVPqFKYeWIHnNUAbSRHeTZEkIOZxUEFpWZZpTZGvGCNrRJCtMJVqHCBdFRTrNBGrCK HwQGAtZEAlAYSxILXtZFYqQTFdNSGoTVUaJNIiSUDfJZYaEDGvRDVvQBEsQPJuURFvPA7KQHSqOOSwDU AgICAgICAgICAgICAgICAgICAgICAgICAgICAgICAg ICAgICAgICAgICAgICAgICAgICAgICAgICAgICAgICAgICAgICAgICAgICAgICAgICAgICAgICAgICAg TW9AINIaMFWgANJjDGXuECCtPOMzPXLbDMVjRIFhDGZnQJPbAVXjFUAgOKGtNELyPAReNHCcWCLnUFWz ICAgICAgICAgICAgICAgICAgICAgICAgICAgICAgIC VfEIShYNHjPOTqLT2XTQNrWBKpTADbKSDyVEDcEQLdGOJkMPEzJLHqYHBhHFJeUJSiFZHeDZKxOARjJX CrBQDhRCTdUPWkURFaGKUnULUiVLJaSOEuUBPsVYPtFPOcRGMdMDRcLPRfMREkAFIfNZZfCJ1HYEZmEL AgICAgICAgICAgICAgICAgICAgICAgICAgICAgICAg ICAgICAgICAgICAgICAgICAgICAgICAgICAgICAgICAgICAgICAgICAgICAgICAgICAgICAgICAgICAg GWAyGJ3EYKYcSXQdQGXcDBUcASCuDKGvIBRvFLKtJUUxMNLcMNBuEOIgFOEkPAKmQAMbIXAuBIBrYYWa ICAgICAgICAgICAgICAgICAgICAgICAgICAgICAgIC BfTXWlVVVwWEJdJPLbLL9GGD84pYZzy2N6YOSfZQ3ahsf/Lm7BSCtqqgHzpXIsBE8IWtGdTC0djz4ZSz HqVV6bst9DZWcKPeClY6N8xXHePLIzLOWLNsIsI89eSHmeDw10CWygOBLoAtQfADb1Gt8FVuAmS5zrPD EeOxK8DCIyEkU7TOWrEkAcGEukHN1Ws2PobKAhSJx+ Ko2EWP7vt8SyHKlmSIFwLB2byv7NAZzOQcKfH0QwwkD9QTYrSUCbOp0EUMRaLWKjqIDxNsHpHLMHPeLr G9SzoI30FAJFUc3+EItnqjWiYuoBAdTtBGBdb7SwLSp4TU0CUYFmCCr0vXYwZMInG4Axc7UkOb27WGJh OrllJkITXLTtoIDtHHzvVBJZRGVlgBHhFB1hGe8vZI HnFCXvKpC0ODWNKV8EHIOwIJVbtYSzZJThBXWAAP3ROIndWAC5KAJebsSqeGEsTKmcQG5QACSolpZrZo EgMCBSDQo+Oq7YSJ5te5CtTWtzJhVqBH9tnt5IUEnGHgHpZ6O4dRMpB8E0MSrnZm3ORSRbEMJnFZptJA QLBXnkPM2PXO0miiJ5PM1ExERmSFMqNLMiqEGiBFb7 Y34dtOAiXYkyOH3MMBG+Yanni+Qm1HDOSpGIQuHHSbEeLnKQZFFxQrL1HuF2PHw6DkK9XwVD54aBisczOy UKzpPF2RPM5yKXJyVLNDUC2BtVZumU1jwtLrLLDyIAXAMuQkA24krBGxWXBzJOGhSIDaWy0NTOByI4Et ajAwvAaemoWyEOGgAKOTLN8TDVgmamLagSXzbVbiIK 47hEueMK6XIg8WHmAdAW2nhs4OsGAoNr3FHZDdXP6EILLkPOIwBJIyMZZ1XSKoBbYxPUiuASEsDJPsJA J8LDYlEDLrGG0LRvBxVIFlShK4HJKxTVOxXNYhow8IBDHbVXLxQrTdOnCbJTUzRYSrENosVBDfCSSrZT O1TCLoNDViOU7OSkNtIFFfQMXiXHdxDJVxIHSgae0F MCKfZTGtOKFaVdXkTWSuRIFmWThbPZEhMQJ5AuP4HDRxPOOcFO0PTjTxPUPnRNG1IHGjQIXbFOXder8G XCYhBISwYka1GUWhKXPiHAWuLMcoENCxXML8MLk4NDEpGMFyGU6JAoXcJFTbXPfkPuKnSGBxPAWyfq0U NQEzOWKsHSCcOLVxVIUfPLLvBIxaHIKhCDQ4CTF0UV LpWPErJB3NMvDvFUNeJIu1DtXzCAFcBJKdwq7THQBxGLUtKUs1TLUuPASmVBKkUEdwOUNrBQGmFxx6FJ MbMUIhPK4VXsEyIDAnPvO9QCLgQIKfCYFdur5TOBNcFAKbZSy2OVRgPXChIGZaGKyoPEXwPPHiMKzeBA OxUBWtZG9OKpBgYIJiZwFiIVTuALJlUUDevx3VEKCn REReWrkhApUtPHNpYKOdRPusRCAbFLZsYSE8XRDeLZZaAH0XAqQkWQJfCcM5PCQzAINjUKLopf5GyVVi lVcaxd7DIQeIGb3JuBgaNJB2MLhbAs1njYVlReOcLLIXIk9EbuWrPZTkPTIPONwyMTPlPLJiKUY1Adet VhBdJ1W9DqJ4EQWrCaDcB0B5TWK0CdTwWeD3LQQoMK WtZDO1WEHzRhnsBjy9FUZaPTKjSregTsM4MzN+OJ0fYAc+Rw7Dq6NawpM2pgXpDFmgEbI2QP4QVVAXU3 YNCg== ID Date Data Source [id number] 05/06/2020 03:25:00 PM EST [facility] Name Value Range Interpretation Code Description Data Fariha rce(s) Supporting Document(s) White Blood Count 7.6 5.0-10.0 [facility] ([facility]) Red Blood Count 5.30 4.00-5.40 [facility] ([facility]) Platelets 198 172-450 [facility] Hemoglobin 16.4 [facility] ([facility]) Hematocrit 49.5 [facility] ([facility]) ID Date Data Source [id number] 05/06/2020 03:25:00 PM EST [facility] ([facility]) Name Value Range Interpretation Code Description Data Fariha rce(s) Supporting Document(s) Thyroid Stimulating Hormone 1.940 ME DENT ([facility]) ID Date Data Source [id number] 05/06/2020 03:25:00 PM EST [facility] ([facility]) Name Value Range Interpretation Code Description Data Fariha rce(s) Supporting Document(s) Triglycerides 130 [facility] ([facility]) Cholesterol 131 [facility] ([facility]) HDL 45 [facility] ([facility] Chol/HDL Ratio 2.911 [facility] ([facility]) Cholesterol in LDL [Mass/volume] in Serum or Plasma by calculation 60 [facility] ([facility]) ID Date Data Source [id number] 05/06/2020 03:25:00 PM EST [facility] ([facility]) Name Value Range Interpretation Code Description Data Fariha rce(s) Supporting Document(s) Albumin [Mass/volume] in Serum or Plasma 4.0 [facility] ([facility]) Alanine aminotransferase [Enzymatic activity/volume] in Serum or Pl asma 48 [facility] ([facility]) Calcium [Mass/volume] in Serum or Plasma 9.1 [facility] ([facility]) Carbon dioxide, total [Moles/volume] in Serum or Plasma 31 [facility] ([facility]) Potassium [Moles/volume] in Serum or Plasma 4.4 [facility] ([facility]) Chloride [Moles/volume] in Serum or Plasma 108 [facility] ([facility]) Alkaline phosphatase [Enzymatic activity/volume] in Serum or Plasma 9 9 [facility] ([facility]) Protein [Mass/volume] in Serum or Plasma 7.2 [facility] ([facility]) Aspartate aminotransferase [Enzymatic activity/volume] in Serum or Plasma 23 [facility] ([facility]) Sodium 143 [facility] ([facility] Urea nitrogen [Mass/volume] in Serum or Plasma 12 [facility] ([facility]) Glucose 102 83-110 [facility] ([facility] Creatinine For GFR 1.26 [facility] ([facility]) ID Date Data Source [id number] 04/17/2020 12:30:30 PM EDT [facility] Name Value Range Interpretation Code Description Data Fariha rce(s) Supporting Document(s) Progress Note [facility] WAIVPs9vPvMIXqNy27/AESllOQWqm9LaDJrsLZi0ZStzJWDuP9ZjCMS8kJ3bNSL8KYrNMbIpKbWrHOKb lbm TwQeeSDrMmHSVyCypGPoIyYQsiWldycKVuYE6HdVN3CJBaL30mRJPgBSIsS6GdHEV7JXS+Du1YAOXojB QtEO0EArvG5O70inu8Fe+/M/1DjIr0kYL1lGrRojBCTor/buhyF3VedH7rTtldASQvNKVr5Ksnne+1x3 fU2LX7V/fAO2KD23D0RxErsVu6Wtakmm/+iV9o7YV9 tfrf9V/nUGuTgek775P4Z1Bff95/ygrPO1ha0fTxC/lfA//UY8qVT1piRULSntswywGBRYYFq3LxEn2v g/oTAm2S9SyU8lRU6eQVaLV9JuJpIykTUYXKAlrfM57jwNjuZEBlH4vOqiWf+ck3XoSvWnT1Lxi0XOME HX82tlQ7kin8H/YIK3S7zXZntpZsulUsrxNfw10EsE oYZcbpQwPB4VG00RNSr/jBi9IJ0QqO1s1X5v1/lCmHg/t+RBeM8maaSWekPihjK5sOOhH8dIDKrP/SIN Yh+2UfL6Ol2BNCzjMJk34rd6Wk2/HzsXWNQCdeMwwFafyaNAeBlyYe++MaXxzokn+Q39s2QV+p59tk8n 79Iy4N1eEHn1G1ldQdhj0XrStRG/CJF4Mz1vw1WXXC e90/h8yuWkPLX45PljmVldCMzxuKH/c++2LneuRKYlf79H89FscxezYeJOel7kgr17ichFl2Vzq/6Kf5 o26RN4NqbOv4hNJZexiO+kI0dVdMe5iuBz4tBgVeTtKSTzz63JiqFutocffVE8arfpLSIseQWz7NIlRB hBU/Jennifer/mUKlCsy0eJBfPmx4hdp7ISB272xnFevh6U [file] nxYJOWLz7C ID Date Data Source [id number] 03/05/2020 11:11:13 AM EDT [facility] Name Value Range Interpretation Code Description Data Fariha rce(s) Supporting Document(s) &PDF [facility] TVFNNs9bTuUAFjCn31/EMBtqLVIaa0XiUPstOVk1OSylBCZmM7XczDpjAEMOCHEFRFCAGaJLXmMDQKcr yKE [file] CiAgICAgICAgICAgICAgICAgICAgICAgICAgICAgICAgICAgICAgICAgICAgICAgICAgICAgICAgICAg ICAgICAgICAgICAgICAgICAgICAgICAgICAgICAgIC AgICAgICAgICANCiAgICAgICAgICAgICAgICAgICAgICAgICAgICAgICAgICAgICAgICAgICAgICAgIC AgICAgICAgICAgICAgICAgICAgICAgICAgICAgICAgICAgICAgICAgICAgICAgICAgICANCiAgICAgIC AgICAgICAgICAgICAgICAgICAgICAgICAgICAgICAg ICAgICAgICAgICAgICAgICAgICAgICAgICAgICAgICAgICAgICAgICAgICAgICAgICAgICAgICAgICAg ICANCiAgICAgICAgICAgICAgICAgICAgICAgICAgICAgICAgICAgICAgICAgICAgICAgICAgICAgICAg ICAgICAgICAgICAgICAgICAgICAgICAgICAgICAgIC AgICAgICAgICAgICANCiAgICAgICAgICAgICAgICAgICAgICAgICAgICAgICAgICAgICAgICAgICAgIC AgICAgICAgICAgICAgICAgICAgICAgICAgICAgICAgICAgICAgICAgICAgICAgICAgICAgICANCiAgIC AgICAgICAgICAgICAgICAgICAgICAgICAgICAgICAg ICAgICAgICAgICAgICAgICAgICAgICAgICAgICAgICAgICAgICAgICAgICAgICAgICAgICAgICAgICAg ICAgICANCiAgICAgICAgICAgICAgICAgICAgICAgICAgICAgICAgICAgICAgICAgICAgICAgICAgICAg ICAgICAgICAgICAgICAgICAgICAgICAgICAgICAgIC AgICAgICAgICAgICAgICANCiAgICAgICAgICAgICAgICAgICAgICAgICAgICAgICAgICAgICAgICAgIC AgICAgICAgICAgICAgICAgICAgICAgICAgICAgICAgICAgICAgICAgICAgICAgICAgICAgICAgICANCi AgICAgICAgICAgICAgICAgICAgICAgICAgICAgICAg ICAgICAgICAgICAgICAgICAgICAgICAgICAgICAgICAgICAgICAgICAgICAgICAgICAgICAgICAgICAg ICAgICAgICANCiAgICAgICAgICAgICAgICAgICAgICAgICAgICAgICAgICAgICAgICAgICAgICAgICAg ICAgICAgICAgICAgICAgICAgICAgICAgICAgICAgIC AgICAgICAgICAgICAgICAgICANCjw/zWQyE9itmOXzjuB9A7xcLb1NMc8ZOY6do9ZyJKCtTRsmimHyTh aINvUsYIXbSxaZFqz2IIeuXU1YiHNjZ2XkU9UpDZhaPX1NIMWtDEZszYJnQVDeEJXfWiH5OLXkSFkaLX 9DhKJkNJapNGCqZIIgSoYkIRFzWDGwNWQhGG1CLDEh P042zhBzWq2FJg9CFtKoZY5fcd8GNqfhNXVsFleXEqg6GWpvUX9FlBZphRAkQJIzWSJNFcKhV7nms5Rc HnscTNBALWzePA0Yp9MuxMDtAOm+Cp0YDY0zr1FzOLzbRNVyPS8apw9QDAyLTrCdP9GlzLufLSrukAeh mmVnGD2FCHTfUKCqdDWwRQnlMJPBZA0CPJfrTAY6Wo RpmzHfhXPzHPoxRO0EXZQzvmMxEeppDNLBHOq+Wz1ZFG7we8XzJMmiOPCnBK1sub8TDKgISzWkD1Q0aX JbR9Y2UUqyRj2GSKYfRSOlZdDnWZSOWBxoLT7PLN5vwpO9LI6OmDThECZeVGXqeUEeNDf1J71abKTkVX ceKV4HAFZ+Yanni+Ol8IEJJnHQWxAVAoJqPnMOCYStOr W7BbF0OQo7ByG3FzOD55kKoyitCmVKjqPT5UXV9hSJTdAQFWYA1OxGLjrZ9hnkQuAgZqRQVZFeQpL56b wTYzKTQlFNQ5LVRrCf6WIVFfC6UxicAooJtyikRfHIZjJMNNWD5ZCArdjbTzyNJceUeqQS34kRoyZH7V Xe1TWxDpRN7hxz4XcSDzHv2TTILgPJ7UPEHpDOSmCD JmZYY4ZLPfMfYtCPkvSXYyBCUqXLN0LNKjUSEsLI3TDmEqJAYrVAaoYxBcJCOeRMCudo8SAWZmPDE6HG ntTHTdRDYeEDRoXQlwWJMrRTCoOFqiASKlEUVfEV0BAoIlKMEnPDI0YxDsBEMsXEEjms7MEYXiACMqYb y0SNHlJLUbDVFfHYmyNICwDDZ3KpV6QMTsIUUjPW9V CfBzGWTnDVO1EHotTJHfOEIiuu2WUBWhERXtXjD3BOHnIXUeHSHnPNnzEYSrXYT2YKSsPREbPLZgPD7L HvMsFLZbOCj8FSHbWSAbDLRgqn4ZMXPrGADlLZVbLUZlEZBkPBBmNBqsXTZxCKM3YOrxOPGcBKRuSY7M KfRoZKEtNZexMBUmZZDwUCJfkv8BOTWlLTDhXCZ8UV HvSWUiJSHgXVfmJPEoXFO6SYPbRXQqKSRsAZ6KTnItSBZyAHCgNKhhULVvRZVlnd1STOZdADMfPDhbDS UiKOHzUYBqANrnSEKsIGX6BFY1OAXdMJWxIB0FWnQnFUEjSJRkZqyqLQLuPRTepw5FMHXeWHJsXJPkHY AxLFQqDHCfLKmfWPZpOXP4UPC2JCThXDAqQI1IVwXx SYMpEdV3AYzlWOEwILHnoi5KOZUgWYKpCmXrDJBpVQEtKGUeWIdqVPMbRNZ2YWV9KJHjATKkJB1TNeIj AFEoUIg2CaMgMIAgFXWmew7MVBRgDCO6OQtgSHCbRYHvHWQnHAhsCDHlTZGlRRh7EYRcEVTrHN3TPqWd JLYeWOBxKAXeHAPqAXMhrz0GsRVtlGficb7VMJaVMb 2NaCqsOSQpSXbaEa0ynZRhYVMnGNUKXc0GfgWqCWIcBZVBOMorARGfFAZ6PAAeNkrhXCR0QVCaMQzmFL cvJmPbNoIxDsY5MAF9VnG3BQGsRdUrWIZ6HPDyALHtGAR2SDOfPOCcORWwVhFlUCj+OR5bVAn+Pg0Kc3 DfqfC3ybXlJLu0OPMbLU5GVGIWL9NDYg== ID Date Data Source [id number] 03/05/2020 10:00:22 AM EDT [facility] Name Value Range Interpretation Code Description Data Fariha rce(s) Supporting Document(s) EKG [facility] KZLFIk1rOiUUGgEnd5NtTuOcZTWmRF5xrdk2D9I0iCSuO6QosWNcr3scQ9HmC0KfKABcBYBLSH5OzLOe jb2 [file] 3xSZZXkM6GMb/1oUFXHpL0Cgh52TSOZC4mcrJW6RWv78OheQvTO+N43Oq4Ou4Jc5aY+h6e1Qn9M0/Olive 8lcn7TRj/7MXtYGrv6F+knP49fqz2+lj0I4TUS+c/n xPfgn6w/YocpwX15k46x37G13kJA2p9aZ/KfTxtG+w9ewo7qpL+WAV10AUJR3EzMwLVu/qCO8H3L+FcD 9mqM8p/V7KN6Cbihank5psD/asC/QgIepbkkc7kLjhcTrexiZXq/KiVGTfCww4y5pU0VrWrhHu8i5e/H pjiLsA2JWF2cxK5uyjoHM/GnNz82702pJ27GzjN4+9 dRnShSDmzmQk6hdb+aT/k58+nAATyAJ/LVxc3a3V8x/KsJ/5uDb9tpcqh2t9ySk1TidCeT41KtYj7c9y CYX1Y50/PLvt112kkle93nvwK/LSm3oG1lUbf02mC5csU+m+Pzmh+et69xMT6EjQK6iagBCij2p0saUu P4nbwSEjoVm+IEImXAdNITgcSgI8rED42UPpqY7rwR 61wgpiUn7HPk9LVz7TGe9SJpAE/dK1rRtQzstCeEOtfyl8H86ymRuENYhtfdA8FQ8o1jhJ4M7VLY28u+ esqcl2jBz++scale tester+knDbrkGrpgsc81NKZ4t8gn202jQ6nnBR2Xf/qMowXh6iY5GxDRz/6TL488xEjfR6f [file] ZFPj/7/8hfzc8cPQ8//2enl+8/cU9m30ytmLEp/Rylee kenneth/Vt5kC53ZH6wXEh++yL77B/x72PR+eg4UHuuzzH1p0fo/MXy+xi054xA0yH//Pu+uqhFR5Zz/3pF5 ff3y3n/0N9cgu0+ebq/A3l6pwqSxk9/fw77/8f5urwJ+tFavtjvzy/cC0ezp6+Or+4zUd7diM9/oHl5v knyR4fWk2c0Lf6Bd6euH9aqZ27EQrxdajMA8xllF23 xC50q7d4E8/+5FF41mk39c0Tb6aMxaOO/Tdv/+TFx4d/resource specialist teacher/89w5oa9//Wm7vH/777/ef7h9+resource specialist teacher/np48f 3n+zPP/48cP9w/Gkz733bj/+opv5jUBg5AgzbGQklhxWghrcu413b+oj3n8fv/vz0K1SY9yQdH0xmlkE L1InkhHsach1+f+clz4Wkej39xfzzmyCaQov4+sXC1 njtjGaSn6fnoA6wMcOR7pur+RCrXzuse/+XlpIff60CXfON38dns27d+peZey2Wwd+6/7tBRlxqKj570 vl0/9g9w70tt4Zyl1jz+gD/d3/YvzW824jaVL+ul3eP/z57tP/3P/+or9Zo76B/qF7gX0J/Yf18ww78t u/Tsa///jwZf+9HPOL/lBK4ldR3lAl6v3j/LEvDz0w be/P1iu1Nt/vb38Li94r6ov257PPwT6wqnY9TaO5drqStaxVie/cLff/++6Pz9+DY+RCe/Lj+fWTvbTt 9C5t2/LXp1//8lEOFcEi7q/+nVBno9tM+3+9vf/j/w0W355//FV1vrOwH76QajYHU5bJTl0+RlCP0crE Pq1rhShg3h0o8u5w4o84Hc4+/MW3Qs1Bz5/7uGo5t1 5umE7cXCaaALig/r/eLWH5+I/P77AhATttK1nkj5b1dhomEd97F3QtQyiklOaeg2jtJ53vu1Pq/nB+cX VNjAisR1fWlD+AtzK6/3/RzNodCuKhZED8gqImnEoawoAfRbnJEExpSIUrWkc4PI7RjGJlFMUeM5J7XQ Nmni4bXUOuTDLppUQdBzRlSEWPGO7ZuVYhZW5SLCo9 VNYsKAPnSvNwSDQvtxY5INNuWFOeVPHsW2XozuPhwRApOQFuWj6+IP1ip2JbJuAzXLUnGdw5JT4DeNXz GC2LnXCsoK7ipsNgE769gpNvKEByPzlob4IzZKtzQVYEYG4MAIM9URG9SUFdVp5+SB3ri3XoInZuMLRv Tqp0DN8MnTCsu3FnIA2HO9UjKPUhBXHKWYE0n6WsDC FfkavhuazbS2JvNYT9zU7iATN5HLDpDSpmUAGcMXnoRHBpHWZcWDlqDHRcCULzFOYqPPBdKQp8jXBvJQ 3DE4SyJAFxZBNCMZJftiUoKw4oEIPXHLLUXHOVDXELXL6GMVMeCXTtPHB1KVSuEJ5WaNYbZRB6UUiIZI VPKVjWFXzwEaWww4K7TOUvS0MoPRRkqnHhDNCWRPja JbmwKI6zbHvrryalX5KnzGHrWETURWDyVSHnXDBmWXSfM2Vno2S3Y6KpOScEZVJNMLcNKIagUvC7j50q ayBTZXJpZXMpID4+XD0bt6XzGr3XYYBfXL6yhed0VT7TiXGwRH4NTCrewnKlQ5hjdkUmGkZuTQTYRD9f N9GhnV72NRU+CoQmUN2xmtn6tkVkErRtCURvGWInWU GoDPklKMAlCSAjYGIbIBI9RIA5ERQyXcHfZOBqBOMzMCbkQAEyUBCsquTIQHFsAWO3LXj0ASAqHGNfGP TfDEfnVLWbZWPtFPR0ASRkITWhKG2wCnYhBFDkYUDsAOKnPpH1XeZfIxDFHKGtDAXiFRGzTfMnOUNaPS KlNYzfPXOlZCSyFFj8QEZnEAAlIU3cZfLwNQPzRBBr RVCqWCAtBQRvqcJYZMUmANSzYRO3AKRsSOYwYEHhHOyoOTHfGZTwBMN3ERQsQTHcNM2vDkEcSXBvFBQ5 MuVdMBXzIECgziVXQFRnVBFnQGA3RMXmWOGmFNQpZYuoOPJdXHJrYcE8YIOeWZFaOC8fLvYyUAElNGV5 CVOaOYOpKNWsbkLVKOIzJQCiKBw5IqHdRNHsSVTlJE mlOHHzNQOxESnhYHApWMBjBM9jAeKtGWZyMDNiOCAjENMrQQAaxfXJDLEyAIJzBSF3AvYxKMBcVQTzNL wvPFGdEXDtXIM1VBIgFVAsVW0cFcWhHEJbCXM7UFqdIMEpKEEjsxMNVUIrWFMvWGAdCFDpOFGuMWUtSZ fgYWEpTUIfPsR5EEChUDOkAI4aMhZlSJBtINL8ZIMg XJZnDBPyqxHTKYTnJNBoWFBrKGR2LFEhEUShAEy0odTwcFGwPwl5Pw8OuIaiIHT6Td1DwgGpAXFiCUPT Vv7Ci211BRZzZKQBBqo+UohbfPNanHfsVFSSWPXbTNTYZSYIS8C= ID Date Data Source [id number] 03/05/2020 07:53:18 AM EDT [facility] INFORMATIONPatient MRN Name Date of Age Gend*PT [id number] Didi Castanon 1955 64 years M HOPPT Location Admission Date/Time Visit ID Attending Provider03/05/20 0658 --- Trinh Pierre MD([id number]) EPI ID CSN Admitting Provider [id number] Trinh Pierre MD([id number])Updated H&PPlease see the scanned/dictated outpatient note.I have reviewed the note, clinical history and physical exam findings. Therehave been no significant changes.Plan as outlined in the outpatient note.Risk/benifit/alternative of cardiac catheterization was discussed withpatient/family. Risks included, but not limited to; [place], CVA, , renalimpairment, vascular complication, and need for emergency surgery were discussedand accepted by patient.Trinh Pierre MD, [facility] BETHANYAIInterventional Maintenance Mechanic Supervisor Name Value Range Interpretation Code Description Data Fariha rce(s) Supporting Document(s) ID Date Data Source [id number] 03/05/2020 08:35:18 AM EDT [facility] Name Value Range Interpretation Code Description Data [facility] rce(s) Supporting Document(s) SODIUM 143 mmol/L (136-145) [facility] POTASSIUM 4.4 mmol/L (3.6-5.2) [facility] SLIGHT HEMOLYSIS CHLORIDE 111 mmol/L (100-108) H [facility] CO2 27 mmol/L (22-31) [facility] ANION GAP 5 mmol/L (7-16) L [facility] UREA NITROGEN 14 mg/dL (7-24) [facility] CREATININE 1.15 mg/dL (0.80-1.30) [facility] BUN/CREAT RATIO 12.2 RATIO (10.0-20.0) [facility] GLUCOSE 95 mg/dL (70-99) [facility] CALCIUM 9.2 mg/dL (8.4-10.2) [facility] GFR >60 ml/min/1.73m2 (>59) [facility] GFR ( AMER) >60 ml/min/1.73m2 (>59) [facility] GFR INTERPRETATION Lab [facility] --NORMAL KIDNEY FUNCTION OR MILD DISEASE - GFR >OR= 60CHRONIC KIDNEY DISEASE - GFR 15 - 59RENAL FAILURE - GFR <15 Est. GFR calculation based on the MDRDstudy equation, which assumes a steadystate for creatinine. Est. GFR should notbe used for medication dosing. ID Date Data Source [id number] 03/05/2020 08:10:43 AM EDT [facility] Name Value Range Interpretation Code Description Data Fariha rce(s) Supporting Document(s) PT 11.0 s (9.2-11.9) [facility] PERFORMED AT [address] [facility] [address] [place] [address] INR 1.05 [facility] SUGGESTED THERAPEUTIC RANGES USING INR F ORSTABILIZED ANTICOAGULATED PATIENTS:STANDARD DOSE THERAPY INR 2.0-3.0 DVT, PE, PREVENT DVT OR EMBOLISMHIGH DOSE THERAPY INR 2.5-3.5 PREVENT EMBOLISM FROM MECHANICAL HEART VALVE ID Date Data Source [id number] 03/05/2020 08:10:43 AM EDT [facility] Name Value Range Interpretation Code Description Data Fariha rce(s) Supporting Document(s) APTT 23.0 s (22.0-34.3) [facility] [address] [facility] [address] ID Date Data Source [id number] 03/05/2020 08:02:56 AM EDT [facility] Name Value Range Interpretation Code Description Data Fariha rce(s) Supporting Document(s) WBC 7.7 10*3/uL (4.1-11.0) [facility] RBC 5.23 10*6/uL (4.60-6.10) [facility] HGB 16.6 g/dL (13.5-18.0) [facility] HCT 47.4 % (41.0-53.0) [facility] PERFORMED AT [address] [place] [address] MCV 90.6 fL (80.0-95.0) [facility] MCH 31.8 pg (27.0-32.0) [facility] MCHC 35.1 g/dL (32.0-36.0) [facility] RDW 14.2 % (10.5-14.5) [facility] PLT 205 10*3/uL (150-450) [facility] MPV 7.5 fL (7.1-10.7) [facility] Procedure Social History Code Duration Value Status Description Data Source(s ) Alcohol intake 03/10/2021 12:00:00 AM EDT Current drinker of al cohol (finding) completed Current drinker of alcohol (finding) [facility] Tobacco use and exposure 03/10/2021 12:00:00 AM EDT Never used co mpleted Never used [facility] Smoking 03/10/2021 12:00:00 AM EDT Never smoker completed Never s [facility] Alcohol intake 03/05/2021 12:00:00 AM EDT Current drinker of al cohol (finding) completed Current drinker of alcohol (finding) [facility] Alcohol intake 02/19/2021 12:00:00 AM EDT Current drinker of al cohol (finding) completed Current drinker of alcohol (finding) [facility] Alcohol intake 01/29/2021 12:00:00 AM EDT Current drinker of al cohol (finding) completed Current drinker of alcohol (finding) [facility] Alcohol intake 01/15/2021 12:00:00 AM EDT Current drinker of al cohol (finding) completed Current drinker of alcohol (finding) [facility] Smoking 01/09/2021 12:00:00 AM EDT Never Smoker completed Never S moker eCW1 ([facility]) Smoking 12/18/2020 12:00:00 AM EDT Never Smoker completed Never S moker eCW1 ([facility]) Smoking 12/18/2020 12:00:00 AM EDT Never Smoker completed Never S moker eCW1 ([facility]) Alcohol intake 12/11/2020 12:00:00 AM EDT Current drinker of al cohol (finding) completed Current drinker of alcohol (finding) [facility] Alcohol intake 11/06/2020 12:00:00 AM EDT Current drinker of al cohol (finding) completed Current drinker of alcohol (finding) [facility] Alcohol intake 10/16/2020 12:00:00 AM EDT Current drinker of al cohol (finding) completed Current drinker of alcohol (finding) [facility] Alcohol intake 09/01/2020 12:00:00 AM EST Current drinker of al cohol (finding) completed Current drinker of alcohol (finding) [facility] Alcohol intake 07/03/2020 12:00:00 AM EST Current drinker of al cohol (finding) completed Current drinker of alcohol (finding) [facility] Alcohol intake 05/08/2020 12:00:00 AM EST Current drinker of al cohol (finding) completed Current drinker of alcohol (finding) [facility] Alcohol intake 04/17/2020 12:00:00 AM EDT Current drinker of al cohol (finding) completed Current drinker of alcohol (finding) [facility] Alcohol intake 03/05/2020 12:00:00 AM EDT Yes completed [facility] Smoking 03/05/2020 12:00:00 AM EDT Never smoker completed Never kay zapata [facility] Vital Signs ID Date Data Source UNK Name Value Range Interpretation Code Description Data Source(s) Body height 71 [in_i] 71 [in_i] [facility] ([facility] 5'11" Body weight 205.00 [lb_av] 205.00 [lb_av] MEDEN T ([facility]) Systolic blood pressure 136 mm[Hg] 136 mm[Hg] M EDENT ([facility]) Diastolic blood pressure 85 mm[Hg] 85 mm[Hg] MEDENT ([facility]) Heart rate 72 /min 72 /min [facility] ([facility]) Body mass index (BMI) [Ratio] 28.6 kg/m2 28.6 k g/m2 MEDENT ([facility]) Body weight 92.988 kg 92.988 kg MEDENT ([facility]) Body temperature 97.2 [degF] 97.2 [degF] MEDENT ([facility]) Systolic blood pressure--sitting 133 mm[Hg] 133 mm[Hg] MEDENT ([facility]) Medium cuff, Ra Body weight 205.00 [lb_av] 205.00 [lb_av] MEDEN T ([facility]) Respiratory rate 16 /min 16 /min MEDENT ( [facility]) Body height 71 [in_i] 71 [in_i] MEDENT [facility] 5'11" Body mass index (BMI) [Ratio] 28.6 kg/m2 28.6 k g/m2 MEDENT ([facility]) Heart rate 60 /min 60 /min MEDENT ([facility]) regular Diastolic blood pressure--sitting 84 mm[Hg] 84 mm[Hg] MEDENT ([facility]) Medium cuff, Ra Systolic blood pressure--supine 140 mm[Hg] 140 mm[Hg] MEDENT ([facility]) Diastolic blood pressure--supine 86 mm[Hg] 86 mm[Hg] MEDENT ([facility]) Body weight 208 [lb_av] 208 [lb_av] [facility] Diastolic blood pressure 82 mm[Hg] 82 mm[Hg] eCW1 ([facility]) Body weight 94.35 kg 94.35 kg eCW1 ([facility]) Body height 71 [in_i] 71 [in_i] eCW1 ([facility]) Body mass index (BMI) [Ratio] 29.01 kg/m2 29.01 kg/m2 eCW1 ([facility]) Heart rate 74 /min 74 /min eCW1 ([facility]) Respiratory rate 18 /min 18 /min eCW1 ([facility]) Body temperature 97.2 [degF] 97.2 [degF] eCW1 ( [facility]) Systolic blood pressure 130 mm[Hg] 130 mm[Hg] e CW1 ([facility]) Body weight 210.0 [lb_av] 210.0 [lb_av] eCW1 ([facility]) Body height 71 [in_i] 71 [in_i] W1 ([facility]) Body mass index (BMI) [Ratio] 29.29 kg/m2 29.29 kg/m2 eCW1 ([facility]) Systolic blood pressure 116 mm[Hg] 116 mm[Hg] e CW1 ([facility]) Diastolic blood pressure 70 mm[Hg] 70 mm[Hg] eCW1 ([facility]) Body height 72 [in_i] 72 [in_i] MEDENT ([facility]) 6'0" Body mass index (BMI) [Ratio] 28.9 kg/m2 28.9 k g/m2 MEDENT ([facility], [facility]) Body temperature 98.0 [degF] 98.0 [degF] MEDENT ([facility], [facility]) Systolic blood pressure 131 mm[Hg] 131 mm[Hg] M EDENT ([place] [facility], [facility]) Diastolic blood pressure 85 mm[Hg] 85 mm[Hg] MEDENT ([facility], [facility]) Heart rate 64 /min 64 /min MEDENT ([facility], [facility]) Respiratory rate 12 /min 12 /min MEDENT ( [facility], [facility]) Oxygen saturation in Arterial blood by Pulse oximetry 98 % 98 % MEDENT ([facility], [facility]) Body weight 213.00 [lb_av] 213.00 [lb_av] MEDEN T ([facility], [facility]) Body mass index (BMI) [Ratio] 29.3 kg/m2 29.3 k g/m2 MEDENT ([facility]) Body weight 210.00 [lb_av] 210.00 [lb_av] MEDEN T ([facility]) Body height 71 [in_i] 71 [in_i] MEDENT ([facility]) 5'11" Respiratory rate 16 /min 16 /min MEDENT ( [facility]) Heart rate 64 /min 64 /min MEDENT ([facility]) regular Diastolic blood pressure--supine 78 mm[Hg] 78 mm[Hg] MEDENT ([facility]) Ra Systolic blood pressure--supine 124 mm[Hg] 124 mm[Hg] MEDENT ([facility]) Ra Diastolic blood pressure--sitting 80 mm[Hg] 80 mm[Hg] MEDENT ([facility]) Medium cuff, Ra; 123/76 LA Systolic blood pressure--sitting 132 mm[Hg] 132 mm[Hg] MEDENT ([facility]) Medium cuff, Ra; 123/76 LA Body weight 219.4 [lb_av] 219.4 [lb_av] eCW1 ([facility]) Body height 71 [in_i] 71 [in_i] eCW1 ([facility]) Body mass index (BMI) [Ratio] 30.60 kg/m2 30.60 kg/m2 eCW1 ([facility]) Systolic blood pressure 124 mm[Hg] 124 mm[Hg] e CW1 ([facility]) Diastolic blood pressure 83 mm[Hg] 83 mm[Hg] eCW1 ([facility]) Body weight 220.4 [lb_av] 220.4 [lb_av] eCW1 ([facility]) Body height 71 [in_i] 71 [in_i] eCW1 ([facility]) Body mass index (BMI) [Ratio] 30.74 kg/m2 30.74 kg/m2 eCW1 ([facility]) Systolic blood pressure 158 mm[Hg] 158 mm[Hg] e CW1 ([facility]) Diastolic blood pressure 82 mm[Hg] 82 mm[Hg] eCW1 ([facility]) Body weight 216.00 [lb_av] 216.00 [lb_av] TRICIA T ([facility]) Body height 71 [in_i] 71 [in_i] MEDENT ([facility]) 5'11" Body mass index (BMI) [Ratio] 30.1 kg/m2 30.1 k g/m2 MEDENT ([facility]) Heart rate 64 /min 64 /min MEDENT ([facility]) regular Respiratory rate 16 /min 16 /min MEDENT ( [facility]) Systolic blood pressure--sitting 142 mm[Hg] 142 mm[Hg] MEDENT ([facility]) large cuff, Ra; 146/ 86 LA Diastolic blood pressure--sitting 82 mm[Hg] 82 mm[Hg] MEDENT ([facility]) large cuff, Ra; 146/ 86 LA Systolic blood pressure--supine 148 mm[Hg] 148 mm[Hg] MEDENT ([facility]) Ra Diastolic blood pressure--supine 80 mm[Hg] 80 mm[Hg] MEDENT ([facility]) Ra Body weight 223.4 [lb_av] 223.4 [lb_av] eCW1 ([facility]) Body height 71 [in_i] 71 [in_i] eCW1 ([facility]) Body mass index (BMI) [Ratio] 31.15 kg/m2 31.15 kg/m2 eCW1 ([facility]) Systolic blood pressure 118 mm[Hg] 118 mm[Hg] e CW1 ([facility]) Diastolic blood pressure 78 mm[Hg] 78 mm[Hg] eCW1 ([facility]) Body weight 216.00 [lb_av] 216.00 [lb_av] MEDEN T ([facility]) Body height 71 [in_i] 71 [in_i] MEDENT ([facility]) 5'11" Body mass index (BMI) [Ratio] 30.1 kg/m2 30.1 k g/m2 MEDENT ([facility]) Heart rate 68 /min 68 /min MEDENT ([facility]) regular Respiratory rate 16 /min 16 /min MEDENT ( [facility]) Systolic blood pressure--sitting 129 mm[Hg] 129 mm[Hg] MEDENT ([facility]) large cuff, Ra Diastolic blood pressure--sitting 82 mm[Hg] 82 mm[Hg] MEDENT ([facility]) large cuff, Ra Systolic blood pressure--supine 128 mm[Hg] 128 mm[Hg] MEDENT ([facility]) Diastolic blood pressure--supine 81 mm[Hg] 81 mm[Hg] MEDENT ([facility]) Body weight 214.1 [lb_av] 214.1 [lb_av] eCW1 ([facility]) Body weight 97.11 kg 97.11 kg eCW1 ([facility]) Body height 71 [in_i] 71 [in_i] eCW1 ([facility]) Body mass index (BMI) [Ratio] 29.86 kg/m2 29.86 kg/m2 eCW1 ([facility]) Heart rate 71 /min 71 /min eCW1 ([facility]) Respiratory rate 18 /min 18 /min eCW1 ([facility]) Body temperature 97.6 [degF] 97.6 [degF] eCW1 ( [facility]) Systolic blood pressure 152 mm[Hg] 152 mm[Hg] e CW1 ([facility]) Diastolic blood pressure 80 mm[Hg] 80 mm[Hg] eCW1 ([facility]) Systolic blood pressure 157 mm[Hg] 157 mm[Hg] [facility] Diastolic blood pressure 92 mm[Hg] 92 mm[Hg] [facility] Heart rate 62 /min 62 /min [facility] Body temperature 36.78 Julia 36.78 Julia [facility] Respiratory rate 18 /min 18 /min [facility] Oxygen saturation in Arterial blood by Pulse oximetry 97 % 97 % [facility] Body height 182.9 cm 182.9 cm [facility] Body weight 92.6 kg 92.6 kg [facility] Body mass index (BMI) [Ratio] 27.69 kg/m2 27.69 kg/m2 [facility] ID Date Data Source [id number] 11/27/2020 10:45:48 AM [facility] Name Value Range Interpretation Code Description Data Source(s) WEIGHT RECORDED 212 lb 212 lb [facility] Body height Measured 72.01 in 72.01 in [facility] ID Date Data Source [id number] 11/06/2020 01:17:51 PM [facility] Name Value Range Interpretation Code Description Data Source(s) WEIGHT RECORDED 216 lb 216 lb [facility] Body height Measured 72.01 in 72.01 in [facility] ID Date Data Source [id number] 09/01/2020 01:38:02 PM [facility] Name Value Range Interpretation Code Description Data Source(s) WEIGHT RECORDED 224 lb 224 lb [facility] Body height Measured 72.01 in 72.01 in [facility] ID Date Data Source [id number] 07/10/2020 01:40:44 PM [facility] Name Value Range Interpretation Code Description Data Source(s) WEIGHT RECORDED 217.6 lb 217.6 lb [facility] ID Date Data Source [id number] 04/17/2020 12:30:30 PM [facility] Name Value Range Interpretation Code Description Data Source(s) WEIGHT RECORDED 215 lb 215 lb [facility] Body height Measured 72.01 in 72.01 in [facility] Patient Treatment Plan of Care Planned Activity Planned Date Details Description Data Source (s) Sulfamethoxazole 800 MG / Trimethoprim 160 MG Oral Tab let 03/10/2021 10:45:00 AM [facility] ospital lidocaine (XYLOCAINE) 2 % urojet 20 mL 03/10/2021 10:45:00 AM [facility] coenzyme Q10 100 MG Oral Capsule 02/08/2021 12:00:00 AM [facility] Amoxicillin 500 MG Oral Capsule 12/19/2020 12:00:00 AM [facility] Multiple Vitamins-Minerals (MULTIVITAMIN ADULT EXTRA C PO) 08/26/2020 12:00:00 AM [facility] ospital SYRINGE/NEEDLE, DISP, 1 ML 26G X 5/8" 1 ML MISC 03/02/2019 12:00:00 AM [facility] Omeprazole 40 MG Delayed Release Oral Capsule 03/01/2019 12:00:00 A M [facility] Penicillin V Potassium 500 MG Oral Tablet 06/06/2018 12:00:00 AM [facility] clopidogrel 75 MG Oral Tablet 03/31/2018 12:00:00 AM [facility] sildenafil 25 MG Oral Tablet [facility] Oxymetazoline hydrochloride 0.5 MG/ML Nasal [facility] Spironolactone 25 MG Oral Tablet [facility] Spironolactone 25 MG Oral Tablet [facility]
[2021-05-04] MEDS ORDERED: fentaNYL 100 MCG/2 ML INJECTION (J3010) As Ordered ONE (13:07)
--- NOTE | 2021-05-04 13:37 | ROOR ---
Patient Name: Stan Castanon Procedure Date: 05/04/2021 1:20 PM Date of : 1955 Age: 65 Room: [facility] Gender: Male Note Status: Finalized Procedure: Upper Endoscopy + Biopsies Indications: Heartburn, Exclusion of Maradiaga's esophagus Providers: Herve Stanley MD Referring MD: JOCY ACKERMAN MD Requesting Provider: Medicines: Monitored Anesthesia Care Complications: No immediate complications. Procedure: Pre-Anesthesia Assessment: - The heart rate, respiratory rate, oxygen saturations, blood pressure, adequacy of pulmonary ventilation, and response to care were monitored throughout the procedure. The Endoscope was introduced through the mouth, and advanced to the second part of duodenum. The upper GI endoscopy was accomplished without difficulty. The patient tolerated the procedure well. Findings: The Z-line was regular and was found 40 cm from the incisors. Multiple biopsies were obtained with cold forceps for evaluation to rule out Maradiaga's Esophagus randomly at the gastroesophageal junction. Localized mild inflammation characterized by congestion (edema) and erythema was found on the greater curvature of the stomach. Biopsies were taken with a cold forceps for Helicobacter pylori testing. The exam of the duodenum was otherwise normal. Impression: - Z-line regular, 40 cm from the incisors. - Mucosal changes suspicious for gastritis. Biopsied. - Multiple biopsies were obtained at the gastroesophageal junction. - The examination was otherwise normal. Recommendation: - Patient has a contact number available for emergencies. The signs and symptoms of potential delayed complications were discussed with the patient. Return to normal activities tomorrow. Written discharge instructions were provided to the patient. - High fiber diet. - Discharge patient to home. - Follow an antireflux regimen. - Continue present medications. - Await pathology results. - Telephone GI clinic for pathology results in 1 week. - Return to referring physician. - The findings and recommendations were discussed with the patient. Procedure Code(s): --- Professional --- 38181, Esophagogastroduodenoscopy, flexible, transoral; with biopsy, single or multiple Diagnosis Code(s): --- Professional --- K31.89, Other diseases of stomach and duodenum R12, Heartburn CPT copyright 2019 [employer]. All rights reserved. The codes documented in this report are preliminary and upon corn miller review may be revised to meet current compliance requirements. Herve Stanley MD Herve Stanley MD 05/04/2021 1:37:23 PM Electronically signed by Herve Stanley MD Number of Addenda: 0 Note Initiated On: 05/04/2021 1:20 PM Estimated Blood Loss: Estimated blood loss: none.
--- NOTE | 2021-05-04 13:53 | ROOR ---
Patient Name: Stan Castanon Procedure Date: 05/04/2021 1:22 PM Date of : 1955 Age: 65 Room: [facility] Gender: Male Note Status: Finalized Procedure: Total Colonoscopy to Cecum + Cold Snare Polypectomy Indications: High risk colon cancer surveillance: Personal history of colonic polyps Providers: Herve Stanley MD Referring MD: JOCY ACKERMAN MD Requesting Provider: Medicines: Monitored Anesthesia Care Complications: No immediate complications. Procedure: Pre-Anesthesia Assessment: - The heart rate, respiratory rate, oxygen saturations, blood pressure, adequacy of pulmonary ventilation, and response to care were monitored throughout the procedure. The Colonoscope was introduced through the anus and advanced to the cecum, identified by appendiceal orifice and ileocecal valve. The colonoscopy was performed without difficulty. The patient tolerated the procedure well. The quality of the bowel preparation was excellent. Findings: The perianal and digital rectal examinations were normal. Non-bleeding internal hemorrhoids were found during retroflexion. The hemorrhoids were small and Grade I (internal hemorrhoids that do not prolapse). Scattered small-mouthed diverticula were found in the recto-sigmoid colon, sigmoid colon and descending colon. A small polyp was found at 30 cm proximal to the anus. The polyp was sessile. The polyp was removed with a cold snare. Resection and retrieval were complete. A small polyp was found in the hepatic flexure. The polyp was sessile. The polyp was removed with a cold snare. Resection and retrieval were complete. The exam was otherwise without abnormality on direct and retroflexion views. Impression: - Non-bleeding internal hemorrhoids. - Diverticulosis in the recto-sigmoid colon, in the sigmoid colon and in the descending colon. - One small polyp at 30 cm proximal to the anus, removed with a cold snare. Resected and retrieved. - One small polyp at the hepatic flexure, removed with a cold snare. Resected and retrieved. - The examination was otherwise normal on direct and retroflexion views. - The exam was otherwise normal to the cecum. Recommendation: - Patient has a contact number available for emergencies. The signs and symptoms of potential delayed complications were discussed with the patient. Return to normal activities tomorrow. Written discharge instructions were provided to the patient. - High fiber diet. - Discharge patient to home. - Continue present medications. - Await pathology results. - Telephone GI clinic for pathology results in 1 week. - Repeat colonoscopy in 5 years for surveillance based on pathology results. - Return to referring physician. - The findings and recommendations were discussed with the patient. Procedure Code(s): --- Professional --- 65956, Colonoscopy, flexible; with removal of tumor(s), polyp(s), or other lesion(s) by snare technique Diagnosis Code(s): --- Professional --- Z86.010, Personal history of colonic polyps K64.0, First degree hemorrhoids K63.5, Polyp of colon K57.30, Diverticulosis of large intestine without perforation or abscess without bleeding CPT copyright 2019 [employer]. All rights reserved. The codes documented in this report are preliminary and upon mortgage professional review may be revised to meet current compliance requirements. Herve Stanley MD Herve Stanley MD 05/04/2021 1:52:35 PM Electronically signed by Herve Stanley MD Number of Addenda: 0 Note Initiated On: 05/04/2021 1:22 PM Estimated Blood Loss: Estimated blood loss: none.
[2021-05-04 14:00] VITALS: BP 102/67
== END 2021-05-04 14:05 | disposition home or self-care (01) ==
LOC: M OPP 12:29
PROVIDERS: ATTEND Internal Medicine Gastroenterology
DX: Z12.11 Encounter for screening for malignant neoplasm of colon (principal); Z86.010 Personal history of colon polyps; K63.5 Polyp of colon; K64.0 First degree hemorrhoids; K57.30 Diverticulosis of large intestine without perforation or abscess without bleeding; K31.89 Other diseases of stomach and duodenum; R12 Heartburn; K74.60 Unspecified cirrhosis of liver; Z95.5 Presence of coronary angioplasty implant and graft; Z79.82 Long term (current) use of aspirin; Z79.899 Other long term (current) drug therapy; Z88.8 Allergy status to other drugs, medicaments and biological substances
CPT/HCPCS: 43239; 45385; 88305; J3010

== ENCOUNTER → 2021-05-20 | Outpatient (CLI) | payer MEDICARE ==
[~2021-05-20] MED LIST changes: -LIDOCAINE 2% 100MG/5ML SDV (FOR ANES.) As Ordered ONE; -NS 1,000 ML IV ONE; -propofoL 500 MG/50 ML VIAL As Ordered ONE
[2021-05-20 11:23] LABS: HEMATOCRIT 48.2 % (42.0-52.0); HEMOGLOBIN 16.6 g/dl (13.5-17.5); MEAN CORPUSCULAR HEMOGLOBIN 32.5 pg (27.0-33.0); MEAN CORPUSCULAR HGB CONC 34.4 g/dl (32.0-36.5); MEAN CORPUSCULAR VOLUME 94.5 fl (80.0-96.0); PLATELET COUNT, AUTOMATED 183 10^3/uL (150-450); WHITE BLOOD COUNT 7.6 10^3/uL (4.0-10.0)
[2021-05-20 12:14] LABS: ALBUMIN 3.9 GM/DL (3.2-5.2); ALT/SGPT 64 U/L (12-78); BILIRUBIN,TOTAL 0.9 MG/DL (0.2-1.0); BLOOD UREA NITROGEN 11 MG/DL (7-18); CARBON DIOXIDE LEVEL 29 MEQ/L (21-32); CHLORIDE LEVEL 110 MEQ/L (98-107); CHOLESTEROL LEVEL 126 MG/DL (<200); CREATININE FOR GFR 1.16 MG/DL (0.70-1.30); GLOMERULAR FILTRATION RATE > 60.0 (>49); GLUCOSE, FASTING 92 MG/DL (70-100); HDL CHOLESTEROL 47 MG/DL (>40); LDL CHOLESTEROL 61 MG/DL (<100); NON-HDL-C 79 MG/DL; PROSTATIC SPECIFIC AG MONITOR 0.04 NG/ML (< 4.00); SODIUM LEVEL 143 MEQ/L (136-145); TRIGLYCERIDES LEVEL 89 MG/DL (<150)
[2021-05-20 14:01] LABS: HEMOGLOBIN A1c 5.2 %
== END ==
LOC: M LAB 09:51
PROVIDERS: ATTEND Family Medicine
DX: D64.9 Anemia, unspecified (principal); Z79.899 Other long term (current) drug therapy

== ENCOUNTER → 2021-08-04 | Outpatient (CLI) | payer MEDICARE ==
[2021-08-04 06:53] LABS: HEMATOCRIT 47.6 % (42.0-52.0); HEMOGLOBIN 16.4 g/dl (13.5-17.5); MEAN CORPUSCULAR HEMOGLOBIN 32.3 pg (27.0-33.0); MEAN CORPUSCULAR HGB CONC 34.5 g/dl (32.0-36.5); MEAN CORPUSCULAR VOLUME 93.9 fl (80.0-96.0); PLATELET COUNT, AUTOMATED 194 10^3/uL (150-450); RED BLOOD COUNT 5.07 10^6/uL (4.30-6.10); WHITE BLOOD COUNT 7.6 10^3/uL (4.0-10.0)
[2021-08-04 07:22] LABS: HEMOGLOBIN A1c 5.2 %
[2021-08-04 07:23] LABS: ALBUMIN 3.7 GM/DL (3.2-5.2); BILIRUBIN,TOTAL 0.9 MG/DL (0.2-1.0); CALCIUM LEVEL 8.8 MG/DL (8.8-10.2); CHOLESTEROL RISK RATIO 3.097 (<5); CREATININE FOR GFR 1.3 MG/DL (0.70-1.30); GLOMERULAR FILTRATION RATE 58.4 (>49); POTASSIUM SERUM 4.2 MEQ/L (3.5-5.1); PROSTATIC SPECIFIC AG MONITOR 0.04 NG/ML (< 4.00); THYROID STIMULATING HORMONE 4.67 uIU/ML (0.358-3.740); TOTAL PROTEIN 6.7 GM/DL (6.4-8.2)
== END ==
LOC: M LAB 06:24
PROVIDERS: ATTEND Family Medicine
DX: I10 Essential (primary) hypertension (principal); R53.83 Other fatigue; E03.9 Hypothyroidism, unspecified

== ENCOUNTER → 2021-08-05 | Outpatient (CLI) | payer MEDICARE | LOC: M PLAIMG 13:03 | PROVIDERS: ATTEND Family Medicine | DX: J44.9 Chronic obstructive pulmonary disease, unspecified (principal); R04.2 Hemoptysis; R19.06 Epigastric swelling, mass or lump; K86.2 Cyst of pancreas; I51.7 Cardiomegaly; K76.89 Other specified diseases of liver; N62 Hypertrophy of breast ==

== ENCOUNTER → 2021-08-24 | Outpatient (CLI) | payer MEDICARE ==
[2021-08-24 17:37] LABS: APPEARANCE, URINE CLEAR (CLEAR); BACTERIA, URINE AUTO NEGATIVE (NEGATIVE); BILIRUBIN, URINE AUTO NEGATIVE (NEGATIVE); BLOOD, URINE BLOOD 1+ (NEGATIVE); COLOR, URINE YELLOW (YELLOW); GLUCOSE, URINE (UA) AUTO NEGATIVE (NEGATIVE); KETONE, URINE AUTO NEGATIVE (NEGATIVE); LEUKOCYTE ESTERASE, URINE AUTO NEGATIVE (NEGATIVE); MUCUS, URINE SMALL (NEGATIVE); NITRITE, URINE AUTO NEGATIVE (NEGATIVE); PROTEIN, URINE AUTO NEGATIVE (NEGATIVE); RBC, URINE AUTO 2 /HPF (0-3); SPECIFIC GRAVITY URINE AUTO 1.019 (1.002-1.035); SQUAMOUS EPITHELIAL CELL UR AU 0 /HPF (0-6); UROBILINOGEN, URINE AUTO 0.2 mg/dL (0.0-2.0); WBC, URINE AUTO 0 /HPF (0-3)
== END ==
LOC: M LAB 16:04
PROVIDERS: ATTEND Urology
DX: R31.9 Hematuria, unspecified (principal)

== ENCOUNTER → 2021-08-28 | Outpatient (CLI) | payer MEDICARE | LOC: M WUC 11:01 | DX: R05.9 Cough, unspecified (principal) ==

== ENCOUNTER → 2021-09-23 | Outpatient (CLI) | payer MEDICARE ==
[2021-09-23 09:12] LABS: HEMATOCRIT 49.4 % (42.0-52.0); HEMOGLOBIN 16.7 g/dl (13.5-17.5); MEAN CORPUSCULAR HEMOGLOBIN 31.8 pg (27.0-33.0); MEAN CORPUSCULAR HGB CONC 33.8 g/dl (32.0-36.5); MEAN CORPUSCULAR VOLUME 94.1 fl (80.0-96.0); PLATELET COUNT, AUTOMATED 176 10^3/uL (150-450); RED BLOOD COUNT 5.25 10^6/uL (4.30-6.10); WHITE BLOOD COUNT 6.9 10^3/uL (4.0-10.0)
[2021-09-23 09:44] LABS: ALBUMIN 3.8 GM/DL (3.2-5.2); BILIRUBIN,TOTAL 0.9 MG/DL (0.2-1.0); CHOLESTEROL RISK RATIO 2.735 (<5); CREATININE FOR GFR 1.31 MG/DL (0.70-1.30); GLOMERULAR FILTRATION RATE 57.9 (>49); POTASSIUM SERUM 4.2 MEQ/L (3.5-5.1); PROSTATIC SPECIFIC AG MONITOR 0.03 NG/ML (< 4.00); THYROID STIMULATING HORMONE 3.37 uIU/ML (0.358-3.740); THYROXINE (T4) 9.4 UG/DL (4.5-12.0); TOTAL 25(OH) VITAMIN D 30.5 NG/ML (30.0-100.0); TOTAL PROTEIN 6.8 GM/DL (6.4-8.2); TOTAL T3 107.9 NG/DL (60.0-181.0)
[2021-09-23 10:19] LABS: HEMOGLOBIN A1c 5.3 %
== END ==
LOC: M LAB 08:21
PROVIDERS: ATTEND Family Medicine
DX: R53.83 Other fatigue (principal); I10 Essential (primary) hypertension; E03.9 Hypothyroidism, unspecified; Z79.899 Other long term (current) drug therapy; R97.20 Elevated prostate specific antigen [PSA]

== ENCOUNTER → 2021-11-18 | Outpatient (CLI) | payer MEDICARE ==
[~2021-11-18] MED LIST changes: +ISOVUE-300 61% 50ML VIAL As Ordered ONE; +LIDOCAINE 1% MDV 20ML VIAL As Ordered ONE; +TRIAMCINOLONE ACETONIDE SUSP 40 MG/ML VIAL (J3301) As Ordered ONE
== END ==
LOC: M RADPRO 14:19
PROVIDERS: ATTEND Orthopaedic Surgery
DX: M16.12 Unilateral primary osteoarthritis, left hip (principal)
CPT/HCPCS: 20610; 77002; J3301; Q9967

== ENCOUNTER → 2021-11-20 | Outpatient (CLI) | payer MEDICARE ==
[~2021-11-20] MED LIST changes: -ISOVUE-300 61% 50ML VIAL As Ordered ONE; -LIDOCAINE 1% MDV 20ML VIAL As Ordered ONE; -TRIAMCINOLONE ACETONIDE SUSP 40 MG/ML VIAL (J3301) As Ordered ONE
[2021-11-20 06:49] LABS: HEMATOCRIT 46.9 % (42.0-52.0); HEMOGLOBIN 16.3 g/dl (13.5-17.5); MEAN CORPUSCULAR HEMOGLOBIN 32.5 pg (27.0-33.0); MEAN CORPUSCULAR HGB CONC 34.8 g/dl (32.0-36.5); MEAN CORPUSCULAR VOLUME 93.4 fl (80.0-96.0); PLATELET COUNT, AUTOMATED 203 10^3/uL (150-450); RED BLOOD COUNT 5.02 10^6/uL (4.30-6.10); WHITE BLOOD COUNT 19.1 10^3/uL (4.0-10.0)
[2021-11-20 07:13] LABS: ALBUMIN 3.8 GM/DL (3.2-5.2); BILIRUBIN,TOTAL 0.4 MG/DL (0.2-1.0); CHOLESTEROL RISK RATIO 2.543 (<5); CREATININE FOR GFR 1.3 MG/DL (0.70-1.30); GLOMERULAR FILTRATION RATE 58.4 (>49); POTASSIUM SERUM 3.9 MEQ/L (3.5-5.1); PROSTATIC SPECIFIC AG MONITOR 0.03 NG/ML (< 4.00); THYROID STIMULATING HORMONE 1.18 uIU/ML (0.358-3.740); TOTAL PROTEIN 6.8 GM/DL (6.4-8.2)
[2021-11-20 07:31] LABS: HEMOGLOBIN A1c 5.2 %
[2021-11-20 10:38] LABS: TOTAL 25(OH) VITAMIN D 34.6 NG/ML (30.0-100.0)
== END ==
LOC: M LAB 06:18
PROVIDERS: ATTEND Family Medicine
DX: R53.83 Other fatigue (principal); I10 Essential (primary) hypertension; E03.9 Hypothyroidism, unspecified; Z79.899 Other long term (current) drug therapy

== ENCOUNTER → 2021-11-26 | Outpatient (CLI) | payer MEDICARE | LOC: M RAD 09:34 | PROVIDERS: ATTEND Family Medicine | DX: N50.812 Left testicular pain (principal) ==

== ENCOUNTER → 2021-11-30 | Outpatient (CLI) | payer MEDICARE ==
[2021-11-30 07:43] LABS: HEMATOCRIT 47.7 % (42.0-52.0); HEMOGLOBIN 16.5 g/dl (13.5-17.5); MEAN CORPUSCULAR HGB CONC 34.6 g/dl (32.0-36.5); MEAN CORPUSCULAR VOLUME 95.4 fl (80.0-96.0); PLATELET COUNT, AUTOMATED 179 10^3/uL (150-450); WHITE BLOOD COUNT 10.2 10^3/uL (4.0-10.0)
== END ==
LOC: M LAB 07:00
PROVIDERS: ATTEND Family Medicine
DX: I10 Essential (primary) hypertension (principal)

== ENCOUNTER → 2021-12-03 | Outpatient (CLI) | payer MEDICARE ==
[~2021-12-03] MED LIST changes: +GASTROGRAFIN SOLUTION 30ML (Q9963) As Ordered ONE; +ISOVUE-370 76% 100ML VIAL As Ordered ONE
== END ==
LOC: M RAD 14:15
PROVIDERS: ATTEND Family Medicine
DX: K42.9 Umbilical hernia without obstruction or gangrene (principal); K57.30 Diverticulosis of large intestine without perforation or abscess without bleeding; K80.20 Calculus of gallbladder without cholecystitis without obstruction; K76.89 Other specified diseases of liver; N28.1 Cyst of kidney, acquired
CPT/HCPCS: 74177; Q9963; Q9967

== ENCOUNTER → 2021-12-10 | Outpatient (CLI) | payer MEDICARE ==
[~2021-12-10] MED LIST changes: -GASTROGRAFIN SOLUTION 30ML (Q9963) As Ordered ONE; -ISOVUE-370 76% 100ML VIAL As Ordered ONE
== END ==
LOC: M RAD 07:04
PROVIDERS: ATTEND Family Medicine
DX: R09.89 Other specified symptoms and signs involving the circulatory and respiratory systems (principal)

== ENCOUNTER → 2021-12-14 | Outpatient (CLI) | payer MEDICARE ==
[2021-12-14 10:22] LABS: HEMATOCRIT 48.8 % (42.0-52.0); HEMOGLOBIN 16.8 g/dl (13.5-17.5); MEAN CORPUSCULAR HEMOGLOBIN 32.6 pg (27.0-33.0); MEAN CORPUSCULAR HGB CONC 34.4 g/dl (32.0-36.5); MEAN CORPUSCULAR VOLUME 94.6 fl (80.0-96.0); PLATELET COUNT, AUTOMATED 209 10^3/uL (150-450); RED BLOOD COUNT 5.16 10^6/uL (4.30-6.10); WHITE BLOOD COUNT 6.8 10^3/uL (4.0-10.0)
== END ==
LOC: M LAB 09:45
PROVIDERS: ATTEND Family Medicine
DX: D64.9 Anemia, unspecified (principal); R53.83 Other fatigue; E03.9 Hypothyroidism, unspecified

== ENCOUNTER → 2022-01-29 | Outpatient (CLI) | payer MEDICARE ==
[~2022-01-29] MED LIST changes: -ASMA220A INH; +MOME220A INH
[2022-01-29 07:17] LABS: HEMATOCRIT 48.9 % (42.0-52.0); HEMOGLOBIN 16.3 g/dl (13.5-17.5); MEAN CORPUSCULAR HEMOGLOBIN 31.5 pg (27.0-33.0); MEAN CORPUSCULAR HGB CONC 33.3 g/dl (32.0-36.5); MEAN CORPUSCULAR VOLUME 94.4 fl (80.0-96.0); PLATELET COUNT, AUTOMATED 221 10^3/uL (150-450); RED BLOOD COUNT 5.18 10^6/uL (4.30-6.10); WHITE BLOOD COUNT 9.3 10^3/uL (4.0-10.0)
[2022-01-29 07:32] LABS: INR 1.03; PROTHROMBIN TIME 13.9 SECONDS (12.7-14.5)
[2022-01-29 07:58] LABS: ALBUMIN 3.8 GM/DL (3.2-5.2); ALT/SGPT 51 U/L (12-78); BILIRUBIN,TOTAL 0.8 MG/DL (0.2-1.0); BLOOD UREA NITROGEN 13 MG/DL (7-18); CALCIUM LEVEL 9.4 MG/DL (8.8-10.2); CARBON DIOXIDE LEVEL 30 MEQ/L (21-32); CHLORIDE LEVEL 107 MEQ/L (98-107); CREATININE FOR GFR 1.25 MG/DL (0.70-1.30); GLOMERULAR FILTRATION RATE > 60.0 (>49); GLUCOSE, FASTING 115 MG/DL (70-100); POTASSIUM SERUM 3.6 MEQ/L (3.5-5.1); SODIUM LEVEL 140 MEQ/L (136-145); TOTAL PROTEIN 7.4 GM/DL (6.4-8.2)
[2022-01-29 08:13] LABS: ERYTHROCYTE SEDIMENTATION RATE 8 mm/hr (0-20)
== END ==
LOC: M RAD 06:14
PROVIDERS: ATTEND Orthopaedic Surgery
DX: M16.12 Unilateral primary osteoarthritis, left hip (principal)

== ENCOUNTER → 2022-01-29 | Outpatient (CLI) | payer MEDICARE ==
[2022-01-29 07:16] LABS: HEMATOCRIT 47.4 % (42.0-52.0); HEMOGLOBIN 16.4 g/dl (13.5-17.5); MEAN CORPUSCULAR HEMOGLOBIN 32.4 pg (27.0-33.0); MEAN CORPUSCULAR HGB CONC 34.6 g/dl (32.0-36.5); MEAN CORPUSCULAR VOLUME 93.7 fl (80.0-96.0); PLATELET COUNT, AUTOMATED 216 10^3/uL (150-450); RED BLOOD COUNT 5.06 10^6/uL (4.30-6.10); WHITE BLOOD COUNT 9.3 10^3/uL (4.0-10.0)
[2022-01-29 07:32] LABS: INR 1.02; PROTHROMBIN TIME 13.9 SECONDS (12.7-14.5)
[2022-01-29 08:10] LABS: ALBUMIN 3.8 GM/DL (3.2-5.2); ALT/SGPT 50 U/L (12-78); BILIRUBIN,TOTAL 0.8 MG/DL (0.2-1.0); BLOOD UREA NITROGEN 14 MG/DL (7-18); CALCIUM LEVEL 9.3 MG/DL (8.8-10.2); CARBON DIOXIDE LEVEL 29 MEQ/L (21-32); CHLORIDE LEVEL 107 MEQ/L (98-107); CHOLESTEROL LEVEL 100 MG/DL (<200); CREATININE FOR GFR 1.19 MG/DL (0.70-1.30); GLOMERULAR FILTRATION RATE > 60.0 (>49); GLUCOSE, FASTING 112 MG/DL (70-100); HDL CHOLESTEROL 42 MG/DL (>40); LDL CHOLESTEROL 35 MG/DL (<100); NON-HDL-C 58 MG/DL; POTASSIUM SERUM 3.7 MEQ/L (3.5-5.1); SODIUM LEVEL 140 MEQ/L (136-145); TOTAL PROTEIN 7.3 GM/DL (6.4-8.2); TRIGLYCERIDES LEVEL 114 MG/DL (<150)
[2022-01-29 08:35] LABS: HEMOGLOBIN A1c 5.3 %
== END ==
LOC: M RAD 06:19
PROVIDERS: ATTEND Family Medicine
DX: Z01.818 Encounter for other preprocedural examination (principal); Z79.899 Other long term (current) drug therapy

== ENCOUNTER 2022-02-13 06:01 | Emergency (ER) | payer MEDICARE ==
[~2022-02-13] VITALS: Ht 182.9 cm; Wt 94.5 kg
[2022-02-13 06:05] VITALS: BP 106/73
[2022-02-13] MEDS ORDERED: ELIQ2.5T (06:11)
[2022-02-13] MEDS ORDERED: HYDR-3716 PO (06:11)
[2022-02-13] MEDS ORDERED: COLA100C5 PO (07:42)
== END 2022-02-13 09:12 | disposition home or self-care (01) ==
LOC: M ED 06:01
DX: G89.18 Other acute postprocedural pain (principal); Z96.642 Presence of left artificial hip joint; M25.552 Pain in left hip; J45.909 Unspecified asthma, uncomplicated; I10 Essential (primary) hypertension; Z88.1 Allergy status to other antibiotic agents; Z88.8 Allergy status to other drugs, medicaments and biological substances; Z79.01 Long term (current) use of anticoagulants; Z79.899 Other long term (current) drug therapy

== ENCOUNTER → 2022-04-05 | Outpatient (CLI) | payer MEDICARE ==
[~2022-04-05] MED LIST changes: +COLA100C5 PO; +ELIQ2.5T; +HYDR-3716 PO; +OXYC1TAB23
[2022-04-05 07:10] LABS: HEMATOCRIT 46.4 % (42.0-52.0); HEMOGLOBIN 15.6 g/dl (13.5-17.5); MEAN CORPUSCULAR HGB CONC 33.6 g/dl (32.0-36.5); MEAN CORPUSCULAR VOLUME 92.1 fl (80.0-96.0); PLATELET COUNT, AUTOMATED 218 10^3/uL (150-450); RED BLOOD COUNT 5.04 10^6/uL (4.30-6.10)
[2022-04-05 07:56] LABS: ALBUMIN 3.9 GM/DL (3.2-5.2); ALT/SGPT 41 U/L (12-78); BILIRUBIN,TOTAL 0.7 MG/DL (0.2-1.0); BLOOD UREA NITROGEN 14 MG/DL (7-18); CARBON DIOXIDE LEVEL 27 MEQ/L (21-32); CHLORIDE LEVEL 109 MEQ/L (98-107); CHOLESTEROL LEVEL 117 MG/DL (<200); CREATININE FOR GFR 1.04 MG/DL (0.70-1.30); GLOMERULAR FILTRATION RATE > 60.0 (>49); GLUCOSE, FASTING 110 MG/DL (70-100); HDL CHOLESTEROL 50 MG/DL (>40); LDL CHOLESTEROL 46 MG/DL (<100); NON-HDL-C 67 MG/DL; POTASSIUM SERUM 3.7 MEQ/L (3.5-5.1); PROSTATIC SPECIFIC AG MONITOR 0.04 NG/ML (< 4.00); SODIUM LEVEL 141 MEQ/L (136-145); TRIGLYCERIDES LEVEL 106 MG/DL (<150)
[2022-04-05 07:59] LABS: ERYTHROCYTE SEDIMENTATION RATE 6 mm/hr (0-20)
[2022-04-05 09:56] LABS: TESTOSTERONE 411 NG/DL (241-827); TOTAL 25(OH) VITAMIN D 33.4 NG/ML (30.0-100.0)
== END ==
LOC: M LAB 06:08
PROVIDERS: ATTEND Family Medicine
DX: I10 Essential (primary) hypertension (principal); D64.9 Anemia, unspecified; R53.83 Other fatigue

== ENCOUNTER → 2022-04-29 | Outpatient (CLI) | payer MEDICARE ==
[2022-04-29 13:22] LABS: % LABILE ALKALINE PHOSPHATASE 77.27 %
== END ==
LOC: M LAB 08:53
PROVIDERS: ATTEND Orthopaedic Surgery
DX: Z47.1 Aftercare following joint replacement surgery (principal)

== ENCOUNTER → 2022-05-14 | Outpatient (CLI) | payer MEDICARE | LOC: M RAD 09:10 | PROVIDERS: ATTEND Family Medicine | DX: S80.12XA Contusion of left lower leg, initial encounter (principal); X58.XXXA Exposure to other specified factors, initial encounter; Y92.9 Unspecified place or not applicable ==

== ENCOUNTER → 2022-05-27 | Outpatient (CLI) | payer MEDICARE ==
[2022-05-27 08:14] LABS: HEMATOCRIT 46.5 % (42.0-52.0); HEMOGLOBIN 15.6 g/dl (13.5-17.5); MEAN CORPUSCULAR HEMOGLOBIN 30.8 pg (27.0-33.0); MEAN CORPUSCULAR HGB CONC 33.5 g/dl (32.0-36.5); MEAN CORPUSCULAR VOLUME 91.7 fl (80.0-96.0); PLATELET COUNT, AUTOMATED 211 10^3/uL (150-450); RED BLOOD COUNT 5.07 10^6/uL (4.30-6.10); WHITE BLOOD COUNT 6.6 10^3/uL (4.0-10.0)
[2022-05-27 08:39] LABS: PROSTATIC SPECIFIC AG MONITOR 0.04 NG/ML (< 4.00)
[2022-05-27 08:43] LABS: THYROID STIMULATING HORMONE 3.256 uIU/ML (0.55-4.78); TOTAL 25(OH) VITAMIN D 35.3 NG/ML (20.0-100.0)
[2022-05-27 08:44] LABS: TESTOSTERONE 432 NG/DL (241-827)
[2022-05-27 08:50] LABS: ALBUMIN 3.7 G/DL (3.2-5.2); ALKALINE PHOSPHATASE 156 U/L (46-116); ALT/SGPT 76 U/L (7.0-40); AST/SGOT 44 U/L (<34); BILIRUBIN,TOTAL 0.4 MG/DL (0.3-1.2); BLOOD UREA NITROGEN 16 MG/DL (9-23); CALCIUM LEVEL 9.1 MG/DL (8.3-10.6); CARBON DIOXIDE LEVEL 29 MMOL/L (20-31); CHLORIDE LEVEL 107 MMOL/L (98-107); CHOLESTEROL LEVEL 111 MG/DL (<200); CHOLESTEROL RISK RATIO 2.74 (<5); CREATININE FOR GFR 1.09 MG/DL (0.70-1.30); GLOMERULAR FILTRATION RATE > 60.0 (>49); GLUCOSE, FASTING 111 MG/DL (74-106); HDL CHOLESTEROL 40.5 MG/DL (>40); LDL CHOLESTEROL 56.1 MG/DL (<100); NON-HDL-C 71 MG/DL; POTASSIUM SERUM 4.2 MMOL/L (3.5-5.1); SODIUM LEVEL 144 MMOL/L (136-145); TOTAL PROTEIN 6.8 G/DL (5.7-8.2); TRIGLYCERIDES LEVEL 72 MG/DL (<150)
== END ==
LOC: M LAB 07:33
PROVIDERS: ATTEND Family Medicine
DX: D64.9 Anemia, unspecified (principal); R53.83 Other fatigue; E03.9 Hypothyroidism, unspecified; Z79.899 Other long term (current) drug therapy; R97.20 Elevated prostate specific antigen [PSA]

== ENCOUNTER → 2022-06-23 | Outpatient (CLI) | payer MEDICARE ==
[2022-06-23 16:47] LABS: BASO # 0.1 10^3/uL (0.0-0.2); BASO % 0.8 % (0.0-1.0); EOS # 0.3 10^3/uL (0.0-0.5); EOS % 3.7 % (0.0-3.0); LYMPH # 2.2 10^3/uL (1.5-5.0); LYMPH % 23.4 % (24.0-44.0); MEAN CORPUSCULAR HEMOGLOBIN 31.1 pg (27.0-33.0); MEAN CORPUSCULAR VOLUME 91.3 fl (80.0-96.0); MONO # 0.8 10^3/uL (0.0-0.8); MONO % 9.1 % (2.0-8.0); NEUTROPHILS # 5.8 10^3/uL (1.5-8.5); NEUTROPHILS % 62.5 % (36.0-66.0); PLATELET COUNT, AUTOMATED 202 10^3/uL (150-450); RED BLOOD COUNT 5.15 10^6/uL (4.30-6.10); WHITE BLOOD COUNT 9.2 10^3/uL (4.0-10.0)
[2022-06-23 17:06] LABS: ERYTHROCYTE SEDIMENTATION RATE 12 mm/hr (0-20)
== END ==
LOC: M LAB 16:06
PROVIDERS: ATTEND Orthopaedic Surgery
DX: Z47.1 Aftercare following joint replacement surgery (principal)

== ENCOUNTER → 2022-06-23 | Outpatient (CLI) | payer MEDICARE ==
[~2022-06-23] MED LIST changes: -ASMA1AER3 INH; +MOME13HF5 INH
[2022-06-23 11:36] LABS: HEMOGLOBIN A1c 5.1 % (4.0-6.0)
[2022-06-23 11:39] LABS: ALT/SGPT 41 U/L (7.0-40); AST/SGOT 24 U/L (<34); GLUCOSE, FASTING 100 MG/DL (74-106)
[2022-06-23 12:28] LABS: LABILE ALKPHOS 102 U/L; STABLE ALKPHOS 62 U/L
[2022-06-23 12:29] LABS: % LABILE ALKALINE PHOSPHATASE 62 %
== END ==
LOC: M LAB 10:06
PROVIDERS: ATTEND Family Medicine
DX: R73.03 Prediabetes (principal); R53.83 Other fatigue

== ENCOUNTER → 2022-08-04 | Outpatient (CLI) | payer MEDICARE ==
[2022-08-04 07:47] LABS: HEMATOCRIT 45.5 % (42.0-52.0); HEMOGLOBIN 15.6 g/dl (13.5-17.5); MEAN CORPUSCULAR HEMOGLOBIN 31.3 pg (27.0-33.0); MEAN CORPUSCULAR HGB CONC 34.3 g/dl (32.0-36.5); MEAN CORPUSCULAR VOLUME 91.2 fl (80.0-96.0); PLATELET COUNT, AUTOMATED 235 10^3/uL (150-450); RED BLOOD COUNT 4.99 10^6/uL (4.30-6.10); WHITE BLOOD COUNT 7.6 10^3/uL (4.0-10.0)
[2022-08-04 08:08] LABS: HEMOGLOBIN A1c 4.9 % (4.0-6.0)
[2022-08-04 08:13] LABS: ALBUMIN 3.7 G/DL (3.2-5.2); ALKALINE PHOSPHATASE 134 U/L (46-116); ALT/SGPT 46 U/L (7.0-40); AST/SGOT 31 U/L (<34); BLOOD UREA NITROGEN 15 MG/DL (9-23); CALCIUM LEVEL 9.2 MG/DL (8.3-10.6); CARBON DIOXIDE LEVEL 28 MMOL/L (20-31); CHLORIDE LEVEL 106 MMOL/L (98-107); CHOLESTEROL LEVEL 129 MG/DL (<200); CHOLESTEROL RISK RATIO 3.92 (<5); CREATININE FOR GFR 1.14 MG/DL (0.70-1.30); GLOMERULAR FILTRATION RATE > 60.0 (>49); GLUCOSE, FASTING 110 MG/DL (74-106); HDL CHOLESTEROL 32.9 MG/DL (>40); LDL CHOLESTEROL 65.9 MG/DL (<100); NON-HDL-C 96 MG/DL; POTASSIUM SERUM 3.7 MMOL/L (3.5-5.1); PROSTATIC SPECIFIC AG MONITOR 0.04 NG/ML (< 4.00); SODIUM LEVEL 143 MMOL/L (136-145); TOTAL PROTEIN 7.1 G/DL (5.7-8.2); TRIGLYCERIDES LEVEL 151 MG/DL (<150)
[2022-08-04 08:15] LABS: TESTOSTERONE 415 NG/DL (241-827)
== END ==
LOC: M LAB 07:02
PROVIDERS: ATTEND Family Medicine
DX: I10 Essential (primary) hypertension (principal); R53.83 Other fatigue; E03.9 Hypothyroidism, unspecified

== ENCOUNTER → 2022-08-10 | Outpatient (CLI) | payer MEDICARE ==
[2022-08-10 12:08] LABS: APPEARANCE, URINE CLEAR (CLEAR); BILIRUBIN, URINE AUTO NEGATIVE (NEGATIVE); BLOOD, URINE BLOOD NEGATIVE (NEGATIVE); COLOR, URINE YELLOW (YELLOW); GLUCOSE, URINE (UA) AUTO NEGATIVE (NEGATIVE); KETONE, URINE AUTO NEGATIVE (NEGATIVE); LEUKOCYTE ESTERASE, URINE AUTO NEGATIVE (NEGATIVE); NITRITE, URINE AUTO NEGATIVE (NEGATIVE); PROTEIN, URINE AUTO NEGATIVE (NEGATIVE); SPECIFIC GRAVITY URINE AUTO 1.019 (1.002-1.035); UROBILINOGEN, URINE AUTO 0.2 mg/dL (0.0-2.0)
[2022-08-10 12:09] LABS: BACTERIA, URINE AUTO NEGATIVE (NEGATIVE); RBC, URINE AUTO 1 /HPF (0-3); SQUAMOUS EPITHELIAL CELL UR AU 0 /HPF (0-6); WBC, URINE AUTO 1 /HPF (0-3)
== END ==
LOC: M LAB 11:12
PROVIDERS: ATTEND Urology
DX: R31.29 Other microscopic hematuria (principal)

== ENCOUNTER → 2022-09-10 | Outpatient (CLI) | payer MEDICARE | LOC: M RAD 10:46 | PROVIDERS: ATTEND Family Medicine | DX: R10.13 Epigastric pain (principal) ==

== ENCOUNTER → 2022-09-13 | Outpatient (CLI) | payer MEDICARE ==
[2022-09-13 08:51] LABS: HEMATOCRIT 48.8 % (42.0-52.0); HEMOGLOBIN 16.1 g/dl (13.5-17.5); PLATELET COUNT, AUTOMATED 191 10^3/uL (150-450); RED BLOOD COUNT 5.19 10^6/uL (4.30-6.10); WHITE BLOOD COUNT 6.4 10^3/uL (4.0-10.0)
[2022-09-13 09:04] LABS: PROSTATIC SPECIFIC AG MONITOR 0.04 NG/ML (< 4.00)
[2022-09-13 09:08] LABS: THYROID STIMULATING HORMONE 3.683 uIU/ML (0.55-4.78)
[2022-09-13 09:09] LABS: AMYLASE 73 U/L (30-118); TOTAL 25(OH) VITAMIN D 36.1 NG/ML (20.0-100.0)
[2022-09-13 09:10] LABS: ALBUMIN 3.8 G/DL (3.2-5.2); ALKALINE PHOSPHATASE 128 U/L (46-116); ALT/SGPT 46 U/L (7.0-40); AST/SGOT 26 U/L (<34); BILIRUBIN,TOTAL 0.9 MG/DL (0.3-1.2); BLOOD UREA NITROGEN 14 MG/DL (9-23); CALCIUM LEVEL 8.3 MG/DL (8.3-10.6); CARBON DIOXIDE LEVEL 29 MMOL/L (20-31); CHLORIDE LEVEL 108 MMOL/L (98-107); CHOLESTEROL LEVEL 112 MG/DL (<200); CHOLESTEROL RISK RATIO 2.87 (<5); CREATININE FOR GFR 1.23 MG/DL (0.70-1.30); ERYTHROCYTE SEDIMENTATION RATE 8 mm/hr (0-20); GLOMERULAR FILTRATION RATE > 60.0 (>49); GLUCOSE, FASTING 113 MG/DL (74-106); HDL CHOLESTEROL 38.9 MG/DL (>40); LDL CHOLESTEROL 53.1 MG/DL (<100); NON-HDL-C 73.1 MG/DL; POTASSIUM SERUM 4.1 MMOL/L (3.5-5.1); SODIUM LEVEL 142 MMOL/L (136-145); TOTAL PROTEIN 6.6 G/DL (5.7-8.2); TRIGLYCERIDES LEVEL 100 MG/DL (<150)
[2022-09-13 09:11] LABS: TESTOSTERONE 389 NG/DL (241-827)
== END ==
LOC: M LAB 07:26
PROVIDERS: ATTEND Family Medicine
DX: D64.9 Anemia, unspecified (principal); E03.9 Hypothyroidism, unspecified; R53.83 Other fatigue; Z79.899 Other long term (current) drug therapy

== ENCOUNTER → 2022-09-28 | Outpatient (CLI) | payer MEDICARE ==
[~2022-09-28] MED LIST changes: +GASTROGRAFIN SOLUTION 30ML As Ordered ONE; +ISOVUE-370 76% 100ML VIAL As Ordered ONE
== END ==
LOC: M RAD 10:08
PROVIDERS: ATTEND Family Medicine
DX: R19.06 Epigastric swelling, mass or lump (principal); R10.9 Unspecified abdominal pain
CPT/HCPCS: 74178; Q9963; Q9967

== ENCOUNTER → 2022-11-03 | Outpatient (CLI) | payer MEDICARE ==
[~2022-11-03] MED LIST changes: -GASTROGRAFIN SOLUTION 30ML As Ordered ONE; -ISOVUE-370 76% 100ML VIAL As Ordered ONE
[2022-11-03 08:46] LABS: HEMATOCRIT 47.4 % (42.0-52.0); HEMOGLOBIN 16.2 g/dl (13.5-17.5); MEAN CORPUSCULAR HEMOGLOBIN 31.6 pg (27.0-33.0); MEAN CORPUSCULAR HGB CONC 34.2 g/dl (32.0-36.5); MEAN CORPUSCULAR VOLUME 92.4 fl (80.0-96.0); PLATELET COUNT, AUTOMATED 182 10^3/uL (150-450); RED BLOOD COUNT 5.13 10^6/uL (4.30-6.10)
[2022-11-03 09:06] LABS: ERYTHROCYTE SEDIMENTATION RATE 6 mm/hr (0-20)
[2022-11-03 09:11] LABS: URIC ACID 5.2 MG/DL (3.7-9.2)
[2022-11-03 09:14] LABS: ALBUMIN 4.1 G/DL (3.2-5.2); ALKALINE PHOSPHATASE 120 U/L (46-116); ALT/SGPT 45 U/L (7.0-40); AST/SGOT 29 U/L (<34); BILIRUBIN,TOTAL 1.2 MG/DL (0.3-1.2); BLOOD UREA NITROGEN 14 MG/DL (9-23); CALCIUM LEVEL 9.1 MG/DL (8.3-10.6); CARBON DIOXIDE LEVEL 28 MMOL/L (20-31); CHLORIDE LEVEL 114 MMOL/L (98-107); CHOLESTEROL LEVEL 114 MG/DL (<200); CHOLESTEROL RISK RATIO 3.25 (<5); CREATININE FOR GFR 1.24 MG/DL (0.70-1.30); GLOMERULAR FILTRATION RATE > 60.0 (>49); GLUCOSE, FASTING 112 MG/DL (74-106); LDL CHOLESTEROL 61.4 MG/DL (<100); PROSTATIC SPECIFIC AG MONITOR 0.04 NG/ML (< 4.00); SODIUM LEVEL 141 MMOL/L (136-145); TOTAL PROTEIN 6.9 G/DL (5.7-8.2); TRIGLYCERIDES LEVEL 88 MG/DL (<150)
[2022-11-03 09:15] LABS: THYROID STIMULATING HORMONE 2.142 uIU/ML (0.55-4.78); TOTAL 25(OH) VITAMIN D 28.5 NG/ML (20.0-100.0)
[2022-11-03 09:16] LABS: TESTOSTERONE 407 NG/DL (241-827)
[2022-11-03 09:25] LABS: HEMOGLOBIN A1c 5.1 % (4.0-6.0)
== END ==
LOC: M LAB 07:59
PROVIDERS: ATTEND Family Medicine
DX: D64.9 Anemia, unspecified (principal); R53.83 Other fatigue; E03.9 Hypothyroidism, unspecified; Z79.899 Other long term (current) drug therapy

== ENCOUNTER 2022-11-23 15:09 | Emergency (ER) | payer MEDICARE ==
[~2022-11-23] VITALS: Ht 182.9 cm; Wt 94.7 kg
[2022-11-23] MEDS ORDERED: ASPI81CH33 PO (15:23)
[2022-11-23 15:40] LABS: BASO # 0.1 10^3/uL (0.0-0.2); EOS # 0.2 10^3/uL (0.0-0.5); EOS % 3.3 % (0.0-3.0); HEMATOCRIT 45.3 % (42.0-52.0); HEMOGLOBIN 15.9 g/dl (13.5-17.5); LYMPH # 1.6 10^3/uL (1.5-5.0); LYMPH % 22.4 % (24.0-44.0); MEAN CORPUSCULAR HEMOGLOBIN 31.9 pg (27.0-33.0); MEAN CORPUSCULAR HGB CONC 35.1 g/dl (32.0-36.5); MONO # 0.6 10^3/uL (0.0-0.8); MONO % 8.8 % (2.0-8.0); NEUTROPHILS # 4.5 10^3/uL (1.5-8.5); NEUTROPHILS % 64.2 % (36.0-66.0); PLATELET COUNT, AUTOMATED 205 10^3/uL (150-450); RED BLOOD COUNT 4.98 10^6/uL (4.30-6.10)
[2022-11-23 16:09] LABS: CK-MB VALUE MASS < 1.0 NG/ML (<3.6)
[2022-11-23 16:10] LABS: ALKALINE PHOSPHATASE 123 U/L (46-116); ALT/SGPT 39 U/L (7.0-40); AST/SGOT 23 U/L (<34); BILIRUBIN,DIRECT 0.3 MG/DL (<0.4); BILIRUBIN,TOTAL 0.8 MG/DL (0.3-1.2); BLOOD UREA NITROGEN 16 MG/DL (9-23); CALCIUM LEVEL 8.5 MG/DL (8.3-10.6); CARBON DIOXIDE LEVEL 25 MMOL/L (20-31); CHLORIDE LEVEL 107 MMOL/L (98-107); CPK CREATINE PHOSPHOKINASE 132 U/L (46-171); CREATININE FOR GFR 1.26 MG/DL (0.70-1.30); GLOMERULAR FILTRATION RATE > 60.0 (>49); GLUCOSE, FASTING 149 MG/DL (74-106); MB/CK RELATIVE INDEX 0.75 (< OR =4); POTASSIUM SERUM 3.8 MMOL/L (3.5-5.1); SODIUM LEVEL 143 MMOL/L (136-145); TOTAL PROTEIN 6.6 G/DL (5.7-8.2)
[2022-11-23 17:13] LABS: CK-MB VALUE MASS < 1.0 NG/ML (<3.6)
[2022-11-23 17:17] LABS: CPK CREATINE PHOSPHOKINASE 133 U/L (46-171); MB/CK RELATIVE INDEX 0.75 (< OR =4)
[2022-11-23] MEDS ORDERED: ISOVUE-370 76% 100ML VIAL As Ordered ONE (19:13)
[2022-11-23 20:44] VITALS: BP 143/77
== END 2022-11-23 20:47 | disposition home or self-care (01) ==
LOC: M ED 15:09
DX: R07.9 Chest pain, unspecified (principal); I44.4 Left anterior fascicular block; I25.2 Old myocardial infarction; I10 Essential (primary) hypertension; E78.5 Hyperlipidemia, unspecified; K21.9 Gastro-esophageal reflux disease without esophagitis; J45.909 Unspecified asthma, uncomplicated; C61 Malignant neoplasm of prostate; F41.9 Anxiety disorder, unspecified; F10.10 Alcohol abuse, uncomplicated; Z86.79 Personal history of other diseases of the circulatory system; Z88.1 Allergy status to other antibiotic agents; Z88.8 Allergy status to other drugs, medicaments and biological substances
CPT/HCPCS: 36415; 71045; 71275; 80048; 80076; 82550; 82553; 84484; 85025; 93005; 93041; 94760; 99285; Q9967

== ENCOUNTER → 2022-12-22 | Outpatient (CLI) | payer MEDICARE ==
[~2022-12-22] MED LIST changes: +ASPI81CH33 PO
== END ==
LOC: M LAB 16:37
PROVIDERS: ATTEND Orthopaedic Surgery
DX: M25.559 Pain in unspecified hip (principal); Z96.642 Presence of left artificial hip joint

== ENCOUNTER → 2023-01-10 | Outpatient (CLI) | payer MEDICARE ==
[2023-01-10 07:19] LABS: HEMATOCRIT 47.9 % (42.0-52.0); HEMOGLOBIN 16.1 g/dl (13.5-17.5); MEAN CORPUSCULAR HEMOGLOBIN 31.7 pg (27.0-33.0); MEAN CORPUSCULAR HGB CONC 33.6 g/dl (32.0-36.5); MEAN CORPUSCULAR VOLUME 94.3 fl (80.0-96.0); PLATELET COUNT, AUTOMATED 189 10^3/uL (150-450); RED BLOOD COUNT 5.08 10^6/uL (4.30-6.10); WHITE BLOOD COUNT 5.9 10^3/uL (4.0-10.0)
[2023-01-10 07:31] LABS: ERYTHROCYTE SEDIMENTATION RATE 7 mm/hr (0-20)
[2023-01-10 07:49] LABS: ALBUMIN 3.8 G/DL (3.2-5.2); ALKALINE PHOSPHATASE 115 U/L (46-116); ALT/SGPT 59 U/L (7.0-40); AST/SGOT 31 U/L (<34); BILIRUBIN,TOTAL 0.7 MG/DL (0.3-1.2); BLOOD UREA NITROGEN 17 MG/DL (9-23); CALCIUM LEVEL 9.8 MG/DL (8.3-10.6); CARBON DIOXIDE LEVEL 28 MMOL/L (20-31); CHLORIDE LEVEL 108 MMOL/L (98-107); CHOLESTEROL LEVEL 115 MG/DL (<200); CHOLESTEROL RISK RATIO 3.36 (<5); CREATININE FOR GFR 1.16 MG/DL (0.70-1.30); GLOMERULAR FILTRATION RATE > 60.0 (>49); GLUCOSE, FASTING 107 MG/DL (74-106); HDL CHOLESTEROL 34.2 MG/DL (>40); LDL CHOLESTEROL 23.4 MG/DL (<100); NON-HDL-C 80.8 MG/DL; PROSTATIC SPECIFIC AG MONITOR 0.04 NG/ML (< 4.00); SODIUM LEVEL 142 MMOL/L (136-145); TESTOSTERONE 354 NG/DL (241-827); THYROID STIMULATING HORMONE 3.819 uIU/ML (0.55-4.78); TOTAL 25(OH) VITAMIN D 27.1 NG/ML (20.0-100.0); TOTAL PROTEIN 6.7 G/DL (5.7-8.2); TRIGLYCERIDES LEVEL 287 MG/DL (<150)
== END ==
LOC: M LAB 06:16
PROVIDERS: ATTEND Family Medicine
DX: I10 Essential (primary) hypertension (principal); R53.83 Other fatigue; E03.9 Hypothyroidism, unspecified

== ENCOUNTER → 2023-03-15 | Outpatient (CLI) | payer MEDICARE ==
[2023-03-15 07:13] LABS: HEMATOCRIT 45.8 % (42.0-52.0); HEMOGLOBIN 15.9 g/dl (13.5-17.5); MEAN CORPUSCULAR HEMOGLOBIN 32.1 pg (27.0-33.0); MEAN CORPUSCULAR HGB CONC 34.7 g/dl (32.0-36.5); MEAN CORPUSCULAR VOLUME 92.5 fl (80.0-96.0); PLATELET COUNT, AUTOMATED 184 10^3/uL (150-450); RED BLOOD COUNT 4.95 10^6/uL (4.30-6.10); WHITE BLOOD COUNT 6.4 10^3/uL (4.0-10.0)
[2023-03-15 07:29] LABS: HEMOGLOBIN A1c 4.7 % (4.0-6.0)
[2023-03-15 07:32] LABS: AMYLASE 68 U/L (30-118)
[2023-03-15 07:33] LABS: IRON (FE) 66 UG/DL (65-175); PERCENT SATURATION 22.4 % (19.7-50.0); TOTAL IRON BINDING CAPACITY 294 UG/DL (250-425)
[2023-03-15 07:36] LABS: ALBUMIN 3.7 G/DL (3.2-5.2); ALKALINE PHOSPHATASE 103 U/L (46-116); ALT/SGPT 41 U/L (7.0-40); AST/SGOT 18 U/L (<34); BILIRUBIN,TOTAL 0.8 MG/DL (0.3-1.2); BLOOD UREA NITROGEN 12 MG/DL (9-23); CALCIUM LEVEL 8.8 MG/DL (8.3-10.6); CARBON DIOXIDE LEVEL 26 MMOL/L (20-31); CHLORIDE LEVEL 110 MMOL/L (98-107); CHOLESTEROL LEVEL 113 MG/DL (<200); CHOLESTEROL RISK RATIO 3.07 (<5); CREATININE FOR GFR 1.13 MG/DL (0.70-1.30); GLOMERULAR FILTRATION RATE > 60.0 (>49); GLUCOSE, FASTING 111 MG/DL (74-106); HDL CHOLESTEROL 36.8 MG/DL (>40); LDL CHOLESTEROL 53.6 MG/DL (<100); NON-HDL-C 76.2 MG/DL; POTASSIUM SERUM 3.8 MMOL/L (3.5-5.1); PROSTATIC SPECIFIC AG MONITOR 0.04 NG/ML (< 4.00); SODIUM LEVEL 144 MMOL/L (136-145); TESTOSTERONE 307 NG/DL (241-827); THYROID STIMULATING HORMONE 3.243 uIU/ML (0.55-4.78); TOTAL PROTEIN 6.5 G/DL (5.7-8.2); TRIGLYCERIDES LEVEL 113 MG/DL (<150); VITAMIN B12 LEVEL 386 PG/ML (211-911)
[2023-03-15 08:16] LABS: ERYTHROCYTE SEDIMENTATION RATE 8 mm/hr (0-20)
== END ==
LOC: M LAB 06:12
PROVIDERS: ATTEND Family Medicine
DX: I10 Essential (primary) hypertension (principal); R53.83 Other fatigue; E03.9 Hypothyroidism, unspecified; D64.9 Anemia, unspecified; Z79.899 Other long term (current) drug therapy

== ENCOUNTER → 2023-04-19 | Outpatient (CLI) | payer MEDICARE | LOC: M RAD 13:55 | PROVIDERS: ATTEND Nurse Practitioner Family | DX: N18.31 Chronic kidney disease, stage 3a (principal); N28.1 Cyst of kidney, acquired ==

== ENCOUNTER → 2023-05-18 | Outpatient (CLI) | payer MEDICARE | LOC: M RAD 06:59 | PROVIDERS: ATTEND Family Medicine | DX: K80.20 Calculus of gallbladder without cholecystitis without obstruction (principal); K76.0 Fatty (change of) liver, not elsewhere classified; K76.89 Other specified diseases of liver ==

== ENCOUNTER → 2023-06-15 | Outpatient (CLI) | payer MEDICARE ==
[2023-06-15 07:03] LABS: HEMATOCRIT 47.9 % (42.0-52.0); HEMOGLOBIN 16.2 g/dl (13.5-17.5); MEAN CORPUSCULAR HEMOGLOBIN 31.8 pg (27.0-33.0); MEAN CORPUSCULAR HGB CONC 33.8 g/dl (32.0-36.5); MEAN CORPUSCULAR VOLUME 94.1 fl (80.0-96.0); PLATELET COUNT, AUTOMATED 177 10^3/uL (150-450); RED BLOOD COUNT 5.09 10^6/uL (4.30-6.10); WHITE BLOOD COUNT 7.4 10^3/uL (4.0-10.0)
[2023-06-15 07:19] LABS: HEMOGLOBIN A1c 5.1 % (4.0-6.0)
[2023-06-15 07:25] LABS: PROSTATIC SPECIFIC AG MONITOR 0.05 NG/ML (< 4.00)
[2023-06-15 07:29] LABS: ALKALINE PHOSPHATASE 89 U/L (46-116); ALT/SGPT 51 U/L (7.0-40); AST/SGOT 24 U/L (<34); BLOOD UREA NITROGEN 13 MG/DL (9-23); CALCIUM LEVEL 9.1 MG/DL (8.3-10.6); CARBON DIOXIDE LEVEL 29 MMOL/L (20-31); CHLORIDE LEVEL 112 MMOL/L (98-107); CHOLESTEROL LEVEL 119 MG/DL (<200); CHOLESTEROL RISK RATIO 3.09 (<5); CREATININE FOR GFR 1.26 MG/DL (0.70-1.30); GLOMERULAR FILTRATION RATE > 60.0 (>49); GLUCOSE, FASTING 107 MG/DL (74-106); HDL CHOLESTEROL 38.4 MG/DL (>40); LDL CHOLESTEROL 55.8 MG/DL (<100); NON-HDL-C 80.6 MG/DL; POTASSIUM SERUM 3.9 MMOL/L (3.5-5.1); SODIUM LEVEL 145 MMOL/L (136-145); TOTAL PROTEIN 6.8 G/DL (5.7-8.2); TRIGLYCERIDES LEVEL 124 MG/DL (<150)
[2023-06-15 07:30] LABS: TOTAL 25(OH) VITAMIN D 23.9 NG/ML (20.0-100.0)
[2023-06-15 07:31] LABS: TESTOSTERONE 373 NG/DL (241-827)
== END ==
LOC: M LAB 06:07
PROVIDERS: ATTEND Family Medicine
DX: I10 Essential (primary) hypertension (principal); R53.83 Other fatigue; E03.9 Hypothyroidism, unspecified; Z79.899 Other long term (current) drug therapy; Z86.39 Personal history of other endocrine, nutritional and metabolic disease; Z85.46 Personal history of malignant neoplasm of prostate

== ENCOUNTER → 2023-06-17 | Outpatient (CLI) | payer MEDICARE | LOC: M RAD 10:51 | PROVIDERS: ATTEND Family Medicine | DX: R09.89 Other specified symptoms and signs involving the circulatory and respiratory systems (principal) ==

== ENCOUNTER → 2023-06-22 | Outpatient (CLI) | payer MEDICARE ==
[2023-06-22 12:18] LABS: FREE T3 4.2 PG/ML (2.3-4.2)
[2023-06-22 12:19] LABS: THYROID STIMULATING HORMONE 2.487 uIU/ML (0.55-4.78)
[2023-06-22 12:22] LABS: FREE T4 1.03 NG/DL (0.89-1.76)
== END ==
LOC: M LAB 10:00
PROVIDERS: ATTEND Family Medicine
DX: E03.9 Hypothyroidism, unspecified (principal); M19.90 Unspecified osteoarthritis, unspecified site

== ENCOUNTER 2023-07-31 04:40 | Emergency (ER) | payer MEDICARE ==
[~2023-07-31] VITALS: Ht 182.9 cm; Wt 101.3 kg
[2023-07-31] MEDS: ASPIRIN 81MG CHEW TABLET PO ONE (05:17)
[2023-07-31 05:29] LABS: BASO % 0.5 % (0.0-1.0); EOS # 0.3 10^3/uL (0.0-0.5); EOS % 3.9 % (0.0-3.0); HEMATOCRIT 45.4 % (42.0-52.0); LYMPH # 1.9 10^3/uL (1.5-5.0); LYMPH % 28.7 % (24.0-44.0); MEAN CORPUSCULAR HEMOGLOBIN 32.9 pg (27.0-33.0); MEAN CORPUSCULAR HGB CONC 35.2 g/dl (32.0-36.5); MEAN CORPUSCULAR VOLUME 93.4 fl (80.0-96.0); MONO # 0.8 10^3/uL (0.0-0.8); MONO % 11.5 % (2.0-8.0); NEUTROPHILS # 3.6 10^3/uL (1.5-8.5); NEUTROPHILS % 54.8 % (36.0-66.0); PLATELET COUNT, AUTOMATED 196 10^3/uL (150-450); RED BLOOD COUNT 4.86 10^6/uL (4.30-6.10); WHITE BLOOD COUNT 6.6 10^3/uL (4.0-10.0)
[2023-07-31 05:55] LABS: BLOOD UREA NITROGEN 22 MG/DL (9-23); CALCIUM LEVEL 8.5 MG/DL (8.3-10.6); CARBON DIOXIDE LEVEL 26 MMOL/L (20-31); CHLORIDE LEVEL 111 MMOL/L (98-107); CREATININE FOR GFR 1.21 MG/DL (0.70-1.30); GLOMERULAR FILTRATION RATE > 60.0 (>42); GLUCOSE, FASTING 110 MG/DL (74-106); POTASSIUM SERUM 3.9 MMOL/L (3.5-5.1); SODIUM LEVEL 144 MMOL/L (136-145)
[2023-07-31 06:06] LABS: CPK CREATINE PHOSPHOKINASE 175 U/L (46-171); MB/CK RELATIVE INDEX 0.57 (< OR =4)
[2023-07-31] MEDS ORDERED: ISOVUE-370 76% 100ML VIAL As Ordered ONE (06:11)
[2023-07-31 07:24] LABS: CK-MB VALUE MASS < 1.0 NG/ML (<3.6)
[2023-07-31 07:26] LABS: CPK CREATINE PHOSPHOKINASE 158 U/L (46-171); MB/CK RELATIVE INDEX 0.63 (< OR =4)
[2023-07-31 08:07] LABS: LIPASE 46 U/L (12-53)
[2023-07-31 08:09] LABS: ALBUMIN 3.7 G/DL (3.2-5.2); ALKALINE PHOSPHATASE 98 U/L (46-116); ALT/SGPT 58 U/L (7.0-40); AST/SGOT 32 U/L (<34); BILIRUBIN,DIRECT 0.3 MG/DL (<0.4); BILIRUBIN,TOTAL 0.8 MG/DL (0.3-1.2); TOTAL PROTEIN 6.5 G/DL (5.7-8.2)
[2023-07-31 08:37] VITALS: BP 142/74; TEMP 97; O2SAT 98
== END 2023-07-31 08:30 | disposition home or self-care (01) ==
LOC: M ED 04:40
DX: R07.9 Chest pain, unspecified (principal); K80.80 Other cholelithiasis without obstruction; I25.2 Old myocardial infarction; I25.42 Coronary artery dissection; I10 Essential (primary) hypertension; E78.5 Hyperlipidemia, unspecified; Z88.8 Allergy status to other drugs, medicaments and biological substances; Z88.1 Allergy status to other antibiotic agents; Z79.899 Other long term (current) drug therapy; Z79.1 Long term (current) use of non-steroidal anti-inflammatories (NSAID)
CPT/HCPCS: 36415; 71045; 71275; 80048; 80076; 82550; 82553; 83690; 83880; 84484; 85025; 87486; 87581; 87633; 87798; 93005; 93041; 94760; 99284; Q9967

== ENCOUNTER → 2023-08-16 | Outpatient (CLI) | payer MEDICARE ==
[2023-08-16 11:40] LABS: HEMATOCRIT 48.5 % (42.0-52.0); HEMOGLOBIN 17.1 g/dl (13.5-17.5); MEAN CORPUSCULAR HEMOGLOBIN 32.2 pg (27.0-33.0); MEAN CORPUSCULAR HGB CONC 35.3 g/dl (32.0-36.5); MEAN CORPUSCULAR VOLUME 91.3 fl (80.0-96.0); PLATELET COUNT, AUTOMATED 210 10^3/uL (150-450); RED BLOOD COUNT 5.31 10^6/uL (4.30-6.10); WHITE BLOOD COUNT 8.2 10^3/uL (4.0-10.0)
[2023-08-16 11:54] LABS: INR 1.04; PROTHROMBIN TIME 13.3 SECONDS (12.5-14.5)
[2023-08-16 12:08] LABS: ALBUMIN 4.2 G/DL (3.2-5.2); ALKALINE PHOSPHATASE 98 U/L (46-116); ALT/SGPT 47 U/L (7.0-40); AST/SGOT 24 U/L (<34); BILIRUBIN,TOTAL 1.5 MG/DL (0.3-1.2); BLOOD UREA NITROGEN 18 MG/DL (9-23); CALCIUM LEVEL 9.4 MG/DL (8.3-10.6); CARBON DIOXIDE LEVEL 29 MMOL/L (20-31); CHLORIDE LEVEL 110 MMOL/L (98-107); CHOLESTEROL LEVEL 120 MG/DL (<200); CHOLESTEROL RISK RATIO 3.21 (<5); CREATININE FOR GFR 1.26 MG/DL (0.70-1.30); GLOMERULAR FILTRATION RATE > 60.0 (>42); GLUCOSE, FASTING 97 MG/DL (74-106); HDL CHOLESTEROL 37.3 MG/DL (>40); LDL CHOLESTEROL 64.1 MG/DL (<100); NON-HDL-C 82.7 MG/DL; POTASSIUM SERUM 4.5 MMOL/L (3.5-5.1); SODIUM LEVEL 143 MMOL/L (136-145); TOTAL PROTEIN 7.3 G/DL (5.7-8.2); TRIGLYCERIDES LEVEL 93 MG/DL (<150)
[2023-08-16 12:10] LABS: TESTOSTERONE 433 NG/DL (241-827); THYROID STIMULATING HORMONE 2.159 uIU/ML (0.55-4.78)
[2023-08-16 12:15] LABS: HEMOGLOBIN A1c 5.2 % (4.0-6.0)
== END ==
LOC: M RAD 10:33
PROVIDERS: ATTEND Family Medicine
DX: Z01.818 Encounter for other preprocedural examination (principal); I10 Essential (primary) hypertension; J44.9 Chronic obstructive pulmonary disease, unspecified; Z79.899 Other long term (current) drug therapy; C61 Malignant neoplasm of prostate; Z79.01 Long term (current) use of anticoagulants

== ENCOUNTER → 2023-10-18 | Outpatient (CLI) | payer MEDICARE ==
[2023-10-18 11:37] LABS: HEMATOCRIT 44.6 % (42.0-52.0); HEMOGLOBIN 15.2 g/dl (13.5-17.5); MEAN CORPUSCULAR HEMOGLOBIN 31.7 pg (27.0-33.0); MEAN CORPUSCULAR HGB CONC 34.1 g/dl (32.0-36.5); MEAN CORPUSCULAR VOLUME 93.1 fl (80.0-96.0); PLATELET COUNT, AUTOMATED 304 10^3/uL (150-450); RED BLOOD COUNT 4.79 10^6/uL (4.30-6.10); WHITE BLOOD COUNT 7.6 10^3/uL (4.0-10.0)
[2023-10-18 15:39] LABS: ERYTHROCYTE SEDIMENTATION RATE 24 mm/hr (0-20)
== END ==
LOC: M LAB 10:53
PROVIDERS: ATTEND Family Medicine
DX: D64.9 Anemia, unspecified (principal); L03.119 Cellulitis of unspecified part of limb

== ENCOUNTER → 2023-11-11 | Outpatient (CLI) | payer MEDICARE ==
[2023-11-11 12:35] LABS: APPEARANCE, URINE CLEAR (CLEAR); BACTERIA, URINE AUTO NEGATIVE (NEGATIVE); BILIRUBIN, URINE AUTO NEGATIVE (NEGATIVE); BLOOD, URINE BLOOD NEGATIVE (NEGATIVE); COLOR, URINE STRAW (YELLOW); GLUCOSE, URINE (UA) AUTO NEGATIVE (NEGATIVE); KETONE, URINE AUTO NEGATIVE (NEGATIVE); LEUKOCYTE ESTERASE, URINE AUTO NEGATIVE (NEGATIVE); NITRITE, URINE AUTO NEGATIVE (NEGATIVE); PROTEIN, URINE AUTO NEGATIVE (NEGATIVE); RBC, URINE AUTO 0 /HPF (0-3); SPECIFIC GRAVITY URINE AUTO 1.004 (1.002-1.035); SQUAMOUS EPITHELIAL CELL UR AU 0 /HPF (0-6); UROBILINOGEN, URINE AUTO 0.2 mg/dL (0.0-2.0); WBC, URINE AUTO 0 /HPF (0-3)
== END ==
LOC: M LAB 11:04
PROVIDERS: ATTEND Urology
DX: C61 Malignant neoplasm of prostate (principal); R31.29 Other microscopic hematuria

== ENCOUNTER → 2023-11-14 | Outpatient (CLI) | payer MEDICARE ==
[2023-11-14 07:16] LABS: HEMATOCRIT 44.4 % (42.0-52.0); HEMOGLOBIN 15.3 g/dl (13.5-17.5); MEAN CORPUSCULAR HEMOGLOBIN 31.7 pg (27.0-33.0); MEAN CORPUSCULAR HGB CONC 34.5 g/dl (32.0-36.5); MEAN CORPUSCULAR VOLUME 91.9 fl (80.0-96.0); PLATELET COUNT, AUTOMATED 216 10^3/uL (150-450); RED BLOOD COUNT 4.83 10^6/uL (4.30-6.10); WHITE BLOOD COUNT 6.4 10^3/uL (4.0-10.0)
[2023-11-14 07:26] LABS: ERYTHROCYTE SEDIMENTATION RATE 13 mm/hr (0-20)
[2023-11-14 07:50] LABS: ALBUMIN 3.7 G/DL (3.2-5.2); ALKALINE PHOSPHATASE 107 U/L (46-116); ALT/SGPT 43 U/L (7.0-40); AST/SGOT 22 U/L (<34); BILIRUBIN,TOTAL 0.5 MG/DL (0.3-1.2); BLOOD UREA NITROGEN 19 MG/DL (9-23); CALCIUM LEVEL 8.9 MG/DL (8.3-10.6); CARBON DIOXIDE LEVEL 26 MMOL/L (20-31); CHLORIDE LEVEL 112 MMOL/L (98-107); CHOLESTEROL LEVEL 123 MG/DL (<200); CREATININE FOR GFR 1.18 MG/DL (0.70-1.30); GLOMERULAR FILTRATION RATE > 60.0 (>42); GLUCOSE, FASTING 114 MG/DL (74-106); HDL CHOLESTEROL 34.1 MG/DL (>40); LDL CHOLESTEROL 52.3 MG/DL (<100); NON-HDL-C 88.9 MG/DL; POTASSIUM SERUM 3.8 MMOL/L (3.5-5.1); PROSTATIC SPECIFIC AG MONITOR 0.04 NG/ML (< 4.00); SODIUM LEVEL 144 MMOL/L (136-145); TOTAL PROTEIN 6.7 G/DL (5.7-8.2); TRIGLYCERIDES LEVEL 183 MG/DL (<150)
[2023-11-14 07:54] LABS: TESTOSTERONE 380 NG/DL (241-827); THYROID STIMULATING HORMONE 3.163 uIU/ML (0.55-4.78); TOTAL 25(OH) VITAMIN D 28.8 NG/ML (20.0-100.0)
[2023-11-14 07:57] LABS: HEMOGLOBIN A1c 5.1 % (4.0-6.0)
== END ==
LOC: M LAB 06:53
PROVIDERS: ATTEND Family Medicine
DX: I10 Essential (primary) hypertension (principal); R97.20 Elevated prostate specific antigen [PSA]

== ENCOUNTER → 2023-12-07 | Outpatient (CLI) | payer MEDICARE | LOC: M EKG 11:34 | PROVIDERS: ATTEND Internal Medicine Cardiovascular Disease | DX: R00.2 Palpitations (principal) ==

== ENCOUNTER → 2023-12-12 | Outpatient (CLI) | payer MEDICARE | LOC: M PLAIMG 13:22 | PROVIDERS: ATTEND Family Medicine | DX: S09.90XA Unspecified injury of head, initial encounter (principal); X58.XXXA Exposure to other specified factors, initial encounter; Y92.9 Unspecified place or not applicable ==

== ENCOUNTER → 2024-01-16 | Outpatient (CLI) | payer MEDICARE | LOC: M PAIN 08:00 | PROVIDERS: ATTEND Nurse Practitioner Family | DX: M25.552 Pain in left hip (principal); M70.62 Trochanteric bursitis, left hip; M46.1 Sacroiliitis, not elsewhere classified; I25.2 Old myocardial infarction; Z85.46 Personal history of malignant neoplasm of prostate; Z79.02 Long term (current) use of antithrombotics/antiplatelets; Z79.899 Other long term (current) drug therapy; Z88.1 Allergy status to other antibiotic agents; Z88.8 Allergy status to other drugs, medicaments and biological substances; Z96.641 Presence of right artificial hip joint ==

== ENCOUNTER → 2024-01-17 | Outpatient (CLI) | payer MEDICARE ==
[2024-01-17 11:16] LABS: HEMATOCRIT 46.4 % (42.0-52.0); HEMOGLOBIN 16.1 g/dl (13.5-17.5); MEAN CORPUSCULAR HEMOGLOBIN 31.4 pg (27.0-33.0); MEAN CORPUSCULAR HGB CONC 34.7 g/dl (32.0-36.5); MEAN CORPUSCULAR VOLUME 90.4 fl (80.0-96.0); PLATELET COUNT, AUTOMATED 188 10^3/uL (150-450); RED BLOOD COUNT 5.13 10^6/uL (4.30-6.10); WHITE BLOOD COUNT 6.3 10^3/uL (4.0-10.0)
[2024-01-17 11:42] LABS: HEMOGLOBIN A1c 5.4 % (4.0-6.0)
[2024-01-17 11:54] LABS: ALKALINE PHOSPHATASE 96 U/L (46-116); ALT/SGPT 48 U/L (7.0-40); AST/SGOT 22 U/L (<34); BILIRUBIN,TOTAL 0.7 MG/DL (0.3-1.2); BLOOD UREA NITROGEN 15 MG/DL (9-23); CARBON DIOXIDE LEVEL 27 MMOL/L (20-31); CHLORIDE LEVEL 109 MMOL/L (98-107); CHOLESTEROL LEVEL 121 MG/DL (<200); CHOLESTEROL RISK RATIO 3.37 (<5); CREATININE FOR GFR 1.11 MG/DL (0.70-1.30); GLOMERULAR FILTRATION RATE > 60.0 (>42); GLUCOSE, FASTING 102 MG/DL (74-106); HDL CHOLESTEROL 35.8 MG/DL (>40); LDL CHOLESTEROL 58.6 MG/DL (<100); NON-HDL-C 85.2 MG/DL; POTASSIUM SERUM 4.2 MMOL/L (3.5-5.1); SODIUM LEVEL 143 MMOL/L (136-145); TOTAL PROTEIN 6.7 G/DL (5.7-8.2); TRIGLYCERIDES LEVEL 133 MG/DL (<150)
[2024-01-17 11:55] LABS: THYROID STIMULATING HORMONE 1.685 uIU/ML (0.55-4.78); TOTAL 25(OH) VITAMIN D 57.1 NG/ML (20.0-100.0)
== END ==
LOC: M LAB 09:52
PROVIDERS: ATTEND Family Medicine
DX: D64.9 Anemia, unspecified (principal); R53.83 Other fatigue; E03.9 Hypothyroidism, unspecified; Z79.899 Other long term (current) drug therapy

== ENCOUNTER → 2024-02-06 | Outpatient (CLI) | payer MEDICARE | LOC: M RAD 10:28 | PROVIDERS: ATTEND Nurse Practitioner Family | DX: M25.552 Pain in left hip (principal); M70.62 Trochanteric bursitis, left hip; M46.1 Sacroiliitis, not elsewhere classified ==

== ENCOUNTER → 2024-02-13 | Outpatient (CLI) | payer MEDICARE | LOC: M PAIN 14:30 | PROVIDERS: ATTEND Nurse Practitioner Family | DX: M25.552 Pain in left hip (principal); M70.62 Trochanteric bursitis, left hip; M46.1 Sacroiliitis, not elsewhere classified; Z96.642 Presence of left artificial hip joint; I25.2 Old myocardial infarction; Z79.82 Long term (current) use of aspirin; Z79.02 Long term (current) use of antithrombotics/antiplatelets; Z79.899 Other long term (current) drug therapy; Z88.1 Allergy status to other antibiotic agents; Z88.8 Allergy status to other drugs, medicaments and biological substances ==

== ENCOUNTER → 2024-02-17 | Outpatient (CLI) | payer MEDICARE ==
[~2024-02-17] MED LIST changes: +LIDOCAINE 1% MDV 20ML VIAL As Ordered ONE
[2024-02-17 12:25] VITALS: TEMP 98.9
[2024-02-17 12:50] VITALS: BP 150/88; O2SAT 98
[2024-02-17 13:30] LABS: CRYSTALS, BODY FLUID NONE SEEN (NONE SEEN); SOURCE, BODY FLUID CRYSTALS LEFT HIP
[2024-02-17 13:47] LABS: SOURCE, BODY FLUID LT HIP; SYNOVIAL FLUID COLOR RED (COLORLESS)
[2024-02-17 14:10] LABS: SOURCE, BODY FLUID GLUCOSE HIP LEFT
[2024-02-17 14:28] LABS: SOURCE, BODY FLUID URIC ACID OTHER
== END ==
LOC: M IRPRO 11:36
PROVIDERS: ATTEND Nurse Practitioner Family
DX: M25.552 Pain in left hip (principal)

== ENCOUNTER → 2024-02-23 | Outpatient (CLI) | payer MEDICARE ==
[~2024-02-23] MED LIST changes: -LIDOCAINE 1% MDV 20ML VIAL As Ordered ONE
== END ==
LOC: M CARPUL 10:37
PROVIDERS: ATTEND Internal Medicine Cardiovascular Disease
DX: I77.810 Thoracic aortic ectasia (principal); I35.1 Nonrheumatic aortic (valve) insufficiency

== ENCOUNTER → 2024-03-15 | Outpatient (CLI) | payer MEDICARE | LOC: M RAD 10:47 | PROVIDERS: ATTEND Family Medicine | DX: J44.9 Chronic obstructive pulmonary disease, unspecified (principal) ==

== ENCOUNTER → 2024-03-29 | Outpatient (CLI) | payer MEDICARE | LOC: M PAIN 14:30 | PROVIDERS: ATTEND Nurse Practitioner Family | DX: M25.552 Pain in left hip (principal); Z79.891 Long term (current) use of opiate analgesic; I25.2 Old myocardial infarction; Z85.46 Personal history of malignant neoplasm of prostate; Z79.02 Long term (current) use of antithrombotics/antiplatelets; Z79.899 Other long term (current) drug therapy; Z88.1 Allergy status to other antibiotic agents; Z88.8 Allergy status to other drugs, medicaments and biological substances ==

== ENCOUNTER → 2024-03-30 | Outpatient (CLI) | payer MEDICARE | LOC: M RAD 11:35 | PROVIDERS: ATTEND Family Medicine | DX: M54.30 Sciatica, unspecified side (principal); M85.88 Other specified disorders of bone density and structure, other site; M51.369 Other intervertebral disc degeneration, lumbar region without mention of lumbar back pain or lower extremity pain; Z96.643 Presence of artificial hip joint, bilateral ==

== ENCOUNTER → 2024-04-03 | Outpatient (CLI) | payer MEDICARE ==
[2024-04-03 07:59] LABS: HEMATOCRIT 44.6 % (42.0-52.0); HEMOGLOBIN 15.6 g/dl (13.5-17.5); MEAN CORPUSCULAR HEMOGLOBIN 32.6 pg (27.0-33.0); MEAN CORPUSCULAR VOLUME 93.3 fl (80.0-96.0); PLATELET COUNT, AUTOMATED 165 10^3/uL (150-450); RED BLOOD COUNT 4.78 10^6/uL (4.30-6.10); WHITE BLOOD COUNT 5.6 10^3/uL (4.0-10.0)
[2024-04-03 08:13] LABS: ERYTHROCYTE SEDIMENTATION RATE 11 mm/hr (0-20)
[2024-04-03 08:24] LABS: ALBUMIN 3.9 G/DL (3.2-5.2); ALKALINE PHOSPHATASE 87 U/L (46-116); ALT/SGPT 44 U/L (7.0-40); AST/SGOT 21 U/L (<34); BLOOD UREA NITROGEN 21 MG/DL (9-23); CALCIUM LEVEL 9.1 MG/DL (8.3-10.6); CARBON DIOXIDE LEVEL 27 MMOL/L (20-31); CHLORIDE LEVEL 110 MMOL/L (98-107); CHOLESTEROL LEVEL 123 MG/DL (<200); CHOLESTEROL RISK RATIO 3.25 (<5); CREATININE FOR GFR 1.09 MG/DL (0.70-1.30); GLOMERULAR FILTRATION RATE > 60.0 (>42); GLUCOSE, FASTING 110 MG/DL (74-106); HDL CHOLESTEROL 37.8 MG/DL (>40); LDL CHOLESTEROL 62.6 MG/DL (<100); NON-HDL-C 85.2 MG/DL; POTASSIUM SERUM 3.8 MMOL/L (3.5-5.1); PROSTATIC SPECIFIC AG MONITOR 0.04 NG/ML (< 4.00); SODIUM LEVEL 141 MMOL/L (136-145); TOTAL PROTEIN 6.8 G/DL (5.7-8.2); TRIGLYCERIDES LEVEL 113 MG/DL (<150)
[2024-04-03 08:25] LABS: THYROID STIMULATING HORMONE 3.148 uIU/ML (0.55-4.78); TOTAL T3 154.8 NG/DL (60.0-181.0)
[2024-04-03 08:26] LABS: TESTOSTERONE 289 NG/DL (241-827)
== END ==
LOC: M LAB 07:09
PROVIDERS: ATTEND Family Medicine
DX: D64.9 Anemia, unspecified (principal); R53.83 Other fatigue; E03.9 Hypothyroidism, unspecified; Z79.899 Other long term (current) drug therapy

== ENCOUNTER → 2024-05-04 | Outpatient (CLI) | payer MEDICARE | LOC: M PAIN 11:15 | PROVIDERS: ATTEND Nurse Practitioner Family | DX: M25.552 Pain in left hip (principal); I25.2 Old myocardial infarction; Z85.46 Personal history of malignant neoplasm of prostate; Z79.82 Long term (current) use of aspirin; Z79.891 Long term (current) use of opiate analgesic; Z79.02 Long term (current) use of antithrombotics/antiplatelets; Z79.899 Other long term (current) drug therapy; Z88.1 Allergy status to other antibiotic agents; Z88.8 Allergy status to other drugs, medicaments and biological substances ==

== ENCOUNTER → 2024-05-11 | Outpatient (CLI) | payer MEDICARE ==
[~2024-05-11] MED LIST changes: +GASTROGRAFIN SOLUTION 30ML As Ordered ONE; +ISOVUE-370 76% 100ML VIAL As Ordered ONE
== END ==
LOC: M RAD 12:07
PROVIDERS: ATTEND Family Medicine
DX: R10.2 Pelvic and perineal pain (principal)
CPT/HCPCS: 74177; Q9963; Q9967

== ENCOUNTER → 2024-05-15 | Outpatient (CLI) | payer MEDICARE ==
[~2024-05-15] MED LIST changes: -GASTROGRAFIN SOLUTION 30ML As Ordered ONE; -ISOVUE-370 76% 100ML VIAL As Ordered ONE
== END ==
LOC: M PAIN 16:30
PROVIDERS: ATTEND Nurse Practitioner Family
DX: M51.16 Intervertebral disc disorders with radiculopathy, lumbar region (principal); G89.29 Other chronic pain; I25.2 Old myocardial infarction; Z85.46 Personal history of malignant neoplasm of prostate; Z79.82 Long term (current) use of aspirin; Z79.891 Long term (current) use of opiate analgesic; Z79.899 Other long term (current) drug therapy; Z88.1 Allergy status to other antibiotic agents; Z88.8 Allergy status to other drugs, medicaments and biological substances

== ENCOUNTER → 2024-06-04 | Outpatient (CLI) | payer MEDICARE ==
[~2024-06-04] MED LIST changes: +E-Z-GAS II EFFERVESCENT PACKET (SODIUM BICARB./CITRIC ACID/SIMETHICONE) As Ordered ONE; +E-Z-HD 98% w/w 340GM SUSP BTL As Ordered ONE; +E-Z-PAQUE 96% w/w SUSP 176GM BTL As Ordered ONE
== END ==
LOC: M RAD 07:38
PROVIDERS: ATTEND Family Medicine
DX: R10.13 Epigastric pain (principal); Z96.643 Presence of artificial hip joint, bilateral; K44.9 Diaphragmatic hernia without obstruction or gangrene

== ENCOUNTER → 2024-06-18 | Outpatient (CLI) | payer MEDICARE ==
[~2024-06-18] MED LIST changes: -E-Z-GAS II EFFERVESCENT PACKET (SODIUM BICARB./CITRIC ACID/SIMETHICONE) As Ordered ONE; -E-Z-HD 98% w/w 340GM SUSP BTL As Ordered ONE; -E-Z-PAQUE 96% w/w SUSP 176GM BTL As Ordered ONE
== END ==
LOC: M PLAIMG 14:03
PROVIDERS: ATTEND Nurse Practitioner Family
DX: M51.16 Intervertebral disc disorders with radiculopathy, lumbar region (principal); M51.360 Other intervertebral disc degeneration, lumbar region with discogenic back pain only; M99.63 Osseous and subluxation stenosis of intervertebral foramina of lumbar region

== ENCOUNTER → 2024-07-02 | Outpatient (CLI) | payer MEDICARE | LOC: M PAIN 16:00 | PROVIDERS: ATTEND Nurse Practitioner Family | DX: M51.16 Intervertebral disc disorders with radiculopathy, lumbar region (principal); G89.29 Other chronic pain; I25.2 Old myocardial infarction; Z85.46 Personal history of malignant neoplasm of prostate; Z79.82 Long term (current) use of aspirin; Z79.891 Long term (current) use of opiate analgesic; Z79.02 Long term (current) use of antithrombotics/antiplatelets; Z79.899 Other long term (current) drug therapy; Z88.1 Allergy status to other antibiotic agents; Z88.8 Allergy status to other drugs, medicaments and biological substances ==

== ENCOUNTER → 2024-07-09 | Outpatient (CLI) | payer MEDICARE ==
[2024-07-09 10:53] LABS: HEMATOCRIT 46.8 % (42.0-52.0); HEMOGLOBIN 16.4 g/dl (13.5-17.5); MEAN CORPUSCULAR HEMOGLOBIN 32.3 pg (27.0-33.0); MEAN CORPUSCULAR VOLUME 92.3 fl (80.0-96.0); PLATELET COUNT, AUTOMATED 192 10^3/uL (150-450); RED BLOOD COUNT 5.07 10^6/uL (4.30-6.10); WHITE BLOOD COUNT 6.4 10^3/uL (4.0-10.0)
[2024-07-09 10:59] LABS: HEMOGLOBIN A1c 5.1 % (4.0-6.0)
[2024-07-09 11:00] LABS: ERYTHROCYTE SEDIMENTATION RATE 7 mm/hr (0-20)
[2024-07-09 11:17] LABS: ALBUMIN 4.1 G/DL (3.2-5.2); ALKALINE PHOSPHATASE 87 U/L (40-129); ALT/SGPT 41 U/L (7.0-40); AST/SGOT 24 U/L (<34); BLOOD UREA NITROGEN 13 MG/DL (9-23); CALCIUM LEVEL 9.2 MG/DL (8.3-10.6); CARBON DIOXIDE LEVEL 28 MMOL/L (20-31); CHLORIDE LEVEL 108 MMOL/L (98-107); CHOLESTEROL LEVEL 122 MG/DL (<200); CHOLESTEROL RISK RATIO 3.81 (<5); CREATININE FOR GFR 1.15 MG/DL (0.70-1.30); GLOMERULAR FILTRATION RATE > 60.0 (>42); GLUCOSE, FASTING 110 MG/DL (74-106); LDL CHOLESTEROL 46.4 MG/DL (<100); SODIUM LEVEL 142 MMOL/L (136-145); TOTAL PROTEIN 7.2 G/DL (5.7-8.2); TRIGLYCERIDES LEVEL 218 MG/DL (<150)
[2024-07-09 11:19] LABS: PROSTATIC SPECIFIC AG MONITOR 0.04 NG/ML (< 4.00)
[2024-07-09 11:24] LABS: THYROID STIMULATING HORMONE 2.394 uIU/ML (0.55-4.78); TOTAL 25(OH) VITAMIN D 52.5 NG/ML (20.0-100.0)
[2024-07-09 11:25] LABS: TESTOSTERONE 360 NG/DL (241-827)
== END ==
LOC: M LAB 09:09
PROVIDERS: ATTEND Family Medicine
DX: I10 Essential (primary) hypertension (principal); R53.83 Other fatigue; E03.9 Hypothyroidism, unspecified; Z79.899 Other long term (current) drug therapy

== ENCOUNTER → 2024-08-02 | Outpatient (CLI) | payer MEDICARE ==
[2024-08-02 10:19] LABS: HEMATOCRIT 46.1 % (42.0-52.0); HEMOGLOBIN 16.2 g/dl (13.5-17.5); MEAN CORPUSCULAR HEMOGLOBIN 32.5 pg (27.0-33.0); MEAN CORPUSCULAR HGB CONC 35.1 g/dl (32.0-36.5); MEAN CORPUSCULAR VOLUME 92.4 fl (80.0-96.0); PLATELET COUNT, AUTOMATED 219 10^3/uL (150-450); RED BLOOD COUNT 4.99 10^6/uL (4.30-6.10); WHITE BLOOD COUNT 6.5 10^3/uL (4.0-10.0)
[2024-08-02 10:45] LABS: HEMOGLOBIN A1c 5.2 % (4.0-6.0)
[2024-08-02 10:54] LABS: AMYLASE 79 U/L (30-118)
[2024-08-02 10:56] LABS: ALKALINE PHOSPHATASE 90 U/L (40-129); ALT/SGPT 48 U/L (7.0-40); AST/SGOT 27 U/L (<34); BILIRUBIN,TOTAL 0.9 MG/DL (0.3-1.2); BLOOD UREA NITROGEN 14 MG/DL (9-23); CALCIUM LEVEL 9.3 MG/DL (8.3-10.6); CARBON DIOXIDE LEVEL 27 MMOL/L (20-31); CHLORIDE LEVEL 109 MMOL/L (98-107); CHOLESTEROL LEVEL 120 MG/DL (<200); CHOLESTEROL RISK RATIO 3.32 (<5); CREATININE FOR GFR 1.13 MG/DL (0.70-1.30); GLOMERULAR FILTRATION RATE > 60.0 (>42); GLUCOSE, FASTING 108 MG/DL (74-106); HDL CHOLESTEROL 36.1 MG/DL (>40); LDL CHOLESTEROL 59.5 MG/DL (<100); NON-HDL-C 83.9 MG/DL; POTASSIUM SERUM 4.3 MMOL/L (3.5-5.1); SODIUM LEVEL 144 MMOL/L (136-145); TOTAL PROTEIN 7.2 G/DL (5.7-8.2); TRIGLYCERIDES LEVEL 122 MG/DL (<150)
[2024-08-02 10:59] LABS: THYROID STIMULATING HORMONE 2.039 uIU/ML (0.55-4.78)
== END ==
LOC: M RAD 09:01
PROVIDERS: ATTEND Family Medicine
DX: J44.9 Chronic obstructive pulmonary disease, unspecified (principal); I10 Essential (primary) hypertension; Z79.899 Other long term (current) drug therapy

== ENCOUNTER → 2024-10-17 | Outpatient (CLI) | payer MEDICARE | LOC: M RAD 12:10 | PROVIDERS: ATTEND Family Medicine | DX: R09.89 Other specified symptoms and signs involving the circulatory and respiratory systems (principal) ==

== ENCOUNTER → 2024-11-01 | Outpatient (CLI) | payer MEDICARE ==
[2024-11-01 08:42] LABS: HEMATOCRIT 45.5 % (42.0-52.0); HEMOGLOBIN 16.2 g/dl (13.5-17.5); MEAN CORPUSCULAR HEMOGLOBIN 32.6 pg (27.0-33.0); MEAN CORPUSCULAR HGB CONC 35.6 g/dl (32.0-36.5); MEAN CORPUSCULAR VOLUME 91.5 fl (80.0-96.0); PLATELET COUNT, AUTOMATED 175 10^3/uL (150-450); RED BLOOD COUNT 4.97 10^6/uL (4.30-6.10); WHITE BLOOD COUNT 6.8 10^3/uL (4.0-10.0)
[2024-11-01 08:48] LABS: ERYTHROCYTE SEDIMENTATION RATE 6 mm/hr (0-20)
[2024-11-01 09:14] LABS: BILIRUBIN,TOTAL 1.1 MG/DL (0.3-1.2); CALCIUM LEVEL 9.1 MG/DL (8.3-10.6); CHOLESTEROL RISK RATIO 3.32 (<5); CREATININE FOR GFR 1.25 MG/DL (0.70-1.30); GLOMERULAR FILTRATION RATE 61.6 (>42); HDL CHOLESTEROL 32.8 MG/DL (>40); NON-HDL-C 76.2 MG/DL; POTASSIUM SERUM 3.8 MMOL/L (3.5-5.1); PROSTATIC SPECIFIC AG MONITOR 0.04 NG/ML (< 4.00); THYROID STIMULATING HORMONE 2.162 uIU/ML (0.55-4.78); TOTAL 25(OH) VITAMIN D 39.2 NG/ML (20.0-100.0)
[2024-11-01 09:16] LABS: HEMOGLOBIN A1c 5.2 % (4.0-6.0)
== END ==
LOC: M LAB 08:11
PROVIDERS: ATTEND Family Medicine
DX: I10 Essential (primary) hypertension (principal); R53.83 Other fatigue; E03.9 Hypothyroidism, unspecified; Z79.899 Other long term (current) drug therapy

== ENCOUNTER → 2025-02-08 | Outpatient (CLI) | payer MEDICARE ==
[2025-02-08 14:29] LABS: ALT/SGPT 44.0 U/L (7.0-40); AST/SGOT 29.0 U/L (<34); CALCIUM LEVEL 8.8 MG/DL (8.3-10.6); CARBON DIOXIDE LEVEL 28.0 MMOL/L (20-31); CHLORIDE LEVEL 107.0 MMOL/L (98-107); CREATININE FOR GFR 1.26 MG/DL (0.70-1.30); GLOMERULAR FILTRATION RATE 61.0 (>42); POTASSIUM SERUM 3.9 MMOL/L (3.5-5.1); SODIUM LEVEL 144.0 MMOL/L (136-145)
== END ==
LOC: M PLALAB 09:31
PROVIDERS: ATTEND Student in an Organized Health Care Education/Training Program
DX: E87.0 Hyperosmolality and hypernatremia (principal)

== ENCOUNTER → 2025-03-04 | Outpatient (CLI) | payer MEDICARE ==
[2025-03-04 08:02] LABS: BASO # 0.1 10^3/uL (0.0-0.2); BASO % 0.8 % (0.0-1.0); EOS # 0.4 10^3/uL (0.0-0.5); EOS % 5.5 % (0.0-3.0); LYMPH # 1.8 10^3/uL (1.5-5.0); LYMPH % 27.4 % (24.0-44.0); MONO # 0.8 10^3/uL (0.0-0.8); MONO % 12.1 % (2.0-8.0); NEUTROPHILS # 3.4 10^3/uL (1.5-8.5); NEUTROPHILS % 53.9 % (36.0-66.0); PLATELET COUNT, AUTOMATED 172 10^3/uL (150-450)
[2025-03-04 08:22] LABS: ALT/SGPT 48.0 U/L (7.0-40); AST/SGOT 28.0 U/L (<34); CALCIUM LEVEL 9.2 MG/DL (8.3-10.6); CARBON DIOXIDE LEVEL 30.0 MMOL/L (20-31); CHLORIDE LEVEL 107.0 MMOL/L (98-107); CHOLESTEROL LEVEL 107.0 MG/DL (<200); CHOLESTEROL RISK RATIO 3.03 (<5); CREATININE FOR GFR 1.2 MG/DL (0.70-1.30); FREE T4 1.1 NG/DL (0.89-1.76); GLOMERULAR FILTRATION RATE 64.7 (>42); LDL CHOLESTEROL 41.3 MG/DL (<100); MAGNESIUM LEVEL 2.1 MG/DL (1.8-2.4); NON-HDL-C 71.7 MG/DL; POTASSIUM SERUM 4.0 MMOL/L (3.5-5.1); SODIUM LEVEL 147.0 MMOL/L (136-145); TRIGLYCERIDES LEVEL 152.0 MG/DL (<150)
== END ==
LOC: M LAB 06:13
PROVIDERS: ATTEND Registered Nurse
DX: I25.10 Atherosclerotic heart disease of native coronary artery without angina pectoris (principal); E07.9 Disorder of thyroid, unspecified

== ENCOUNTER 2025-03-10 11:24 | Emergency (ER) | payer MEDICARE ==
[~2025-03-10] VITALS: Ht 175.3 cm; Wt 99.1 kg
[2025-03-10] MEDS ORDERED: HYDR-4571 (11:39)
[2025-03-10] MEDS: MORPHINE 10 MG/ML 1 ML VIAL IM ONE (12:57)
[2025-03-10 14:31] VITALS: BP 172/92; TEMP 97.6; O2SAT 95
[2025-03-10] MEDS ORDERED: HYDR-3713 PO (14:32)
[2025-03-10] MEDS ORDERED: LIDO1ADH93 TOP (14:32)
== END 2025-03-10 14:55 | disposition home or self-care (01) ==
LOC: EDBD 11:24 → M ED 11:24
DX: M54.32 Sciatica, left side (principal); M54.50 Low back pain, unspecified; J45.909 Unspecified asthma, uncomplicated; K21.9 Gastro-esophageal reflux disease without esophagitis; F32.9 Major depressive disorder, single episode, unspecified; Z88.1 Allergy status to other antibiotic agents; Z88.8 Allergy status to other drugs, medicaments and biological substances; Z79.1 Long term (current) use of non-steroidal anti-inflammatories (NSAID); Z79.82 Long term (current) use of aspirin; Z79.899 Other long term (current) drug therapy

== ENCOUNTER → 2025-03-13 | Outpatient (CLI) | payer MEDICARE ==
[~2025-03-13] MED LIST changes: +HYDR-3713 PO; +HYDR-4571; +LIDO1ADH93 TOP
[2025-03-13 12:52] LABS: APPEARANCE, URINE CLEAR (CLEAR); BACTERIA, URINE AUTO NEGATIVE (NEGATIVE); BILIRUBIN, URINE AUTO NEGATIVE (NEGATIVE); BLOOD, URINE BLOOD 1+ (NEGATIVE); GLUCOSE, URINE (UA) AUTO NEGATIVE (NEGATIVE); KETONE, URINE AUTO NEGATIVE (NEGATIVE); LEUKOCYTE ESTERASE, URINE AUTO NEGATIVE (NEGATIVE); MUCUS, URINE SMALL (NEGATIVE); NITRITE, URINE AUTO NEGATIVE (NEGATIVE); PROTEIN, URINE AUTO 1+ mg/dL (NEGATIVE); RBC, URINE AUTO 2 /HPF (0-3); SPECIFIC GRAVITY URINE AUTO 1.025 (1.002-1.035); SQUAMOUS EPITHELIAL CELL UR AU 0 /HPF (0-6); UROBILINOGEN, URINE AUTO 0.2 mg/dL (0.0-2.0); WBC, URINE AUTO 0 /HPF (0-3)
== END ==
LOC: M LAB 11:03
PROVIDERS: ATTEND Urology
DX: R31.29 Other microscopic hematuria (principal)

== ENCOUNTER → 2025-03-22 | Outpatient (REF) | payer MEDICARE ==
[2025-03-24 02:42] LABS: HCV RNA QUANTITATION <15 NOT DETECTED IU/mL (NOT DETECTED); HCV RNA log10 <1.18 NOT DETECTED Log IU/mL (NOT DETECTED)
== END ==
LOC: M SFHCPLAZ 12:59
PROVIDERS: ATTEND Student in an Organized Health Care Education/Training Program
DX: R10.11 Right upper quadrant pain (principal)

== ENCOUNTER → 2025-04-15 | Outpatient (CLI) | payer MEDICARE | LOC: M RAD 08:22 | PROVIDERS: ATTEND Student in an Organized Health Care Education/Training Program | DX: R10.11 Right upper quadrant pain (principal); N28.1 Cyst of kidney, acquired; K80.20 Calculus of gallbladder without cholecystitis without obstruction; K76.89 Other specified diseases of liver ==

== ENCOUNTER → 2025-04-19 | Outpatient (REF) | payer MEDICARE | LOC: M SFHCPLAZ 13:01 | PROVIDERS: ATTEND Student in an Organized Health Care Education/Training Program | DX: J06.9 Acute upper respiratory infection, unspecified (principal) ==